=== PATIENT | male | born 1955 | race Caucasian/White ===

== ENCOUNTER 2020-04-14 15:15 | Inpatient (IN) | payer MEDICARE, BC, OTHER ==
[~2020-04-14] VITALS: Ht 177.8 cm; Wt 93.0 kg
[~2020-04-14 15:15] MED LIST: CULTURELLE1 EACH PO; FOLIC ACID1 MG PO; IRON PO; KRILL OIL 1,001 EACH; LISINOPRIL10 MG PO; METHOTREXATE2.5 MG PO; METHYLPREDNISOLO4 MG PO; MULTI-DAY VITA1 EACH; NABUMETONE750 MG PO; NORCO 10-325 T1 EACH PO; VITAMIN C1000 M1; VITAMIN D-32000 UNIT PO; VITAMIN E400 UNI2 PO
--- NOTE | 2020-04-14 15:28 | NUR ---
ORDERS PLACED PER VERBAL ORDER OF MD. BEST TWICE.
[2020-04-14] MEDS ORDERED: ACETAMINOPHEN 325 MG TAB PO ONE (15:30)
--- NOTE | 2020-04-14 15:35 | Emergency Department Note ---
History of Present Illnes History of Present Illness Chief Complaint: General Medicine Complaints History of Present Illness This is a 64 year old male Chief Complaint Comment RT ARM INJURY S/P FALL TUESDAY IN THE WATER WHILE FISHING. PT STATES FELL ONTO CONCRETE IN WATER. PT WITH ABRASION/WEEPING ULCERATION WOUND TO RT FOREARM AND RED, HOT AND SWOLLEN. +RADIAL PULSE. PT SOMEWHAT ABRUPT IN TRIAGE. +FEVER 102.5. PT STATES TETNAUS SHOT LAST YEAR. 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 Any updates have been documented here. Past Medical History Recent Fever: Yes Clinical Suspicion of Infectio: Yes New/Unexplained Change in Ment: No Past Medical History: Chronic Back Pain, Osteoarthritis Other Medical History: ARTHRITIS Past Surgical History: Back Surgery Other Surgery: R KNEE REPLACEMENT Other Last Tetanus: UNK Review of Systems Review of Systems Constitutional: Reports no symptoms EENTM: Reports no symptoms Cardiovascular: Reports no symptoms Respiratory: Reports no symptoms Gastrointestinal: Reports no symptoms Genitourinary: Reports no symptoms Musculoskeletal: Reports other (R elbow pain) Integumentary: Reports no symptoms Neurological: Reports no symptoms Psychological: Reports no symptoms Endocrine: Reports no symptoms Hematological/Lymphatic: Reports no symptoms Physical Exam Related Data Allergies: Coded Allergies: No Known Allergies (Unverified , 01/30/16) Triage Vital Signs Vital Signs Date Time Temp Pulse Resp B/P (MAP) Pulse Ox O2 Delivery O2 Flow Rate FiO2 04/14/20 15:20 102.5 98 22 120/77 100 Room Air Vital signs reviewed: Yes Physical Exam CONSTITUTIONAL Constitutional: Present well-developed, Present well-nourished HENT HENT: Present normocephalic, Present atraumatic, Present oropharynx clear/moist, Present nose normal HENT L/R: Present left ext ear normal, Present right ext ear normal EYES Eyes: Reports PERRL, Reports conjunctivae normal NECK Neck: Present ROM normal PULMONARY Pulmonary: Present effort normal, Present breath sounds normal CARDIOVASCULAR Cardiovascular: Present regular rhythm, Present heart sounds normal, Present capillary refill normal, Present normal rate GASTROINTESTINAL Abdominal: Present soft, Present nontender, Present bowel sounds normal GENITOURINARY Genitourinary: Present exam deferred SKIN Skin: Present warm, Present dry MUSCULOSKELETAL Musculoskeletal: Present ROM normal NEUROLOGICAL Neurological: Present alert, Present oriented x 3, Present no gross motor or sensory deficits PSYCHOLOGICAL Psychological: Present mood/affect normal, Present judgement normal Assessment & Plan Medical Decision Making MDM 64-year-old male presents for right elbow wound and erythema. He fell 3 days ago while fishing and sustained an injury to his right elbow. He has been able to use it but the pain has been worsening and he has noted some redness and irritation. He is not taking anything at home. Examination shows erythema to the right elbow with skin tears. He is up-to-date on tetanus. He'll require septic workup and broad-spectrum antibiotics were initiated. Sepsis suspected at time of antibiotic order. Lactic acid was repeated if initial >2 30cc/kg crystalloid bolus was not indicated. Given 1L NS Vasopressors were not indicated Patient will require admission for Sepsis 2/2 cellulitis. Discuss[address] patient with Dr[address] Che who have agreed to accept. Patient is appropriate for transfer to floor. Reassessment Reassessment time: 15:34 Reassessment Mild pain, otherwise NAD Assessment & Plan Final Impression: (1) Cellulitis (2) Sepsis Depart Disposition: ADMITTED Last Vital Signs Date Time Temp Pulse Resp B/P (MAP) Pulse Ox O2 Delivery O2 Flow Rate FiO2 04/14/20 15:20 102.5 98 22 120/77 100 Room Air Home Meds Reported Medications Lactobacillus Rhamnosus Gg (CULTURELLE) 1 Each Capsule, 1 TAB PO DAILY 10/19/16 Vitamin E (VITAMIN E) 400 Unit Capsule, 400 INTLU PO DAILY 10/19/16 [Iron] No Conflict Check, 65 MG PO DAILY 10/19/16 Folic Acid (FOLIC ACID) 1 Mg Tablet, 800 MCG PO DAILY, #30 TAB 02/01/16 Lisinopril (LISINOPRIL) 10 Mg Tablet, 10 MG PO DAILY, #30 TAB 02/01/16 Cholecalciferol (Vitamin D3) (VITAMIN D-3) 2,000 Unit Capsule, 1000 MG PO DAILY 02/01/16 Multivitamin (MULTI-DAY VITAMINS) 1 Each Tablet 02/01/16 Ascorbic Acid (VITAMIN C) 1,000 Mg Tab.chew 02/01/16 Krill/Om3/Dha/Epa/Om6/Lip/Astx (KRILL OIL 1,000 MG SOFTGEL) 1 Each Capsule 02/01/16 Medications in the ED Acetaminophen 975 mg ONCE ONCE PO ; Start 04/14/20 at 15:30; Stop 04/14/20 at 15:31 GEOVANI DOSS MD Apr 14, 2020 15:35
[2020-04-14] MEDS ORDERED: PIPERACILLIN/TAZO 4.5 GM 100 ML IV ONE (15:45)
[2020-04-14] MEDS ORDERED: SODIUM CHLORIDE 0.9% 1000ML 1,000 ML IV SCH ×3 (15:45→16:59)
[2020-04-14 15:56] LABS: BASOPHILS # (AUTO) 0.1 (0.0-0.1); BASOPHILS % 0.3 % (0.0-1.0); HEMATOCRIT 37.3 % (38.2-49.6); HEMOGLOBIN 12.3 g/dL (14.0-18.0); LYMPHOCYTES # (AUTO) 1.5 (1.0-3.2); LYMPHOCYTES % 9.1 % (18.0-39.1); MEAN CORPUSCULAR HEMOGLOBIN 35.8 pg (28-32); MEAN CORPUSCULAR VOLUME 108.4 fL (81-99); MONOCYTES # (AUTO) 0.8 (0.2-0.8); MONOCYTES % 4.4 % (4.4-11.3); NEUTROPHILS # (AUTO) 14.1 (2.1-6.9); NEUTROPHILS % 83.2 % (38.7-80.0); PLATELET COUNT 287 x10e3/uL (140-360); RED BLOOD COUNT 3.44 x10e6/uL (4.3-5.7); RED CELL DISTRIBUTION WIDTH 15.8 % (11.7-14.4)
--- OUTSIDE RECORDS SUMMARY | 2020-04-14 16:05 | XMS REPORT ---
Author Author COURTNEY Goldberg Organization [employer] Address Unknown Phone Unavailable Care Team Providers Care Secretary Specialist Name Role Phone New Goldberg CP Unavailable Allergies No Known Allergies Problems Problem Type Condition Code Onset Dates Condition Statu s Problem Olecranon bursitis, right elbow M70.21 Active Problem Abnormal laboratory test R89.9 Act malorie Problem Screening for osteoporosis Z13.820 A ctive Problem Other [facility]current[facility] drug therapy Z79.899 Active Problem Rheumatoid arthritis without rheumatoid factor, multip le sites M06.09 Active Problem Chronic pain G89.29 Active Problem Hip pain, left M25.552 Active Problem Primary osteoarthritis involving multiple joints M15.0 Active Problem Low testosterone in male E29.1 Act malorie Problem Lumbago with sciatica, left side M54.42 Active Problem [facility] 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 Z79.891 Active Problem Neck pain M54.2 Active Medications No Known Medications Results No Known Results Summary Purpose [employer] Submission
--- OUTSIDE RECORDS SUMMARY | 2020-04-14 16:05 | XMS REPORT | Continuity of Care Document ---
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 Active Problem Baldemar Goldberg Rheumatoid arthritis without rheumatoid factor, multiple sites Active Prob jaimee 02/02/2020 Baldemar Goldberg Chronic pain Active Problem 02/02/2020 Baldemar Goldberg Hip pain, left Active Problem 02/02/2020 Baldemar Cheeker Primary osteoarthritis involving multiple joints Active Problem 02/02/2020 Baldemar Cheeker Low testosterone in male Active Problem 02/02/2020 Baldemar Goldberg Lumbago with sciatica, left side Active Problem Baldemar Goldberg 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 Active Problem 02/02/2020 Baldemar Goldberg Neck pain Active Problem 02/02/2020 Baldemar Goldberg Opiate use Active Diagnosis 05/12/2018 Baldemar Goldberg Long-term (current) use of other medicat ions - High Risk Active Prob jaimee 01/11/2015 Baldemar Cheeker Osteopenia Active Problem 01/11/2015 Baldemar Cheeker Rheumatoid arthritis Active Problem 01/11/2015 Baldemar Goldberg Pain, back Active Problem 01/11/2015 Baldemar Goldberg Tear of medial cartilage or meniscus of knee, current Active Diagnosis 04/18/2014 Baldemar Goldberg Unspecified drug dependence Ac tive Diagnosis 0 09/12/2014 Baldemar Goldberg Encounter for screening for other disorder Active Diagnosis 04/17/2016 Baldemar Goldberg Iron deficiency anemia, unspecified iron deficiency anemia type Active Prob jaimee 02/02/2020 Baldemar Goldberg Other specified counseling Act malorie Problem Baldemar Yusuf Medications Medication Details Route Status Patient Instructions Ordering Provider Order Date Source Folic Acid 1 tablet Orally Active 1 MG Orally Once a day Taylor 06/24/2020 Baldemar Goldberg Medrol 1 tablet Orally Active 4 MG Orally twice a day Taylor 11/14/2019 Baldemar Yusuf Methotrexate 5 tablets Orally Active 2.5 MG Orally Once a we ek Taylor 09/03/2019 Baldemar Goldberg Medrol 2 tablets Orally Active 4 MG Orally TID Taylor 09/03/2019 Baldemar Goldberg Medrol 1 tablet Orally Active 4 MG Orally twice a day Taylor 04/25/2019 Baldemar Goldberg Tylenol/codeine #4 #30 one tab let orally Active 300-60 mg orally twice a day [place] 02/09/2019 Baldemar Goldberg Medrol 1 tablet Orally Active 4 MG Orally twice a day Taylor 01/20/2019 Baldemar Goldberg Hydrocodone-Acetaminophen 1 ta blet as needed Orally Active 10-325 Orally Three time a day Taylor 08/23/2018 Baldemar Goldberg Folic Acid take three tablets by mouth once daily Orally Active 1MG Orally Once a day Taylor 05/27/2017 Baldemaralix Goldberg Methotrexate 3 tablets orally Active 2.5mg orally q week Taylor 05/27/2017 Baldemaralix Goldberg Medrol 1 tablet with food or m ilk in the morning Orally Active 4 MG Orally q am with food Taylor 05/27/2017 Baldemar Goldberg Hydrocodone-Acetaminophen 1 ta blet as needed Orally Active 10-325 Orally Three time a day Taylor 05/27/2017 Baldemaralix Goldberg Medrol 1 tablet Orally Active 4 MG Orally twice a day Taylor 05/27/2017 Baldemar Goldberg Methotrexate 3 tablets orally Active 2.5mg orally q week Taylor 05/27/2017 Baldemaralix Goldberg Medrol 1 tablet with food or m ilk in the morning Orally Active 4 MG Orally q am with food Taylor 02/25/2017 Baldemar Goldberg MethylPREDNISolone take 1 tabl et Orally Active 4MG Orally Once a day Taylor 08/06/2016 Baldemar Goldberg MethylPREDNISolone take 1 tabl et Orally Active 4MG Orally Once a day Taylor 07/06/2016 Baldemar Goldberg Medrol (Rafa) as directed Orally Active 4 MG Orally as directed Taylor 04/08/2016 Baldemar Goldberg Folic Acid TAKE THREE TABLETS BY MOUTH ONCE DAILY Orally Active 1MG Orally Once a day Taylor 02/11/2016 Baldemar Goldberg Nabumetone take one tablet by mouth twice daily Orally Active 750MG Orally Twice a day Taylor 02/11/2016 Baldemar Goldberg MethylPREDNISolone take 1 tabl et Orally Active 4MG Orally Once a day Taylor 02/11/2016 Baldemar Goldberg Hydrocodone-Acetaminophen 1 ta blet as needed Orally Active 10-325 Orally Three time a day Taylor 02/07/2016 Baldemar Goldberg Nabumetone 1 tablet Orally Active 750MG Orally Twice a da y Taylor 01/08/2016 Baldemaralix Goldberg Medrol (Rafa) as directed Orally Active 4 MG Orally as directed Taylor 01/08/2016 Baldemar Goldberg Folic Acid take three tablets by mouth once daily Orally Active 1MG Orally Once a day Taylor 10/28/2015 Baldemar Cheeker Medrol (Rafa) as directed Orally Active 4 MG Orally as directed Taylor 08/15/2015 Baldemar Goldberg Folic Acid take 3 tablets Orally Active 1MG Orally Once a day [place] 05/13/2015 Baldemar Goldberg MethylPREDNISolone take 1 tabl et Orally Active 4MG Orally Once a day [place] 05/13/2015 Baldemar Goldberg Nabumetone 1 tablet Orally Active 750 MG Orally Twice a d ay Taylor 11/12/2014 Baldemar Goldberg Medrol 1 tablet Orally Active 4 MG Orally Once a day Taylor 07/15/2014 Baldemar Goldberg MethylPREDNISolone as directed Orally Active 4 MG Orally q day Taylor 05/01/2014 Baldemar Goldberg Medrol (Rafa) as directed Orally Active 4 MG Orally Taylor 04/10/2014 Baldemar Goldberg Medrol (Rafa) as directed Orally Active 4 MG Orally as directed [place] 01/16/2014 Baldemar Goldberg Medrol (Rafa) as directed Orally Active 4 MG Orally q day [place] 01/01/2014 Baldemar Goldberg Hydrocodone-Acetaminophen 1 ta blet as needed Orally Active 10-325 Orally Three time a day [facility] Nugenix 2 tablets orally Active orally once a day [facility] Lisinopril 1 tablet Orally Active 10 MG Orally BID [facility] Folic Acid 1 tablet Orally Active 1 MG Orally on hold [facility] Vitamin E 1 capsule Orally Active 400 UNIT Orally once a day [facility] John Multi Men 2 tablets Orally Active Orally once a day [facility] Iron 1 tablet Orally Active 325 (65 Fe) MG Orally o nce a day [facility] Methotrexate 8 tablets orally Active 2.5mg orally q week [facility] Medrol 1 tablet Orally Active 4 MG [facility] B 12 as directed Orally Active 2500 MCG Orally [facility] Vitamin C 1 tablet Orally Active 500 MG Orally once a da y [facility] Multivitamins as directed Orally Active Orally [facility] Vitamin D3 1 capsule Orally Active 1000 UNIT Orally once a day [facility] Krill Oil as directed Orally Active 350 MG Orally once a da y Bannerip Taylor Iron 1 tablet Orally Active 325 (65 Fe) MG Orally o n hold [facility] Lisinopril 1 tablet Orally Active 10 MG Orally BID [facility] Vitamin D3 1 capsule Orally Active 1000 UNIT Orally on hol d [facility] Krill Oil as directed Orally Active 350 MG Orally on hold [facility] Folic Acid 1 tablet Orally Active 1 MG Orally on hold [facility] Vitamin C 1 tablet Orally Active 500 MG Orally on hold [facility] Vitamin E 1 capsule Orally Active 400 UNIT Orally on hold [facility] John Multi Men 2 tablets Orally Active Orally once a day [facility] Multivitamins as directed Orally Active Orally on hold [facility] Methotrexate 3 tablets orally Active 2.5mg orally q week [facility] Methotrexate 5 tablets orally Active 2.5mg orally q week [facility] Capron 1 tablet as needed for p ain Orally Active 10-325 MG Orally three times a day [place] Baldemar Goldberg Medrol 1 tablet orally Active 4MG orally once a day [facility] Folic Acid TAKE THREE TABLETS BY MOUTH EVERY DAY [facility] Nabum[facility] 1 tablet Orally Active 750 MG Orally Twice a d ay Taylor Baldemar Cheeker PredniSONE TAKE THREE TABLETS BY MOUTH FOR 5 DAYS, THEN TAKE TWO TABLETS BY MOUTH FOR 5 DAYS, THEN TAKE ONE TABLET BY MOUTH FOR 5 DAYS FOR 15 DAYS NA Active 5MG [place] Baldemar Goldberg Fish oil 1 P O Active 1000 [facility] MethylPREDNISolone TAKE ONE TA BLET BY MOUTH EVERY DAY NA Active 4MG [facility] Vitamin B-12 1 tablet Orally Active 1000 MCG Orally Once a day Yusuf Goldberg Fish Oil 1 capsule Orally Active 300 MG Orally Twice a d ay Jaziel Goldberg Folic Acid TAKE THREE TABLETS BY MOUTH ONCE DAILY NA Active 1M G Yusuf Goldberg Meloxicam 1 tablet Orally Active 15 MG Orally Once a day Yusuf Goldberg Iron 1 tablet Orally Active 325 (65 Fe) MG Orally O nce a day Jaziel Goldberg Meloxicam 1 tablet Orally Active 7.5 MG Orally Once a da y [facility] Goldberg Medrol 1 tablet with food or m ilk in the morning Orally Active 4 MG Orally on hold Yusuf Goldberg Diclofenac Sodium 1 tablet Orally Active 75 MG Orally BID Goldberg Baldemar Goldberg Pantoprazole Sodium 1 tablet Orally Active 40 MG Orally Once a day Goldberg Baldemar Goldberg Diazepam 1 tablet as needed Orally Active 2 MG Orally Twice a day Goldberg Baldemar Goldberg Oxycodone-Acetaminophen 1 tabl et as needed Orally Active 5-325 MG Orally three times a day Yusuf Goldberg Allergies, Adverse Reactions, Alerts Substance Category Reaction Severity Reaction type Status Date Reported Comments Source negra Adverse Reaction Info Not Available Adverse Reaction Active 12/27/2019 Baldemar Goldberg Immunizations No Data Provided for This Section Results No Data Provided for This Section Pathology Reports No Data Provided for This Section Diagnostic Reports No Data Provided for This Section Consultation Notes No Data Provided for This Section Discharge Summaries No Data Provided for This Section History and Physicals No Data Provided for This Section Vital Signs Vital Sign Value Date Comments Source Weight 191.6 09/03/2019 Baldemar Goldberg Height 69 1 Baldemar Cheeker Temperature Oral (F) 97.7 F 09/03/2019 Baldemar Goldberg Heart Rate 68 09/03/2019 Baldemar Goldberg Diastolic (mm Hg) 80 09/03/2019 Baldemar Goldberg Systolic (mm Hg) 148 09/03/2019 Baldemar Goldberg Weight 195.8 05/18/2019 Baldemar Goldberg Height 69 0 05/18/2019 Baldemar Cheeker Temperature Oral (F) 98.6 F 05/18/2019 Baldemar Cheeker Heart Rate 80 05/18/2019 Baldemar Goldberg Diastolic (mm Hg) 84 05/18/2019 Baldemar Goldberg Systolic (mm Hg) 120 05/18/2019 Baldemar Goldberg Weight 200.1 02/09/2019 Baldemar Goldberg Height 69 0 02/09/2019 Baldemar Goldberg Temperature Oral (F) 98.0 F 02/09/2019 Badlemar Goldberg Heart Rate 76 02/09/2019 Baldemar Goldberg Diastolic (mm Hg) 80 02/09/2019 Baldemar Goldberg Systolic (mm Hg) 130 02/09/2019 Baldemar Goldberg Weight 204.0 10/27/2018 Baldemar Goldberg Height 69 0 10/27/2018 Baldemar Goldberg Temperature Oral (F) 97.2 F 10/27/2018 Baldemar Goldberg Heart Rate 72 10/27/2018 Baldemar Goldberg Diastolic (mm Hg) 80 10/27/2018 Baldemar Goldberg Systolic (mm Hg) 124 10/27/2018 Baldemar Goldberg Weight 204.3 07/24/2018 Baldemar Goldberg Height 69 1 09/23/2017 Baldemar Goldberg Temperature Oral (F) 96.9 F 07/24/2018 Baldemar Goldberg Heart Rate 70 07/24/2018 Baldemar Goldberg Diastolic (mm Hg) 76 07/24/2018 Baldemar Goldberg Systolic (mm Hg) 122 07/24/2018 Baldemar Goldberg Weight 198.3 05/05/2018 Baldemar Goldberg Height 69 0 05/05/2018 Baldemar Goldberg Temperature Oral (F) 96.7 F 05/05/2018 Baldemar Goldberg Heart Rate 68 05/05/2018 Baldemar Goldberg Diastolic (mm Hg) 78 05/05/2018 Baldemar Goldberg Systolic (mm Hg) 116 05/05/2018 Baldemar Goldberg Weight 199.4 01/27/2018 Baldemar Goldberg Height 69 0 01/27/2018 Baldemar Goldberg Temperature Oral (F) 97.4 F 01/27/2018 Baldemar Goldberg Heart Rate 74 01/27/2018 Baldemar Goldberg Diastolic (mm Hg) 70 01/27/2018 Baldemar Goldberg Systolic (mm Hg) 112 01/27/2018 Baldemar Goldberg Weight 204 10/28/2017 Baldemar Goldberg Height 69 0 10/28/2017 Baldemar Goldberg Temperature Oral (F) 97.0 F 10/28/2017 Baldemar Goldberg Heart Rate 72 10/28/2017 Baldemar Goldberg Diastolic (mm Hg) 80 10/28/2017 Baldemar Goldberg Systolic (mm Hg) 126 10/28/2017 Baldemar Goldberg Weight 197 05/27/2017 Baldemar Goldberg Height 69 0 05/27/2017 Baldemar Goldberg Temperature Oral (F) 97.4 F 05/27/2017 Baldemar Goldberg Heart Rate 70 05/27/2017 Baldemar Goldberg Diastolic (mm Hg) 74 05/27/2017 Baldemar Goldberg Systolic (mm Hg) 132 05/27/2017 Baldemar Goldberg Systolic (mm Hg) 136 02/25/2017 Baldemar Goldberg Weight 197 02/25/2017 Baldemar Goldberg Height 69 0 02/25/2017 Baldemar Goldberg Temperature Oral (F) 98.7 F 02/25/2017 Baldemar Goldberg Heart Rate 68 02/25/2017 Baldemar Goldberg Diastolic (mm Hg) 76 02/25/2017 Baldemar Goldberg Weight 198 12/10/2016 Baldemar Goldberg Height 69 0 12/10/2016 Baldemar Goldberg Temperature Oral (F) 97.3 F 12/10/2016 Baldemar Goldberg Heart Rate 74 12/10/2016 Baldemar Goldberg Diastolic (mm Hg) 80 12/10/2016 Baldemar Goldberg Systolic (mm Hg) 134 12/10/2016 Baldemar Goldberg Weight 199 10/14/2016 Baldemar Goldberg Height 68.5 10/14/2016 Baldemar Goldberg Temperature Oral (F) 97.9 F 10/14/2016 Baldemar Goldberg Heart Rate 88 10/14/2016 Baldemar Goldberg Diastolic (mm Hg) 78 10/14/2016 Baldemar Goldberg Systolic (mm Hg) 118 10/14/2016 Baldemar Goldberg Weight 200.6 09/01/2016 Baldemar Goldberg Height 68.5 09/01/2016 Baldemar Goldberg Temperature Oral (F) 97.3 F 09/01/2016 Baldemar Goldberg Heart Rate 72 09/01/2016 Baldemar Goldberg Diastolic (mm Hg) 80 09/01/2016 Baldemar Goldberg Systolic (mm Hg) 120 09/01/2016 Baldemar Goldberg Weight 197 07/08/2016 Baldemar Goldberg Height 69 1 09/07/2015 Baldemar Goldberg Temperature Oral (F) 96.7 F 07/08/2016 Baldemar Goldberg Heart Rate 72 07/08/2016 Baldemar Goldberg Diastolic (mm Hg) 60 07/08/2016 Baldemar Goldberg Systolic (mm Hg) 120 07/08/2016 Baldemar Goldberg Weight 209 04/08/2016 Baldemar Goldberg Height 69 0 04/08/2016 Baldemar Goldberg Temperature Oral (F) 97.0 F 04/08/2016 Baldemar Goldberg Heart Rate 80 04/08/2016 Baldemar Goldberg Diastolic (mm Hg) 60 04/08/2016 Baldemar Goldberg Systolic (mm Hg) 116 04/08/2016 Baldemar Goldberg Weight 200 01/08/2016 Baldemar Goldberg Height 70 0 01/08/2016 Baldemar Goldberg Temperature Oral (F) 98.1 F 01/08/2016 Baldemar Goldberg Heart Rate 80 01/08/2016 Baldemar Goldberg Diastolic (mm Hg) 78 01/08/2016 Baldemar Goldberg Systolic (mm Hg) 122 01/08/2016 Baldemar Goldberg Weight 209 01/08/2015 Baldemar Goldberg Height 69 0 01/08/2015 Baldemar Goldberg Temperature Oral (F) 96.7 F 01/08/2015 Baldemar Goldberg Heart Rate 76 01/08/2015 Baldemar Goldberg Diastolic (mm Hg) 62 01/08/2015 Baldemar Goldberg Systolic (mm Hg) 126 01/08/2015 Baldemar Goldberg Weight 198 07/09/2014 Baldemar Goldberg Height 69 1 09/08/2013 Baldemar Goldberg Heart Rate 80 07/09/2014 Baldemar Goldberg Diastolic (mm Hg) 80 07/09/2014 Baldemar Goldberg Systolic (mm Hg) 146 07/09/2014 Baldemar Goldberg Weight 204 01/16/2014 Baldemar Goldberg Height 69 0 01/16/2014 Baldemar Goldberg Temperature Oral (F) 96.8 F 01/16/2014 Baldemar Goldberg Heart Rate 68 01/16/2014 Baldemar Goldberg Diastolic (mm Hg) 82 01/16/2014 Baldemar Goldberg Systolic (mm Hg) 142 01/16/2014 Baldemar Goldberg Weight 200 01/01/2014 Baldemar Goldberg Height 69 0 01/01/2014 Baldemar Goldberg Temperature Oral (F) 96.7 F 01/01/2014 Baldemar Goldberg Heart Rate 80 01/01/2014 Baldemar Goldberg Diastolic (mm Hg) 80 01/01/2014 Baldemar Goldberg Systolic (mm Hg) 120 01/01/2014 Badlemar Goldberg Encounters Location Location Details Encounter Type Encounter Number Reason For Visit Attending Provider ADM Date DC Date Status Source New Goldberg MD 4M F/U [id number] 01/02/20 14 01/01/2014 Baldemar Goldberg MD 4M F/U [id number] 01/02/20 14 01/01/2014 Baldemar Goldberg MD 4M F/U [id number] 01/02/20 14 01/01/2014 Baldemar Goldberg MD 4M F/U [id number] 01/02/20 14 01/01/2014 Baldemar Goldberg MD 4M F/U [id number] 01/02/20 14 01/01/2014 Baldemar Goldberg MD 4M F/U [id number] 01/02/20 14 01/01/2014 Baldemar Goldberg MD 4M F/U [id number] 01/02/20 14 01/01/2014 Baldemar Goldberg MD 4M F/U [id number] 01/02/20 14 01/01/2014 Baldemar Goldberg MD 4M F/U [id number] 01/02/20 14 01/01/2014 Baldemar Goldberg MD 4M F/U [id number] 01/02/20 14 01/01/2014 Baldemar Goldberg MD 4M F/U [id number] 01/02/20 14 01/01/2014 Baldemar Goldberg MD 4M F/U [id number] 01/02/20 14 01/01/2014 Baldemar Goldberg MD 4M F/U [id number] 01/02/20 14 01/01/2014 Baldemar Goldberg MD 4M F/U [id number] 01/02/20 14 01/01/2014 Baldemar Goldberg MD 4M F/U [id number] 01/02/20 14 01/01/2014 Baldemar Goldberg MD 4M F/U [id number] 01/02/20 14 01/01/2014 Baldemar Goldberg MD 4M F/U [id number] 01/02/20 14 01/01/2014 Baldemar Goldberg MD 4M F/U [id number] 01/02/20 14 01/01/2014 Baldemar Goldberg MD 4M F/U [id number] 01/02/20 14 01/01/2014 Baldemar Goldberg MD 4M F/U [id number] 01/02/20 14 01/01/2014 Baldemar Goldberg MD 4M F/U [id number] 01/02/20 14 01/01/2014 Baldemar Goldberg MD 4M F/U [id number] 01/02/20 14 01/01/2014 Baldemar Goldberg MD 4M F/U [id number] 01/02/20 14 01/01/2014 Baldemar Goldberg MD 4M F/U [id number] 01/02/20 14 01/01/2014 Baldemar Goldberg MD 4M F/U [id number] 01/02/20 14 01/01/2014 Baldemar Goldberg MD 4M F/U [id number] 01/02/20 14 01/01/2014 Baldemar Goldberg MD 4M F/U [id number] 01/02/20 14 01/01/2014 Baldemar Goldberg MD 4M F/U [id number] 01/02/20 14 01/01/2014 Baldemar Goldberg MD 4M F/U [id number] 01/02/20 14 01/01/2014 Baldemar Goldberg MD 4M F/U [id number] 01/02/20 14 01/01/2014 Baldemar Goldberg MD 4M F/U [id number] 01/02/20 14 01/01/2014 Baldemar Goldberg MD 4M F/U [id number] 01/02/20 14 01/01/2014 Baldemar Goldberg MD 4M F/U [id number] 01/02/20 14 01/01/2014 Baldemar Goldberg MD 4M F/U [id number] 01/02/20 14 01/01/2014 Baldemar Goldberg MD 4M F/U [id number] 01/02/20 14 01/01/2014 Baldemar Goldberg MD 4M F/U [id number] 01/02/20 14 01/01/2014 Baldemar Goldberg MD 4M F/U [id number] 01/02/20 14 01/01/2014 Baldemar Goldberg MD 4M F/U [id number] 01/02/20 14 01/01/2014 Baldemar Goldberg MD 4M F/U [id number] 01/02/20 14 01/01/2014 Baldemar Goldberg MD [facility] update [id number] 01/17/20 14 01/16/2014 Baldemar Goldberg MD Right knee update [id number] 01/17/20 14 01/16/2014 Baldemar Goldberg MD Right knee update [id number] 01/17/20 14 01/16/2014 Baldemar Goldberg MD Right knee update [id number] 01/17/20 14 01/16/2014 Baldemar Goldberg MD Right knee update [id number] 01/17/20 14 01/16/2014 Baldemar Goldberg MD Right knee update [id number] 01/17/20 14 01/16/2014 Baldemar Goldberg MD Right knee update [id number] 01/17/20 14 01/16/2014 Baldemar Goldberg MD Right knee update [id number] 01/17/20 14 01/16/2014 Baldemar Goldberg MD Right knee update [id number] 01/17/20 14 01/16/2014 Baldemar Goldberg MD Right knee update [id number] 01/17/20 14 01/16/2014 Baldemar Goldberg MD Right knee update [id number] 01/17/20 14 01/16/2014 Baldemar Goldberg MD Right knee update [id number] 01/17/20 14 01/16/2014 Baldemar Goldberg MD Right knee update [id number] 01/17/20 14 01/16/2014 Baldemar Goldberg MD Right knee update [id number] 01/17/20 14 01/16/2014 Baldemar Goldberg MD Right knee update [id number] 01/17/20 14 01/16/2014 Baldemar Goldberg MD Right knee update [id number] 01/17/20 14 01/16/2014 Baldemar Goldberg MD Right knee update [id number] 01/17/20 14 01/16/2014 Baldemar Goldberg MD Right knee update [id number] 01/17/20 14 01/16/2014 Baldemar Goldberg MD Right knee update [id number] 01/17/20 14 01/16/2014 Baldemar Goldberg MD Right knee update [id number] 01/17/20 14 01/16/2014 Baldemar Goldberg MD Right knee update [id number] 01/17/20 14 01/16/2014 Baldemar Goldberg MD Right knee update [id number] 01/17/20 14 01/16/2014 Baldemar Goldberg MD Right knee update [id number] 01/17/20 14 01/16/2014 Baldemar Goldberg MD Right knee update [id number] 01/17/20 14 01/16/2014 Baldemar Goldberg MD Right knee update [id number] 01/17/20 14 01/16/2014 Baldemar Goldberg MD Right knee update [id number] 01/17/20 14 01/16/2014 Baldemar Goldberg MD Right knee update [id number] 01/17/20 14 01/16/2014 Baldemar Goldberg MD Right knee update [id number] 01/17/20 14 01/16/2014 Baldemar Goldberg MD Right knee update [id number] 01/17/20 14 01/16/2014 Baldemar Goldberg MD Right knee update [id number] 01/17/20 14 01/16/2014 Baldemar Goldberg MD Right knee update [id number] 01/17/20 14 01/16/2014 Baldemar Goldberg MD Right knee update [id number] 01/17/20 14 01/16/2014 Baldemar Goldberg MD Right knee update [id number] 01/17/20 14 01/16/2014 Baldemar Goldberg MD Right knee update [id number] 01/17/20 14 01/16/2014 Baldemar Goldberg MD Right knee update [id number] 01/17/20 14 01/16/2014 Baldemar Goldberg MD Right knee update [id number] 01/17/20 14 01/16/2014 Baldemar Goldberg MD Right knee update [id number] 01/17/20 14 01/16/2014 Baldemar Goldberg MD Right knee update [id number] 01/17/20 14 01/16/2014 Baldemar Goldberg MD right knee pain [id number] 01/17/20 14 01/16/2014 Baldemar Goldberg MD right knee pain [id number] 01/17/20 14 01/16/2014 Baldemar Goldberg MD right knee pain [id number] 01/17/20 14 01/16/2014 Baldemar Goldberg MD right knee pain [id number] 01/17/20 14 01/16/2014 Baldemar Goldberg MD right knee pain [id number] 01/17/20 14 01/16/2014 Baldemar Goldberg MD right knee pain [id number] 01/17/20 14 01/16/2014 Baldemar Goldberg MD right knee pain [id number] 01/17/20 14 01/16/2014 Baldemar Goldberg MD right knee pain [id number] 01/17/20 14 01/16/2014 Baldemar Goldberg MD right knee pain [id number] 01/17/20 14 01/16/2014 Baldemar Goldberg MD right knee pain [id number] 01/17/20 14 01/16/2014 Baldemar Goldberg MD right knee pain [id number] 01/17/20 14 01/16/2014 Baldemar Goldberg MD right knee pain [id number] 01/17/20 14 01/16/2014 Baldemar Goldberg MD right knee pain [id number] 01/17/20 14 01/16/2014 Baldemar Goldberg MD right knee pain [id number] 01/17/20 14 01/16/2014 Baldemar Goldberg MD right knee pain [id number] 01/17/20 14 01/16/2014 Baldemar Goldberg MD right knee pain [id number]-s2jp-i7tmdb4xm96o 01/17/20 14 01/16/2014 Baldemar Goldberg MD right knee pain [id number] 01/17/20 14 01/16/2014 Baldemar Goldberg MD right knee pain [id number]-e4ew-[id number] 01/17/20 14 01/16/2014 Baldemar Goldberg MD right knee pain [id number] 01/17/20 14 01/16/2014 Baldemar Goldberg MD right knee pain [id number] 01/17/20 14 01/16/2014 Baldemar Goldberg MD right knee pain [id number] 01/17/20 14 01/16/2014 Baldemar Goldberg MD right knee pain [id number] 01/17/20 14 01/16/2014 Baldemar Goldberg MD right knee pain [id number]-[id number] 01/17/20 14 01/16/2014 Baldemar Goldberg MD right knee pain [id number] 01/17/20 14 01/16/2014 Baldemar Goldberg MD right knee pain [id number] 01/17/20 14 01/16/2014 Baldemar Goldberg MD right knee pain [id number] 01/17/20 14 01/16/2014 Baldemar Goldberg MD right knee pain [id number] 01/17/20 14 01/16/2014 Baldemar Goldberg MD right knee pain [id number] 01/17/20 14 01/16/2014 Baldemar Goldberg MD right knee pain [id number] 01/17/20 14 01/16/2014 Baldemar Goldberg MD right knee pain [id number]-[id number] 01/17/20 14 01/16/2014 Baldemar Goldberg MD right knee pain [id number] 01/17/20 14 01/16/2014 Baldemar Goldberg MD right knee pain [id number] 01/17/20 14 01/16/2014 Baldemar Goldberg MD right knee pain [id number] 01/17/20 14 01/16/2014 Baldemar Goldberg MD right knee pain [id number] 01/17/20 14 01/16/2014 Baldemar Goldberg MD right knee pain [id number] 01/17/20 14 01/16/2014 Baldemar Goldberg MD right knee pain [id number] 01/17/20 14 01/16/2014 Baldemar Goldberg MD medrol/refill norco [id number] 02/01/2014 02/01/2014 Baldemar Goldberg MD medrol/refill norco [id number] 02/01/2014 02/01/2014 Baldemar Goldberg MD medrol/refill norco [id number] 02/01/2014 02/01/2014 Baldemar Goldberg MD medrol/refill norco [id number] 02/01/2014 02/01/2014 Baldemar Goldberg MD medrol/refill norco [id number] 02/01/2014 02/01/2014 Baldemar Goldberg MD medrol/refill norco [id number] 02/01/2014 02/01/2014 Baldemar Goldberg MD medrol/refill norco [id number] 02/01/2014 02/01/2014 Baldemar Goldberg MD medrol/refill norco [id number] 02/01/2014 02/01/2014 Baldemar Goldberg MD medrol/refill norco [id number]-2r17z6aze7sa 02/01/2014 02/01/2014 Baldemar Goldberg MD medrol/refill norco [id number] 02/01/2014 02/01/2014 Baldemar Goldberg MD medrol/refill norco [id number]-[id number] 02/01/2014 02/01/2014 Baldemar Goldberg MD medrol/refill norco [id number] 02/01/2014 02/01/2014 Baldemar Goldberg MD medrol/refill norco [id number] 02/01/2014 02/01/2014 Baldemar Goldberg MD medrol/refill norco [id number] 02/01/2014 02/01/2014 Baldemar Goldberg MD medrol/refill norco [id number] 02/01/2014 02/01/2014 Baldemar Goldberg MD medrol/refill norco [id number]-[id number] 02/01/2014 02/01/2014 Baldemar Goldberg MD medrol/refill norco [id number] 02/01/2014 02/01/2014 Baldemar Goldberg MD medrol/refill norco [id number] 02/01/2014 02/01/2014 Baldemar Goldberg MD medrol/refill norco [id number] 02/01/2014 02/01/2014 Baldemar Goldberg MD medrol/refill norco [id number] 02/01/2014 02/01/2014 Baldemar Goldberg MD medrol/refill norco [id number]-[id number] 02/01/2014 02/01/2014 Baldemar Goldberg MD medrol/refill norco [id number] 02/01/2014 02/01/2014 Baldemar Goldberg MD medrol/refill norco [id number]-[id number] 02/01/2014 02/01/2014 Baldemar Goldberg MD medrol/refill norco [id number] 02/01/2014 02/01/2014 Baldemar Goldberg MD medrol/refill norco [id number] 02/01/2014 02/01/2014 Baldemar Goldberg MD medrol/refill norco [id number] 02/01/2014 02/01/2014 Baldemar Goldberg MD medrol/refill norco [id number] 02/01/2014 02/01/2014 Baldemar Goldberg MD medrol/refill norco [id number] 02/01/2014 02/01/2014 Baldemar Goldberg MD medrol/refill norco [id number] 02/01/2014 02/01/2014 Baldemar Goldberg MD medrol/refill norco [id number] 02/01/2014 02/01/2014 Baldemar Goldberg MD medrol/refill norco [id number] 02/01/2014 02/01/2014 Baldemar Goldberg MD medrol/refill norco [id number] 02/01/2014 02/01/2014 Baldemar Goldberg MD medrol/refill norco [id number] 02/01/2014 02/01/2014 Baldemar Goldberg MD medrol/refill norco [id number] 02/01/2014 02/01/2014 Baldemar Goldberg MD medrol/refill norco [id number] 02/01/2014 02/01/2014 Baldemar Goldberg MD medrol/refill norco [id number] 02/01/2014 02/01/2014 Baldemar Goldberg MD Vicodin refill [id number] 02/02/20 14 02/01/2014 Baldemar Goldberg MD Vicodin refill [id number] 02/02/20 14 02/01/2014 Baldemar Goldberg MD Vicodin refill [id number] 02/02/20 14 02/01/2014 Baldemar Goldberg MD Vicodin refill [id number] 02/02/20 14 02/01/2014 Baldemar Goldberg MD Vicodin refill [id number] 02/02/20 14 02/01/2014 Baldemar Goldberg MD Vicodin refill [id number] 02/02/20 14 02/01/2014 Baldemar Goldberg MD Vicodin refill [id number]-w3bd-[id number] 02/02/20 14 02/01/2014 Baldemar Goldberg MD Vicodin refill [id number] 02/02/20 14 02/01/2014 Baldemar Goldberg MD Vicodin refill [id number] 02/02/20 14 02/01/2014 Baldemar Goldberg MD Vicodin refill [id number] 02/02/20 14 02/01/2014 Baldemar Goldberg MD Vicodin refill [id number] 02/02/20 14 02/01/2014 Baldemar Goldberg MD Vicodin refill [id number] 02/02/20 14 02/01/2014 Baldemar Goldberg MD Vicodin refill [id number] 02/02/20 14 02/01/2014 Baldemar Goldberg MD Vicodin refill [id number] 02/02/20 14 02/01/2014 Baldemar Goldberg MD Vicodin refill [id number]-[id number] 02/02/20 14 02/01/2014 Baldemar Goldberg MD Vicodin refill [id number] 02/02/20 14 02/01/2014 Baldemar Goldberg MD Vicodin refill [id number]-dhsq-[id number] 02/02/20 14 02/01/2014 Baldemar Goldberg MD Vicodin refill [id number] 02/02/20 14 02/01/2014 Baldemar Goldberg MD Vicodin refill [id number] 02/02/20 14 02/01/2014 Baldemar Goldberg MD Vicodin refill [id number] 02/02/20 14 02/01/2014 Baldemar Goldberg MD Vicodin refill [id number] 02/02/20 14 02/01/2014 Baldemar Goldberg MD Vicodin refill [id number]-[id number] 02/02/20 14 02/01/2014 Baldemar Goldberg MD Vicodin refill [id number] 02/02/20 14 02/01/2014 Baldemar Goldberg MD Vicodin refill [id number] 02/02/20 14 02/01/2014 Baldemar Goldberg MD Vicodin refill [id number] 02/02/20 14 02/01/2014 Baldemar Goldberg MD Vicodin refill [id number] 02/02/20 14 02/01/2014 Baldemar Goldberg MD Vicodin refill [id number] 02/02/20 14 02/01/2014 Baldemar Goldberg MD Vicodin refill [id number] 02/02/20 14 02/01/2014 Baldemar Goldberg MD Vicodin refill [id number]-[id number] 02/02/20 14 02/01/2014 Baldemar Goldberg MD Vicodin refill [id number] 02/02/20 14 02/01/2014 Baldemar Goldberg MD Vicodin refill [id number] 02/02/20 14 02/01/2014 Baldemar Goldberg MD Vicodin refill [id number] 02/02/20 14 02/01/2014 Baldemar Goldberg MD Vicodin refill [id number] 02/02/20 14 02/01/2014 Baldemar Goldberg MD Vicodin refill [id number] 02/02/20 14 02/01/2014 Baldemar Goldberg MD Vicodin refill [id number] 02/02/20 14 02/01/2014 Baldemar Goldberg MD Vicodin refill [id number] 02/02/20 14 02/01/2014 Baldemar Goldberg MD Vicodin refill [id number] 02/02/20 14 02/01/2014 Baldemar Goldberg MD RIGHT LEG PAIN [id number] 04/09/20 14 04/09/2014 Baldemar Goldberg MD RIGHT LEG PAIN [id number] 04/09/20 14 04/09/2014 Baldemar Goldberg MD RIGHT LEG PAIN [id number] 04/09/20 14 04/09/2014 Baldemar Goldberg MD RIGHT LEG PAIN [id number] 04/09/20 14 04/09/2014 Baldemar Goldberg MD RIGHT LEG PAIN [id number] 04/09/20 14 04/09/2014 Baldemar Goldberg MD RIGHT LEG PAIN [id number]-[id number] 04/09/20 14 04/09/2014 Baldemar Goldberg MD RIGHT LEG PAIN [id number] 04/09/20 14 04/09/2014 Baldemar Goldberg MD RIGHT LEG PAIN [id number] 04/09/20 14 04/09/2014 Baldemar Goldberg MD RIGHT LEG PAIN [id number] 04/09/20 14 04/09/2014 Baldemar Goldberg MD RIGHT LEG PAIN [id number]-[id number] 04/09/20 14 04/09/2014 Baldemar Goldberg MD RIGHT LEG PAIN [id number] 04/09/20 14 04/09/2014 Baldemar Goldberg MD RIGHT LEG PAIN [id number] 04/09/20 14 04/09/2014 Baldemar Goldberg MD RIGHT LEG PAIN [id number] 04/09/20 14 04/09/2014 Baldemar Goldberg MD RIGHT LEG PAIN [id number] 04/09/20 14 04/09/2014 Baldemar Goldberg MD RIGHT LEG PAIN [id number] 04/09/20 14 04/09/2014 Baldemar Goldberg MD RIGHT LEG PAIN [id number] 04/09/20 14 04/09/2014 Baldemar Goldberg MD RIGHT LEG PAIN [id number] 04/09/20 14 04/09/2014 Baldemar Goldberg MD RIGHT LEG PAIN [id number] 04/09/20 14 04/09/2014 Baldemar Goldberg MD RIGHT LEG PAIN [id number]-[id number] 04/09/20 14 04/09/2014 Baldemar Goldberg MD RIGHT LEG PAIN [id number] 04/09/20 14 04/09/2014 Baldemar Goldberg MD RIGHT LEG PAIN [id number] 04/09/20 14 04/09/2014 Baldemar Goldberg MD RIGHT LEG PAIN [id number] 04/09/20 14 04/09/2014 Baldemar Goldberg MD RIGHT LEG PAIN [id number] 04/09/20 14 04/09/2014 Baldemar Goldberg MD RIGHT LEG PAIN [id number] 04/09/20 14 04/09/2014 Baldemar Goldberg MD RIGHT LEG PAIN [id number] 04/09/20 14 04/09/2014 Baldemar Goldberg MD RIGHT LEG PAIN [id number] 04/09/20 14 04/09/2014 Baldemar Goldberg MD RIGHT LEG PAIN [id number]-85k924m9k0m1 04/09/20 14 04/09/2014 Baldemar Goldberg MD RIGHT LEG PAIN [id number] 04/09/20 14 04/09/2014 Baldemar Goldberg MD RIGHT LEG PAIN [id number] 04/09/20 14 04/09/2014 Baldemar Goldberg MD RIGHT LEG PAIN [id number] 04/09/20 14 04/09/2014 Baldemar Goldberg MD RIGHT LEG PAIN [id number]-[id number] 04/09/20 14 04/09/2014 Baldemar Goldberg MD RIGHT LEG PAIN [id number]-[id number] 04/09/20 14 04/09/2014 Baldemar Goldberg MD RIGHT LEG PAIN [id number] 04/09/20 14 04/09/2014 Baldemar Goldberg MD RIGHT LEG PAIN [id number] 04/09/20 14 04/09/2014 Baldemar Goldberg MD something for you [id number]-[id number] 04/09/20 14 04/09/2014 Baldemar Goldberg MD something for you [id number] 04/09/20 14 04/09/2014 Baldemar Goldberg MD something for you [id number] 04/09/20 14 04/09/2014 Baldemar Goldberg MD something for you [id number]-[id number] 04/09/20 14 04/09/2014 Baldemar Goldberg MD something for you [id number]-txw4-m27n5x64c4bw 04/09/20 14 04/09/2014 Baldemar Goldberg MD something for you [id number]-[id number]-[id number] 04/09/20 14 04/09/2014 Baldemar Goldberg MD something for you [id number]-315w-[id number] 04/09/20 14 04/09/2014 Baldemar Goldberg MD something for you [id number]-[id number] 04/09/20 14 04/09/2014 Baldemar Goldberg MD something for you [id number]-ldo5-g3x9270x64i3 04/09/20 14 04/09/2014 Baldemar Goldberg MD something for you [id number]-[id number] 04/09/20 14 04/09/2014 Baldemar Goldberg MD something for you [id number]-54v4nv2327y4 04/09/20 14 04/09/2014 Baldemar Goldberg MD something for you [id number] 04/09/20 14 04/09/2014 Baldemar Goldberg MD something for you [id number] 04/09/20 14 04/09/2014 Baldemar Goldberg MD something for you [id number] 04/09/20 14 04/09/2014 Baldemar Goldberg MD something for you [id number] 04/09/20 14 04/09/2014 Baldemar Goldberg MD something for you [id number] 04/09/20 14 04/09/2014 Baldemar Goldberg MD OV 04/10 Per Yusuf [id number] 04/09/20 14 04/09/2014 Baldemar Goldberg MD OV 04/10 Per Yusuf [id number]-[id number] 04/09/20 14 04/09/2014 Baldemar Goldberg MD OV 04/10 Per Yusuf [id number]-tc85-[id number] 04/09/20 14 04/09/2014 Baldemar Goldberg MD OV 04/10 Per Yusuf [id number] 04/09/20 14 04/09/2014 Baldemar Goldberg MD OV 04/10 Per Yusuf [id number] 04/09/20 14 04/09/2014 Baldemar Goldberg MD OV 04/10 Per Yusuf [id number] 04/09/20 14 04/09/2014 Baldemar Goldberg MD OV 04/10 Per Yusuf [id number]-[id number]-[id number] 04/09/20 14 04/09/2014 Baldemar Goldberg MD OV 04/10 Per Yusuf [id number]-l331-[id number] 04/09/20 14 04/09/2014 Baldemar Goldberg MD OV 04/10 Per Yusuf [id number]-[id number] 04/09/20 14 04/09/2014 Baldemar Goldberg MD OV 04/10 Per Yusuf [id number] 04/09/20 14 04/09/2014 Baldemar Goldberg MD OV 04/10 Per Yusuf [id number]-jy5e-[id number] 04/09/20 14 04/09/2014 Baldemar Goldberg MD OV 04/10 Per Yusuf [id number] 04/09/20 14 04/09/2014 Baldemar Goldberg MD OV 04/10 Per Yusuf [id number] 04/09/20 14 04/09/2014 Baldemar Goldberg MD OV 04/10 Per Yusuf [id number]-bh89-[id number] 04/09/20 14 04/09/2014 Baldemar Goldberg MD OV 04/10 Per Yusuf [id number] 04/09/20 14 04/09/2014 Baldemar Goldberg MD OV 04/10 Per Yusuf [id number] 04/09/20 14 04/09/2014 Baldemar Goldberg MD something for you [id number]-[id number] 04/09/20 14 04/09/2014 Baldemar Goldberg MD something for you [id number] 04/09/20 14 04/09/2014 Baldemar Goldberg MD something for you [id number] 04/09/20 14 04/09/2014 Baldemar Goldberg MD something for you [id number]-[id number] 04/09/20 14 04/09/2014 Baldemar Goldberg MD something for you [id number] 04/09/20 14 04/09/2014 Baldemar Goldberg MD something for you [id number]-[id number] 04/09/20 14 04/09/2014 Baldemar Goldberg MD something for you [id number] 04/09/20 14 04/09/2014 Baldemar Goldberg MD something for you [id number] 04/09/20 14 04/09/2014 Baldemar Goldberg MD something for you [id number] 04/09/20 14 04/09/2014 Baldemar Goldberg MD something for you [id number]-n51hf5s1gc52 04/09/20 14 04/09/2014 Baldemar Goldberg MD something for you [id number] 04/09/20 14 04/09/2014 Baldemar Goldberg MD something for you [id number] 04/09/20 14 04/09/2014 Baldemar Goldberg MD something for you [id number] 04/09/20 14 04/09/2014 Baldemar Goldberg MD something for you [id number] 04/09/20 14 04/09/2014 Baldemar Goldberg MD something for you [id number] 04/09/20 14 04/09/2014 Baldemar Goldberg MD something for you [id number] 04/09/20 14 04/09/2014 Baldemar Goldberg MD something for you [id number] 04/09/20 14 04/09/2014 Baldemar Goldberg MD something for you [id number] 04/09/20 14 04/09/2014 Baldemar Goldberg MD OV 04/10 Per uYsuf [id number] 04/09/20 14 04/09/2014 Baldemar Goldberg MD OV 04/10 Per Yusuf [id number] 04/09/20 14 04/09/2014 Baldemar Goldberg MD OV 04/10 Per Yusuf [id number] 04/09/20 14 04/09/2014 Baldemar Goldberg MD OV 04/10 Per Yusuf [id number] 04/09/20 14 04/09/2014 Baldemar Goldberg MD OV 04/10 Per Yusuf [id number] 04/09/20 14 04/09/2014 Baldemar Goldberg MD OV 04/10 Per Yusuf [id number] 04/09/20 14 04/09/2014 Baldemar Goldberg MD OV 04/10 Per Yusuf [id number] 04/09/20 14 04/09/2014 Baldemar Goldberg MD OV 04/10 Per Yusuf [id number] 04/09/20 14 04/09/2014 Baldemar Goldberg MD OV 04/10 Per Yusuf [id number] 04/09/20 14 04/09/2014 Baldemar Goldberg MD OV 04/10 Per Yusuf [id number] 04/09/20 14 04/09/2014 Baldemar Goldberg MD OV 04/10 Per Yusuf [id number] 04/09/20 14 04/09/2014 Baldemar Goldberg MD OV 04/10 Per Yusuf [id number] 04/09/20 14 04/09/2014 Baldemar Goldberg MD OV 04/10 Per Yusuf [id number] 04/09/20 14 04/09/2014 Baldemar Goldberg MD OV 04/10 Per Yusuf [id number] 04/09/20 14 04/09/2014 Baldemar Goldberg MD OV 04/10 Per Goldberg [id number] 04/09/20 14 04/09/2014 Baldemar Goldberg MD OV 04/10 Per Yusuf [id number] 04/09/20 14 04/09/2014 Baldemar Goldberg MD OV 04/10 Per Yusuf [id number] 04/09/20 14 04/09/2014 Baldemar Goldberg MD OV 04/10 Per Yusuf [id number] 04/09/20 14 04/09/2014 Baldemar Goldberg MD Right leg pain after MDP [id number] 04/16/2014 04/16/2014 Baldemar Goldberg MD Right leg pain after MDP [id number] 04/16/2014 04/16/2014 Baldemar Goldberg MD Right leg pain after MDP [id number] 04/16/2014 04/16/2014 Baldemar Goldberg MD Right leg pain after MDP [id number] 04/16/2014 04/16/2014 Baldemar Goldberg MD Right leg pain after MDP [id number] 04/16/2014 04/16/2014 Baldemar Goldberg MD Right leg pain after MDP [id number] 04/16/2014 04/16/2014 Baldemar Goldberg MD Right leg pain after MDP [id number] 04/16/2014 04/16/2014 Baldemar Goldberg MD Right leg pain after MDP [id number] 04/16/2014 04/16/2014 Baldemar Goldberg MD Right leg pain after MDP [id number] 04/16/2014 04/16/2014 Baldemar Goldberg MD Right leg pain after MDP [id number] 04/16/2014 04/16/2014 Baldemar Goldberg MD Right leg pain after MDP [id number] 04/16/2014 04/16/2014 Baldemar Goldberg MD Right leg pain after MDP [id number] 04/16/2014 04/16/2014 Baldemar Goldberg MD Right leg pain after MDP [id number] 04/16/2014 04/16/2014 Baldemar Goldberg MD Right leg pain after MDP [id number] 04/16/2014 04/16/2014 Baldemar Goldberg MD Right leg pain after MDP [id number] 04/16/2014 04/16/2014 Baldemar Goldberg MD Right leg pain after MDP [id number] 04/16/2014 04/16/2014 Baldemar Goldberg MD Right leg pain after MDP [id number] 04/16/2014 04/16/2014 Baldemar Goldberg MD Right leg pain after MDP [id number] 04/16/2014 04/16/2014 Baldemar Goldberg MD Right leg pain after MDP [id number] 04/16/2014 04/16/2014 Baldemar Goldberg MD Right leg pain after MDP [id number] 04/16/2014 04/16/2014 Baldemar Goldberg MD Right leg pain after MDP [id number] 04/16/2014 04/16/2014 Baldemar Goldberg MD Right leg pain after MDP [id number] 04/16/2014 04/16/2014 Baldemar Goldberg MD Right leg pain after MDP [id number] 04/16/2014 04/16/2014 Baldemar Goldberg MD Right leg pain after MDP [id number] 04/16/2014 04/16/2014 Baldemar Goldberg MD Right leg pain after MDP [id number] 04/16/2014 04/16/2014 Baldemar Goldberg MD Right leg pain after MDP [id number] 04/16/2014 04/16/2014 Baldemar Goldberg MD Right leg pain after MDP [id number] 04/16/2014 04/16/2014 Baldemar Goldberg MD Right leg pain after MDP [id number] 04/16/2014 04/16/2014 Baldemar Goldberg MD Right leg pain after MDP [id number] 04/16/2014 04/16/2014 Baldemar Goldberg MD Right leg pain after MDP [id number] 04/16/2014 04/16/2014 Baldemar Goldberg MD Right leg pain after MDP [id number] 04/16/2014 04/16/2014 Baldemar Goldberg MD Right leg pain after MDP [id number] 04/16/2014 04/16/2014 Baldemar Goldberg MD Right leg pain after MDP [id number] 04/16/2014 04/16/2014 Baldemar Goldberg MD Right leg pain after MDP [id number] 04/16/2014 04/16/2014 Baldemar Goldbegr MD Duplicate- MRI Approval [id number] 04/17/20 14 04/17/2014 Baldemar Goldberg MD Duplicate- MRI Approval [id number] 04/17/20 14 04/17/2014 Baldemar Goldberg MD Duplicate- MRI Approval [id number] 04/17/20 14 04/17/2014 Baldemar Goldberg MD Duplicate- MRI Approval [id number] 04/17/20 14 04/17/2014 Baldemar Goldberg MD Duplicate- MRI Approval [id number] 04/17/20 14 04/17/2014 Baldemar Goldberg MD Duplicate- MRI Approval [id number] 04/17/20 14 04/17/2014 Baldemar Goldberg MD Duplicate- MRI Approval [id number] 04/17/20 14 04/17/2014 Baldemar Goldberg MD Duplicate- MRI Approval [id number] 04/17/20 14 04/17/2014 Baldemar Goldberg MD Duplicate- MRI Approval [id number] 04/17/20 14 04/17/2014 Baldemar Goldberg MD Duplicate- MRI Approval [id number] 04/17/20 14 04/17/2014 Baldemar Goldberg MD Duplicate- MRI Approval [id number] 04/17/20 14 04/17/2014 Baldemar Goldberg MD Duplicate- MRI Approval [id number] 04/17/20 14 04/17/2014 Baldemar Goldberg MD Duplicate- MRI Approval [id number] 04/17/20 14 04/17/2014 Baldemar Goldberg MD Duplicate- MRI Approval [id number] 04/17/20 14 04/17/2014 Baldemar Goldberg MD Duplicate- MRI Approval [id number] 04/17/20 14 04/17/2014 Baldemar Goldberg MD Duplicate- MRI Approval [id number] 04/17/20 14 04/17/2014 Baldemar Goldberg MD Duplicate- MRI Approval [id number] 04/17/20 14 04/17/2014 Baldemar Goldberg MD Duplicate- MRI Approval [id number] 04/17/20 14 04/17/2014 Baldemar Goldberg MD Duplicate- MRI Approval [id number] 04/17/20 14 04/17/2014 Baldemar Goldberg MD Duplicate- MRI Approval [id number] 04/17/20 14 04/17/2014 Baldemar Goldberg MD Duplicate- MRI Approval [id number] 04/17/20 14 04/17/2014 Baldemar Goldberg MD Duplicate- MRI Approval [id number] 04/17/20 14 04/17/2014 Baldemar Goldberg MD Duplicate- MRI Approval [id number] 04/17/20 14 04/17/2014 Baldemar Goldberg MD Duplicate- MRI Approval [id number] 04/17/20 14 04/17/2014 Baldemar Goldberg MD Duplicate- MRI Approval [id number] 04/17/20 14 04/17/2014 Baldemar Goldberg MD Duplicate- MRI Approval [id number] 04/17/20 14 04/17/2014 Baldemar Goldberg MD Duplicate- MRI Approval [id number] 04/17/20 14 04/17/2014 Baldemar Goldberg MD Duplicate- MRI Approval [id number] 04/17/20 14 04/17/2014 Baldemar Goldberg MD Duplicate- MRI Approval [id number] 04/17/20 14 04/17/2014 Baldemar Goldberg MD Duplicate- MRI Approval [id number] 04/17/20 14 04/17/2014 Baldemar Goldberg MD Duplicate- MRI Approval [id number] 04/17/20 14 04/17/2014 Baldemar Goldberg MD Duplicate- MRI Approval [id number] 04/17/20 14 04/17/2014 Baldemar Goldberg MD Duplicate- MRI Approval [id number] 04/17/20 14 04/17/2014 Baldemar Goldberg MD [facility] Approval [id number] 04/17/20 14 04/17/2014 Baldemar Goldberg MD earlier appt [id number] 05/07/20 14 05/07/2014 Baldemar Goldberg MD earlier appt [id number] 05/07/20 14 05/07/2014 Baldemar Goldberg MD earlier appt [id number] 05/07/20 14 05/07/2014 Baldemar Goldberg MD earlier appt [id number] 05/07/20 14 05/07/2014 Baldemar Goldberg MD earlier appt [id number]-677r-wo8t40250q5w 05/07/20 14 05/07/2014 Baldemar Goldberg MD earlier appt [id number]-[id number]-3nf4-xduopexc70r0 05/07/20 14 05/07/2014 Baldemar Goldberg MD earlier appt [id number] 05/07/20 14 05/07/2014 Baldemar Goldberg MD earlier appt [id number] 05/07/20 14 05/07/2014 Baldemar Goldberg MD earlier appt [id number] 05/07/20 14 05/07/2014 Baldemar Goldberg MD earlier appt [id number]-[id number] 05/07/20 14 05/07/2014 Baldemar Goldberg MD earlier appt [id number] 05/07/20 14 05/07/2014 Baldemar Goldberg MD earlier appt [id number]-[id number] 05/07/20 14 05/07/2014 Baldemar Goldberg MD earlier appt [id number]-[id number] 05/07/20 14 05/07/2014 Baldemar Goldberg MD earlier appt [id number]-[id number] 05/07/20 14 05/07/2014 Baldemar Goldberg MD earlier appt [id number]-[id number] 05/07/20 14 05/07/2014 Baldemar Goldberg MD earlier appt [id number]-[id number] 05/07/20 14 05/07/2014 Baldemar Goldberg MD earlier appt [id number]-[id number] 05/07/20 14 05/07/2014 Baldemar Goldberg MD earlier appt [id number]-[id number] 05/07/20 14 05/07/2014 Baldemar Goldberg MD earlier appt [id number]-[id number] 05/07/20 14 05/07/2014 Baldemar Goldberg MD earlier appt [id number] 05/07/20 14 05/07/2014 Baldemar Goldberg MD earlier appt [id number] 05/07/20 14 05/07/2014 Baldemar Goldberg MD earlier appt [id number] 05/07/20 14 05/07/2014 Baldemar Goldberg MD earlier appt [id number] 05/07/20 14 05/07/2014 Baldemar Goldberg MD earlier appt [id number] 05/07/20 14 05/07/2014 Baldemar Goldberg MD earlier appt [id number] 05/07/20 14 05/07/2014 Baldemar Goldberg MD earlier appt [id number]-bq9p-s84n52zo7a11 05/07/20 14 05/07/2014 Baldemar Goldberg MD earlier appt [id number]-[id number] 05/07/20 14 05/07/2014 Baldemar Goldberg MD earlier appt [id number]-[id number] 05/07/20 14 05/07/2014 Baldemar Goldberg MD earlier appt [id number]-n3w3-3u3tbjc8n634 05/07/20 14 05/07/2014 Baldemar Goldberg MD DEXA [id number] 05/08/2014 05/08/2014 Baldemar Goldberg MD DEXA [id number] 05/08/2014 05/08/2014 Baldemar Goldberg MD DEXA [id number] 05/08/2014 05/08/2014 Baldemar Goldberg MD DEXA [id number] 05/08/2014 05/08/2014 Baldemar Goldberg MD DEXA [id number] 05/08/2014 05/08/2014 Baldemar Goldberg MD DEXA [id number] 05/08/2014 05/08/2014 Baldemar Goldberg MD DEXA [id number] 05/08/2014 05/08/2014 Baldemar Goldberg MD DEXA [id number] 05/08/2014 05/08/2014 Baldemar Goldberg MD DEXA [id number] 05/08/2014 05/08/2014 Baldemar Goldberg MD DEXA [id number] 05/08/2014 05/08/2014 Baldemar Goldberg MD DEXA [id number] 05/08/2014 05/08/2014 Baldemar Goldberg MD DEXA [id number] 05/08/2014 05/08/2014 Baldemar Goldberg MD DEXA [id number] 05/08/2014 05/08/2014 Baldemar Goldberg MD DEXA [id number] 05/08/2014 05/08/2014 Baldemar Goldberg MD DEXA [id number] 05/08/2014 05/08/2014 Baldemar Goldberg MD DEXA [id number] 05/08/2014 05/08/2014 Baldemar Goldberg MD DEXA [id number] 05/08/2014 05/08/2014 Baldemar Goldberg MD DEXA [id number] 05/08/2014 05/08/2014 Baldemar Goldberg MD DEXA [id number] 05/08/2014 05/08/2014 Baldemar Goldberg MD DEXA [id number] 05/08/2014 05/08/2014 Baldemar Goldberg MD DEXA [id number] 05/08/2014 05/08/2014 Baldemar Goldberg MD DEXA [id number] 05/08/2014 05/08/2014 Baldemar Goldberg MD DEXA [id number] 05/08/2014 05/08/2014 Baldemar Goldberg MD DEXA [id number] 05/08/2014 05/08/2014 Baldemar Goldberg MD DEXA [id number] 05/08/2014 05/08/2014 Baldemar Goldberg MD DEXA [id number] 05/08/2014 05/08/2014 Baldemar Goldberg MD DEXA [id number] 05/08/2014 05/08/2014 Baldemar Goldberg MD DEXA [id number] 05/08/2014 05/08/2014 Baldemar Goldberg MD DEXA [id number] 05/08/2014 05/08/2014 Baldemar Goldberg MD PT call [id number]-d6s25mj3y2l8 06/14/20 14 06/14/2014 Baldemar Goldberg MD PT call [id number] 06/14/20 14 06/14/2014 Baldemar Goldberg MD PT call [id number]-[id number] 06/14/20 14 06/14/2014 Baldemar Goldberg MD PT call [id number] 06/14/20 14 06/14/2014 Baldemar Goldberg MD PT call [id number]-d32x-[id number] 06/14/20 14 06/14/2014 Baldemar Goldberg MD PT call [id number]-pk4x-[id number]-[id number] 06/14/20 14 06/14/2014 Baldemar Goldberg MD PT call [id number] 06/14/20 14 06/14/2014 Baldemar Goldberg MD PT call [id number] 06/14/20 14 06/14/2014 Baldemar Goldberg MD PT call [id number] 06/14/20 14 06/14/2014 Baldemar Goldberg MD PT call [id number] 06/14/20 14 06/14/2014 Baldemar Goldberg MD PT call [id number]-shg5-79hh-52di-5jba8bgbw00c 06/14/20 14 06/14/2014 Baldemar Goldberg MD PT call [id number]-vxjt-7gab-24l3-f75y9i53n7b0 06/14/20 14 06/14/2014 Baldemar Goldberg MD PT call [id number] 06/14/20 14 06/14/2014 Baldemar Goldberg MD PT call [id number] 06/14/20 14 06/14/2014 Baldemar Goldberg MD PT call [id number] 06/14/20 14 06/14/2014 Baldemar Goldberg MD PT call [id number]-[id number] 06/14/20 14 06/14/2014 Baldemar Goldberg MD PT call [id number] 06/14/20 14 06/14/2014 Baldemar Goldberg MD PT call [id number] 06/14/20 14 06/14/2014 Baldemar Goldberg MD PT call [id number] 06/14/20 14 06/14/2014 Baldemar Goldberg MD PT call [id number]-[id number] 06/14/20 14 06/14/2014 Baldemar Goldberg MD PT call [id number] 06/14/20 14 06/14/2014 Baldemar Goldberg MD PT call [id number] 06/14/20 14 06/14/2014 Baldemar Goldberg MD PT call [id number]-dquq-[id number] 06/14/20 14 06/14/2014 Baldemar Goldberg MD PT call [id number] 06/14/20 14 06/14/2014 Baldemar Goldberg MD PT call [id number] 06/14/20 14 06/14/2014 Baldemar Goldberg MD PT call [id number] 06/14/20 14 06/14/2014 Baldemar Goldberg MD PT call [id number] 06/14/20 14 06/14/2014 Baldemar Goldberg MD Triplicate-- Hydrocodone [id number]-d408-kki02cfz1ws7 07/01/2014 07/01/2014 Baldemar Goldberg MD Triplicate-- Hydrocodone [id number] 07/01/2014 07/01/2014 Baldemar Goldberg MD Triplicate-- Hydrocodone [id number]-9079-26i6-snlu-1298fy81j87i 07/01/2014 07/01/2014 Baldemar Goldberg MD Triplicate-- Hydrocodone [id number]-zxdy-8818q9251h8o 07/01/2014 07/01/2014 Baldemar Goldberg MD Triplicate-- Hydrocodone [id number]-029w-4368-r0j1uor41k10 07/01/2014 07/01/2014 aBldemar Goldberg MD Triplicate-- Hydrocodone [id number]-[id number]-a971ie25z74e 07/01/2014 07/01/2014 Baldemar Goldberg MD Triplicate-- Hydrocodone 87o94ni3-l2l6-6zm2-63db-1o25gwdjgi0n 07/01/2014 07/01/2014 Baldemar Goldberg MD Triplicate-- Hydrocodone [id number]-y021-04at-j65h-413bk2357h73 07/01/2014 07/01/2014 Baldemar Goldberg MD Triplicate-- Hydrocodone [id number]-vl5c-221m-[id number] 07/01/2014 07/01/2014 Baldemar Goldberg MD Triplicate-- Hydrocodone [id number]-[id number]-j21d-[id number] 07/01/2014 07/01/2014 Baldemar Goldberg MD Triplicate-- Hydrocodone [id number]-5s37-1mj2-u5s9-7318r29bqo0u 07/01/2014 07/01/2014 Baldemar Goldberg MD Triplicate-- Hydrocodone [id number]-[id number] 07/01/2014 07/01/2014 Baldemar Goldberg MD Triplicate-- Hydrocodone [id number]-pn32-46j5-b92w-[id number] 07/01/2014 07/01/2014 Baldemar Goldberg MD Triplicate-- Hydrocodone [id number]-54no-70je-6812-70887in78408 07/01/2014 07/01/2014 Baldemar Goldberg MD Triplicate-- Hydrocodone [id number]-[id number]-[id number] 07/01/2014 07/01/2014 Baldemar Goldberg MD Triplicate-- Hydrocodone [id number]-hf62-7e51-[id number] 07/01/2014 07/01/2014 Baldemar Goldberg MD Triplicate-- Hydrocodone [id number]-3492-5w69-3459-c11296wa1932 07/01/2014 07/01/2014 Baldemar Goldberg MD Triplicate-- Hydrocodone [id number]-6m3y-5t6zq5b80rh3 07/01/2014 07/01/2014 Baldemar Goldberg MD Triplicate-- Hydrocodone [id number]-o39q-[id number] 07/01/2014 07/01/2014 Baldemar Goldberg MD Triplicate-- Hydrocodone [id number]-9r82os5f711n 07/01/2014 07/01/2014 Baldemar Goldberg MD Triplicate-- Hydrocodone 6h53e7fk-ky6u-37n1-7lg1-38pu0a30qpx1 07/01/2014 07/01/2014 Baldemar Goldberg MD Triplicate-- Hydrocodone mphkf03v-zdh2-4833-s619-[id number] 07/01/2014 07/01/2014 Baldemar Goldberg MD Triplicate-- Hydrocodone [id number]-[id number] 07/01/2014 07/01/2014 Baldemar Goldberg MD Triplicate-- Hydrocodone [id number]-c7i8-69p1-1j28-f19520boiuk6 07/01/2014 07/01/2014 Baldemar Goldberg MD Triplicate-- Hydrocodone [id number]g327d78 07/01/2014 07/01/2014 Baldemar Goldberg MD Triplicate-- Hydrocodone [id number]-d3hl-9ira-14a3-4a94m232pkeq 07/01/2014 07/01/2014 Baldemar Goldberg MD DEXA [id number] 07/04/2014 07/04/2014 Baldemar Goldberg MD DEXA [id number] 07/04/2014 07/04/2014 Baldemar Goldberg MD DEXA [id number] 07/04/2014 07/04/2014 Baldemar Goldberg MD DEXA [id number] 07/04/2014 07/04/2014 Baldemar Goldberg MD DEXA [id number] 07/04/2014 07/04/2014 Baldemar Goldberg MD DEXA [id number] 07/04/2014 07/04/2014 Baldemar Goldberg MD DEXA [id number] 07/04/2014 07/04/2014 Baldemar Goldberg MD DEXA [id number]-[id number] 07/04/2014 07/04/2014 Baldemar Goldberg MD DEXA [id number] 07/04/2014 07/04/2014 Baldemar Goldberg MD DEXA [id number] 07/04/2014 07/04/2014 Baldemar Goldberg MD DEXA [id number] 07/04/2014 07/04/2014 Baldemar Goldberg MD DEXA [id number] 07/04/2014 07/04/2014 Baldemar Goldberg MD DEXA [id number] 07/04/2014 07/04/2014 Baldemar Goldberg MD DEXA [id number] 07/04/2014 07/04/2014 Baldemar Goldberg MD DEXA [id number] 07/04/2014 07/04/2014 Baldemar Goldberg MD DEXA [id number] 07/04/2014 07/04/2014 Baldemar Goldberg MD DEXA [id number] 07/04/2014 07/04/2014 Baldemar Goldberg MD DEXA [id number] 07/04/2014 07/04/2014 Baldemar Goldberg MD DEXA [id number] 07/04/2014 07/04/2014 Baldemar Goldberg MD DEXA [id number] 07/04/2014 07/04/2014 Baldemar Goldberg MD DEXA [id number] 07/04/2014 07/04/2014 Baldemar Goldberg MD DEXA [id number]-[id number] 07/04/2014 07/04/2014 Baldemar Goldberg MD DEXA [id number] 07/04/2014 07/04/2014 Baldemar Goldberg MD DEXA [id number] 07/04/2014 07/04/2014 Baldemar Goldberg MD DEXA [id number] 07/04/2014 07/04/2014 Baldemar Goldberg MD MRI Bi Wrist [id number] 07/05/20 14 07/05/2014 Baldemar Goldberg MD MRI Bi Wrist [id number] 07/05/20 14 07/05/2014 Baldemar Goldberg MD MRI Bi Wrist [id number] 07/05/20 14 07/05/2014 Baldemar Goldberg MD MRI Bi Wrist [id number] 07/05/20 14 07/05/2014 Baldemar Goldberg MD MRI Bi Wrist [id number] 07/05/20 14 07/05/2014 Baldemar Goldberg MD MRI Bi Wrist [id number] 07/05/20 14 07/05/2014 Baldemar Goldberg MD MRI Bi Wrist [id number] 07/05/20 14 07/05/2014 Baldemar Goldberg MD MRI Bi Wrist [id number] 07/05/20 14 07/05/2014 Baldemar Goldberg MD MRI Bi Wrist [id number] 07/05/20 14 07/05/2014 Baldemar Goldberg MD MRI Bi Wrist [id number] 07/05/20 14 07/05/2014 Baldemar Goldberg MD MRI Bi Wrist [id number] 07/05/20 14 07/05/2014 Baldemar Goldberg MD MRI Bi Wrist [id number] 07/05/20 14 07/05/2014 Baldemar Goldberg MD MRI Bi Wrist [id number] 07/05/20 14 07/05/2014 Baldemar Goldberg MD MRI Bi Wrist [id number] 07/05/20 14 07/05/2014 Baldemar Goldberg MD MRI Bi Wrist [id number] 07/05/20 14 07/05/2014 Baldemar Goldberg MD MRI Bi Wrist [id number] 07/05/20 14 07/05/2014 Baldemar Goldberg MD MRI Bi Wrist [id number] 07/05/20 14 07/05/2014 Baldemar Goldberg MD MRI Bi Wrist [id number] 07/05/20 14 07/05/2014 Baldemar Goldberg MD MRI Bi Wrist [id number]-005a-o86d-q4q9dor90k05 07/05/20 14 07/05/2014 Baldemar Goldberg MD MRI Bi Wrist [id number]-jkrf-[id number] 07/05/20 14 07/05/2014 Baldemar Goldberg MD MRI Bi Wrist w8m4y3l6-6jfu-80cc-ag33-aqj125c8e81v 07/05/20 14 07/05/2014 Baldemar Goldberg MD MRI Bi Wrist [id number]-67uc-69y4-795n-577517q6n06r 07/05/20 14 07/05/2014 Baldemar Goldberg MD MRI Bi Wrist q819oqt1-1q55-639d-i7ip-p553s7nmj851 07/05/20 14 07/05/2014 Baldemar Goldberg MD 4M F/U 7vg6p4zu-0433-37tt-0h6m-5bb3xx1jc123 07/09/20 14 07/09/2014 Baldemar Goldberg MD 4M F/U [id number]-4ue9-zx25-4993z6i7kx21 07/09/20 14 07/09/2014 Baldemar Goldberg MD 4M F/U [id number]-t455-587y53q3wql1 07/09/20 14 07/09/2014 Baldemar Goldberg MD 4M F/U [id number]-565h-ent4-[id number] 07/09/20 14 07/09/2014 Baldemar Goldberg MD 4M F/U [id number]-bo175y0j49o6 07/09/20 14 07/09/2014 Baldemar Goldberg MD 4M F/U ox216b15-a8t4-672w-t4c4-819y731x07q0 07/09/20 14 07/09/2014 Baldemar Goldberg MD 4M F/U 5h49xsu4-pxe3-49bi-840z-rb1i651phl36 07/09/20 14 07/09/2014 Baldemar Goldberg MD 4M F/U 2bk14v82-634w-3d74-6035-bye409676az0 07/09/20 14 07/09/2014 Baldemar Goldberg MD 4M F/U t12w1bvi-997a-4648-350m-9y0i841jk988 07/09/20 14 07/09/2014 Baldemar Goldberg MD 4M F/U [id number]-asb3-zie87446r599 07/09/20 14 07/09/2014 Baldemar Goldberg MD 4M F/U [id number]-s596-9c43-di91-[id number] 07/09/20 14 07/09/2014 Baldemar Goldberg MD 4M F/U 4p55j068-zs30-0qsg-5v5w-60gkza52v1d7 07/09/20 14 07/09/2014 Baldemar Goldberg MD 4M F/U [id number]-47z8n31163x1 07/09/20 14 07/09/2014 Baldemar Goldberg MD 4M F/U jifmz6j6-4794-4k63-xb7r-7754005jc250 07/09/20 14 07/09/2014 Baldemar Goldberg MD 4M F/U vi44p7tk-8vh4-7716-218z-2kdv311yz520 07/09/20 14 07/09/2014 Baldemar Goldberg MD 4M F/U jsa0au78-l3gd-4dx4-cel8-2y881f5n6717 07/09/20 14 07/09/2014 Baldemar Goldberg MD 4M F/U [id number]-0c00-9h9r15wlwmc4 07/09/20 14 07/09/2014 Baldemar Goldberg MD [facility] [id number]-[id number] 07/15/20 14 07/15/2014 Baldemar Goldberg MD swelling [id number]-77vf-5qkh-z9bx-087f3h202287 07/15/20 14 07/15/2014 Baldemar Goldberg MD swelling [id number]-n563-74797k76l377 07/15/20 14 07/15/2014 Baldemar Goldberg MD swelling [id number]-z5db-0681-75li-p0l9015ql94c 07/15/20 14 07/15/2014 Baldemar Goldberg MD swelling 97410tp9-801t-842f-8qgh-8jq840i13u32 07/15/20 14 07/15/2014 Baldemar Goldberg MD swelling 4l6205q2-795m-682q-0038-m539c9iaf6ri 07/15/20 14 07/15/2014 Baldemar Goldberg MD swelling n5cuxmf3-c1ot-68m5-re0s-4r31jd8157k2 07/15/20 14 07/15/2014 Baldemar Goldberg MD swelling qt530733-k17j-0pv6-tar4-tu0d587199o1 07/15/20 14 07/15/2014 Baldemar Goldberg MD swelling 62mkk590-4o59-5c3v-67o1-413y76569s59 07/15/20 14 07/15/2014 Baldemar Goldberg MD swelling i0s1800q-8vo4-5e5u-e0a2-y243w977o857 07/15/20 14 07/15/2014 Baldemar Goldberg MD swelling 2p0327nf-085q-30b7-p5iy-0g9a4e640631 07/15/20 14 07/15/2014 Baldemar Goldberg MD swelling u93xyg5i-60z8-3q6n-qc29-3053k95658jl 07/15/20 14 07/15/2014 Baldemar Goldberg MD swelling 71u23653-eav6-1cm3-ku39-5f9d79du6h6i 07/15/20 14 07/15/2014 Baldemar Goldberg MD swelling ozzv9ylg-2ehm-5p90-i80l-sm5357850qew 07/15/20 14 07/15/2014 Baldemar Goldberg MD swelling r8vq7wif-b80s-6w9k-08fn-27303o4sm647 07/15/20 14 07/15/2014 Baldemar Goldberg MD swelling 45u1hre3-jos1-5mm0-627j-3u405i4l8j24 07/15/20 14 07/15/2014 Baldemar Goldberg MD swelling 8v15292k-586m-03r4-482t-g1j2bwz19pjo 07/15/20 14 07/15/2014 Baldemar Goldberg MD swelling 2854625w-t2e4-60c8-u0rz-gu2lu380q825 07/15/20 14 07/15/2014 Baldemar Goldberg MD swelling 108h1r64-74bc-52c6-vc34-l50311mu5h3a 07/15/20 14 07/15/2014 Baldemar Goldberg MD swelling 9crg77x4-y8dd-8f37-7y5c-diq39e595724 07/15/20 14 07/15/2014 Baldemar Goldberg MD swelling s4157ult-7d18-91bb-2120-692ve220r22p 07/15/20 14 07/15/2014 Baldemar Goldberg MD swelling z8yag24p-jjfz-2h30-srs5-p0968b688564 07/15/20 14 07/15/2014 Baldemar Goldberg MD swelling uj505632-17ws-77v7-t3o7-78sz322m8870 07/15/20 14 07/15/2014 Baldemar Goldberg MD swelling [id number]-w7u4-526l-9g14-266u5r3w0f89 07/15/20 14 07/15/2014 Baldemar Goldberg MD meloxicam 70mcl9c7-5784-27f5-9082-wp12m7z52s28 08/07/20 14 08/07/2014 Baldemar Goldberg MD meloxicam d09mrj59-m639-344d-6342-cwsp9entn3o3 08/07/20 14 08/07/2014 Baldemar Goldberg MD meloxicam [id number]-w0mf-993j-0f57-bpp7f7764726 08/07/20 14 08/07/2014 Baldemar Goldberg MD meloxicam 2l50ogc9-81d2-4139-2g44-88p0157624c3 08/07/20 14 08/07/2014 Baldemar Goldberg MD meloxicam ym7m16y7-7uj1-70v1-6e3c-1w0636v8vqem 08/07/20 14 08/07/2014 Baldemar Goldberg MD meloxicam 638178cc-492f-2547-y5d8-y1515o537e29 08/07/20 14 08/07/2014 Baldemar Goldberg MD meloxicam 13rw7708-ihwv-7847-ai6e-98upn31281o7 08/07/20 14 08/07/2014 Baldemar Goldberg MD meloxicam 2g3185wt-i7k5-8f4w-3j94-91bw1j2t1a93 08/07/20 14 08/07/2014 Baldemar Goldberg MD meloxicam sv25a336-4r81-8735-e25z-s0eb18h0h127 08/07/20 14 08/07/2014 Baldemar Goldberg MD meloxicam kn063723-pp63-1u6w-8350-4y5r5301bh2i 08/07/20 14 08/07/2014 Baldemar Goldberg MD meloxicam 315pk428-0r28-386g-31n9-2n304b5438cq 08/07/20 14 08/07/2014 Baldemar Goldberg MD meloxicam 4mb60o17-81hn-2h7y-cy43-n3633362gwm5 08/07/20 14 08/07/2014 Baldemar Goldberg MD meloxicam j865u964-pq63-29zq-xq4m-a326k1296pb7 08/07/20 14 08/07/2014 Baldemar Goldberg MD meloxicam s0470x0b-83uv-2878-2149-ji0deha9154a 08/07/20 14 08/07/2014 Baldemar Goldberg MD meloxicam l71ys2dz-6z75-1a6l-28n7-w09615061l4s 08/07/20 14 08/07/2014 Baldemar Goldberg MD meloxicam 681y00fi-0894-2446-0195-44m95vm3zq3m 08/07/20 14 08/07/2014 Baldemar Goldberg MD meloxicam [id number]-2301-gb29-3781fyr8s372 08/07/20 14 08/07/2014 Baldemar Goldberg MD meloxicam 1528jk03-5j15-463g-r368-s7o8fgv53882 08/07/20 14 08/07/2014 Baldemar Goldberg MD meloxicam 01i5202h-9275-50xp-6462-6o63x834089i 08/07/20 14 08/07/2014 Baldemar Goldberg MD meloxicam 47p80x7w-98h1-88lv-1898-z5kiv17030l0 08/07/20 14 08/07/2014 Baldemar Goldberg MD meloxicam 92g4244p-ej71-7g5s-sxp0-f54kc8582021 08/07/20 14 08/07/2014 Baldemar Goldberg MD meloxicam 66sdp777-jr99-0114-l6yz-x9go09b58952 08/07/20 14 08/07/2014 Baldemar Goldberg MD meloxicam 0df3zqpe-8q6x-1u17-4051-r2770a33as50 08/07/20 14 08/07/2014 Baldemar Goldberg MD Would like a call [id number]-30i0-9j31-k620-l4o27l0o2987 08/12/20 14 08/12/2014 Baldemar Goldberg MD Would like a call l08z99s9-y5j3-901z-w95x-82x4q5w7zlh1 08/12/20 14 08/12/2014 Baldemar Goldberg MD Would like a call [id number]-[id number] 08/12/20 14 08/12/2014 Baldemar Goldberg MD Would like a call msm45074-695x-5300-i360-44464w44ydhv 08/12/20 14 08/12/2014 Baldemar Goldberg MD Would like a call [id number]-v6p5-316a-em06-9s5j92sv018x 08/12/20 14 08/12/2014 Baldemar Goldberg MD Would like a call 1c3c5m02-w0r9-36yz-08dv-11r38624i12n 08/12/20 14 08/12/2014 Baldemar Goldberg MD Would like a call [id number]-4i2va03i8o95 08/12/20 14 08/12/2014 Baldemar Goldberg MD Would like a call [id number]-2c36-2g4xfe8k17e5 08/12/20 14 08/12/2014 Baldemar Goldberg MD Would like a call [id number]-f54r-6k9gjr221lj6 08/12/20 14 08/12/2014 Baldemar Goldberg MD Would like a call [id number]-2458-0v3k-9pfe-39941mkjvy4b 08/12/20 14 08/12/2014 Baldemar Goldberg MD Would like a call fb28m294-c9bj-76u9-6115-35xe44g708w1 08/12/20 14 08/12/2014 Baldemar Goldberg MD Would like a call [id number]-4k7m-337u-2tay-0k32q29a7w9b 08/12/20 14 08/12/2014 Baldemar Goldberg MD Would like a call [id number]-[id number]-uw2lp618o90i 08/12/20 14 08/12/2014 Baldemar Goldberg MD Would like a call [id number] 08/12/20 14 08/12/2014 Baldemar Goldberg MD Would like a call [id number]-w96zbj82op54 08/12/20 14 08/12/2014 Baldemar Goldberg MD Would like a call [id number]-o688-0od640wz67np 08/12/20 14 08/12/2014 Baldemar Goldberg MD Would like a call ui1lz4az-4015-82h1-y048-tpx1p6950l09 08/12/20 14 08/12/2014 Baldemar Goldberg MD Would like a call 03z3e2cu-r1ut-[id number]-61oc842v9e83 08/12/20 14 08/12/2014 Baldemar Goldberg MD Would like a call [id number]-5e7w-h02k-48404h49d0e9 08/12/20 14 08/12/2014 Baldemar Goldberg MD Would like a call [id number]-j9s27xe66xg3 08/12/20 14 08/12/2014 Baldemar Goldberg MD Would like a call [id number]-p6kb-2662-g583-x88p0rvlb51r 08/12/20 14 08/12/2014 Baldemar Goldberg MD Would like a call [id number]-[id number] 08/12/20 14 08/12/2014 Baldemar Goldberg MD Would like a call [id number]-[id number]-[id number] 08/12/20 14 08/12/2014 Baldemar Goldberg MD [facility] Refill due- 08/01/14 [id number]-wyw7-92lx-hv75-653y6lipu49c 08/14/2014 08/14/2014 Baldemar Goldberg MD [facility] Refill due- 08/01/14 [id number]-5195-sn0f-1066s7z87802 08/14/2014 08/14/2014 Baldemar Goldberg MD [facility] Refill due- 08/01/14 [id number]-[id number] 08/14/2014 08/14/2014 Baldemar Goldberg MD [facility] Refill due- 08/01/14 [id number]-r739-3839-i4u5-5j67wep623a7 08/14/2014 08/14/2014 Baldemar Goldberg MD [facility] Refill due- 08/01/14 [id number] 08/14/2014 08/14/2014 Baldemar Goldberg MD [facility] Refill due- 08/01/14 [id number]-0397-p863-y140209ut9s8 08/14/2014 08/14/2014 Baldemar Goldberg MD [facility] Refill due- 08/01/14 6pk6f48k-[id number]-ab1218bvc973 08/14/2014 08/14/2014 Baldemar Goldberg MD Refill [id number]-686e-of4p-mip82l7l7jh9 08/14/20 14 08/14/2014 Baldemar Goldberg MD Refill [id number] 08/14/20 14 08/14/2014 Baldemar Goldberg MD Refill [id number]-[id number] 08/14/20 14 08/14/2014 Baldemar Goldberg MD Refill [id number]-mp23j8c6y1ie 08/14/20 14 08/14/2014 Baldemar Goldberg MD Refill [id number]-jn6y-u3g6s19470c0 08/14/20 14 08/14/2014 Baldemar Goldberg MD Refill [id number] 08/14/20 14 08/14/2014 Baldemar Goldberg MD Refill [id number]-n309-q5362f70irw2 08/14/2008/14/2014 Baldemar Goldberg MD [facility] Refill due- 08/01/14 [id number] 08/14/2014 08/14/2014 Baldemar Goldberg MD [facility] Refill due- 08/01/14 [id number] 08/14/2014 08/14/2014 Baldemar Goldberg MD [facility] Refill due- 08/01/14 [id number]-l7e3-7c8s827142g6 08/14/2014 08/14/2014 Baldemar Goldberg MD [facility] Refill due- 08/01/14 [id number]-p3cvwq8zx3yu 08/14/2014 08/14/2014 Baldemar Goldberg MD [facility] Refill due- 08/01/14 [id number] 08/14/2014 08/14/2014 Baldemar Goldberg MD [facility] Refill due- 08/01/14 8h45s99r-2l6e-8x40-303g-schr76m98w23 08/14/2014 08/14/2014 Baldemar Goldberg MD [facility] Refill due- 08/01/14 [id number]-e0sd-27m3u58lav36 08/14/2014 08/14/2014 Baldemar Goldberg MD [facility] Refill due- 08/01/14 q9ybewz5-u07p-7nz1-fkpq-194g1x3f7bpr 08/14/2014 08/14/2014 Baldemar Goldberg MD [facility] Refill due- 08/01/14 0tjjx031-e5d4-6719-gg9z-w1fft23e2dp4 08/14/2014 08/14/2014 Baldemar Goldberg MD [facility] Refill due- 08/01/14 81il3c4i-u3nl-8355-d739-5w98o96a0l3c 08/14/2014 08/14/2014 Baldemar Goldberg MD [facility] Refill due- 08/01/14 [id number]-0389-3bxp-525l7ci8h91g 08/14/2014 08/14/2014 Baldemar Goldberg MD [facility] Refill due- 08/01/14 [id number]-d10j-553p-9z1p-2mio101ztkb0 08/14/2014 08/14/2014 Baldemar Goldberg MD [facility] Refill due- 08/01/14 [id number]-[id number]-wu3385264m69 08/14/2014 08/14/2014 Baldemar Goldberg MD [facility] Refill due- 08/01/14 [id number] 08/14/2014 08/14/2014 Baldemar Goldberg MD [facility] Refill due- 08/01/14 [id number]-dp1p-0g192150zx0v 08/14/2014 08/14/2014 Baldemar Goldberg MD [facility] Refill due- 08/01/14 84ubbq25-11c5-880x-g2a8-406fz90ik8qw 08/14/2014 08/14/2014 Baldemar Goldberg MD Refill [id number]-[id number]-if2m-ga42m7gb5195 08/14/20 14 08/14/2014 Baldemar Goldberg MD Refill 86t79q10-s6h9-562l-f7la-9w579dk8px04 08/14/20 14 08/14/2014 Baldemar Goldberg MD Refill [id number]-ym4o-8qg9-6rz8-707i183jxf71 08/14/20 14 08/14/2014 Baldemar Goldberg MD Refill [id number]-82ru-9gp7-pv4fxxl75qc2 08/14/20 14 08/14/2014 Baldemar Goldberg MD Refill oik72fr9-70ci-5477-l87q-[id number] 08/14/20 14 08/14/2014 Baldemar Goldberg MD Refill [id number] 08/14/20 14 08/14/2014 Baldemar Goldberg MD Refill [id number]-[id number]-4x9t-v52019750vu9 08/14/20 14 08/14/2014 Baldemar Goldberg MD Refill 88xbs986-50ob-47m0-itlu-gg16b146o4te 08/14/20 14 08/14/2014 Baldemar Goldberg MD Refill [id number]-m1t9-11896dt7aul8 08/14/20 14 08/14/2014 Baldemar Goldberg MD Refill [id number] 08/14/20 14 08/14/2014 Baldemar Goldberg MD Refill [id number]-[id number]-ch1f-c0e713g79ka6 08/14/20 14 08/14/2014 Baldemar Goldberg MD Refill [id number]-[id number]-[id number] 08/14/20 14 08/14/2014 Baldemar Goldberg MD Refill [id number] 08/14/20 14 08/14/2014 Baldemar Goldberg MD Refill [id number] 08/14/20 14 08/14/2014 Baldemar Goldberg MD Refill [id number]-x53r-[id number]-o002-366p51311oc4 08/14/20 14 08/14/2014 Baldemar Goldberg MD Refill 23ms1or8-21s2-3532-o719-029el9i000ml 08/14/20 14 08/14/2014 Baldemar Goldberg MD Elbow [id number]-g833-911o-3c9f-ks0cf2732239 08/15/2014 08/15/2014 Baldemar Goldberg MD Elbow ul2bq9ig-476c-9c03-no06-41i1804p61b7 08/15/2014 08/15/2014 Baldemar Goldberg MD Elbow bb510t22-l2kr-91m2-8n74-ur04582wd714 08/15/2014 08/15/2014 Baldemar Goldberg MD Elbow [id number]-75k5-e6s718q9g19m 08/15/2014 08/15/2014 Baldemar Goldberg MD Elbow y4r76hb7-65g6-8g46-u418-4qb9937735k6 08/15/2014 08/15/2014 Baldemar Goldberg MD Elbow pyre8p3n-87mk-783f-92i9-14v7z59clc7u 08/15/2014 08/15/2014 Baldemar Goldberg MD Elbow [id number]-b040-4191x7ju8l32 08/15/2014 08/15/2014 Baldemar Goldberg MD Elbow [id number]996 08/15/2014 08/15/2014 Baldemar Goldberg MD Elbow [id number]-tnvy-[id number] 08/15/2014 08/15/2014 Baldemar Goldberg MD Elbow [id number]-8uc0-1852-eeg3440w40k1 08/15/2014 08/15/2014 MD Salazar Richey [id number]-4gs3-9t6139h5q9z3 08/15/2014 08/15/2014 Baldemar Goldberg MD Elbow 72u4m98i-3qy5-4fx8-858s-5fv722c1245v 08/15/2014 08/15/2014 MD Salazar Richey [id number]-m609-7r41-w044-p76808b2uc28 08/15/2014 08/15/2014 MD Salazar Richey [id number]-m987-[id number] 08/15/2014 08/15/2014 MD Salazar Richey 7qms35kb-kn17-2366-m652-x3ed845j0w6r 08/15/2014 08/15/2014 MD Salazar Richey vq49yaw7-507z-2r51-i831-2b40g09h4q25 08/15/2014 08/15/2014 Baldemar Goldberg MD Elbow [id number]-211m-ko2e-83928h70wn19 08/15/2014 08/15/2014 Baldemar Goldberg MD Elbow [id number]-gz10-843t-m49y-790l60v3g790 08/15/2014 08/15/2014 Baldemar Goldberg MD Elbow [id number]-[id number] 08/15/2014 08/15/2014 Baldemar Goldberg MD Elbow e98msfxi-8c2n-3540-j707-42y4nzq28410 08/15/2014 08/15/2014 Baldemar Goldberg MD Elbow 45x98tw3-10az-7286-942x-h01u1q4k9o33 08/15/2014 08/15/2014 Baldemar Goldberg MD Elbow [id number]-5r2t-9034-4b50-0496966u7trx 08/15/2014 08/15/2014 Baldemar Goldberg MD Elbow [id number]-c2y7-8u14-kq3b-760x60g46jos 08/15/2014 08/15/2014 Baldemar Goldberg MD Pt. added [id number]-g4z5-9ss0-0u19-z06alqnx9224 09/16/19 15 09/16/2014 Baldemar Goldberg MD Pt. added [id number]-4712-4f44-u052x3km63po 09/16/19 15 09/16/2014 Baldemar Goldberg MD Pt. added [id number]-5159-3r08-5euv6a3jp78k 09/16/19 15 09/16/2014 Baldemar Goldberg MD Pt. added [id number]-t86j-244ei4611g9w 09/16/19 15 09/16/2014 Baldemar Goldberg MD Pt. added [id number]-93jc-525h45biv0jb 09/16/19 15 09/16/2014 Baldemar Goldberg MD Pt. added [id number]-ddcy6478n27w 09/16/19 15 09/16/2014 Baldemar Goldberg MD Pt. added [id number] 09/16/19 15 09/16/2014 Baldemar Goldberg MD Pt. added n214kktv-64ad-6nj5-xt6g-o877x27052xn 09/16/19 15 09/16/2014 Baldemar Goldberg MD Pt. added [id number]-24w1-1i80-tps4-0g9z8f8wem44 09/16/19 15 09/16/2014 Baldemar Goldberg MD Pt. added 47pc0g5j-856t-43o1-766o-505814863oci 09/16/19 15 09/16/2014 Baldemar Goldberg MD Pt. added 6u0e2p08-lxy1-39s8-zceo-31g18a989plh 09/16/19 15 09/16/2014 Baldemar Goldberg MD Pt. added zej0qi18-f6q0-7932-4b4d-9i28r9unk07g 09/16/19 15 09/16/2014 Baldemar Goldberg MD Pt. added gguf297y-14f6-7jie-4951-mv2x713c6h46 09/16/19 15 09/16/2014 Baldemar Glodberg MD Pt. added sv8c8p36-7tr6-6z55-00q8-48d88w70f629 09/16/19 15 09/16/2014 Baldemar Goldberg MD Pt. added wv53h525-9r63-998b-3606-wjpx3ln12w74 09/16/19 15 09/16/2014 Baldemar Goldberg MD Pt. added [id number]-v3se-r11119sph61o 09/16/19 15 09/16/2014 Baldemar Goldberg MD RX [id number]-76n1-8z0e-8y13nuk0bpc9 09/17/2014 09/17/2014 Baldemar Goldberg MD RX [id number]-4894-28mbjt86gd4c 09/17/2014 09/17/2014 Baldemar Goldberg MD RX [id number]-52r6-1727-iuk4-63g4457266r0 09/17/2014 09/17/2014 Baldemar Goldberg MD RX l8n8brc7-37t4-3xbv-j54p-ki4un191gn62 09/17/2014 09/17/2014 Baldemar Goldberg MD RX [id number]-63zl-rrb6-j98b20s592g7 09/17/2014 09/17/2014 Baldemar Goldberg MD RX [id number]-c2p9-23cc-4s3w-h767up8s4441 09/17/2014 09/17/2014 Baldemar Goldberg MD RX [id number] 09/17/2014 09/17/2014 Baldemar Goldberg MD RX [id number]-w08q-536o-s94n-4i5z1gb9y660 09/17/2014 09/17/2014 Baldemar Goldberg MD RX [id number]-m5fxl14k2266 09/17/2014 09/17/2014 Baldemar Goldberg MD RX vlts2kk0-2m5v-1862-3233-70280h9jp092 09/17/2014 09/17/2014 Baldemar Goldberg MD RX [id number]-b9t4e7hso188 09/17/2014 09/17/2014 Baldemar Goldberg MD RX [id number] 09/17/2014 09/17/2014 Baldemar Goldberg MD RX [id number]-raor-38of-0941-mi0o1ztyqg14 09/17/2014 09/17/2014 Baldemar Goldberg MD RX [id number] 09/17/2014 09/17/2014 Baldemar Goldberg MD RX [id number]-z6ou-2544-4i9g-49j9o71j3959 09/17/2014 09/17/2014 Baldemar Goldberg MD RX [id number]-bc00-220w5ehp0d90 10/17/2014 10/17/2014 Baldemar Goldberg MD RX [id number]-m283-n9q81g299x24 10/17/2014 10/17/2014 Baldemar Goldberg MD RX [id number] 10/17/2014 10/17/2014 Baldemar Goldberg MD RX [id number]-347e-2440-73x8-1pev7018c818 10/17/2014 10/17/2014 Baldemar Goldberg MD RX [id number]-359z-3i74m3z2970t 10/17/2014 10/17/2014 Baldemar Goldberg MD RX f27z2d1y-t254-1nk9-9224-i0438g0s5v5v 10/17/2014 10/17/2014 Baldemar Goldberg MD RX [id number]-2000-050k-[id number] 10/17/2014 10/17/2014 Baldemar Goldberg MD RX [id number]-7g3y10n9ei65 10/17/2014 10/17/2014 Baldemar Goldberg MD RX [id number]-9g93-fk75-2808r990x344 10/17/2014 10/17/2014 Baldemar Goldberg MD RX [id number]-02ou-[id number] 10/17/2014 10/17/2014 Baldemar Goldberg MD RX [id number]-9f869i46f75o 10/17/2014 10/17/2014 Baldemar Goldberg MD RX [id number]-b00a-408q46551t2p 10/17/2014 10/17/2014 Baldemar Goldberg MD RX [id number]-5yx7-5phz27q13az8 10/17/2014 10/17/2014 Baldemar Goldberg MD RX [id number] 10/17/2014 10/17/2014 Baldemar Goldberg MD norut refill [id number]-28k151d5w7q8 11/15/19 15 11/14/2014 Baldemar Goldberg MD norut refill [id number]-r74x-d895l1c5696i 11/15/19 15 11/14/2014 Baldemar Goldberg MD norco refill tl7m5383-87iy-7478-6v64-87cu3pjjw65j 11/15/19 15 11/14/2014 Baldemar Goldberg MD norut refill 57d9v6n8-3fjb-30q4-zurh-887o8p207ln1 11/15/19 15 11/14/2014 Baldemar Goldberg MD norut refill [id number]-34p2-1m2ck89xg52h 11/15/19 15 11/14/2014 Baldemar Goldberg MD norco refill 9d20pq2h-cj92-8n35-224n-t5o07a562utl 11/15/19 15 11/14/2014 Baldemar Goldberg MD norco refill 26o99o3t-1qd2-87a1-40s0-82s2m3s3z64v 11/15/19 15 11/14/2014 Baldemar Goldberg MD norco refill [id number]-g11d-4fm7-o195-m2807ar28f95 11/15/19 15 11/14/2014 Baldemar Goldberg MD norco refill [id number]-[id number]-i82y-hdk2ct2n32ip 11/15/19 15 11/14/2014 Baldemar Goldberg MD norco refill [id number]-95f5-r58r-s0o7325j878e 11/15/19 15 11/14/2014 Baldemar Goldberg MD norco refill [id number]-6u61-54m0-vw09-20496izggw0h 11/15/19 15 11/14/2014 Baldemar Goldberg MD norco refill 6i93s629-a72f-2730-u43n-1436p21x46kr 11/15/19 15 11/14/2014 Baldemar Goldberg MD norco refill 8x60x3h9-0352-59ec-8j2w-g1kgh6973i1u 11/15/19 15 11/14/2014 Baldemar Goldberg MD norco refill [id number]-qwsu-v413040oa8jn 11/15/19 15 11/14/2014 Baldemar Goldberg MD norco refill [id number]-k65u-d84015566xd5 11/15/19 15 11/14/2014 Baldemar Goldberg MD 1 MO F/U [id number]-ku5r-4977-14ky-801g72727xs6 12/14/19 15 12/13/2014 Baldemar Goldberg MD 1 MO F/U 5nd56i7h-y324-5xj8-2122-v5nz735375u4 12/14/19 15 12/13/2014 Baldemar Goldberg MD 1 MO F/U [id number]-o163-6825-aw02-au9erk6d24gx 12/14/19 15 12/13/2014 Baldemar Goldberg MD 1 MO F/U [id number]-i9l3-vt36443dm821 12/14/19 15 12/13/2014 Baldemar Goldberg MD 1 MO F/U 2772o7k9-89k2-3a34-2k9t-93e9339863r9 12/14/19 15 12/13/2014 Baldemar Goldberg MD 1 MO F/U 1lp49pd0-d928-726i-h684-1rx00s4p68rm 12/14/19 15 12/13/2014 Baldemar Goldberg MD 1 MO F/U 3t2foy1m-5458-8600-o995-o233a8ri3a9h 12/14/19 15 12/13/2014 Baldemar Goldberg MD 1 MO F/U p9kk8o4a-0i97-597c-08gi-74v98p4e4137 12/14/19 15 12/13/2014 Baldemar Goldberg MD 1 MO F/U 120c809o-11pl-7x2j-u548-n0f2e171299k 12/14/19 15 12/13/2014 Baldemar Goldberg MD 1 MO F/U i0982766-g5z4-0028-d348-7x80760f4kyt 12/14/19 15 12/13/2014 Baldemar Goldberg MD 1 MO F/U 0003zo00-2k32-4212-zp8j-107z13r16296 12/14/19 15 12/13/2014 Baldemar Goldberg MD 1 MO F/U q693k3c9-6497-71p0-8341-e07w645836c3 12/14/19 15 12/13/2014 Baldemar Goldberg MD 1 MO F/U ko6z45yv-e4f3-54u9-d4w1-3476r74a30m6 12/14/19 15 12/13/2014 Baldemar Goldberg MD 1 MO F/U 790g6hs2-yu3h-79c5-11re-9401jn6sp8p8 12/14/19 15 12/13/2014 Baldemar Goldberg MD 1 MO F/U [id number]-6qfl-5455-7gg16bz3pv10 12/14/19 15 12/13/2014 Baldemar Goldberg MD 1 MO F/U 7t3tbu0n-kphn-504a-a453-w4k2xd52y66j 01/09/20 15 01/08/2015 Baldemar Goldberg MD 1 MO F/U juo6s475-6yc5-6b38-48hn-q431io489h07 01/09/20 15 01/08/2015 Baldemar Goldberg MD 1 MO F/U el8k3r81-r9d6-1771-ni3i-0off79y10431 01/09/20 15 01/08/2015 Baldemar Goldberg MD 1 MO F/U 2h10p52b-b4p7-618b-9f02-13k610df01pp 01/09/20 15 01/08/2015 Baldemar Goldberg MD 1 MO F/U 2c2f2544-922t-4743-8258-dhpk2m394e4u 01/09/20 15 01/08/2015 Baldemar Goldberg MD 1 MO F/U 29k5106f-e2t9-0u91-3466-79sp823i69h1 01/09/20 15 01/08/2015 Baldemar Goldberg MD 1 MO F/U 7jw5184y-6372-114f-p9ag-9t5pgpl003g5 01/09/20 15 01/08/2015 Baldemar Goldberg MD 1 MO F/U [id number] 01/09/20 15 01/08/2015 Baldemar Goldberg MD 1 MO F/U yw5i283e-7301-4114-nz81-9i8162833a9q 01/09/20 15 01/08/2015 Baldemar Goldberg MD 1 MO F/U 1h6y78jo-n32p-0770-1423-6x397291lh0t 01/09/20 15 01/08/2015 Baldemar Goldberg MD 1 MO F/U xo50l1e8-3134-7x47-7391-755p70s047i8 01/09/20 15 01/08/2015 Baldemar Goldberg MD 1 MO F/U [id number]-if3o-2283x871ts9m 01/09/20 15 01/08/2015 Baldemar Goldberg MD 1 MO F/U z8h21f2g-96sf-050k-2375-crcw6653359a 01/09/20 15 01/08/2015 Baldemar Goldberg MD 1 MO F/U 7e4by66x-f15e-578y-5592-mb4l2jlt7f98 01/09/20 15 01/08/2015 Baldemar Goldberg MD 1 MO F/U d98k5ri6-2762-646b-97xq-99ldta3d9wh7 01/09/20 15 01/08/2015 Baldemar Goldberg MD MRI 2xmj1043-l1py-51x3-u080-f2i7r4t810x0 01/12/2015 01/12/2015 Baldemar Goldberg MD MRI p5xx8v60-a1dh-4d3v-l2s1-y4ic2en7i072 01/12/2015 01/12/2015 Baldemar Goldberg MD MRI [id number] 01/12/2015 01/12/2015 Baldemar Goldberg MD MRI 663l989u-0q91-80k0-h032-r79j6n1064rr 01/12/2015 01/12/2015 Baldemar Goldberg MD MRI [id number]-n093-16853dtpf154 01/12/2015 01/12/2015 Baldemar Goldberg MD MRI frlb6229-9a25-36p5-j00a-2l9ebhk395y7 01/12/2015 01/12/2015 Baldemar Goldberg MD MRI [id number] 01/12/2015 01/12/2015 Baldemar Goldberg MD MRI [id number] 01/12/2015 01/12/2015 Baldemar Goldberg MD MRI [id number] 01/12/2015 01/12/2015 Baldemar Goldberg MD MRI [id number] 01/12/2015 01/12/2015 Baldemar Goldberg MD MRI [id number] 01/12/2015 01/12/2015 Baldemar Goldberg MD MRI [id number] 01/12/2015 01/12/2015 Baldemar Goldberg MD MRI [id number] 01/12/2015 01/12/2015 Baldemar Goldberg MD MRI [id number] 01/12/2015 01/12/2015 Baldemar Goldberg MD MRI [id number] 01/12/2015 01/12/2015 Baldemar Goldberg MD 1 MO F/U [id number] 02/06/20 15 02/05/2015 Baldemar Goldberg MD 1 MO F/U [id number]-644o-zzcu-042f9693rs9p 02/06/20 15 02/05/2015 Baldemar Goldberg MD 1 MO F/U [id number] 02/06/20 15 02/05/2015 Baldemar Goldberg MD 1 MO F/U [id number] 02/06/20 15 02/05/2015 Baldemar Goldberg MD 1 MO F/U [id number]-660p-2n88-t9c9730d95u4 02/06/20 15 02/05/2015 Baldemar Goldberg MD 1 MO F/U [id number] 02/06/20 15 02/05/2015 Baldemar Goldberg MD 1 MO F/U [id number]-e9r07e979m9h 02/06/20 15 02/05/2015 Baldemar Goldberg MD 1 MO F/U [id number]-sa063n2w5759 02/06/20 15 02/05/2015 Baldemar Goldberg MD 1 MO F/U [id number] 02/06/20 15 02/05/2015 Baldemar Goldberg MD 1 MO F/U 6w537z3p-i026-3oc6-3yi5-8f97i9r495kt 02/06/20 15 02/05/2015 Baldemar Goldberg MD 1 MO F/U p29b76jb-[id number]-np39-3qyd1j72xcw3 02/06/20 15 02/05/2015 Baldemar Goldberg MD 1 MO F/U [id number]-f4c4-5lb2-c56g-co5l71350735 02/06/20 15 02/05/2015 Baldemar Goldberg MD 1 MO F/U [id number]-[id number] 02/06/20 15 02/05/2015 Baldemar Goldberg MD 1 MO F/U 8sydzm43-5364-86vl-0hil-u6118369jgh7 02/06/20 15 02/05/2015 Baldemar Goldberg MD 1 MO F/U nyn5c5y4-4nhn-6s23-z886-xqxs66cm11db 03/10/20 15 03/10/2015 Baldemar Goldberg MD 1 MO F/U [id number]-l92m-bafw0a789d73 03/10/20 15 03/10/2015 Baldemar Goldberg MD 1 MO F/U [id number]-84kx-s7c0-u05844026f3k 03/10/20 15 03/10/2015 Baldemar Goldberg MD 1 MO F/U [id number]-[id number] 03/10/20 15 03/10/2015 Baldemar Goldberg MD 1 MO F/U [id number]-c16u-h9whul3c965h 03/10/20 15 03/10/2015 Baldemar Goldberg MD 1 MO F/U 8s1fgkn8-1x22-7z96-6724-qasc4loh8cp2 03/10/20 15 03/10/2015 Baldemar Goldberg MD 1 MO F/U 8942g51e-v749-7549-g1sg-71ten59g553d 03/10/20 15 03/10/2015 Baldemar Goldberg MD 1 MO F/U [id number]-e3qa-4016gwshr225 03/10/20 15 03/10/2015 Baldemar Goldberg MD 1 MO F/U [id number]-t967-[id number] 03/10/20 15 03/10/2015 Baldemar Goldberg MD 1 MO F/U 4882d790-u951-5h47-lomg-60lh1n47i0ow 03/10/20 15 03/10/2015 Baldemar Goldberg MD 1 MO F/U [id number]-qyyk-086f381rcq51 03/10/20 15 03/10/2015 Baldemar Goldberg MD 1 MO F/U [id number]-g7k4570s9e0t 03/10/20 15 03/10/2015 Baldemar Goldberg MD 1 MO F/U [id number]-1i28-00yk-5b0o606118z4 03/10/20 15 03/10/2015 Baldemar Goldberg MD 1 MO F/U [id number]-[id number] 03/10/20 15 03/10/2015 Baldemar Goldberg MD Balance mxt8pi2y-n9ae-2e47-g76h-44300f99a9wg 04/08/20 15 04/08/2015 Baldemar Goldberg MD Balance 3mg8h36k-0sy5-1j58-34ro-2xl63ttsrm26 04/08/20 15 04/08/2015 Baldemar Goldberg MD Balance m51ofg3p-z3i3-727x-0zo7-12lfmor6v078 04/08/20 15 04/08/2015 Baldemar Goldberg MD Balance ty236n2s-j709-54z9-27m1-37t7640g64d0 04/08/20 15 04/08/2015 Baldemar Goldberg MD Balance vra8437s-8u69-8iuh-oc21-xj8r61vq8x50 04/08/20 15 04/08/2015 Baldemar Goldberg MD Balance [id number]-[id number]-q612-63v3r62gq724 04/08/20 15 04/08/2015 Baldemar Goldberg MD Balance 6rx0b4uk-136w-85l6-c81j-7ql40n8069fu 04/08/20 15 04/08/2015 Baldemar Goldberg MD Balance 31w39a5m-9820-49ln-44p7-bk65f34zb0j8 04/08/20 15 04/08/2015 Baldemar Goldberg MD Balance to38m055-95zt-3d3d-3609-5n1007200i05 04/08/20 15 04/08/2015 Baldemar Goldberg MD Balance l63284t8-65lb-74t1-9l08-360hk0p2v10y 04/08/20 15 04/08/2015 Baldemar Goldberg MD Balance a704b9z4-b337-0451-h71c-lhhlprb5a48b 04/08/20 15 04/08/2015 Baldemar Goldberg MD Balance t0l4um8n-454s-06by-s962-w0271ia99jyv 04/08/20 15 04/08/2015 Baldemar Goldberg MD Balance 9v6rod3i-2533-396c-466m-80w86q47ft43 04/08/20 15 04/08/2015 Baldemar Goldberg MD Balance 94t97hzc-130j-4419-2c5e-6682x7o64b74 04/08/20 15 04/08/2015 Baldemar Goldberg MD 1 MO F/U [id number]-v655-f5379469sr6d 05/13/20 15 05/13/2015 Baldemar Goldberg MD 1 MO F/U ctawi38q-xv17-2a5b-6ot0-61qt994i2s59 05/13/20 15 05/13/2015 Baldemar Goldberg MD 1 MO F/U 3xs32ec2-4412-07qi-1163-ve82f1i2x362 05/13/20 15 05/13/2015 Baldemar Goldberg MD 1 MO F/U [id number]-3039-74q3-uxq729gtc781 05/13/20 15 05/13/2015 Baldemar Goldberg MD 1 MO F/U 79z42q8a-1xo9-103i-58n2-544kuv711355 05/13/20 15 05/13/2015 Baldemar Goldberg MD 1 MO F/U w294ky83-v423-19oy-h08q-8771hd341r78 05/13/20 15 05/13/2015 Baldemar Goldberg MD 1 MO F/U [id number]-ne62-zd0mz141u094 05/13/20 15 05/13/2015 Baldemar Goldberg MD 1 MO F/U [id number]-17r3-5r25-02n0414d74ez 05/13/20 15 05/13/2015 Baldemar Goldberg MD 1 MO F/U 97hlf1jf-9fq2-245m-36q1-207438beg52o 05/13/20 15 05/13/2015 Baldemar Goldberg MD 1 MO F/U [id number]-q69r1x879vl1 05/13/20 15 05/13/2015 Baldemar Goldberg MD 1 MO F/U h049iq7x-922t-6224-25u3-f6b0nf3so109 05/13/20 15 05/13/2015 Baldemar Goldberg MD 1 MO F/U [id number]-[id number] 05/13/20 15 05/13/2015 Baldemar Goldberg MD 1 MO F/U [id number]-6f62-074epbcw46v7 05/13/20 15 05/13/2015 Baldemar Goldberg MD 1 MO F/U y7111l71-dzcy-1206-fpfw-hs62x94g858j 05/13/20 15 05/13/2015 Baldemar Goldberg MD Elbow drainage aa781zyy-5373-7623-n652-r1202ljco972 06/11/20 15 06/11/2015 Baldemar Goldberg MD Elbow drainage 8337362x-f645-0857-20ox-97179g55qyjx 06/11/20 15 06/11/2015 Baldemar Goldberg MD Elbow drainage o88ct4cj-936u-33g1-gh8b-2481887z8kd8 06/11/20 15 06/11/2015 Baldemar Goldberg MD Elbow drainage [id number]-[id number] 06/11/20 15 06/11/2015 Baldemar Goldberg MD Elbow drainage 81f1e9wa-9m5c-1tid-r15d-c599l1kqtdf1 06/11/20 15 06/11/2015 Baldemar Goldberg MD Elbow drainage 452s6257-7k84-4fg5-0i0c-31f3q17y2t74 06/11/20 15 06/11/2015 Baldemar Goldberg MD Elbow drainage 28o2z23v-iuif-3749-7c4j-xf95key9t446 06/11/20 15 06/11/2015 Baldemar Goldberg MD Elbow drainage [id number]-ortd-7r06-52j7-66715593y649 06/11/20 15 06/11/2015 Baldemar Goldberg MD Elbow drainage 62r1zrr0-162l-0r81-0s51-7qvs290p9s20 06/11/20 15 06/11/2015 Baldemar Goldberg MD Elbow drainage 5g52je45-q4f0-0s20-11u5-1tz911ngv831 06/11/20 15 06/11/2015 Baldemar Goldberg MD Elbow drainage js000p17-60xo-4fju-bt2v-3lo29a891750 06/11/20 15 06/11/2015 Baldemar Goldberg MD Elbow drainage 668s11j2-878z-8j15-84d6-5go3ymv633dc 06/11/20 15 06/11/2015 Baldemar Goldberg MD Elbow drainage [id number]-c31s-[id number] 06/11/20 15 06/11/2015 Baldemar Goldberg MD Elbow [facility] 0q27kb32-ia0q-604u-5e15-95k944o54607 06/11/20 15 06/11/2015 Baldemar Goldberg MD 1 MO F/U [id number]-[id number] 06/13/20 15 06/13/2015 Baldemar Goldberg MD 1 MO F/U 2i3d40mg-3vhz-3yvc-jujk-668b439799bc 06/13/20 15 06/13/2015 Baldemar Goldberg MD 1 MO F/U 9w2011nt-1z05-84k4-4528-c51dzg1x8rc4 06/13/20 15 06/13/2015 Baldemar Goldberg MD 1 MO F/U [id number] 06/13/20 15 06/13/2015 Baldemar Goldberg MD 1 MO F/U [id number] 06/13/20 15 06/13/2015 Baldemar Goldberg MD 1 MO F/U [id number] 06/13/20 15 06/13/2015 Baldemar Goldberg MD 1 MO F/U [id number] 06/13/20 15 06/13/2015 Baldemar Goldberg MD 1 MO F/U [id number] 06/13/20 15 06/13/2015 Baldemar Goldberg MD 1 MO F/U [id number] 06/13/20 15 06/13/2015 Baldemar Goldberg MD 1 MO F/U [id number] 06/13/20 15 06/13/2015 Baldemar Goldberg MD 1 MO F/U [id number] 06/13/20 15 06/13/2015 Baldemar Goldberg MD 1 MO F/U [id number] 06/13/20 15 06/13/2015 Baldemar Goldberg MD 1 MO F/U [id number] 06/13/20 15 06/13/2015 Baldemar Goldberg MD 1 MO F/U [id number] 06/13/20 15 06/13/2015 Baldemar Goldberg MD synovial fluid [id number] 06/13/20 15 06/13/2015 Baldemar Goldberg MD synovial fluid [id number] 06/13/20 15 06/13/2015 Baldemar Goldberg MD synovial fluid [id number] 06/13/20 15 06/13/2015 Baldemar Goldberg MD synovial fluid [id number] 06/13/20 15 06/13/2015 Baldemar Goldberg MD synovial fluid [id number] 06/13/20 15 06/13/2015 Baldemar Goldberg MD synovial fluid [id number] 06/13/20 15 06/13/2015 Baldemar Goldberg MD synovial fluid [id number] 06/13/20 15 06/13/2015 Baldemar Goldberg MD synovial fluid [id number] 06/13/20 15 06/13/2015 Baldemar Goldberg MD synovial fluid [id number] 06/13/20 15 06/13/2015 Baldemar Goldberg MD synovial fluid [id number] 06/13/20 15 06/13/2015 Baldemar Goldberg MD synovial fluid [id number] 06/13/20 15 06/13/2015 Baldemar Goldberg MD synovial fluid [id number] 06/13/20 15 06/13/2015 Baldemar Goldberg MD synovial fluid [id number] 06/13/20 15 06/13/2015 Baldemar Goldbegr MD synovial fluid [id number] 06/13/20 15 06/13/2015 Baldemar Goldberg MD RIGHT ELBOW SWOLLEN [id number] 06/19/20 15 06/19/2015 Baldemar Goldberg MD RIGHT ELBOW SWOLLEN [id number] 06/19/2006/19/2015 Baldemar Goldberg MD RIGHT ELBOW SWOLLEN [id number] 06/19/2006/19/2015 Baldemar Goldberg MD RIGHT ELBOW SWOLLEN [id number] 06/19/2006/19/2015 Baldemar Goldberg MD RIGHT ELBOW SWOLLEN [id number] 06/19/2006/19/2015 Baldemar Goldberg MD RIGHT ELBOW SWOLLEN [id number] 06/19/2006/19/2015 Baldemar Goldberg MD RIGHT ELBOW SWOLLEN [id number] 06/19/2006/19/2015 Baldemar Goldberg MD RIGHT ELBOW SWOLLEN [id number] 06/19/2006/19/2015 Baldemar Goldberg MD RIGHT ELBOW SWOLLEN [id number] 06/19/2006/19/2015 Baldemar Goldberg MD RIGHT ELBOW SWOLLEN [id number] 06/19/2006/19/2015 Baldemar Goldberg MD RIGHT ELBOW SWOLLEN [id number] 06/19/2006/19/2015 Baldemar Goldberg MD RIGHT ELBOW SWOLLEN [id number] 06/19/2006/19/2015 Baldemar Goldberg MD RIGHT ELBOW SWOLLEN [id number] 06/19/20 15 06/19/2015 Baldemar Goldberg MD RIGHT ELBOW SWOLLEN [id number] 06/19/20 15 06/19/2015 Baldemar Goldberg MD DRAIN ELBOW [id number] 06/20/20 15 06/20/2015 Baldemar Goldberg MD DRAIN ELBOW [id number] 06/20/20 15 06/20/2015 Baldemar Goldberg MD DRAIN ELBOW [id number] 06/20/20 15 06/20/2015 Baldemar Goldberg MD DRAIN ELBOW [id number] 06/20/20 15 06/20/2015 Baldemar Goldberg MD DRAIN ELBOW [id number] 06/20/20 15 06/20/2015 Baldemar Goldberg MD DRAIN ELBOW [id number] 06/20/20 15 06/20/2015 Baldemar Goldberg MD DRAIN ELBOW [id number] 06/20/20 15 06/20/2015 Baldemar Goldberg MD DRAIN ELBOW [id number] 06/20/20 15 06/20/2015 Baldemar Goldberg MD DRAIN ELBOW [id number] 06/20/20 15 06/20/2015 Baldemar Goldberg MD DRAIN ELBOW [id number] 06/20/20 15 06/20/2015 Baldemar Goldberg MD DRAIN ELBOW [id number] 06/20/20 15 06/20/2015 Baldemar Goldberg MD DRAIN ELBOW [id number] 06/20/20 15 06/20/2015 Baldemar Goldberg MD DRAIN ELBOW [id number] 06/20/20 15 06/20/2015 Baldemar Goldberg MD DRAIN ELBOW [id number] 06/20/20 15 06/20/2015 Baldemar Goldberg MD UPDATE [id number] 06/23/20 15 06/23/2015 Baldemar Goldberg MD UPDATE [id number] 06/23/20 15 06/23/2015 Baldemar Goldberg MD UPDATE [id number] 06/23/20 15 06/23/2015 Baldemar Goldberg MD UPDATE [id number] 06/23/20 15 06/23/2015 Baldemar Goldberg MD UPDATE [id number] 06/23/20 15 06/23/2015 Baldemar Goldberg MD UPDATE [id number] 06/23/20 15 06/23/2015 Baldemar Goldberg MD UPDATE [id number] 06/23/20 15 06/23/2015 Baldemar Goldberg MD UPDATE [id number] 06/23/20 15 06/23/2015 Baldemar Goldberg MD UPDATE [id number] 06/23/20 15 06/23/2015 Baldemar Goldberg MD UPDATE [id number] 06/23/20 15 06/23/2015 Baldemar Goldberg MD UPDATE [id number] 06/23/20 15 06/23/2015 Baldemar Goldberg MD UPDATE [id number] 06/23/20 15 06/23/2015 Baldemar Goldberg MD UPDATE [id number] 06/23/20 15 06/23/2015 Baldemar Goldberg MD UPDATE [id number] 06/23/20 15 06/23/2015 Baldemar Goldberg MD FU [id number] 08/15/2015 08/15/2015 Baldemar Goldberg MD FU [id number] 08/15/2015 08/15/2015 Baldemar Goldberg MD FU [id number] 08/15/2015 08/15/2015 Baldemar Goldberg MD [id number] 08/15/2015 08/15/2015 Baldemar Goldberg MD [id number] 08/15/2015 08/15/2015 Baldemar Goldberg MD [id number] 08/15/2015 08/15/2015 Baldemar Goldberg MD [id number] 08/15/2015 08/15/2015 Baldemar Goldberg MD [id number] 08/15/2015 08/15/2015 Baldemar Goldberg MD [id number] 08/15/2015 08/15/2015 Baldemar Goldberg MD [id number] 08/15/2015 08/15/2015 Baldemar Goldberg [place] [id number] 08/15/2015 08/15/2015 Baldemar Goldberg MD [id number] 08/15/2015 08/15/2015 Baldemar Goldberg MD [id number] 08/15/2015 08/15/2015 Baldemar Goldberg MD [id number] 08/15/2015 08/15/2015 Baldemar Goldberg MD OV [id number] 09/17/2015 09/17/2015 Baldemar Goldberg MD OV [id number] 09/17/2015 09/17/2015 Baldemar Goldberg MD OV [id number] 09/17/2015 09/17/2015 Baldemar Goldberg MD OV [id number] 09/17/2015 09/17/2015 Baldemar Goldberg MD OV [id number] 09/17/2015 09/17/2015 Baldemar Goldberg MD OV [id number] 09/17/2015 09/17/2015 Baldemar Goldberg MD OV [id number] 09/17/2015 09/17/2015 Baldemar Goldberg MD OV [id number] 09/17/2015 09/17/2015 Baldemar Goldberg MD OV [id number] 09/17/2015 09/17/2015 Baldemar Goldberg MD OV [id number] 09/17/2015 09/17/2015 Baldemar Goldberg MD OV [id number] 09/17/2015 09/17/2015 Baldemar Goldberg MD OV [id number] 09/17/2015 09/17/2015 Baldemar Goldberg MD OV [id number] 09/17/2015 09/17/2015 Baldemar Goldberg MD folic acid [id number] 10/27/19 16 10/27/2015 Baldemar Goldberg MD folic acid [id number] 10/27/19 16 10/27/2015 Baldemar Goldberg MD folic acid [id number] 10/27/19 16 10/27/2015 Baldemar Goldberg MD folic acid [id number] 10/27/19 16 10/27/2015 Baldemar Goldberg MD folic acid [id number] 10/27/19 16 10/27/2015 Baldemar Goldberg MD folic acid [id number] 10/27/19 16 10/27/2015 Baldemar Goldberg MD folic acid [id number] 10/27/19 16 10/27/2015 Baldemar Goldberg MD folic acid [id number] 10/27/19 16 10/27/2015 Baldemar Goldberg MD folic acid [id number] 10/27/19 16 10/27/2015 Baldemar Goldberg MD folic acid [id number] 10/27/19 16 10/27/2015 Baldemar Goldberg MD folic acid [id number] 10/27/19 16 10/27/2015 Baldemar Goldberg MD folic acid [id number] 10/27/19 16 10/27/2015 Baldemar Goldberg MD baxalta/humira biosimilar [id number] 01/07/2016 01/07/2016 Baldemar Goldberg MD baxalta/humira biosimilar [id number] 01/07/2016 01/07/2016 Baldemar Goldberg MD baxalta/humira biosimilar [id number] 01/07/2016 01/07/2016 Baldemar Goldberg MD baxalta/humira biosimilar [id number] 01/07/2016 01/07/2016 Baldemar Goldberg MD baxalta/humira biosimilar [id number] 01/07/2016 01/07/2016 Baldemar Goldberg MD baxalta/humira biosimilar [id number] 01/07/2016 01/07/2016 Baldemar Goldberg MD baxalta/humira biosimilar [id number] 01/07/2016 01/07/2016 Baldemar Goldberg MD baxalta/humira biosimilar [id number] 01/07/2016 01/07/2016 Baldemar Goldberg MD baxalta/humira biosimilar [id number] 01/07/2016 01/07/2016 Baldemar Goldberg MD baxalta/humira biosimilar [id number] 01/07/2016 01/07/2016 Baldemar Goldberg MD baxalta/humira biosimilar [id number] 01/07/2016 01/07/2016 Baldemar Goldberg MD MED REFILL [id number] 01/08/20 16 01/08/2016 Baldemar Goldberg MD MED REFILL [id number] 01/08/20 16 01/08/2016 Baldemar Goldberg MD MED REFILL [id number] 01/08/20 16 01/08/2016 Baldemar Goldberg MD MED REFILL [id number] 01/08/20 16 01/08/2016 Baldemar Goldberg MD MED REFILL [id number] 01/08/20 16 01/08/2016 Baldemar Goldberg MD MED REFILL [id number] 01/08/20 16 01/08/2016 Baldemar Goldberg MD MED REFILL [id number] 01/08/20 16 01/08/2016 Baldemar Goldberg MD MED REFILL [id number] 01/08/20 16 01/08/2016 Baldemar Goldberg MD MED REFILL [id number] 01/08/20 16 01/08/2016 Baldemar Goldberg MD MED REFILL [id number] 01/08/20 16 01/08/2016 Baldemar Goldberg MD dexa [id number] 01/14/2016 01/14/2016 Baldemar Goldberg MD dexa [id number] 01/14/2016 01/14/2016 Baldemar Goldberg MD dexa [id number] 01/14/2016 01/14/2016 Baldemar Goldberg MD dexa [id number] 01/14/2016 01/14/2016 Baldemar Goldberg MD dexa [id number] 01/14/2016 01/14/2016 Baldemar Goldberg MD dexa [id number] 01/14/2016 01/14/2016 Baldemar Goldberg MD dexa [id number] 01/14/2016 01/14/2016 Baldemar Goldberg MD dexa [id number] 01/14/2016 01/14/2016 Baldemar Goldberg MD dexa [id number] 01/14/2016 01/14/2016 Baldemar Goldberg MD MED REFILL [id number] 04/08/20 16 04/08/2016 Baldemar Goldberg MD MED REFILL [id number] 04/08/20 16 04/08/2016 Baldemar Goldberg MD MED REFILL [id number] 04/08/20 16 04/08/2016 Baldemar Goldberg MD MED REFILL [id number] 04/08/20 16 04/08/2016 Baldemar Goldberg MD MED REFILL [id number] 04/08/20 16 04/08/2016 Baldemar Goldberg MD MED REFILL [id number] 04/08/20 16 04/08/2016 Baldemar Goldberg MD MED REFILL [id number] 04/08/20 16 04/08/2016 Baldemar Goldberg MD MED REFILL [id number] 04/08/20 16 04/08/2016 Baldemar Goldberg MD LETTER [id number] 06/02/20 16 06/02/2016 Baldemar Goldberg MD LETTER [id number] 06/02/20 16 06/02/2016 Baldemar Goldberg MD LETTER [id number] 06/02/20 16 06/02/2016 Baldemar Goldberg MD LETTER [id number] 06/02/20 16 06/02/2016 Baldemar Goldberg MD LETTER [id number] 06/02/20 16 06/02/2016 Baldemar Goldberg MD LETTER [id number] 06/02/20 16 06/02/2016 Baldemar Goldberg MD Labs [id number] 06/03/2016 06/03/2016 Baldemar Goldberg MD Labs [id number] 06/03/2016 06/03/2016 Baldemar Goldberg MD Labs [id number] 06/03/2016 06/03/2016 Baldemar Goldberg MD Labs [id number] 06/03/2016 06/03/2016 Baldemar Goldberg MD Labs [id number] 06/03/2016 06/03/2016 Baldemar Goldberg MD Labs [id number] 06/03/2016 06/03/2016 Baldemar Goldberg MD Labs [id number] 06/03/2016 06/03/2016 Baldemar Goldberg MD MED REFILL [id number] 07/08/20 16 07/08/2016 Baldemar Goldberg MD MED REFILL [id number] 07/08/20 16 07/08/2016 Baldemar Goldberg MD MED REFILL [id number] 07/08/20 16 07/08/2016 Baldemar Goldberg MD MED REFILL [id number] 07/08/20 16 07/08/2016 Baldemar Goldberg MD MED REFILL [id number] 07/08/20 16 07/08/2016 Baldemar Goldberg MD F/U AFTER SURGERY [id number] 09/01/20 16 09/01/2016 Baldemar Goldberg MD F/U AFTER SURGERY [id number] 09/01/20 16 09/01/2016 Baldemar Goldberg MD F/U AFTER SURGERY [id number] 09/01/20 16 09/01/2016 Baldemar Goldberg MD F/U AFTER SURGERY [id number] 09/01/20 16 09/01/2016 Baldemar Goldberg MD APPOINTMENT FOR 10/07/16 [id number] 10/07/2016 10/07/2016 Baldemar Goldberg MD APPOINTMENT FOR 10/07/16 [id number] 10/07/2016 10/07/2016 Baldemar Goldberg MD APPOINTMENT FOR 10/07/16 [id number] 10/07/2016 10/07/2016 Baldemar Goldberg MD ADDED TO SCHEDULE 10/14 [id number] 10/13/19 17 10/13/2016 Baldemar Goldberg MD ADDED TO SCHEDULE 10/14 [id number] 10/13/19 17 10/13/2016 Baldemar Goldberg MD [id number] 10/14/2016 10/14/2016 Baldemar Goldberg Procedures No Data Provided for This Section Assessment and Plan No Data Provided for This Section Plan of Care No Data Provided for This Section Social History Social History Date Source Social History ElementQualifiersDate Rep orted Tobacco Use: . Are you a:: current smoker , How oft en do you smoke cigarettes?: some days, but not every day Oct 14, 2016 Marital Status: single. Oct 14, 2016 Caffeine: no. 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 Oct 14, 2016 10/14/2016 Baldemar Goldberg Family History No Data Provided for This Section Advance Directives No Data Provided for This Section Functional Status No Data Provided for This Section
--- OUTSIDE RECORDS SUMMARY | 2020-04-14 16:05 | XMS REPORT ---
Author Author COURTNEY Colón Organization [employer] Address Unknown Phone Unavailable Care Team Providers Care Legal Job Titles Name Role Phone Ray Colón Unavailable Allergies, Adverse Reactions, Alerts Substance Reaction Event Type negra Info Not Available Non Drug Allergy Problems Problem Type Condition Code Onset Dates Condition Statu s Problem Olecranon bursitis, right elbow M70.21 Active Problem Abnormal laboratory test R89.9 Act malorie Problem Screening for osteoporosis Z13.820 A ctive Problem Chronic pain G89.29 Active Problem Hip pain, left M25.552 Active Problem Primary osteoarthritis involving multiple joints M15.0 Active Problem Low testosterone in male E29.1 Act malorie Problem Lumbago with sciatica, left side M54.42 Active Problem 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 Z79.891 Active Problem Neck pain M54.2 Active Assessment Rheumatoid arthritis without rheumatoid factor, multiple sites M06.09 Active Problem Other penitentiary (current) drug therapy Z79.899 Active Assessment Other termination clerk (current) drug therapy Z79.899 Active Problem Rheumatoid arthritis without rheumatoid factor, multip le sites M06.09 Active Medications Medication Code System Code Instructions Start Date End Date Status Dosage Hydrocodone-Acetaminophen [facility] 66411133251 10-325 Orally Three ti me a day Active 1 tablet as needed Nugenix NDC 0 Active as directed Lisinopril ND 17459868083 10 MG Orally BID Active 1 tablet Folic Acid ND 32948479447 1 MG Orally on hold Activ e 1 tablet Vitamin E ND 26496144626 400 UNIT Orally once a day Active 1 capsule John Multi Men ND 28445161317 Orally once a day Ac tive 2 tablets Iron ND 89406256768 325 (65 Fe) MG Orally once a day Active 1 tablet Methotrexate ND 37832527883 2.5mg orally q week Act malorie 8 tablets Medrol [facility] 96905263267 4 MG Orally twice a day Acti ve 1 tablet Vitamin B 12 [facility] 50450320357 2500 MCG Orally Active as directed Vitamin C [facility] 00447702156 500 MG Orally once a day A ctive 1 tablet Multivitamins [facility] 19301378296 Orally Active as di rected Vitamin D3 [facility] 79704918203 1000 UNIT Orally once a day Active 1 capsule Krill Oil [facility] 09032991181 350 MG Orally once a day A ctive as directed Vital Signs Date/Time: February 09, 2019 BMI 29.55 Index Weight 200.1 lbs Height 69 in Temperature 98.0 F Cardiac Monitoring Heart Rate 76 /min Blood Pressure Diastolic 80 mm Hg Blood Pressure Systolic 130 mm Hg Results No Known Results Summary Purpose eClinicalWorks Submission
--- OUTSIDE RECORDS SUMMARY | 2020-04-14 16:05 | XMS REPORT ---
Author Author COURTNEY Goldberg [facility] eClinicalWorks Address Unknown Phone Unavailable Care Team Providers Care Master Planner Name Role Phone New Goldberg CP Unavailable Allergies, Adverse Reactions, Alerts Substance Reaction Event Type negra Info Not Available Non Drug Allergy Problems Problem Type Condition Code Onset Dates Condition Statu s Problem Olecranon bursitis, right elbow M70.21 Active Problem Rheumatoid arthritis without rheumatoid factor, multip le sites M06.09 Active Problem Other [facility] (current) drug therapy Z79.899 Active Problem Neck pain M54.2 Active Problem Hip pain, left M25.552 Active Problem senior living 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 Z79.891 Active Problem Abnormal laboratory test R89.9 Act malorie Problem Screening for osteoporosis Z13.820 A ctive Problem Low testosterone in male E29.1 Act malorie Problem Lumbago with sciatica, left side M54.42 Active Assessment Hip pain, left M25.552 Active Assessment Lumbago with sciatica, left side M54.42 Active Assessment 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 Z79.891 Active Assessment Neck pain M54.2 Active Assessment Other [facility] (current) drug therapy Z79.899 Active Assessment Rheumatoid arthritis without rheumatoid factor, multiple sites M06.09 Active Medications Medication Code System Code Instructions Start Date End Date Status Dosage Iron [facility] 53589-08768 325 (65 Fe) MG Orally on hold Active 1 tablet Lisinopril [facility] [address]-73 10 MG Orally BID Active 1 tablet Folic Acid [facility] 58408010394 1MG Orally Once a day May 27, 2017 Active take three tablets by mouth once daily Vitamin D3 [facility] 18844-21253 1000 UNIT Orally on hold Active 1 capsule Krill Oil [facility] 17980-[address]26 350 MG Orally on hold Acti ve as directed Methotrexate [facility] [address]-88 2.5mg orally q week May 27, 2017 Active 3 tablets Folic Acid [facility] [address]-55 1 MG Orally on hold Act malorie 1 tablet Medrol [facility] [address]-51 4 MG Orally q am with food May 27, 2017 Active 1 tablet with food or milk in the morning Hydrocodone-Acetaminophen [facility] 86015260747 10-325 Orally T hree time a day May 27, 2017 Active 1 tablet as needed Vitamin C [facility] [address]-07 500 MG Orally on hold Ac tive 1 tablet Vitamin E [facility] [address]-58 400 UNIT Orally on hold Active 1 capsule John Multi Men [facility] 05[address]-91917 Orally once a day Ac tive 2 tablets Multivitamins [facility] [address]-90 Orally on hold Acti ve as directed Vital Signs Date/Time: May 27, 2017 BMI 29.09 Index Weight 197 lbs Height 69 in Temperature 97.4 F Cardiac Monitoring Heart Rate 70 /min Blood Pressure Diastolic 74 mm Hg Blood Pressure Systolic 132 mm Hg Results No Known Results Summary Purpose eClinicalWorks Submission
--- OUTSIDE RECORDS SUMMARY | 2020-04-14 16:05 | XMS REPORT ---
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 Z79.891 Active Problem Neck pain M54.2 Active Assessment Rheumatoid arthritis without rheumatoid factor, multiple sites M06.09 Active Assessment Other rodent exterminator (current) drug therapy Z79.899 Active Problem Other care home (current) drug therapy Z79.899 Active Assessment Primary osteoarthritis involving multiple joints M15.0 Active Problem Rheumatoid arthritis without rheumatoid factor, multip le sites M06.09 Active Medications Medication Code System Code Instructions Start Date End Date Status Dosage Methotrexate ND 64159757992 2.5mg orally q week Act malorie 5 tablets Iron ND 72189711742 325 (65 Fe) MG Orally once a day Active 1 tablet Multivitamins ND 18628427798 Orally Active as di rected John Multi Men ND 14509026811 Orally once a day Ac tive 2 tablets Hydrocodone-Acetaminophen ND 41002458504 10-325 Orally Three ti me a day Active 1 tablet as needed Krill Oil ND 51406247617 350 MG Orally once a day A ctive as directed Nugenix NDC 0 Active as directed Lisinopril ND 18608282183 10 MG Orally BID Active 1 tablet Vitamin D3 ND 63314986670 1000 UNIT Orally once a day Active 1 capsule Vitamin E [facility] 26896038849 400 UNIT Orally once a day Active 1 capsule Vitamin C [facility] 41877699275 500 MG Orally once a day A ctive 1 tablet Vitamin B 12 [facility] 48386608850 2500 MCG Orally Active as directed Folic Acid [facility] 87880296758 1 MG Orally on hold Activ e 1 tablet Medrol [facility] 56283592680 4 MG Orally twice a day Apr 25, 2019 Active 1 tablet Vital Signs Date/Time: Oct 27, 2018 BMI 30.12 Index Weight 204.0 lbs Height 69 in Temperature 97.2 F Cardiac Monitoring Heart Rate 72 /min Blood Pressure Diastolic 80 mm Hg Blood Pressure Systolic 124 mm Hg Results No Known Results Summary Purpose eClinicalWorks Submission
--- OUTSIDE RECORDS SUMMARY | 2020-04-14 16:05 | XMS REPORT ---
Author COURTNEY Weller Organization [employer] Address Unknown Phone Unavailable Care Team Providers Care Culvert Installer Name Role Phone New Goldberg CP Unavailable Allergies, Adverse Reactions, Alerts Substance Reaction Event Type negra Info Not Available Non Drug Allergy Problems Problem Type Condition Code Onset Dates Condition Statu s Assessment Low testosterone in male E29.1 Act malorie Assessment Rheumatoid arthritis without rheumatoid factor, multiple sites M06.09 Active Assessment Other half-way (current) drug therapy Z79.899 Active Problem Lumbago with sciatica, left side M54.42 Active Problem Abnormal laboratory test R89.9 Act malorie Problem Low testosterone in male E29.1 Act malorie Problem Other half-way (current) drug therapy Z79.899 Active Problem Olecranon bursitis, right elbow M70.21 Active Problem Screening for osteoporosis Z13.820 A ctive Problem Rheumatoid arthritis without rheumatoid factor, multip le sites M06.09 Active Medications Medication Code System Code Instructions Start Date End Date Status Dosage Krill Oil [facility] 55093-41066 350 MG Orally on hold Acti ve as directed John Multi Men [facility] 66[address]-58158 Orally once a day Ac tive 2 tablets Vitamin D3 [facility] 79406-26463 1000 UNIT Orally on hold Active 1 capsule Lisinopril [facility] [address]-78 10 MG Orally BID Active 1 tablet Vitamin C [facility] [address]-04 500 MG Orally on hold Ac tive 1 tablet Iron [facility] 12528-55638 325 (65 Fe) MG Orally on hold Active 1 tablet Methotrexate [facility] [address]-79 2.5mg orally q week A ctive 3 tablets Vitamin E [facility] [address]-14 400 UNIT Orally on hold Active 1 capsule Hydrocodone-Acetaminophen ND 36964524610 10-325 Orally PRN Active 1 tablet as needed Folic Acid [facility] [address]-52 1 MG Orally on hold Act malorie 1 tablet Multivitamins [facility] [address]-30 Orally on hold Acti ve as directed Medrol [facility] [address]-73 4 MG Orally q am with food February 25, 2017 Jun 25, 2017 Active 1 tablet with food or milk in the mornin g Vital Signs Date/Time: February 25, 2017 Blood Pressure Systolic 136 mm Hg Weight 197 lbs Height 69 in Temperature 98.7 F Cardiac Monitoring Heart Rate 68 /min Blood Pressure Diastolic 76 mm Hg Results No Known Results Summary Purpose eClinicalWorks Submission
--- OUTSIDE RECORDS SUMMARY | 2020-04-14 16:05 | XMS REPORT ---
Author Author COURTNEY Goldberg Organization [employer] Address Unknown Phone Unavailable Care Team Providers Care Supervisor Sintering Plant Name Role Phone New Goldberg CP Unavailable Allergies No Known Allergies Problems Problem Type Condition Code Onset Dates Condition Statu s Problem Other terminal gauger supervisor (current) drug therapy Z79.899 Active Problem Olecranon bursitis, right elbow M70.21 Active Problem Rheumatoid arthritis without rheumatoid factor, multip le sites M06.09 Active Problem Hip pain, left M25.552 Active Problem terminal gauger supervisor 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 Z79.891 Active Problem Neck pain M54.2 Active Problem Abnormal laboratory test R89.9 Act malorie Problem Screening for osteoporosis Z13.820 A ctive Problem Low testosterone in male E29.1 Act malorie Problem Lumbago with sciatica, left side M54.42 Active Medications No Known Medications Results No Known Results Summary Purpose eClinicalWorks Submission
--- OUTSIDE RECORDS SUMMARY | 2020-04-14 16:05 | XMS REPORT ---
Author Author COURTNEY Goldberg Organization [employer] Address Unknown Phone Unavailable Care Team Providers Care Gutter Installer Name Role Phone New Goldberg CP Unavailable Allergies No Known Allergies Problems Problem Type Condition Code Onset Dates Condition Statu s Problem Abnormal laboratory test R89.9 Act malorie Problem Screening for osteoporosis Z13.820 A ctive Problem Lumbago with sciatica, left side M54.42 Active Problem Olecranon bursitis, right elbow M70.21 Active Problem Rheumatoid arthritis without rheumatoid factor, multip le sites M06.09 Active Problem Other senior living (current) drug therapy Z79.899 Active Medications No Known Medications Results No Known Results Summary Purpose [employer]ClinicalWorks Submission
--- OUTSIDE RECORDS SUMMARY | 2020-04-14 16:05 | XMS REPORT ---
Author Author COURTNEY Goldberg Organization [employer] Address Unknown Phone Unavailable Care Team Providers Care Whale Fisherman Name Role Phone New Goldberg CP Unavailable Allergies No Known Allergies Problems Problem Type Condition Code Onset Dates Condition Statu s Problem Olecranon bursitis, right elbow M70.21 Active Problem Abnormal laboratory test R89.9 Act malorie Problem Screening for osteoporosis Z13.820 A ctive Problem Other [facility] (current) drug therapy Z79.899 Active Problem Rheumatoid [...]
--- OUTSIDE RECORDS SUMMARY | 2020-04-14 16:05 | XMS REPORT ---
Author Author COURTNEY Colón Organization [employer] Address Unknown Phone Unavailable Care Team Providers Care Check Out Clerk Name Role Phone Ray Colón CP Unavailable Allergies No Known Allergies Problems Problem Type Condition Code Onset Dates Condition Statu s Problem Olecranon bursitis, right elbow M70.21 Active Problem Abnormal laboratory test R89.9 Act malorie Problem Screening for osteoporosis Z13.820 A ctive Problem Other generator man (current) drug therapy Z79.899 Active Problem Rheumatoid arthritis without rheumatoid factor, multip le sites M06.09 Active Problem Chronic pain G89.29 Active Problem Hip pain, left M25.552 Active Problem Primary osteoarthritis involving multiple joints M15.0 Active Problem Low testosterone in male E29.1 Act malorie Problem Lumbago with sciatica, left side M54.[address] Active [address] technologist 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 Z79.891 Active Problem Neck pain M54.2 Active Medications Medication Code System Code Instructions Start Date End Date Status Dosage Tylenol/codeine #4 #30 NDC 0 300-60 mg orally twice a day February 09, 2019 February 16, 2019 Active one tablet Tylenol/codeine #4 #30 NDC 0 300-60 mg orally e very 6 hours prn pain February 09, 2019 February 16, 2019 Active one tablet Results No Known Results Summary Purpose [employer]ClinicalWorks Submission
--- OUTSIDE RECORDS SUMMARY | 2020-04-14 16:05 | XMS REPORT ---
Author Author COURTNEY Goldberg Organization [employer] Address Unknown Phone Unavailable Care Team Providers Care Food Cooking Machine Operator Name Role Phone New Goldberg CP Unavailable Allergies No Known Allergies Problems Problem Type Condition Code Onset Dates Condition Statu s Problem Other equipment operator intermodal yard (current) drug therapy Z79.899 Active Problem Olecranon bursitis, right elbow M70.21 Active Problem Rheumatoid arthritis without rheumatoid factor, multip le sites M06.09 Active Problem Hip pain, left M25.552 Active Problem equipment operator intermodal yard 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 Z79.891 Active Problem Neck pain M54.2 Active Problem Abnormal laboratory test R89.9 Act malorie Problem Screening for osteoporosis Z13.820 A ctive Problem Low testosterone in male E29.1 Act malorie Problem Lumbago with sciatica, left side M54.42 Active Medications No Known Medications Results No Known Results Summary Purpose eClinicalWorks Submission
--- OUTSIDE RECORDS SUMMARY | 2020-04-14 16:05 | XMS REPORT ---
Author Author COURTNEY Goldberg Organization [employer] Address Unknown Phone Unavailable Care Team Providers Care Grocery Associate Name Role Phone New Goldberg CP Unavailable Allergies No Known Allergies Problems Problem Type Condition Code Onset Dates Condition Statu s Problem Olecranon bursitis, right elbow M70.21 Active Problem Abnormal laboratory test R89.9 Act malorie Problem Screening for osteoporosis Z13.820 A ctive Problem Other senior care (current) drug therapy Z79.899 Active Problem Rheumatoid arthritis without rheumatoid factor, multip le sites M06.09 Active Problem Chronic pain G89.29 Active Problem Hip pain, left M25.552 Active Problem Primary osteoarthritis involving multiple joints M15.0 Active Problem Low testosterone in male E29.1 Act malorie Problem Lumbago with sciatica, left side M54.42 Active Problem correction 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 Z79.891 Active Problem Neck pain M54.2 Active Medications No Known Medications Results No Known Results Summary Purpose eClinicalWorks Submission
--- OUTSIDE RECORDS SUMMARY | 2020-04-14 16:05 | XMS REPORT ---
Author Author COURTNEY Goldberg Organization [employer] Address Unknown Phone Unavailable Care Team Providers Care Learning Coach Name Role Phone New Goldberg CP Unavailable Allergies No Known Allergies Problems Problem Type Condition Code Onset Dates Condition Statu s Problem Other tank terminal gauger (current) drug therapy Z79.899 Active Problem Olecranon bursitis, right elbow M70.21 Active Problem Rheumatoid arthritis without rheumatoid factor, multip le sites M06.09 Active Problem Hip pain, left M25.552 Active Problem moth exterminator 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 Z79.891 Active Problem Neck pain M54.2 Active Problem Abnormal laboratory test R89.9 Act malorie Problem Screening for osteoporosis Z13.820 A ctive Problem Low testosterone in male E29.1 Act malorie Problem Lumbago with sciatica, left side M54.42 Active Medications No Known Medications Results No Known Results Summary Purpose eClinicalWorks Submission
--- OUTSIDE RECORDS SUMMARY | 2020-04-14 16:05 | XMS REPORT ---
Author Author COURTNEY Goldberg [facility] eClinicalWorks Address Unknown Phone Unavailable Care Team Providers Care Craps Dealer Name Role Phone New Goldberg CP Unavailable Allergies, Adverse Reactions, Alerts Substance Reaction Event Type negra Info Not Available Non Drug Allergy Problems Problem Type Condition Code Onset Dates Condition Statu s Problem Other long-term (current) drug therapy Z79.899 Active Problem Olecranon [...] with sciatica, left side M54.42 Active Assessment Neck pain M54.2 Active Assessment Other supervisor intermediates (current) drug therapy Z79.899 Active Assessment Lumbago with sciatica, left side M54.42 Active Assessment moth exterminator 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 Z79.891 Active Assessment Rheumatoid arthritis without rheumatoid factor, multiple sites M06.09 Active Medications Medication Code System Code Instructions Start Date End Date Status Dosage Lisinopril [facility] 38309437187 10 MG Orally BID Active 1 tablet Krill Oil [facility] 79070622350 350 MG Orally once a day A ctive as directed Vitamin D3 [facility] 54751043424 1000 UNIT Orally once a day Active 1 capsule Medrol [facility] 26416117219 4 MG Orally q am with food May 27, 2017 Active 2 tablets with food or milk in the morning Vitamin B 12 ND 45711687307 2500 MCG Orally Active as directed John Multi Men ND 23931071338 Orally once a day Ac tive 2 tablets Iron [facility] 82273194877 325 (65 Fe) MG Orally once a day Active 1 tablet Methotrexate [facility] [address]-87 2.5mg orally q week May 27, 2017 Active 3 tablets Hydrocodone-Acetaminophen [facility] 45000685104 10-325 Orally T hree time a day May 27, 2017 Active 1 tablet as needed Vitamin E [facility] 27803910302 400 UNIT Orally once a day Active 1 capsule Vitamin C [facility] 24002883614 500 MG Orally once a day A ctive 1 tablet Folic Acid [facility] 19039564029 1 MG Orally on hold Activ e 1 tablet Multivitamins [facility] 40678947876 Orally Active as di rected Vital Signs Date/Time: Oct 28, 2017 BMI 30.12 Index Weight 204 lbs Height 69 in Temperature 97.0 F Cardiac Monitoring Heart Rate 72 /min Blood Pressure Diastolic 80 mm Hg Blood Pressure Systolic 126 mm Hg Results No Known Results Summary Purpose eClinicalWorks Submission
--- OUTSIDE RECORDS SUMMARY | 2020-04-14 16:06 | XMS REPORT ---
Author COURTNEY Weller [facility] eClinicalWorks Address Unknown Phone Unavailable Care Team Providers Care Casino Host Name Role Phone New Goldberg CP Unavailable Allergies, Adverse Reactions, Alerts Substance Reaction Event Type negra Info Not Available Non Drug Allergy Encounters Encounter Location Date 4M F/U New Goldberg MD January 01, 2014 Problems Problem Type Condition ICD-9 Code Onset Dates Condition Statu s Problem Long-term (current) use of other medications - High Ri sk V58.69 Active Problem Osteopenia 733.90 Active Problem Rheumatoid arthritis 714.0 Active Assessment Rheumatoid arthritis 714.0 Active Assessment Long-term (current) use of other medications - High Ri sk V58.69 Active Medications Medication Code System Code Instructions Start Date End Date Status Dosage Methot[facility]ate [facility] [address]-80 2.5mg orally once a week Active 3 tablet MethylPREDNISolone [facility] [address]-44 4 MG Orally q day May 01, 2014 Active as directed Medrol [facility] [address]-59 4MG orally once a day Act malorie 1 tablet Ethel [facility] [address]-33 10-325 MG Orally three times a day Active 1 tablet as needed for pain Fish oil Unknown 0 1000 MG PO QD Active 1 PredniSONE [facility] [address]-09 5MG Active TAKE T HREE TABLETS BY MOUTH FOR 5 DAYS, THEN TAKE TWO TABLETS BY MOUTH FOR 5 DAYS, THEN TAKE ONE TABLET BY MOUTH FOR 5 DAYS FOR 15 DAYS Vitamin E [facility] [address]-26 400 UNIT Orally Once a day Active 1 capsule Fish Oil [facility] [address]-57 300 MG Orally Twice a day Active 1 capsule Medrol (Rafa) [facility] [address]-42 4 MG Orally q day January 01 4 January 19, 2014 Active as directed Vitamin B-12 [facility] [address]-61 1000 MCG Orally Once a day Active 1 tablet Multivitamins [facility] [address]-56 Orally Active as directed Vitamin D3 [facility] 79632-[address]99 1000 UNIT Orally Once a day Active 1 capsule Folic Acid [facility] [address]-77 1 mg orally once a day Active 3 tablets Nabumetone [facility] [address]-50 750 MG Orally Twice a day Active 1 tablet Vitamin C [facility] [address]-88 1000 MG Orally Once a day Active 1 tablet Social History Social History Element Qualifiers Date Reported Caffeine: yes. frequency:, 1-5, cups/day December Exercise: yes. walking January 01, 2014 Alcohol: socially. January 01, 2014 Vital Signs Date/Time: January 01, 2014 Weight 200 lbs Height 69 in Temperature 96.7 F Cardiac Monitoring Heart Rate 80 /min Blood Pressure Diastolic 80 mm Hg Blood Pressure Systolic 120 mm Hg Results CBC (INCLUDES DIFF/PLT) ABSOLUTE LYMPHOCYTES(-850-3900 cells/uL) 2713 ABSOLUTE NEUTROPHILS(-7965-3088 cells/uL) 9257 BASOPHILS(- %) 0.7 HEMOGLOBIN(-13.2-17.1 g/dL) 14.8 EOSINOPHILS(- %) 1.0 HEMATOCRIT(-38.5-50.0 %) 43.0 MONOCYTES(- %) 8.3 MCV(-80.0-100.0 fL) 102.7 LYMPHOCYTES(- %) 20.4 MCH(-27.0-33.0 pg) 35.4 NEUTROPHILS(- %) 69.6 MCHC(-32.0-36.0 g/dL) 34.5 ABSOLUTE BASOPHILS(-0-200 cells/uL) 93 RDW(-11.0-15.0 %) 14.6 WHITE BLOOD CELL COUNT(-3.8-10.8 Thousand/uL) 13.3 PLATELET COUNT(-140-400 Thousand/uL) 357 ABSOLUTE EOSINOPHILS(-15-500 cells/uL) 133 RED BLOOD CELL COUNT(-4.20-5.80 Million/uL) 4.19 ABSOLUTE MONOCYTES(-200-950 cells/uL) 1104 SED RATE BY MODIFIED WESTERGREN SED RATE BY MODIFIED WESTERGREN(-< OR = 20 mm/h) 1 COMPREHENSIVE METABOLIC PANEL W/EGFR ALBUMIN/GLOBULIN RATIO(-1.0-2.5 (calc)) 1.7 GLOBULIN(-1.9-3.7 g/dL (calc)) 2.5 ALKALINE PHOSPHATASE(-40-115 U/L) 74 BILIRUBIN, TOTAL(-0.2-1.2 mg/dL) 0.3 CHLORIDE(-98-110 mmol/L) 107 ALT(-9-46 U/L) 16 POTASSIUM(-3.5-5.3 mmol/L) 4.7 AST(-10-35 U/L) 20 SODIUM(-135-146 mmol/L) 138 BUN/CREATININE RATIO(-6-22 (calc)) NOT APPLICABLE eGFR (-> OR = 60 mL/min/1.73m2) 95 CALCIUM(-8.6-10.3 mg/dL) 9.4 CARBON DIOXIDE(-19-30 mmol/L) 22 ALBUMIN(-3.6-5.1 g/dL) 4.3 PROTEIN, TOTAL(-6.1-8.1 g/dL) 6.8 GLUCOSE(-65-99 mg/dL) 93 UREA NITROGEN (BUN)(-7-25 mg/dL) 23 CREATININE(-0.70-1.33 mg/dL) 1.00 eGFR NON-AFR. DUTCH(-> OR = 60 mL/min/1.73m2) 82 C-REACTIVE PROTEIN C-REACTIVE PROTEIN(-<0.80 mg/dL) 0.88 Summary Purpose eClinicalWorks Submission
--- OUTSIDE RECORDS SUMMARY | 2020-04-14 16:06 | XMS REPORT ---
Author Author COURTNEY Goldberg Organization [employer] Address Unknown Phone Unavailable Care Team Providers Care Entry Level Installation Technician Name Role Phone New Goldberg CP Unavailable Allergies No Known Allergies Problems Problem Type Condition Code Onset Dates Condition Statu s Problem Other watermaster (current) drug therapy Z79.899 Active Problem Olecranon bursitis, right elbow M70.21 Active Problem Rheumatoid arthritis without rheumatoid factor, multip le sites M06.09 Active Problem Hip pain, left M25.552 Active Problem terminal manager 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 Z79.891 Active Problem Neck pain M54.2 Active Problem Abnormal laboratory test R89.9 Act malorie Problem Screening for osteoporosis Z13.820 A ctive Problem Low testosterone in male E29.1 Act malorie Problem Lumbago with sciatica, left side M54.42 Active Assessment terminal manager 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 Z79.891 Active Assessment Other retirement (current) drug therapy Z79.899 Active Assessment Rheumatoid arthritis without rheumatoid factor, multiple sites M06.09 Active Medications No Known Medications Results No Known Results Summary Purpose eClinicalWorks Submission
--- OUTSIDE RECORDS SUMMARY | 2020-04-14 16:06 | XMS REPORT ---
Author Author COURTNEY Goldberg Organization [employer] Address Unknown Phone Unavailable Care Team Providers Care Locomotive Electrician Name Role Phone New Goldberg CP Unavailable Allergies No Known Allergies Problems Problem Type Condition Code Onset Dates Condition Statu s Problem Olecranon bursitis, right elbow M70.21 Active Problem Abnormal laboratory test R89.9 Act malorie Problem Screening for osteoporosis Z13.820 A ctive Problem Other local company intermodal truck driver (current) drug therapy Z79.899 Active Problem Rheumatoid arthritis without rheumatoid factor, multip le sites M06.09 Active Problem Chronic pain G89.29 Active Problem Hip pain, left M25.552 Active Problem Primary osteoarthritis involving multiple joints M15.0 Active Problem Low testosterone in male E29.1 Act malorie Problem Lumbago with sciatica, left side M54.42 Active Problem termite technician 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 Z79.891 Active Problem Neck pain M54.2 Active Medications No Known Medications Results No Known Results Summary Purpose eClinicalWorks Submission
--- OUTSIDE RECORDS SUMMARY | 2020-04-14 16:06 | XMS REPORT ---
Author Author COURTNEY Goldberg Organization e[employer] Address Unknown Phone Unavailable Care Team Providers Care Rn First Assist Name Role Phone New Goldberg CP Unavailable Allergies, Adverse Reactions, Alerts Substance Reaction Event Type negra Info Not Available Non Drug Allergy Problems Problem Type Condition Code Onset Dates Condition Statu s Problem Screening for osteoporosis Z13.820 A ctive Problem Lumbago with sciatica, left side M54.42 Active Problem Abnormal laboratory test R89.9 Act malorie Problem Chronic pain G89.29 Active Problem Primary osteoarthritis involving multiple joints M15.0 Active Problem Iron deficiency anemia, unspecified iron deficiency an emia type D50.9 Active Problem ferry terminal agent 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 Z79.891 Active Problem Low testosterone in male E29.1 Act malorie Problem Neck pain M54.2 Active Problem Hip pain, left M25.552 Active Assessment Primary osteoarthritis involving multiple joints M15.0 Active Assessment ferry terminal agent 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 Z79.891 Active Assessment Iron deficiency anemia, unspecified iron deficiency anemia type D50.9 Active Assessment Lumbago with sciatica, left side M54.42 Active Problem Other custodial (current) drug therapy Z79.899 Active Assessment Other terminal carman (current) drug therapy Z79.899 Active Problem Rheumatoid arthritis without rheumatoid factor, multip le sites M06.09 Active Assessment Rheumatoid arthritis without rheumatoid factor, multiple sites M06.09 Active Problem Olecranon bursitis, right elbow M70.21 Active Medications Medication Code System Code Instructions Start Date End Date Status Dosage Iron [facility] 22972406018 325 (65 Fe) MG Orally once a day Active 1 tablet Hydrocodone-Acetaminophen ND 51893391754 10-325 Orally Three ti me a day Active 1 tablet as needed Lisinopril ND 99291742659 10 MG Orally BID Active 1 tablet Methotrexate ND 78242836229 2.5 MG Orally Once a week Sep 03, 2019 Active 5 tablets Folic Acid ND 86532165047 1 MG Orally on hold Activ e 1 tablet Vitamin D3 [facility] 02649277116 1000 UNIT Orally once a day Active 1 capsule Medrol [facility] 86608818867 4 MG Orally q am with food Sep 03, 2019 Active 1 tablet Methotrexate [facility] 84781507967 2.5mg orally q week Act malorie 8 tablets John Multi Men [facility] 08690073087 Orally once a day Ac tive 2 tablets Diazepam [facility] [address]-63 2 MG Orally Twice a day A ctive 1 tablet as needed Nugenix ND 0 Active as directed Vitamin B 12 [facility] 42605799714 2500 MCG Orally Active as directed Vitamin E [facility] 59916842503 400 UNIT Orally once a day Active 1 capsule Vitamin C [facility] 73803783486 500 MG Orally once a day A ctive 1 tablet Krill Oil [facility] 40063005097 350 MG Orally once a day A ctive as directed Vital Signs Date/Time: Sep 03, 2019 BMI 28.29 Index Weight 191.6 lbs Height 69 in Temperature 97.7 F Cardiac Monitoring Heart Rate 68 /min Blood Pressure Diastolic 80 mm Hg Blood Pressure Systolic 148 mm Hg Results Name Result Date Reference Range Unit Abnormali ty Flag CBC W/AUTO DIFF ----PLATELET COUNT 506 [id number] 130-400 K/UL H ----NEUTROPHILS 81.5 [id number] 40.0-74.0 % H ----RDW 15.0 [id number] 11.0-15.0 % ----MCHC 34.4 [id number] 32.0-35.5 G/DL ----MCH 32.9 [id number] 27.0-34.0 PG ----MCV 95.4 [id number] 80.0-100.0 fL ----MONOCYTES 8.5 [id number] 4.0-13.0 % ----LYMPHOCYTES 9.7 [id number] 19.0-48.0 % L ----BASOPHILS 0.2 75680047 0.0-2.0 % ----EOSINOPHILS 0.1 [id number] 0.0-7.0 % ----WBC 15.9 [id number] 4.0-11.0 K/UL H ----RBC 3.50 [id number] 4.10-5.70 M/UL L ----HEMOGLOBIN 11.5 [id number] 13.0-17.0 G/DL L ----HEMATOCRIT 33.4 [id number] 37.0-49.0 % L IRON ----IRON, SERUM 127 [id number] 59-158 UG/DL Summary Purpose eClinicalWorks Submission
--- OUTSIDE RECORDS SUMMARY | 2020-04-14 16:06 | XMS REPORT ---
Author Author COURTNEY Goldberg Organization [employer] Address Unknown Phone Unavailable Care Team Providers Care Owner Operator Tanker Truck Driver Name Role Phone New Goldberg CP Unavailable Allergies, Adverse Reactions, Alerts Substance Reaction Event Type negra Info Not Available Non Drug Allergy Problems Problem Type Condition Code Onset Dates Condition Statu s Problem Abnormal laboratory test R89.9 Act malorie Problem Low testosterone in male E29.1 Act malorie Problem Lumbago with sciatica, left side M54.42 Active Problem Iron deficiency anemia, unspecified iron deficiency an emia type D50.9 Active Assessment Other specified counseling Z71.89 A ctive Problem Chronic pain G89.29 Active Problem Other specified counseling Z71.89 A ctive Problem Hip pain, left M25.552 Active Problem wired music operator 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 Z79.891 Active Problem Primary osteoarthritis involving multiple joints M15.0 Active Problem Neck pain M54.2 Active Assessment Chronic pain G89.29 Active Assessment Other penitentiary (current) drug therapy Z79.899 Active Assessment senior care 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 Z79.891 Active Assessment Primary osteoarthritis involving multiple joints M15.0 Active Problem Other assistant professor of physics (current) drug therapy Z79.899 Active Problem Rheumatoid arthritis without rheumatoid factor, multip le sites M06.09 Active Assessment Rheumatoid arthritis without rheumatoid factor, multiple sites M06.09 Active Problem Olecranon bursitis, right elbow M70.21 Active Problem Screening for osteoporosis Z13.820 A ctive Medications Medication Code System Code Instructions Start Date End Date Status Dosage Vitamin C ND 81130674152 500 MG Orally once a day A ctive 1 tablet Methotrexate NDC 84690394126 2.5mg orally q week Act malorie 8 tablets Folic Acid ND 50370847607 1 MG Orally Once a day Jun 24 20 20 Active 1 tablet Lisinopril ND 72204526443 10 MG Orally BID Active 1 tablet John Multi Men ND 65319318462 Orally once a day Ac tive 2 tablets Medrol ND 40322405445 4 MG Orally TID Sep 03, 2019 Jun 24, 2020 Ac tive 2 tablets Krill Oil ND 29409451571 350 MG Orally once a day A ctive as directed Hydrocodone-Acetaminophen ND 87758580289 10-325 Orally Three ti me a day Active 1 tablet as needed Nugenix NDC 0 orally once a day Active 2 tab lets Results No Known Results Summary Purpose eClinicalWorks Submission
--- OUTSIDE RECORDS SUMMARY | 2020-04-14 16:06 | XMS REPORT ---
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
--- OUTSIDE RECORDS SUMMARY | 2020-04-14 16:06 | XMS REPORT ---
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 Z79.891 Active Problem Neck pain M54.2 Active Assessment Opiate use F11.90 Active Assessment [facility] 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 Z79.891 Active Assessment Chronic pain G89.29 Active Assessment Primary osteoarthritis involving multiple joints M15.0 Active Assessment Rheumatoid arthritis without rheumatoid factor, multiple sites M06.09 Active Assessment Other shelter (current) drug therapy Z79.899 Active Problem Other shelter (current) drug therapy Z79.899 Active Assessment Lumbago with sciatica, left side M54.42 Active Problem Rheumatoid arthritis without rheumatoid factor, multip le sites M06.09 Active Medications Medication Code System Code Instructions Start Date End Date Status Dosage Krill Oil ND 21742050542 350 MG Orally once a day A ctive as directed Vitamin D3 [facility] 55517547423 1000 UNIT Orally once a day Active 1 capsule Hydrocodone-Acetaminophen ND 79126643528 10-325 Orally Three ti me a day Active 1 tablet as needed Vitamin C ND 64441539925 500 MG Orally once a day A ctive 1 tablet Methotrexate [facility] [address]-58 2.5mg orally q week A ctive 5 tablets Multivitamins ND 26543856616 Orally Active as di rected Lisinopril [facility] 18043278840 10 MG Orally BID Active 1 tablet Vitamin B 12 [facility] 10464968608 2500 MCG Orally Active as directed Folic Acid [facility] 55361482240 1 MG Orally on hold Activ e 1 tablet Medrol [facility] 14639249350 4 MG Orally twice a day Acti ve 1 tablet Vitamin E [facility] 37677175821 400 UNIT Orally once a day Active 1 capsule John Multi Men [facility] 00518648846 Orally once a day Ac tive 2 tablets Iron [facility] 88319113764 325 (65 Fe) MG Orally once a day Active 1 tablet Nugenix [facility] 0 Active as directed Vital Signs Date/Time: May 05, 2018 BMI 29.28 Index Weight 198.3 lbs Height 69 in Temperature 96.7 F Cardiac Monitoring Heart Rate 68 /min Blood Pressure Diastolic 78 mm Hg Blood Pressure Systolic 116 mm Hg Results No Known Results Summary Purpose eClinicalWorks Submission
--- OUTSIDE RECORDS SUMMARY | 2020-04-14 16:06 | XMS REPORT ---
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 Z79.891 Active Problem Neck pain M54.2 Active Assessment intermodal truck driver 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 Z79.891 Active Assessment Other termite control servicer (current) drug therapy Z79.899 Active Assessment Rheumatoid arthritis without rheumatoid factor, multiple sites M06.09 Active Assessment Lumbago with sciatica, left side M54.42 Active Problem Other detention (current) drug therapy Z79.899 Active Assessment Primary osteoarthritis involving multiple joints M15.0 Active Problem Rheumatoid arthritis without rheumatoid factor, multip le sites M06.09 Active Medications Medication Code System Code Instructions Start Date End Date Status Dosage Medrol [facility] 08490233434 4 MG Orally twice a day January 20, 2019 Active 1 tablet Iron [facility] 25063981067 325 (65 Fe) MG Orally once a day Active 1 tablet Vitamin E [facility] 16368386409 400 UNIT Orally once a day Active 1 capsule Krill Oil [facility] 60131802885 350 MG Orally once a day A ctive as directed Methotrexate [facility] [address]-54 2.5mg orally q week A ctive 5 tablets Nugenix NDC 0 Active as directed John Multi Men [facility] 70421909408 Orally once a day Ac tive 2 tablets Vitamin D3 [facility] 25924613708 1000 UNIT Orally once a day Active 1 capsule Folic Acid [facility] 44816442390 1 MG Orally on hold Activ e 1 tablet Multivitamins [facility] 19824249912 Orally Active as di rected Vitamin C [facility] 97875215088 500 MG Orally once a day A ctive 1 tablet Vitamin B [address] [facility] 38612655702 2500 MCG Orally Active as directed Hydrocodone-Acetaminophen [facility] 10435738887 10-325 Orally Three time a day Aug 23, 2018 Active 1 tablet as needed Lisinopril [facility] 82475295682 10 MG Orally BID Active 1 tablet Vital Signs Date/Time: Jul 24, 2018 BMI 30.17 Index Weight 204.3 lbs Height 69 in Temperature 96.9 F Cardiac Monitoring Heart Rate 70 /min Blood Pressure Diastolic 76 mm Hg Blood Pressure Systolic 122 mm Hg Results No Known Results Summary Purpose eClinicalWorks Submission
--- OUTSIDE RECORDS SUMMARY | 2020-04-14 16:06 | XMS REPORT ---
Author Author COURTNEY Goldberg [facility] eClinical[employer] Address Unknown Phone Unavailable Care Team Providers Care Chef Name Role Phone New Goldberg CP Unavailable Allergies, Adverse Reactions, Alerts Substance Reaction Event Type negra Info Not Available Non Drug Allergy Problems Problem Type Condition Code Onset Dates Condition Statu s Problem Other senior living (current) drug therapy Z79.899 Active Problem Olecranon bursitis, right elbow M70.21 Active Problem Rheumatoid arthritis without rheumatoid factor, multip le sites M06.09 Active Problem Hip pain, left M25.552 Active Problem terminal supervisor 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 Z79.891 Active Problem Neck pain M54.2 Active Problem Abnormal laboratory test R89.9 Act malorie Problem Screening for osteoporosis Z13.820 A ctive Problem Low testosterone in male E29.1 Act malorie Problem Lumbago with sciatica, left side M54.42 Active Assessment [facility] 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 Z79.891 Active Assessment Other senior living (current) drug therapy Z79.899 Active Assessment Rheumatoid arthritis without rheumatoid factor, multiple sites M06.09 Active Medications Medication Code System Code Instructions Start Date End Date Status Dosage Lisinopril [facility] 87881409485 10 MG Orally BID Active 1 tablet Methotrexate [facility] [address]-37 2.5mg orally q week May 27, 2017 Active 3 tablets Vitamin E [facility] 82632604159 400 UNIT Orally once a day Active 1 capsule Iron [facility] 19132788475 325 (65 Fe) MG Orally once a day Active 1 tablet Folic Acid [facility] 95402355989 1 MG Orally on hold Activ e 1 tablet Hydrocodone-Acetaminophen [facility] 74301165569 10-325 Orally T hree time a day May 27, 2017 Active 1 tablet as needed John Multi Men ND 87663568598 Orally once a day Ac tive 2 tablets Krill Oil [facility] 67028860448 350 MG Orally once a day A ctive as directed Vitamin C [facility] 79253874874 500 MG Orally once a day A ctive 1 tablet Vitamin D3 [facility] 24915028234 1000 UNIT Orally once a day Active 1 capsule Medrol [facility] 14584346790 4 MG Orally twice a day May 27, 2017 Active 1 tablet Vitamin B 12 [facility] 94645959720 2500 MCG Orally Active as directed Multivitamins [facility] 69877459680 Orally Active as di rected Vital Signs Date/Time: January 27, 2018 BMI 29.44 Index Weight 199.4 lbs Height 69 in Temperature 97.4 F Cardiac Monitoring Heart Rate 74 /min Blood Pressure Diastolic 70 mm Hg Blood Pressure Systolic 112 mm Hg Results No Known Results Summary Purpose eClinicalWorks Submission
--- OUTSIDE RECORDS SUMMARY | 2020-04-14 16:06 | XMS REPORT ---
Author Author COURTNEY Goldberg [facility] eClinicalWorks Address Unknown Phone Unavailable Care Team Providers Care Set Up Mechanic Heading Machines Name Role Phone New Goldberg CP Unavailable Encounters Encounter Location Date 4M F/U New Goldberg MD January 01, 2014 Right knee update New Goldberg MD January 16, 2014 Problems Problem Type Condition ICD-9 Code Onset Dates Condition Statu s Problem Long-term (current) use of other medications - High Ri sk V58.69 Active Problem Osteopenia 733.90 Active Problem Rheumatoid arthritis 714.0 Active Social History Social History Element Qualifiers Date Reported Caffeine: yes. frequency:, 1-5, cups/day January 16, 2014 Exercise: yes. walking January 16, 2014 Alcohol: socially. January 16, 2014 Summary Purpose eClinicalWorks Submission
--- OUTSIDE RECORDS SUMMARY | 2020-04-14 16:06 | XMS REPORT ---
Author Author COURTNEY Goldberg Organization [employer] Address Unknown Phone Unavailable Care Team Providers Care Behavioral Health Director Name Role Phone New Goldberg CP Unavailable Allergies No Known Allergies Problems Problem Type Condition Code Onset Dates Condition Statu s Problem Abnormal laboratory test R89.9 Act malorie Problem Low testosterone in male E29.1 Act malorie Problem Lumbago with sciatica, left side M54.42 Active Problem Other terminal carman (current) drug therapy Z79.899 Active Problem Rheumatoid arthritis without rheumatoid factor, multip le sites M06.09 Active Problem Olecranon bursitis, right elbow M70.21 Active Problem Screening for osteoporosis Z13.820 A ctive Problem Iron deficiency anemia, unspecified iron deficiency an emia type D50.9 Active Problem Chronic pain G89.29 Active Problem Other specified counseling Z71.89 A ctive Problem Hip pain, left M25.552 Active Problem assistant terminal manager 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 Z79.891 Active Problem Primary osteoarthritis involving multiple joints M15.0 Active Problem Neck pain M54.2 Active Medications No Known Medications Results No Known Results Summary Purpose eClinicalWorks Submission
--- OUTSIDE RECORDS SUMMARY | 2020-04-14 16:06 | XMS REPORT ---
Author Author COURTNEY Goldberg Organization [employer] Address Unknown Phone Unavailable Care Team Providers Care Air Compressor Mechanic Name Role Phone New Goldberg CP Unavailable Allergies No Known Allergies Problems Problem Type Condition Code Onset Dates Condition Statu s Problem Olecranon bursitis, right elbow M70.21 Active Problem Abnormal laboratory test R89.9 Act malorie Problem Screening for osteoporosis Z13.820 A ctive Problem Other continuous churn buttermaker (current) drug therapy Z79.899 Active Problem Rheumatoid arthritis without rheumatoid factor, multip le sites M06.09 Active Problem Chronic pain G89.29 Active Problem Hip pain, left M25.552 Active Problem Primary osteoarthritis involving multiple joints M15.0 Active Problem Low testosterone in male E29.1 Act malorie Problem Lumbago with sciatica, left side M54.42 Active Problem 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
--- OUTSIDE RECORDS SUMMARY | 2020-04-14 16:06 | XMS REPORT ---
Author COURTNEY Tucker [facility] eClinicalWorks Address Unknown Phone Unavailable Care Team Providers Care Asphalt Paver Name Role Phone Mendel Mckeon Unavailable Allergies, Adverse Reactions, Alerts Substance Reaction Event Type negra Info Not Available Non Drug Allergy Encounters Encounter Location Date medrol/refill norco New Goldberg MD February 01, 2014 right knee pain New Goldberg MD January 16, 2014 4M F/U New Goldberg MD January 01, 2014 Right knee update New Goldberg MD January 16, 2014 Vicodin refill New Goldberg MD February 01, 2014 Problems Problem Type Condition ICD-9 Code Onset Dates Condition Statu s Problem Long-term (current) use of other medications - High Ri sk V58.69 Active Problem Osteopenia 733.90 Active Problem Rheumatoid arthritis 714.0 Active Assessment Rheumatoid arthritis 714.0 Active Medications Medication Code System Code Instructions Start Date End Date Status Dosage Multivitamins [facility] [address]-09 Orally Active as directed Vitamin E [facility] [address]-00 400 UNIT Orally Once a day Active 1 capsule [place] [facility] [address]-27 10-325 MG Orally three times a day Active 1 tablet as needed for pain Vitamin D3 [facility] 184[address] 1000 UNIT Orally Once a day Active 1 capsule Methotrexate [facility] [address]-40 2.5mg orally once a week Active 3 tablet Vitamin C [facility] [address]-88 1000 MG Orally Once a day Active 1 tablet Medrol (Rafa) [facility] [address]-46 4 MG Orally q day January 01 4 January 19, 2014 Active as directed Folic Acid [facility] [address]-63 1MG Active TAKE T HREE TABLETS BY MOUTH EVERY DAY Nabumetone [facility] [address]-87 750 MG Orally Twice a day Active 1 tablet PredniSONE [facility] [address]-73 5MG Active TAKE T HREE TABLETS BY MOUTH FOR 5 DAYS, THEN TAKE TWO TABLETS BY MOUTH FOR 5 DAYS, THEN TAKE ONE TABLET BY MOUTH FOR 5 DAYS FOR 15 DAYS Medrol (Rafa) [facility] [address]-67 4 MG Orally as directed January 16, 2014 January 22, 2014 Active as directed Fish oil Unknown 0 1000 MG PO QD Active 1 MethylPREDNISolone [facility] [address]-31 4MG Active TAKE ONE TABLET BY MOUTH EVERY DAY Vitamin B-12 [facility] [address]-47 1000 MCG Orally Once a day Active 1 tablet Fish Oil [facility] [address]-77 300 MG Orally Twice a day Active 1 capsule Medrol [facility] [address]-66 4MG orally once a day Act malorie 1 tablet Social History Social History Element Qualifiers Date Reported Caffeine: yes. frequency:, 1-5, cups/day January 16, 2014 Exercise: yes. walking January 16, 2014 Alcohol: socially. January 16, 2014 Vital Signs Date/Time: January 16, 2014 Weight 204 lbs Height 69 in Temperature 96.8 F Cardiac Monitoring Heart Rate 68 /min Blood Pressure Diastolic 82 mm Hg Blood Pressure Systolic 142 mm Hg Summary Purpose eClinicalWorks Submission
--- OUTSIDE RECORDS SUMMARY | 2020-04-14 16:06 | XMS REPORT ---
Author Author COURTNEY Goldberg Organization [employer] Address Unknown Phone Unavailable Care Team Providers Care Finisher Special Stocks Name Role Phone New Goldberg CP Unavailable Allergies No Known Allergies Problems Problem Type Condition Code Onset Dates Condition Statu s Problem Abnormal laboratory test R89.9 Act malorie Problem Low testosterone in male E29.1 Act malorie Problem Lumbago with sciatica, left side M54.42 Active Problem Other terminal 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 Z79.899 Active Problem Rheumatoid arthritis without rheumatoid factor, multip le sites M06.09 Active Problem Olecranon bursitis, right elbow M70.21 Active Problem Screening for osteoporosis Z13.820 A ctive Problem Iron deficiency anemia, unspecified iron deficiency an emia type D50.9 Active Problem Chronic pain G89.29 Active Problem Other specified counseling Z71.89 A ctive Problem Hip pain, left M25.552 Active Problem 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 marine oil terminal 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 Z79.891 Active Problem Primary osteoarthritis involving multiple joints M15.0 Active Problem Neck pain M54.2 Active Medications Medication Code System Code Instructions Start Date End Date Status Dosage Vitamin C [facility] 63383998435 500 MG Orally once a day A ctive 1 tablet Krill Oil [facility] 66779222208 350 MG Orally once a day A ctive as directed Oxycodone-Acetaminophen [facility] [address]-32 5-325 MG Orally three times a day Active 1 tablet as needed Lisinopril ND 22914675197 10 MG Orally BID Active 1 tablet Hydrocodone-Acetaminophen ND 16307870635 10-325 Orally Three ti me a day Active 1 tablet as needed Medrol ND 65403131449 4 MG Orally TID Sep 03, 2019 Jun 24, 2020 Ac tive 2 tablets Folic Acid ND 26971602453 1 MG Orally Once a day Jun 24 Active 1 tablet Nugenix ND 0 orally once a day Active 2 tab lets John Multi Men ND 99778111665 Orally once a day Ac tive 2 tablets Methotrexate [facility] 58044576284 2.5mg orally q week Act malorie 8 tablets Results No Known Results Summary Purpose eClinicalWorks Submission
--- OUTSIDE RECORDS SUMMARY | 2020-04-14 16:06 | XMS REPORT ---
Author Author COURTNEY Goldberg Organization [employer] Address Unknown Phone Unavailable Care Team Providers Care Concrete Conveyor Operator Name Role Phone New Goldberg CP Unavailable Allergies No Known Allergies Problems Problem Type Condition Code Onset Dates Condition Statu s Problem Abnormal laboratory test R89.9 Act malorie Problem Low testosterone in male E29.1 Act malorie Problem Lumbago with sciatica, left side M54.42 Active Problem Other terminal make up operator (current) drug therapy Z79.899 Active Problem Rheumatoid arthritis without rheumatoid factor, multip le sites M06.09 Active Problem Olecranon bursitis, right elbow M70.21 Active Problem Screening for osteoporosis Z13.820 A ctive Problem Iron deficiency anemia, unspecified iron deficiency an emia type D50.9 Active Problem Chronic pain G89.29 Active Problem Other specified counseling Z71.89 A ctive Problem Hip pain, left M25.552 Active Problem exterminator helper 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 Z79.891 Active Problem Primary osteoarthritis involving multiple joints M15.0 Active Problem Neck pain M54.2 Active Medications No Known Medications Results No Known Results Summary Purpose eClinicalWorks Submission
--- OUTSIDE RECORDS SUMMARY | 2020-04-14 16:06 | XMS REPORT ---
Author Author COURTNEY Centeno Organization [employer] Address Unknown Phone Unavailable Care Team Providers Care Die Polisher Name Role Phone Nica Centeno CP Unavailable Allergies No Known Allergies Problems Problem Type Condition Code Onset Dates Condition Statu s Problem Screening for osteoporosis Z13.820 A ctive Problem Lumbago with sciatica, left side M54.42 Active Problem Abnormal laboratory test R89.9 Act malorie Problem Other assisted (current) drug therapy Z79.899 Active Problem Rheumatoid arthritis without rheumatoid factor, multip le sites M06.09 Active Problem Olecranon bursitis, right elbow M70.21 Active Problem Chronic pain G89.29 Active Problem Primary osteoarthritis involving multiple joints M15.0 Active Problem Iron deficiency anemia, unspecified iron deficiency an emia type D50.9 Active Problem 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 Z79.891 Active Problem Low testosterone in male E29.1 Act malorie Problem Neck pain M54.2 Active Problem Hip pain, left M25.552 Active Medications No Known Medications Results No Known Results Summary Purpose eClinicalWorks Submission
--- OUTSIDE RECORDS SUMMARY | 2020-04-14 16:06 | XMS REPORT ---
Author Author COURTNEY Goldberg Organization [employer] Address Unknown Phone Unavailable Care Team Providers Care Hospital Mortician Name Role Phone New Goldberg CP Unavailable [...] sciatica, left side M54.42 Active Problem termite treater 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 Z79.891 Active Problem Neck pain M54.2 Active Assessment Chronic pain G89.29 Active Assessment Rheumatoid arthritis without rheumatoid factor, multiple sites M06.09 Active Assessment Primary osteoarthritis involving multiple joints M15.0 Active Problem Other rat exterminator (current) drug therapy Z79.899 Active Assessment Lumbago with sciatica, left side M54.42 Active Problem Rheumatoid arthritis without rheumatoid factor, multip le sites M06.09 Active Medications Medication Code System Code Instructions Start Date End Date Status Dosage Vitamin E [facility] 81081208400 400 UNIT Orally once a day Active 1 capsule Multivitamins ND 36494441750 Orally Active as di rected Iron ND 40617357240 325 (65 Fe) MG Orally once a day Active 1 tablet John Multi Men ND 91975534409 Orally once a day Ac tive 2 tablets Methotrexate ND 77553527903 2.5mg orally q week Act malorie 8 tablets Lisinopril ND 79045500841 10 MG Orally BID Active 1 tablet Vitamin D3 ND 98881540039 1000 UNIT Orally once a day Active 1 capsule Krill Oil ND 61605453777 350 MG Orally once a day A ctive as directed Vitamin C [facility] 04281880351 500 MG Orally once a day A ctive 1 tablet Nugenix NDC 0 Active as directed Vitamin B 12 [facility] 11694186542 2500 MCG Orally Active as directed Folic Acid [facility] 57839213137 1 MG Orally on hold Activ e 1 tablet Medrol [facility] 12716490518 4 MG Orally twice a day November 13 Active 1 tablet Hydrocodone-Acetaminophen [facility] 22082411081 10-325 Orally Three ti me a day Active 1 tablet as needed Vital Signs Date/Time: May 18, 2019 BMI 28.91 Index Weight 195.8 lbs Height 69 in Temperature 98.6 F Cardiac Monitoring Heart Rate 80 /min Blood Pressure Diastolic 84 mm Hg Blood Pressure Systolic 120 mm Hg Results No Known Results Summary Purpose eClinicalWorks Submission
--- OUTSIDE RECORDS SUMMARY | 2020-04-14 16:06 | XMS REPORT ---
Author Author COURTNEY Goldberg [facility] eClinicalWorks Address Unknown Phone Unavailable Care Team Providers Care Greens Laborer Name Role Phone New Goldberg Unavailable Encounters Encounter Location Date 4M F/U [...] Instructions Start Date End Date Status D[facility] [address]-17 10-325 MG Orally three times a day Active 1 tablet as needed for pain Social History Social History Element Qualifiers Date Reported Caffeine: yes. frequency:, 1-5, cups/day January 16, 2014 Exercise: yes. walking January 16, 2014 Alcohol: socially. January 16, 2014 Summary Purpose eClinicalWorks Submission
--- OUTSIDE RECORDS SUMMARY | 2020-04-14 16:06 | XMS REPORT ---
Author Author COURTNEY Goldberg Organization [employer] Address Unknown Phone Unavailable Care Team Providers Care Pulmonologist/Intensivist Name Role Phone New Goldberg CP Unavailable Allergies No Known Allergies Problems Problem Type Condition Code Onset Dates Condition Statu s Problem Screening for osteoporosis Z13.820 A ctive Problem Lumbago with sciatica, left side M54.42 Active Problem Abnormal laboratory test R89.9 Act malorie Problem Other [facility] (current) drug therapy Z79.899 Active Problem Rheumatoid arthritis without rheumatoid factor, multip le sites M06.09 Active Problem Olecranon bursitis, right elbow M70.21 Active Problem Chronic pain G89.29 Active Problem Primary osteoarthritis involving multiple joints M15.0 Active Problem Iron deficiency anemia, unspecified iron deficiency an emia type D50.9 Active Problem long term care social worker 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 Z79.891 Active Problem Low testosterone in male E29.1 Act malorie Problem Neck pain M54.2 Active Problem Hip pain, left M25.552 Active Medications No Known Medications Results No Known Results Summary Purpose eClinicalWorks Submission
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
--- OUTSIDE RECORDS SUMMARY | 2020-04-14 16:07 | XMS REPORT ---
Author Author COURTNEY Goldberg [facility] e[employer] Address Unknown Phone Unavailable Care Team Providers Care Substance Abuse Services Director Name Role Phone New Goldberg CP [...] Approval New Goldberg MD Apr 17, 2014 DEXA New Goldberg MD Jul 04, 2014 swelling New Goldberg MD Jul 15, 2014 PT call New Goldberg MD Jun [...] Start Date End Date Status Dosage Medrol [facility] [address]-94 4 MG Orally Once a day Jul 15, 2014 Oct 13, 2014 Active 1 tablet Social History Social History Element Qualifiers Date Reported Caffeine: yes. frequency:, 1-5, cups/day Jul 09, 2014 Exercise: yes. walking Jul 09, 2014 Alcohol: socially. Jul 09, 2014 Summary Purpose eClinicalWorks Submission
--- OUTSIDE RECORDS SUMMARY | 2020-04-14 16:07 | XMS REPORT ---
Author Author COURTNEY Goldberg [facility] eClinicalWorks Address Unknown Phone Unavailable Care Team Providers Care Wrinkle Chaser Name Role Phone New Goldberg CP Unavailable [...] 733.90 Active Problem Rheumatoid arthritis 714.0 Active Medications Medication Code System Code Instructions Start Date End Date Status Dosage Hydrocodone-Acetaminophen [facility] 86023822439 10-325 Orally T hree times a day Active TAKE ONE TABLET Social History Social History Element Qualifiers Date Reported Caffeine: yes. frequency:, 1-5, cups/day Jun 24, 2014 Exercise: yes. walking Jun 24, 2014 Alcohol: socially. Jun 24, 2014 Summary Purpose eClinicalWorks Submission
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
--- OUTSIDE RECORDS SUMMARY | 2020-04-14 16:07 | XMS REPORT ---
Author Author COURTNEY Goldberg [facility] eClinicalWorks Address Unknown Phone Unavailable Care Team Providers Care Fertilizer Applicator Name Role Phone New Goldberg CP Unavailable [...] swelling New Goldberg MD Jul 15, 2014 [place] Refill due- 08/01/14 New Goldberg MD Aug 14, 2014 PT call New Goldberg MD Jun 14, 2014 4M F/U New Goldberg MD Jul 09, 2014 Triplicate-- Hydrocodone New Goldberg MD Jul 01, 2014 Pt. added New Goldberg MD Sep 16, 2014 earlier appt New Goldberg MD May 07, 2014 DEXA New Goldberg MD May 08, 2014 Would like a call New Goldberg MD Aug 12, 2014 Social History Social History Element Qualifiers Date Reported Caffeine: yes. frequency:, 1-5, cups/day Jul 09, 2014 Exercise: yes. walking Jul 09, 2014 Alcohol: socially. Jul 09, 2014 Summary Purpose eClinicalWorks Submission
--- OUTSIDE RECORDS SUMMARY | 2020-04-14 16:07 | XMS REPORT ---
Author Author COURTNEY Goldbegr [facility] eClinicalWorks Address Unknown Phone Unavailable Care Team Providers Care Shot Bagger Name Role Phone New Goldberg CP Unavailable [...] swelling New Goldberg MD Jul 15, 2014 [place] Refill due- 08/01/14 New Goldberg MD Aug [...] back 724.5 Active Problem Osteopenia 733.90 Active Social History Social History Element Qualifiers Date Reported Caffeine: yes. frequency:, 1-5, cups/day Jul 09, 2014 Exercise: yes. walking Jul 09, 2014 Alcohol: socially. Jul 09, 2014 Summary Purpose eClinicalWorks Submission
--- OUTSIDE RECORDS SUMMARY | 2020-04-14 16:07 | XMS REPORT ---
Author Author COURTNEY Goldberg [facility] eClinicalWorks Address Unknown Phone Unavailable Care Team Providers Care Medical Laboratory Technician Name Role Phone New Goldberg CP [...] swelling New Goldberg MD Jul 15, 2014 [place] Refill due- 08/01/14 New Goldberg MD Aug [...]
--- OUTSIDE RECORDS SUMMARY | 2020-04-14 16:07 | XMS REPORT ---
Author Author COURTNEY Goldberg [facility] eClinicalWorks Address Unknown Phone Unavailable Care Team Providers Care Floor Tech Name Role Phone New Goldberg CP Unavailable [...] swelling New Goldberg MD Jul 15, 2014 [place] Refill due- 08/01/14 New Goldberg MD Aug [...] Start Date End Date Status Dosage Hydrocodone-Acetaminophen [facility] 38389961511 10-325 Orally Three time a day Active TAKE ONE TABLET BY MOUTH THR EE TIMES DAILY NEEDED FOR PAIN Social History Social History Element Qualifiers Date Reported Caffeine: yes. frequency:, 1-5, cups/day Jul 09, 2014 Exercise: yes. walking Jul 09, 2014 Alcohol: socially. Jul 09, 2014 Summary Purpose eClinicalWorks Submission
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
--- OUTSIDE RECORDS SUMMARY | 2020-04-14 16:07 | XMS REPORT ---
Author Author COURTNEY Goldberg [facility] eClinicalWorks Address Unknown Phone Unavailable Care Team Providers Care Automobile Body Repairer Name Role Phone New Goldberg CP Unavailable [...] Goldberg MD Apr 09, 2014 Duplicate-MRI Approval eNw Goldberg MD Apr 17, 2014 MRI Bi Wrist New Goldberg MD Jul 05, 2014 meloxicam New Goldberg MD Aug 07, 2014 DEXA New Goldberg MD Jul 04, 2014 swelling New Goldberg MD Jul 15, 2014 [place] Refill due- 08/01/14 New Goldberg MD Aug [...] Instructions Start Date End Date Status Dosage Nabjoãotone [facility] [address]-90 750 MG Orally Twice a day Active 1 tablet Social History Social History Element Qualifiers Date Reported Caffeine: yes. frequency:, 1-5, cups/day Jul 09, 2014 Exercise: yes. walking Jul 09, 2014 Alcohol: socially. Jul 09, 2014 Summary Purpose eClinicalWorks Submission
--- OUTSIDE RECORDS SUMMARY | 2020-04-14 16:07 | XMS REPORT ---
Author Author COURTNEY Goldberg [facility] eClinicalWorks Address Unknown Phone Unavailable Care Team Providers Care Assistant Technician Name Role Phone New Goldberg CP [...] Approval New Goldberg MD Apr 17, 2014 Problems Problem Type Condition ICD-9 Code Onset Dates Condition Statu s Problem Long-term (current) use of other medications - High Ri sk V58.69 Active Problem Osteopenia 733.90 Active Problem Rheumatoid arthritis 714.0 Active Assessment Rheumatoid arthritis 714.0 Active Assessment Tear of medial cartilage or meniscus of knee, current 836.0 Active Social History Social History Element Qualifiers Date Reported Caffeine: yes. frequency:, 1-5, cups/day January 16, 2014 Exercise: yes. walking January 16, 2014 Alcohol: socially. January 16, 2014 Summary Purpose eClinicalWorks Submission
--- OUTSIDE RECORDS SUMMARY | 2020-04-14 16:07 | XMS REPORT ---
Author Author COURTNEY Goldberg [facility] eClinicalWorks Address Unknown Phone Unavailable Care Team Providers Care Naval [employer]crew[employer]ion[employer] Name Role Phone New Goldberg CP Unavailable [...]
--- OUTSIDE RECORDS SUMMARY | 2020-04-14 16:07 | XMS REPORT ---
Author Author COURTNEY Goldberg [facility] eClinicalWorks Address Unknown Phone Unavailable Care Team Providers Care Community Support Worker Name Role Phone New Goldberg CP Unavailable [...]
--- OUTSIDE RECORDS SUMMARY | 2020-04-14 16:07 | XMS REPORT ---
Author Author COURTNEY Goldberg [facility] eClinicalWorks Address Unknown Phone Unavailable Care Team Providers Care Adding Machine Servicer Name Role Phone New Goldberg CP Unavailable Encounters Encounter Location Date medrol/refill norco New Goldberg MD February 01, 2014 right knee pain New Goldberg MD January 16, 2014 something for you New Goldberg MD Apr 09, 2014 OV 04/10 Per Yusuf Goldberg MD Apr 09, 2014 4M F/U New Goldberg MD January 01, 2014 earlier appt New Goldberg MD May 07, 2014 Right knee update New Goldberg MD January 16, 2014 DEXA New Goldberg MD May 08, 2014 Vicodin refill New Goldberg MD February [...]
--- OUTSIDE RECORDS SUMMARY | 2020-04-14 16:07 | XMS REPORT ---
Author Author COURTNEY Goldberg [facility] eClinicalWorks Address Unknown Phone Unavailable Care Team Providers Care Senior Marketing Manager Name Role Phone New Goldberg CP Unavailable [...]
--- OUTSIDE RECORDS SUMMARY | 2020-04-14 16:07 | XMS REPORT ---
Author Author COURTNEY Goldberg [facility] eClinicalWorks Address Unknown Phone Unavailable Care Team Providers Care Animal Treatment Investigator Name Role Phone New Goldberg CP Unavailable [...] Start Date End Date Status Dosage Medrol (Rafa) MEDISPAN [address]-96 4 MG Orally Apr 10, 2014 Ac tive as directed Social History Social History Element Qualifiers Date Reported Caffeine: yes. frequency:, 1-5, cups/day January 16, 2014 Exercise: yes. walking January 16, 2014 Alcohol: socially. January 16, 2014 Summary Purpose eClinicalWorks Submission
--- OUTSIDE RECORDS SUMMARY | 2020-04-14 16:07 | XMS REPORT ---
Author Author COURTNEY Goldberg [facility] eClinicalWorks Address Unknown Phone Unavailable Care Team Providers Care Annealing Operator Name Role Phone New Goldberg CP [...] DEXA New Goldberg MD Jul 04, 2014 PT call New Goldberg MD Jun 14, 2014 Triplicate-- Hydrocodone New Goldberg MD Jul 01, 2014 earlier appt New Goldberg MD May 07, 2014 DANIELA New Goldberg MD May 08, 2014 Problems [...]
--- OUTSIDE RECORDS SUMMARY | 2020-04-14 16:07 | XMS REPORT ---
Author Author COURTNEY Goldberg [facility] eClinicalWorks Address Unknown Phone Unavailable Care Team Providers Care Roustabout Crew Leader Name Role Phone New Goldberg CP Unavailable [...]
--- OUTSIDE RECORDS SUMMARY | 2020-04-14 16:07 | XMS REPORT ---
Author COURTNEY Weller [facility] eClinicalWorks Address Unknown Phone Unavailable Care Team Providers Care Electricity Trader Name Role Phone New Goldberg CP Unavailable [...] Instructions Start Date End Date Status Dosage Sheldon MEDISPAN [address]-18 10-325 MG Orally three times a day Active 1 tablet as needed for pain Medrol [facility] [address]-79 4MG orally once a day Act malorie 1 tablet Social History Social History Element Qualifiers Date Reported Caffeine: yes. frequency:, 1-5, cups/day January 16, 2014 Exercise: yes. walking January 16, 2014 Alcohol: socially. January 16, 2014 Summary Purpose eClinicalWorks Submission
--- OUTSIDE RECORDS SUMMARY | 2020-04-14 16:07 | XMS REPORT ---
Author Author COURTNEY Goldberg [facility] eClinicalWorks Address Unknown Phone Unavailable Care Team Providers Care College Sports Assistant Name Role Phone New Goldberg CP Unavailable [...] Goldberg MD Jul 04, 2014 swelling New Goldbreg MD Jul 15, 2014 [place] Refill due- 08/01/14 New Goldberg MD Aug [...]
--- OUTSIDE RECORDS SUMMARY | 2020-04-14 16:08 | XMS REPORT ---
Author Author COURTNEY Goldberg [facility] eClinicalWorks Address Unknown Phone Unavailable Care Team Providers Care Hydraulic Plumber Helper Name Role Phone New Goldberg CP Unavailable Allergies No Known Allergies Problems Problem Type Condition Code Onset Dates Condition Statu s Problem Abnormal laboratory test R89.9 Act malorie Problem Screening for osteoporosis Z13.820 A ctive Problem Lumbago with sciatica, left side M54.42 Active Problem Olecranon bursitis, right elbow M70.21 Active Problem Rheumatoid arthritis without rheumatoid factor, multip le sites M06.09 Active Problem Other skilled nursing (current) drug therapy Z79.899 Active Medications No Known Medications Results No Known Results Summary Purpose eClinicalWorks Submission
--- OUTSIDE RECORDS SUMMARY | 2020-04-14 16:08 | XMS REPORT ---
Author Author COURTNEY Goldberg [facility] eClinicalWorks Address Unknown Phone Unavailable Care Team Providers Care Customer Support Advisor Name Role Phone New Goldberg CP Unavailable [...] appt New Goldberg MD May 07, 2014 MED REFILL New Goldberg MD Jul 08, 2016 DEXA New Goldberg MD May 08, 2014 [...] MRI New Goldberg MD January 12, 2015 [place] Refill due- 08/01/14 New Goldberg MD Aug 14, 2014 4M F/U New Goldberg MD Jul 09, 2014 Pt. added New Goldberg MD Sep 16, 2014 norco refill New Goldberg MD November 14, 2014 RX New Goldberg MD Oct 17, 2014 Balance New Goldberg MD Apr 08, 2015 1 MO F/U New Goldberg MD February 05, 2015 Elbow drainage New Goldberg MD Jun 11, 2015 synovial fluid New Goldberg MD Jun 13, 2015 1 MO F/U New Goldberg MD March 10, 2015 1 MO F/U New Goldberg MD May 13, 2015 DRAIN ELBOW New Goldberg MD Jun 20, 2015 RIGHT ELBOW SWOLLEN New Goldberg MD Jun 19, 2015 UPDATE New Goldberg MD Jun 23, 2015 FU New Goldberg MD Aug 15, 2015 1 MO F/U New Goldberg MD Jun 13, 2015 folic acid New Goldberg MD Oct 27, 2015 OV New Goldberg MD Sep 17, 2015 baxalta/humira biosimilar New Goldberg MD January 07, 2016 MED REFILL New Goldberg MD January 08, 2016 dexa New Goldberg MD January 14, 2016 MED ANGELITA Goldberg MD Apr 08, 2016 Labs New Goldberg MD Jun 03, 2016 LETTER New Goldberg MD Jun 02, 2016 Problems Problem Type Condition ICD-9 Code Onset Dates Condition Statu s Problem Screening for osteoporosis Z13.820 A ctive Problem Rheumatoid arthritis without rheumatoid factor, multip le sites M06.09 Active Problem Abnormal laboratory test R89.9 Act malorie Assessment Rheumatoid arthritis without rheumatoid factor, multiple sites M06.09 Active Assessment Other 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 terminal (current) drug therapy Z79.899 Active Problem Other prison (current) drug therapy Z79.899 Active Problem Olecranon bursitis, right elbow M70.21 Active Medications Medication Code System Code Instructions Start Date End Date Status Dosage Multivitamins [facility] [address]-77 Orally Active as directed Vitamin C [facility] [address]-03 1000 MG Orally Once a day Active 1 tablet Vitamin D3 [facility] 96738-41450 1000 UNIT Orally Once a day Active 1 capsule Vitamin E [facility] [address]-93 400 UNIT Orally Once a day Active 1 capsule Methotrexate [facility] [address]-63 2.5mg orally once a week Active 3 tablets Hydrocodone-Acetaminophen [facility] 93259627557 10-325 Orally Three time a day Active 1 tablet as needed Lisinopril [facility] [address]-99 10 MG Orally Once a day Active 1 tablet Folic Acid [facility] [address]-53 1 MG Orally Once a day Active 1 tablet Vitamin B-12 [facility] [address]-91 1000 MCG Orally Once a day Active 1 tablet Krill Oil [facility] 74874-27266 1000 MG Orally Active a s directed Social History Social History Element Qualifiers Date Reported Tobacco Use: . Are you a:: current smok er , How often do you smoke cigarettes?: some days, but not every day Jul 08, 2016 Marital Status: single. Jul 08, 2016 Caffeine: no. 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 Jul 08, 2016 Vital Signs Date/Time: Jul 08, 2016 Weight 197 lbs Height 69 in Temperature 96.7 F Cardiac Monitoring Heart Rate 72 /min Blood Pressure Diastolic 60 mm Hg Blood Pressure Systolic 120 mm Hg Summary Purpose eClinicalWorks Submission
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
--- OUTSIDE RECORDS SUMMARY | 2020-04-14 16:08 | XMS REPORT ---
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 Points: 0 Apr 08, 2016 Tobacco Use: . Are you a:: current smok er , How often do you smoke cigarettes?: some days, but not every day, How soon after you wake up do you smoke your first cigarette?: after 60 min, Are you interested in quitting?: Not ready to quit Apr 08, 2016 Caffeine: yes. 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 Apr 08, 2016 Summary Purpose eClinicalWorks Submission
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
--- OUTSIDE RECORDS SUMMARY | 2020-04-14 16:08 | XMS REPORT ---
Author Author COURTNEY Goldberg [facility] eClinicalWorks Address Unknown Phone Unavailable Care Team Providers Care Community Outreach Worker Name Role Phone New Goldberg CP [...] Refill New Goldberg MD Aug 14, 2014 FU New Goldberg MD Aug 15, 2015 RIGHT LEG PAIN New Goldberg MD Apr 09, 2014 1 MO F/U New Goldberg MD Jun 13, 2015 Duplicate-MRI Approval New Goldberg MD Apr 17, 2014 folic acid New Goldberg MD Oct 27, 2015 OV New Goldberg MD Sep 17, 2015 baxalta/humira biosimilar New Goldberg MD January 07, 2016 RX New Goldberg MD Sep 17, 2014 MED [place] New Goldberg MD January 08, 2016 1 MO F/U New Goldberg MD December 13, 2014 dexa New Goldberg MD January 14, 2016 1 MO F/U New Goldberg MD January 08, 2015 MED REFILL New Goldberg MD Apr 08, 2016 MRI New Goldberg MD January 12, 2015 [place] Refill due- 08/01/14 New Goldberg MD Aug 14, 2014 4M F/U New Goldberg MD Jul 09, 2014 Pt. added New Goldberg MD Sep 16, 2014 norco refill New Goldberg MD November 14, 2014 Problems Problem Type Condition ICD-9 Code Onset Dates Condition Statu s Problem Rheumatoid arthritis without rheumatoid factor, multip le sites M06.09 Active Problem Other detention (current) drug therapy Z79.899 Active Problem Screening for osteoporosis Z13.820 A ctive Assessment Other program technician (current) drug therapy Z79.899 Active Assessment Encounter for screening for other disorder Z13.89 Active Problem Olecranon bursitis, right elbow M70.21 Active Assessment Rheumatoid arthritis without rheumatoid factor, multiple sites M06.09 Active Medications Medication Code System Code Instructions Start Date End Date Status Dosage Hydrocodone-Acetaminophen [facility] 84165691611 10-325 Orally Three time a day Active 1 tablet as needed Vitamin E [facility] [address]-93 400 UNIT Orally Once a day Active 1 capsule Multivitamins [facility] [address]-31 Orally Active as directed Medrol (Rafa) [facility] [address]-55 4 MG Orally as directed Apr 08, 2016 Apr 20, 2016 Active as directed Folic Acid [facility] 61185390243 1MG Orally Once a day Oct 28, 2015 De c 2015 Active take three tablets by mouth once daily Lisinopril [facility] [address]-15 10 MG Orally Once a day Active 1 tablet Vitamin B-12 [facility] [address]-68 1000 MCG Orally Once a day Active 1 tablet Nabumetone [facility] 88732658055 750MG Orally Twice a day January 08, 2016 Active 1 tablet Vitamin C [facility] [address]-48 1000 MG Orally Once a day Active 1 tablet Methotrexate [facility] [address]-59 2.5mg orally once a week Active 3 tablets Vitamin D3 [facility] 05497-33062 1000 UNIT Orally Once a day Active 1 capsule Krill Oil [facility] 58562-40663 1000 MG Orally Active a s directed MethylPREDNISolone [facility] 62070552526 4MG Orally Once a day Aug 06, 2016 Active take 1 tablet Social History Social History Element [...] cups/day Apr 08, 2016 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 Apr 08, 2016 Vital Signs Date/Time: Apr 08, 2016 Weight 209 lbs Height 69 in Temperature 97.0 F Cardiac Monitoring Heart Rate 80 /min Blood Pressure Diastolic 60 mm Hg Blood Pressure Systolic 116 mm Hg Results COMPREHENSIVE METABOLIC PANEL W/EGFR CALCIUM(-8.6-10.3 mg/dL) 9.1 CARBON DIOXIDE(-20-31 mmol/L) 24 ALT(-9-46 U/L) 18 CREATININE(-0.70-1.25 mg/dL) 1.91 AST(-10-35 U/L) 18 eGFR NON-AFR. ERITREAN(-> OR = 60 mL/min/1.73m2) 37 ALKALINE PHOSPHATASE(-40-115 U/L) 74 eGFR (-> OR = 60 mL/min/1.73m2) 43 BILIRUBIN, TOTAL(-0.2-1.2 mg/dL) 0.2 BUN/CREATININE RATIO(-6-22 (calc)) 16 ALBUMIN/GLOBULIN RATIO(-1.0-2.5 (calc)) 1.7 SODIUM(-135-146 mmol/L) 137 GLOBULIN(-1.9-3.7 g/dL (calc)) 2.4 POTASSIUM(-3.5-5.3 mmol/L) 4.8 GLUCOSE(-65-99 mg/dL) 88 CHLORIDE(-98-110 mmol/L) 105 ALBUMIN(-3.6-5.1 g/dL) 4.1 UREA NITROGEN (BUN)(-7-25 mg/dL) 31 PROTEIN, TOTAL(-6.1-8.1 g/dL) 6.5 SED RATE BY MODIFIED WESTERGREN SED RATE BY MODIFIED WESTERGREN(-< OR = 20 mm/h) 14 C-REACTIVE PROTEIN C-REACTIVE PROTEIN(-<0.80 mg/dL) 0.70 CBC (INCLUDES DIFF/PLT) MCHC(-32.0-36.0 g/dL) 34.6 MCH(-27.0-33.0 pg) 35.8 PLATELET COUNT(-140-400 Thousand/uL) 421 RDW(-11.0-15.0 %) 15.0 BASOPHILS(- %) 0.5 ABSOLUTE NEUTROPHILS(-6361-8440 cells/uL) 01002 ABSOLUTE LYMPHOCYTES(-850-3900 cells/uL) 2457 MPV(-7.5-11.5 fL) 7.0 ABSOLUTE BASOPHILS(-0-200 cells/uL) 83 HEMATOCRIT(-38.5-50.0 %) 34.5 NEUTROPHILS(- %) 76.8 MCV(-80.0-100.0 fL) 103.7 RED BLOOD CELL COUNT(-4.20-5.80 Million/uL) 3.33 ABSOLUTE MONOCYTES(-200-950 cells/uL) 1195 ABSOLUTE EOSINOPHILS(-15-500 cells/uL) 116 HEMOGLOBIN(-13.2-17.1 g/dL) 11.9 EOSINOPHILS(- %) 0.7 WHITE BLOOD CELL COUNT(-3.8-10.8 Thousand/uL) 16.6 LYMPHOCYTES(- %) 14.8 MONOCYTES(- %) 7.2 Summary Purpose eClinicalWorks Submission
--- OUTSIDE RECORDS SUMMARY | 2020-04-14 16:08 | XMS REPORT ---
Author Author COURTNEY Goldberg [facility] eClinicalWorks Address Unknown Phone Unavailable Care Team Providers Care Lamp Shade Maker Name Role Phone New Goldberg CP Unavailable [...] MRI New Goldberg MD January 12, 2015 [place] Refill due- 08/01/14 New Goldberg MD Aug [...] laboratory test R89.9 Act malorie Problem Other terminal block assembler (current) drug therapy Z79.899 Active Problem Olecranon bursitis, right elbow M70.21 Active Social History Social History Element Qualifiers Date Reported Tobacco Use: . Are you a:: current smok er , How often do you smoke cigarettes?: some days, but not every day Sep 01, 2016 Marital Status: single. Sep 01, 2016 Caffeine: no. 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 Sep 01, 2016 Summary Purpose eClinicalWorks Submission
--- OUTSIDE RECORDS SUMMARY | 2020-04-14 16:08 | XMS REPORT ---
Author Author COURTNEY Goldberg [facility] eClinicalWorks Address Unknown Phone Unavailable Care Team Providers Care Certified Retinal Angiographer Name Role Phone New Goldberg CP Unavailable [...] New Goldberg MD Oct 27, 2015 OV eNw Goldberg MD Sep 17, 2015 baxalta/humira biosimilar New Goldberg MD January 07, 2016 RX New Goldberg MD Sep 17, 2014 1 MO F/U New Goldberg MD December 13, 2014 1 MO F/U New Goldberg MD January 08, 2015 MRI New Goldberg MD January 12, 2015 [place] Refill due- 08/01/14 New Goldberg MD Aug 14, 2014 4M F/U New Goldberg MD Jul 09, 2014 Pt. added New Goldberg MD Sep 16, 2014 norco refill New Goldberg MD November 14, 2014 Problems Problem Type Condition ICD-9 Code Onset Dates Condition Statu s Problem Other prison (current) drug therapy Z79.899 Active Problem Olecranon bursitis, right elbow M70.21 Active Problem Rheumatoid arthritis without rheumatoid factor, multip le sites M06.09 Active Social History Social History Element Qualifiers Date Reported Alcohol Screening: . Points: 0 January 08, 2016 Tobacco Use: . Are you a:: current smok er , How often do you smoke cigarettes?: some days, but not every day, How soon after you wake up do you smoke your first cigarette?: after 60 min, Are you interested in quitting?: Not ready to quit January 08, 2016 Caffeine: yes. 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 January 08, 2016 Summary Purpose eClinicalWorks Submission
--- OUTSIDE RECORDS SUMMARY | 2020-04-14 16:08 | XMS REPORT ---
Author Author COURTNEY Goldberg [facility] eClinicalWorks Address Unknown Phone Unavailable Care Team Providers Care Cigarette Carton Sealer Name Role Phone New Goldberg CP Unavailable [...] Approval New Goldberg MD Apr 17, 2014 OV New Goldberg MD Sep 17, 2015 RX New Goldberg MD Sep 17, 2014 1 MO F/U New Goldberg MD December 13, 2014 1 MO F/U New Goldberg MD January 08, 2015 MRI New Goldberg MD January 12, 2015 [place] Refill due- 08/01/14 New Goldberg MD Aug 14, 2014 4M F/U New Goldberg MD Jul 09, 2014 Pt. 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 Aug 15, 2015 Summary Purpose eClinicalWorks Submission
--- OUTSIDE RECORDS SUMMARY | 2020-04-14 16:08 | XMS REPORT ---
Author Author COURTNEY Goldberg Organization eClinicalWorks Address Unknown Phone Unavailable Care Team Providers Care Director Data Processing Name Role Phone New Goldberg CP Unavailable Allergies No Known Allergies Problems Problem Type Condition Code Onset Dates Condition Statu s Problem Abnormal laboratory test R89.9 Act malorie Problem Screening for osteoporosis Z13.820 A ctive Problem Lumbago with sciatica, left side M54.42 Active Problem Olecranon bursitis, right elbow M70.21 Active Problem Rheumatoid arthritis without rheumatoid factor, multip le sites M06.09 Active Problem Other prison (current) drug therapy Z79.899 Active Medications No Known Medications Results No Known Results Summary Purpose eClinicalWorks Submission
--- OUTSIDE RECORDS SUMMARY | 2020-04-14 16:08 | XMS REPORT ---
Author Author COURTNEY Goldberg [facility] eClinicalWorks Address Unknown Phone Unavailable Care Team Providers Care Supply Service Worker Name Role Phone New Goldberg CP [...] MD January 16, 2014 something for you Nwe Goldberg MD Apr 09, 2014 OV 04/10 [...] MD Apr 09, 2014 1 MO F/U Nwe Goldberg MD Jun 13, 2015 Duplicate-MRI Approval New Goldberg MD Apr 17, 2014 folic acid New Goldberg MD Oct 27, 2015 OV New Goldberg MD Sep 17, 2015 baxalta/humira biosimilar New Goldberg MD January 07, 2016 RX New Goldberg MD Sep 17, 2014 MED REFILL New Goldberg MD January 08, 2016 1 MO F/U New Goldberg MD December 13, 2014 dexa New Goldberg MD January 14, 2016 1 MO F/U New Goldberg MD January 08, 2015 MRI New Goldberg MD January 12, 2015 [place] Refill due- 08/01/14 New Goldberg MD Aug 14, 2014 4M F/U New Goldberg MD Jul 09, 2014 Pt. 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 January 08, 2016 Summary Purpose eClinicalWorks Submission
--- OUTSIDE RECORDS SUMMARY | 2020-04-14 16:08 | XMS REPORT ---
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 Aug 15, 2015 Summary Purpose eClinicalWorks Submission
--- OUTSIDE RECORDS SUMMARY | 2020-04-14 16:08 | XMS REPORT ---
Author Author COURTNEY Goldberg [facility] eClinicalWorks Address Unknown Phone Unavailable Care Team Providers Care Batch Blender Name Role Phone New Goldberg CP Unavailable [...] MD Jul 01, 2014 RIGHT ELBOW SWOLLEN eNw Goldberg MD Jun 19, 2015 earlier appt [...] MRI New Goldberg MD January 12, 2015 [place] Refill due- 08/01/14 New Goldberg MD Aug 14, 2014 4M F/U New Goldberg MD Jul 09, 2014 Pt. added New Goldberg MD Sep 16, 2014 norco refill New Goldberg MD November 14, 2014 Problems Problem Type Condition ICD-9 Code Onset Dates Condition Statu s Problem Other usp (current) drug therapy Z79.899 Active Problem Olecranon bursitis, right elbow M70.21 Active Problem Rheumatoid arthritis without rheumatoid factor, multip le sites M06.09 Active Assessment Rheumatoid arthritis without rheumatoid factor, multiple sites M06.09 Active Assessment Other usp (current) drug therapy Z79.899 Active Medications Medication Code System Code Instructions Start Date End Date Status Dosage Vitamin B-12 [facility] [address]-53 1000 MCG Orally Once a day Active 1 tablet Vitamin [facility] [address]-33 1000 MG Orally Once a day Active 1 tablet Hydrocodone-Acetaminophen [facility] 52793210271 10-325 Orally Three time a day February 07, 2016 Active 1 tablet as needed Nabumetone [facility] 57989188224 750MG Orally Twice a day January 08, 2016 Active 1 tablet Multivitamins [facility] [address]-23 Orally Active as directed Medrol (Rafa) [facility] [address]-63 4 MG Orally as directed January 08, 2016 January 20, 2016 Active as directed Krill Oil [facility] 30[address]39 1000 MG Orally Active a s directed Lisinopril [facility] [address]-11 10 MG Orally Once a day Active 1 tablet Vitamin D3 [facility] 89391-[address]39 1000 UNIT Orally Once a day Active 1 capsule Methotrexate [facility] [address]-64 2.5mg orally once a week Active 3 tablets Folic Acid [facility] 41685721291 1MG Orally Once a day Oct 28, 2015 No v 2015 Active take three tablets by mouth once daily Vitamin E [facility] [address]-46 400 UNIT Orally Once a day Active 1 capsule MethylPREDNISolone [facility] 88015086255 4MG Orally Once a day Jul 06, 2016 Active take 1 tablet Social [...] cups/day January 08, 2016 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 January 08, 2016 Vital Signs Date/Time: January 08, 2016 Weight 200 lbs Height 70 in Temperature 98.1 F Cardiac Monitoring Heart Rate 80 /min Blood Pressure Diastolic 78 mm Hg Blood Pressure Systolic 122 mm Hg Summary Purpose eClinicalWorks Submission
--- OUTSIDE RECORDS SUMMARY | 2020-04-14 16:08 | XMS REPORT ---
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 Z79.899 Active Assessment Lumbago with sciatica, left side M54.42 Active Problem Abnormal laboratory test R89.9 Act malorie Problem Screening for osteoporosis Z13.820 A ctive Problem Lumbago with sciatica, left side M54.42 Active Problem Olecranon bursitis, right elbow M70.21 Active Assessment Rheumatoid arthritis without rheumatoid factor, multiple sites M06.09 Active Problem Rheumatoid arthritis without rheumatoid factor, multip le sites M06.09 Active Problem 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 Active Medications Medication Code System Code Instructions Start Date End Date Status Dosage Iron [facility] [address]70 325 (65 Fe) MG Orally on hold Active 1 tablet [facility]ivit[facility] [address]-08 Orally on hold Act malorie as directed Vitamin E [facility] [address]-90 400 UNIT Orally on hold Active 1 capsule Lisinopril [facility] [address]-78 10 MG Orally BID Activ e 1 tablet Vitamin C [facility] [address]-74 500 MG Orally on hold A ctive 1 tablet Methotrexate [facility] [address]-78 2.5mg orally on hold Active 3 tablets Folic Acid [facility] [address]-31 1 MG Orally on hold Ac tive 1 tablet Hydrocodone-Acetaminophen [facility] 93618930467 10-325 Orally PRN Active 1 tablet as needed Vitamin D3 [facility] [address]80 1000 UNIT Orally on hold Active 1 capsule Krill Oil [facility] [address] 350 MG Orally on hold Act malorie as directed Social History Social History Element Qualifiers Date Reported Tobacco Use: . Are you a:: current smok er , How often do you smoke cigarettes?: some days, but not every day Oct 14, 2016 Marital Status: single. Oct 14, 2016 Caffeine: no. 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 Oct 14, 2016 Vital Signs Date/Time: Oct 14, 2016 Weight 199 lbs Height 68.5 in Temperature 97.9 F Cardiac Monitoring Heart Rate 88 /min Blood Pressure Diastolic 78 mm Hg Blood Pressure Systolic 118 mm Hg Summary Purpose eClinicalWorks Submission
--- OUTSIDE RECORDS SUMMARY | 2020-04-14 16:08 | XMS REPORT ---
Author Author COURTENY Goldberg [facility] eClinicalWorks Address Unknown Phone Unavailable Care Team Providers Care Nuclear Reactor Technician Name Role Phone New Goldberg CP [...] New Goldberg MD Sep 17, 2014 MED ANGELITA Goldberg MD January 08, 2016 1 MO F/U New Goldberg MD December 13, 2014 dexa New Goldberg MD January 14, 2016 1 MO F/U New Goldberg MD January 08, 2015 MED REFILL New Goldberg MD Apr 08, 2016 MRI New Goldberg MD January 12, 2015 Labs eNw Goldberg MD Jun 03, 2016 [place] Refill due- 08/01/14 New Goldberg MD Aug 14, 2014 4M F/U New Goldberg MD Jul 09, 2014 Pt. added New Goldberg MD Sep 16, 2014 norco reflottie Goldberg MD November 14, 2014 Problems Problem Type Condition ICD-9 Code Onset Dates Condition Statu s Assessment Abnormal laboratory test R89.9 Act malorie Problem Screening for osteoporosis Z13.820 A ctive Problem Rheumatoid arthritis without rheumatoid factor, multip le sites M06.09 Active Problem Abnormal laboratory test R89.9 Act malorie Assessment Rheumatoid arthritis without rheumatoid factor, multiple sites M06.09 Active Assessment Other intermediate designer (current) drug therapy Z79.899 Active Problem Other intermediate designer (current) drug therapy Z79.899 Active Problem Olecranon [...] cups/day Apr 08, 2016 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 Apr 08, 2016 Summary Purpose eClinicalWorks Submission
--- OUTSIDE RECORDS SUMMARY | 2020-04-14 16:09 | XMS REPORT ---
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 Z79.899 Active Medications Medication Code System Code Instructions Start Date End Date Status Dosage Methotrexate [facility] [address]-01 2.5mg orally on hold Active 3 tablets Krill Oil [facility] 40[address]504 350 MG Orally once a day A ctive 1 capsule Pantoprazole Sodium [facility] [address]-27 40 MG Orally Once a day Active 1 tablet John Multi Men [facility] [address]86 Orally once a day Ac tive 2 tablets Vitamin D3 [facility] 14655-[address]60 1000 UNIT Orally once a day Active 1 capsule Vitamin C [facility] [address]-29 500 MG Orally once a day Active 1 tablet Hydrocodone-Acetaminophen [facility] 09361060415 10-325 Orally PRN Active 1 tablet as needed Folic Acid [facility] [address]-94 1 MG Orally once a day Active 2 tablet Lisinopril [facility] [address]-63 10 MG Orally once a day Active 1 tablet Iron [facility] [address] 325 (65 Fe) MG Orally once a day Active 1 tablet Vitamin E [facility] [address]-73 400 UNIT Orally once a day Active 1 capsule Vital Signs Date/Time: December 10, 2016 BMI 29.24 Index Weight 198 lbs Height 69 in Temperature 97.3 F Cardiac Monitoring Heart Rate 74 /min Blood Pressure Diastolic 80 mm Hg Blood Pressure Systolic 134 mm Hg Results No Known Results Summary Purpose eClinicalWorks Submission
[2020-04-14 16:18] LABS: ALBUMIN 3.4 g/dL (3.5-5.0); ALBUMIN/GLOBULIN RATIO 1.1 (0.8-2.0); ANION GAP 12.8 mmol/L (8-16); CALCIUM 8.7 mg/dL (8.4-10.2); CREATININE, SERUM 1.39 mg/dL (0.72-1.25); POTASSIUM 4.8 mmol/L (3.5-5.1)
--- NOTE | 2020-04-14 16:35 | Diagnostic Imaging Report ---
EXAMINATION: FOREARM RIGHT 2 VIEW, HUMERUS RIGHT 2+VIEWS, ELBOW RIGHT COMPLETE INDICATION: Fall COMPARISON: None FINDINGS: Right humerus: No acute fracture or dislocation. Alignment appears anatomic. No substantial degenerative change. Right elbow: No acute fracture or dislocation. Alignment appears anatomic. No substantial elbow joint effusion. Triceps enthesopathy. Soft tissues appear unremarkable. Right forearm: No acute fracture or dislocation. Alignment is anatomic. Soft tissues appear unremarkable. IMPRESSION: No acute osseous injury of the right humerus, elbow, or forearm. Triceps enthesopathy. Signed by: Fadumo Hopkins MD on 04/14/2020 4:32 PM
--- OUTSIDE RECORDS SUMMARY | 2020-04-14 17:05 | XMS REPORT | Continuity of Care Document ---
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 Baldemar Goldberg Rheumatoid arthritis without rheumatoid factor, multiple sites Active Prob jaimee 02/02/2020 Baldemar Goldberg Chronic pain Active Problem 02/02/2020 Baldemar Goldberg Hip pain, left Active Problem 02/02/2020 Baldemar Cheeker Primary osteoarthritis involving multiple joints Active Problem 02/02/2020 Baldemar Cheeker Low testosterone in male Active Problem 02/02/2020 Baldemar Goldberg Lumbago with sciatica, left side Active Problem 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 Active Problem [...] Active 1 MG Orally Once a day [place] 06/24/2020 Baldemar Goldberg Medrol 1 tablet Orally Active 4 MG Orally twice a day [place] 11/14/2019 Baldemar Yusuf Methotrexate 5 tablets Orally Active 2.5 MG Orally Once a we ek [place] 09/03/2019 Baldemar Goldberg Medrol 2 tablets Orally Active 4 MG Orally TID [place] 09/03/2019 Baldemar Goldberg Medrol 1 tablet Orally Active 4 MG Orally twice a day [place] 04/25/2019 Baldemar Goldberg Tylenol/codeine #4 #30 one tab let orally Active 300-60 mg orally twice a day [place] 02/09/2019 Baldemar Goldberg Medrol 1 tablet Orally Active 4 MG Orally twice a day [place] 01/20/2019 Baldemar Goldberg Hydrocodone-Acetaminophen 1 ta blet as needed Orally Active 10-325 Orally Three time a day [place] 08/23/2018 Baldemar Goldberg Folic Acid take three tablets by mouth once daily Orally Active 1MG Orally Once a day [place] 05/27/2017 Baldemaralix Goldberg Methotrexate 3 tablets orally Active 2.5mg orally q week [place] 05/27/2017 Baldemaralix Goldberg Medrol 1 tablet with food or m ilk in the morning Orally Active 4 MG Orally q am with food [place] 05/27/2017 Baldemar Goldberg Hydrocodone-Acetaminophen 1 ta blet as needed Orally Active 10-325 Orally Three time a day [place] 05/27/2017 Baldemaralix Goldberg Medrol 1 tablet Orally Active 4 MG Orally twice a day [place] 05/27/2017 Baldemar Goldberg Methotrexate 3 tablets orally Active 2.5mg orally q week [place] 05/27/2017 Baldemaralix Goldberg Medrol 1 tablet with food or m ilk in the morning Orally Active 4 MG Orally q am with food [place] 02/25/2017 Baldemar Goldberg MethylPREDNISolone take 1 tabl et Orally Active 4MG Orally Once a day [place] 08/06/2016 Baldemar Goldberg MethylPREDNISolone take 1 tabl et Orally Active 4MG Orally Once a day [place] 07/06/2016 Baldemar Goldberg Medrol (Rafa) as directed Orally Active 4 MG Orally as directed [place] 04/08/2016 Baldemar Goldberg Folic Acid TAKE THREE TABLETS BY MOUTH ONCE DAILY Orally Active 1MG Orally Once a day [place] 02/11/2016 Baldemar Godlberg Nabumetone take one tablet by mouth twice daily Orally Active 750MG Orally Twice a day [place] 02/11/2016 Baldemar Goldberg MethylPREDNISolone take 1 tabl et Orally Active 4MG Orally Once a day [place] 02/11/2016 Baldemar Goldberg Hydrocodone-Acetaminophen 1 ta blet as needed Orally Active 10-325 Orally Three time a day [place] 02/07/2016 Baldemar Goldberg Nabumetone 1 tablet Orally Active 750MG Orally Twice a da y [place] 01/08/2016 Baldemaralix Goldberg Medrol (Rafa) as directed Orally Active 4 MG Orally as directed [place] 01/08/2016 Baldemar Goldberg Folic Acid take three tablets by mouth once daily Orally Active 1MG Orally Once a day [place] 10/28/2015 Baldemar Cheeker Medrol (Rafa) as directed Orally Active 4 MG Orally as directed [place] 08/15/2015 Baldemar Goldberg Folic Acid take 3 tablets Orally Active 1MG Orally Once a day [place] 05/13/2015 Baldemar Goldberg MethylPREDNISolone take 1 tabl et Orally Active 4MG Orally Once a day [place] 05/13/2015 Baldemar Goldberg Nabumetone 1 tablet Orally Active 750 MG Orally Twice a d ay [place] 11/12/2014 Baldemar Goldberg Medrol 1 tablet Orally Active 4 MG Orally Once a day [place] 07/15/2014 Baldemar Goldberg MethylPREDNISolone as directed Orally Active 4 MG Orally q day [place] 05/01/2014 Baldemar Goldberg Medrol (Rafa) as directed Orally Active 4 MG Orally [place] 04/10/2014 Baldemar Goldberg Medrol (Rafa) as directed Orally Active 4 MG Orally as directed [place] 01/16/2014 Baldemar Goldberg Medrol (Rafa) as directed Orally Active 4 MG Orally q day [place] 01/01/2014 Baldemar Goldberg Hydrocodone-Acetaminophen 1 ta blet as needed Orally Active 10-325 Orally Three time a day [facility] Nugenix 2 tablets orally Active orally once a day [facility] Lisinopril 1 tablet Orally Active 10 MG Orally BID [facility] Folic Acid 1 tablet Orally Active 1 MG Orally on hold [facility] Vitamin E 1 capsule Orally Active 400 UNIT Orally once a day [facility] John Multi Men 2 tablets Orally Active Orally once a day [facility] Iron 1 tablet Orally Active 325 (65 Fe) MG Orally o nce a day [facility] Methotrexate 8 tablets orally Active 2.5mg orally q week [facility] Medrol 1 tablet Orally Active 4 [facility] Vitamin B 12 as directed Orally Active 2500 MCG Orally [facility] Vitamin C 1 tablet Orally Active 500 MG Orally once a da y [facility] Multivitamins as directed Orally Active Orally [facility] Vitamin D3 1 capsule Orally Active 1000 UNIT Orally once a day [facility] Krill Oil as directed Orally Active 350 MG [facility] [place] Iron 1 tablet Orally Active 325 (65 Fe) MG Orally o n hold [facility] Lisinopril 1 tablet Orally Active 10 MG Orally BID [facility] Vitamin D3 1 capsule Orally Active 1000 UNIT Orally on hol d [facility] Krill Oil as directed Orally Active 350 MG Orally on hold [facility] Folic Acid 1 tablet Orally Active 1 MG Orally on hold [facility] Vitamin C 1 tablet Orally Active 500 MG Orally on hold [facility] Vitamin E 1 capsule Orally Active 400 UNIT Orally on hold [facility] John Multi Men 2 tablets Orally Active Orally once a day [facility] Multivitamins as directed Orally Active Orally on hold [facility] Methotrexate 3 tablets orally Active 2.5mg orally q week [facility] Methotrexate 5 tablets orally Active 2.5mg orally q week [facility] [place] 1 tablet as needed for p ain Orally Active 10-325 MG Orally three times a day [place] Baldemar Goldberg Medrol 1 tablet orally Active 4MG orally once a day [facility] Folic Acid TAKE THREE TABLETS BY MOUTH EVERY DAY NA [facility] Nabum[facility]one 1 tablet Orally Active 750 MG Orally Twice a d ay [place] Baldemar Cheeker PredniSONE TAKE THREE TABLETS BY MOUTH FOR 5 DAYS, THEN TAKE TWO TABLETS BY MOUTH FOR 5 DAYS, THEN TAKE ONE TABLET BY MOUTH FOR 5 DAYS FOR 15 DAYS NA Active 5MG [place] Baldemar Goldberg Fish oil 1 P O Active 1000 [facility] MethylPREDNISolone TAKE ONE TA BLET BY MOUTH EVERY DAY NA Active 4MG [facility] Vitamin B-12 1 tablet Orally Active 1000 [...] 01/08/2016 Baldemar Goldberg Heart Rate 80 01/08/2016 Baldeamr Goldebrg Diastolic (mm Hg) 78 01/08/2016 Baldemar Goldberg [...] Baldemar Goldberg Systolic (mm Hg) 120 01/01/2014 Baldemar Goldberg Encounters Location Location Details Encounter Type Encounter Number Reason For Visit Attending Provider ADM Date DC Date Status Source New Goldberg MD 4M F/U [id number] 01/02/20 14 01/01/2014 Baldemar Goldberg MD 4M F/U [id number] 01/02/20 14 01/01/2014 Baldemar Goldberg MD 4M F/U [id number] 01/02/20 14 01/01/2014 Baldemar Goldberg MD 4M F/U [id number] 01/02/20 14 01/01/2014 Baldemar Goldberg MD 4M F/U [id number] 01/02/20 14 01/01/2014 Baldemar Goldberg MD 4M F/U [id number] 01/02/20 14 01/01/2014 Baldemar Goldberg MD 4M F/U [id number] 01/02/20 14 01/01/2014 Baldemar Goldberg MD 4M F/U [id number] 01/02/20 14 01/01/2014 Baldemar Goldberg MD 4M F/U [id number] 01/02/20 14 01/01/2014 Baldemar Goldberg MD 4M F/U [id number] 01/02/20 14 01/01/2014 Baldemar Goldberg MD 4M F/U [id number] 01/02/20 14 01/01/2014 Baldemar Goldberg MD 4M F/U [id number] 01/02/20 14 01/01/2014 Baldemar Goldberg MD 4M F/U [id number] 01/02/20 14 01/01/2014 Baldemar Goldberg MD 4M F/U [id number] 01/02/20 14 01/01/2014 Baldemar Goldberg MD 4M F/U [id number] 01/02/20 14 01/01/2014 Baldemar Goldberg MD 4M F/U [id number] 01/02/20 14 01/01/2014 Baldemar Goldberg MD 4M F/U [id number] 01/02/20 14 01/01/2014 Baldemar Goldberg MD 4M F/U [id number] 01/02/20 14 01/01/2014 Baldemar Goldberg MD 4M F/U [id number] 01/02/20 14 01/01/2014 Baldemar Goldberg MD 4M F/U [id number] 01/02/20 14 01/01/2014 Baldemar Goldberg MD 4M F/U [id number] 01/02/20 14 01/01/2014 Baldemar Goldberg MD 4M F/U [id number] 01/02/20 14 01/01/2014 Baldemar Goldberg MD 4M F/U [id number] 01/02/20 14 01/01/2014 Baldemar Goldberg MD 4M F/U [id number] 01/02/20 14 01/01/2014 Baldemar Goldberg MD 4M F/U [id number] 01/02/20 14 01/01/2014 Baldemar Goldberg MD 4M F/U [id number] 01/02/20 14 01/01/2014 Baldemar Goldberg MD 4M F/U [id number] 01/02/20 14 01/01/2014 Baldemar Goldberg MD 4M F/U [id number] 01/02/20 14 01/01/2014 Baldemar Goldberg MD 4M F/U [id number] 01/02/20 14 01/01/2014 Baldemar Goldberg MD 4M F/U [id number] 01/02/20 14 01/01/2014 Baldemar Goldberg MD 4M F/U [id number] 01/02/20 14 01/01/2014 Baldemar Goldberg MD 4M F/U [id number] 01/02/20 14 01/01/2014 Baldemar Goldberg MD 4M F/U [id number] 01/02/20 14 01/01/2014 Baldemar Goldberg MD 4M F/U [id number] 01/02/20 14 01/01/2014 Baldemar Goldberg MD 4M F/U [id number] 01/02/20 14 01/01/2014 Baldemar Goldberg MD 4M F/U [id number] 01/02/20 14 01/01/2014 Baldemar Goldberg MD 4M F/U [id number] 01/02/20 14 01/01/2014 Baldemar Goldberg MD 4M F/U [id number] 01/02/20 14 01/01/2014 Baldemar Goldberg MD 4M F/U [id number] 01/02/20 14 01/01/2014 Baldemar Goldberg MD [facility] update [id number] 01/17/20 14 01/16/2014 Baldemar Goldberg MD Right knee update [id number] 01/17/20 14 01/16/2014 Baldemar Goldberg MD Right knee update [id number] 01/17/20 14 01/16/2014 Baldemar Goldberg MD Right knee update [id number] 01/17/20 14 01/16/2014 Baldemar Goldberg MD Right knee update [id number] 01/17/20 14 01/16/2014 Baldemar Goldberg MD Right knee update [id number] 01/17/20 14 01/16/2014 Baldemar Goldberg MD Right knee update [id number] 01/17/20 14 01/16/2014 Baldemar Goldberg MD Right knee update [id number] 01/17/20 14 01/16/2014 Baldemar Goldberg MD Right knee update [id number] 01/17/20 14 01/16/2014 Baldemar Goldberg MD Right knee update [id number] 01/17/20 14 01/16/2014 Baldemar Goldberg MD Right knee update [id number] 01/17/20 14 01/16/2014 Baldemar Goldberg MD Right knee update [id number] 01/17/20 14 01/16/2014 Baldemar Goldberg MD Right knee update [id number] 01/17/20 14 01/16/2014 Baldemar Goldberg MD Right knee update [id number] 01/17/20 14 01/16/2014 Baldemar Goldberg MD Right knee update [id number] 01/17/20 14 01/16/2014 Baldemar Goldberg MD Right knee update [id number] 01/17/20 14 01/16/2014 Baldemar Goldberg MD Right knee update [id number] 01/17/20 14 01/16/2014 Baldemar Goldberg MD Right knee update [id number] 01/17/20 14 01/16/2014 Baldemar Goldberg MD Right knee update [id number] 01/17/20 14 01/16/2014 Baldemar Goldberg MD Right knee update [id number] 01/17/20 14 01/16/2014 Baldemar Goldberg MD Right knee update [id number] 01/17/20 14 01/16/2014 Baldemar Goldberg MD Right knee update [id number] 01/17/20 14 01/16/2014 Baldemar Goldberg MD Right knee update [id number] 01/17/20 14 01/16/2014 Baldemar Goldberg MD Right knee update [id number] 01/17/20 14 01/16/2014 Baldemar Goldberg MD Right knee update [id number] 01/17/20 14 01/16/2014 Baldemar Goldberg MD Right knee update [id number] 01/17/20 14 01/16/2014 Baldemar Goldberg MD Right knee update [id number] 01/17/20 14 01/16/2014 Baldemar Goldberg MD Right knee update [id number] 01/17/20 14 01/16/2014 Baldemar Goldberg MD Right knee update [id number] 01/17/20 14 01/16/2014 Baldemar Goldberg MD Right knee update [id number] 01/17/20 14 01/16/2014 Baldemar Goldberg MD Right knee update [id number] 01/17/20 14 01/16/2014 Baldemar Goldberg MD Right knee update [id number] 01/17/20 14 01/16/2014 Baldemar Goldberg MD Right knee update [id number] 01/17/20 14 01/16/2014 Baldemar Goldberg MD Right knee update [id number] 01/17/20 14 01/16/2014 Baldemar Goldberg MD Right knee update [id number] 01/17/20 14 01/16/2014 Baldemar Goldberg MD Right knee update [id number] 01/17/20 14 01/16/2014 Baldemar Goldberg MD Right knee update [id number] 01/17/20 14 01/16/2014 Baldemar Goldberg MD Right knee update [id number] 01/17/20 14 01/16/2014 Baldemar Goldberg MD right knee pain [id number] 01/17/20 14 01/16/2014 Baldemar Goldberg MD right knee pain [id number] 01/17/20 14 01/16/2014 Baldemar Goldberg MD right knee pain [id number] 01/17/20 14 01/16/2014 Baldemar Goldberg MD right knee pain [id number] 01/17/20 14 01/16/2014 Baldemar Goldberg MD right knee pain [id number] 01/17/20 14 01/16/2014 Baldemar Goldberg MD right knee pain [id number] 01/17/20 14 01/16/2014 Baldemar Goldberg MD right knee pain [id number] 01/17/20 14 01/16/2014 Baldemar Goldberg MD right knee pain [id number] 01/17/20 14 01/16/2014 Baldemar Goldberg MD right knee pain [id number] 01/17/20 14 01/16/2014 Baldemar Goldberg MD right knee pain [id number] 01/17/20 14 01/16/2014 Baldemar Goldberg MD right knee pain [id number] 01/17/20 14 01/16/2014 Baldemar Goldberg MD right knee pain [id number] 01/17/20 14 01/16/2014 Baldemar Goldberg MD right knee pain [id number] 01/17/20 14 01/16/2014 Baldemar Goldberg MD right knee pain [id number] 01/17/20 14 01/16/2014 Baldemar Goldberg MD right knee pain [id number] 01/17/20 14 01/16/2014 Baldemar Goldberg MD right knee pain [id number] 01/17/20 14 01/16/2014 Baldemar Goldberg MD right knee pain [id number] 01/17/20 14 01/16/2014 Baldemar Goldberg MD right knee pain [id number] 01/17/20 14 01/16/2014 Baldemar Goldberg MD right knee pain [id number] 01/17/20 14 01/16/2014 Baldemar Goldberg MD right knee pain [id number] 01/17/20 14 01/16/2014 Baldemar Goldberg MD right knee pain [id number] 01/17/20 14 01/16/2014 Baldemar Goldberg MD right knee pain [id number] 01/17/20 14 01/16/2014 Baldemar Goldberg MD right knee pain [id number] 01/17/20 14 01/16/2014 Baldemar Goldberg MD right knee pain [id number] 01/17/20 14 01/16/2014 Baldemar Goldberg MD right knee pain [id number] 01/17/20 14 01/16/2014 Baldemar Goldberg MD right knee pain [id number] 01/17/20 14 01/16/2014 Baldemar Goldberg MD right knee pain [id number] 01/17/20 14 01/16/2014 Baldemar Goldberg MD right knee pain [id number] 01/17/20 14 01/16/2014 Baldemar Goldberg MD right knee pain [id number] 01/17/20 14 01/16/2014 Baldemar Goldberg MD right knee pain [id number] 01/17/20 14 01/16/2014 Baldemar Goldberg MD right knee pain [id number] 01/17/20 14 01/16/2014 Baldemar Goldberg MD right knee pain [id number] 01/17/20 14 01/16/2014 Baldemar Goldberg MD right knee pain [id number] 01/17/20 14 01/16/2014 Baldemar Goldberg MD right knee pain [id number] 01/17/20 14 01/16/2014 Baldemar Goldberg MD right knee pain [id number] 01/17/20 14 01/16/2014 Baldemar Goldberg MD right knee pain [id number] 01/17/20 14 01/16/2014 Baldemar Goldberg MD medrol/refill norco [id number] 02/01/2014 02/01/2014 Baldemar Goldberg MD medrol/refill norco [id number] 02/01/2014 02/01/2014 Baldemar Goldberg MD medrol/refill norco [id number] 02/01/2014 02/01/2014 Baldemar Goldberg MD medrol/refill norco [id number] 02/01/2014 02/01/2014 Baldemar Goldberg MD medrol/refill norco [id number] 02/01/2014 02/01/2014 Baldemar Goldberg MD medrol/refill norco [id number] 02/01/2014 02/01/2014 Baldemar Goldberg MD medrol/refill norco [id number] 02/01/2014 02/01/2014 Baldemar Goldberg MD medrol/refill norco [id number] 02/01/2014 02/01/2014 Baldemar Goldberg MD medrol/refill norco [id number] 02/01/2014 02/01/2014 Baldemar Goldberg MD medrol/refill norco [id number] 02/01/2014 02/01/2014 Baldemar Goldberg MD medrol/refill norco [id number] 02/01/2014 02/01/2014 Baldemar Goldberg MD medrol/refill norco [id number] 02/01/2014 02/01/2014 Baldemar Goldberg MD medrol/refill norco [id number] 02/01/2014 02/01/2014 Baldemar Goldberg MD medrol/refill norco [id number] 02/01/2014 02/01/2014 Baldemar Goldberg MD medrol/refill norco [id number] 02/01/2014 02/01/2014 Baldemar Goldberg MD medrol/refill norco [id number] 02/01/2014 02/01/2014 Baldemar Goldberg MD medrol/refill norco [id number] 02/01/2014 02/01/2014 Baldemar Goldberg MD medrol/refill norco [id number] 02/01/2014 02/01/2014 Baldemar Goldberg MD medrol/refill norco [id number] 02/01/2014 02/01/2014 Baldemar Goldberg MD medrol/refill norco [id number] 02/01/2014 02/01/2014 aBldemar Goldberg MD medrol/refill norco [id number] 02/01/2014 02/01/2014 Baldemar Goldberg MD medrol/refill norco [id number] 02/01/2014 02/01/2014 Baldemar Goldberg MD medrol/refill norco [id number] 02/01/2014 02/01/2014 Baldemar Goldberg MD medrol/refill norco [id number] 02/01/2014 02/01/2014 Baldemar Goldberg MD medrol/refill norco [id number] 02/01/2014 02/01/2014 Baldemar Goldberg MD medrol/refill norco [id number] 02/01/2014 02/01/2014 Baldemar Goldberg MD medrol/refill norco [id number] 02/01/2014 02/01/2014 Baldemar Goldberg MD medrol/refill norco [id number] 02/01/2014 02/01/2014 Baldemar Goldberg MD medrol/refill norco [id number] 02/01/2014 02/01/2014 Baldemar Goldberg MD medrol/refill norco [id number] 02/01/2014 02/01/2014 Baldemar Goldberg MD medrol/refill norco [id number] 02/01/2014 02/01/2014 Baldemar Goldberg MD medrol/refill norco [id number] 02/01/2014 02/01/2014 Baldemar Goldberg MD medrol/refill norco [id number] 02/01/2014 02/01/2014 Baldemar Goldberg MD medrol/refill norco [id number] 02/01/2014 02/01/2014 Baldemar Goldberg MD medrol/refill norco [id number] 02/01/2014 02/01/2014 Baldemar Goldberg MD medrol/refill norco [id number] 02/01/2014 02/01/2014 Baldemar Goldberg MD Vicodin refill [id number] 02/02/20 14 02/01/2014 Baldemar Goldberg MD Vicodin refill [id number] 02/02/20 14 02/01/2014 Baldemar Goldberg MD Vicodin refill [id number] 02/02/20 14 02/01/2014 Baldemar Goldberg MD Vicodin refill [id number] 02/02/20 14 02/01/2014 Baldemar Goldberg MD Vicodin refill [id number] 02/02/20 14 02/01/2014 Baldemar Goldberg MD Vicodin refill [id number] 02/02/20 14 02/01/2014 Baldemar Goldberg MD Vicodin refill [id number] 02/02/20 14 02/01/2014 Baldemar Goldberg MD Vicodin refill [id number] 02/02/20 14 02/01/2014 Baldemar Goldberg MD Vicodin refill [id number] 02/02/20 14 02/01/2014 Baldemar Goldberg MD Vicodin refill [id number] 02/02/20 14 02/01/2014 Baldemar Goldberg MD Vicodin refill [id number] 02/02/20 14 02/01/2014 Baldemar Goldberg MD Vicodin refill [id number] 02/02/20 14 02/01/2014 Baldemar Goldberg MD Vicodin refill [id number] 02/02/20 14 02/01/2014 Baldemar Goldberg MD Vicodin refill [id number] 02/02/20 14 02/01/2014 Baldemar Goldberg MD Vicodin refill [id number] 02/02/20 14 02/01/2014 Baldemar Goldberg MD Vicodin refill [id number] 02/02/20 14 02/01/2014 Baldemar Goldberg MD Vicodin refill [id number] 02/02/20 14 02/01/2014 Baldemar Goldberg MD Vicodin refill [id number] 02/02/20 14 02/01/2014 Baldemar Goldberg MD Vicodin refill [id number] 02/02/20 14 02/01/2014 Baldemar Goldberg MD Vicodin refill [id number] 02/02/20 14 02/01/2014 Baldemar Goldberg MD Vicodin refill [id number] 02/02/20 14 02/01/2014 Baldemar Goldberg MD Vicodin refill [id number] 02/02/20 14 02/01/2014 Baldemar Goldberg MD Vicodin refill [id number] 02/02/20 14 02/01/2014 Baldemar Goldberg MD Vicodin refill [id number] 02/02/20 14 02/01/2014 Baldemar Goldberg MD Vicodin refill [id number] 02/02/20 14 02/01/2014 Baldemar Goldberg MD Vicodin refill [id number] 02/02/20 14 02/01/2014 Baldemar Goldberg MD Vicodin refill [id number] 02/02/20 14 02/01/2014 Baldemar Goldberg MD Vicodin refill [id number] 02/02/20 14 02/01/2014 Baldemar Goldberg MD Vicodin refill [id number] 02/02/20 14 02/01/2014 Baldemar Goldberg MD Vicodin refill [id number] 02/02/20 14 02/01/2014 Baldemar Goldberg MD Vicodin refill [id number] 02/02/20 14 02/01/2014 Baldemar Goldberg MD Vicodin refill [id number] 02/02/20 14 02/01/2014 Baldemar Goldberg MD Vicodin refill [id number] 02/02/20 14 02/01/2014 Baldemar Goldberg MD Vicodin refill [id number] 02/02/20 14 02/01/2014 Baldemar Goldberg MD Vicodin refill [id number] 02/02/20 14 02/01/2014 Baldemar Goldberg MD Vicodin refill [id number] 02/02/20 14 02/01/2014 Baldemar Goldberg MD Vicodin refill [id number] 02/02/20 14 02/01/2014 Baldemar Goldberg MD RIGHT LEG PAIN [id number] 04/09/20 14 04/09/2014 Baldemar Goldberg MD RIGHT LEG PAIN [id number] 04/09/20 14 04/09/2014 Baldemar Goldberg MD RIGHT LEG PAIN [id number] 04/09/20 14 04/09/2014 Baldemar Goldberg MD RIGHT LEG PAIN [id number] 04/09/20 14 04/09/2014 Baldemar Godlberg MD RIGHT LEG PAIN [id number] 04/09/20 14 04/09/2014 Baldemar Goldberg MD RIGHT LEG PAIN [id number] 04/09/20 14 04/09/2014 Baldemar Goldberg MD RIGHT LEG PAIN [id number] 04/09/20 14 04/09/2014 Baldemar Goldberg MD RIGHT LEG PAIN [id number] 04/09/20 14 04/09/2014 Baldemar Goldberg MD RIGHT LEG PAIN [id number] 04/09/20 14 04/09/2014 Baldemar Goldberg MD RIGHT LEG PAIN [id number] 04/09/20 14 04/09/2014 Baldemar Goldberg MD RIGHT LEG PAIN [id number] 04/09/20 14 04/09/2014 Baldemar Goldberg MD RIGHT LEG PAIN [id number] 04/09/20 14 04/09/2014 Baldemar Goldberg MD RIGHT LEG PAIN [id number] 04/09/20 14 04/09/2014 Baldemar Goldberg MD RIGHT LEG PAIN [id number] 04/09/20 14 04/09/2014 Baldemar Goldberg MD RIGHT LEG PAIN [id number] 04/09/20 14 04/09/2014 Baldemar Goldberg MD RIGHT LEG PAIN [id number] 04/09/20 14 04/09/2014 Baldemar Goldberg MD RIGHT LEG PAIN [id number] 04/09/20 14 04/09/2014 Baldemar Goldberg MD RIGHT LEG PAIN [id number] 04/09/20 14 04/09/2014 Baldemar Goldberg MD RIGHT LEG PAIN [id number] 04/09/20 14 04/09/2014 Baldemar Goldberg MD RIGHT LEG PAIN [id number] 04/09/20 14 04/09/2014 Baldemar Goldberg MD RIGHT LEG PAIN [id number] 04/09/20 14 04/09/2014 Baldemar Goldberg MD RIGHT LEG PAIN [id number] 04/09/20 14 04/09/2014 Baldemar Goldberg MD RIGHT LEG PAIN [id number] 04/09/20 14 04/09/2014 Baldemar Goldberg MD RIGHT LEG PAIN [id number] 04/09/20 14 04/09/2014 Baldemar Goldberg MD RIGHT LEG PAIN [id number] 04/09/20 14 04/09/2014 Baldemar Goldberg MD RIGHT LEG PAIN [id number] 04/09/20 14 04/09/2014 Baldemar Goldberg MD RIGHT LEG PAIN [id number] 04/09/20 14 04/09/2014 Baldemar Goldberg MD RIGHT LEG PAIN [id number] 04/09/20 14 04/09/2014 Baldemar Goldberg MD RIGHT LEG PAIN [id number] 04/09/20 14 04/09/2014 Baldemar Goldberg MD RIGHT LEG PAIN [id number] 04/09/20 14 04/09/2014 Baldemar Goldberg MD RIGHT LEG PAIN [id number] 04/09/20 14 04/09/2014 Baldemar Goldberg MD RIGHT LEG PAIN [id number] 04/09/20 14 04/09/2014 Baldemar Goldberg MD RIGHT LEG PAIN [id number] 04/09/20 14 04/09/2014 Baldemar Goldberg MD RIGHT LEG PAIN [id number] 04/09/20 14 04/09/2014 Baldemar Goldberg MD something for you [id number] 04/09/20 14 04/09/2014 Baldemar Goldberg MD something for you [id number] 04/09/20 14 04/09/2014 Baldemar Goldberg MD something for you [id number] 04/09/20 14 04/09/2014 Baldemar Goldberg MD something for you [id number] 04/09/20 14 04/09/2014 Baldemar Goldberg MD something for you [id number]-[id number] 04/09/20 14 04/09/2014 Baldemar Goldberg MD something for you [id number] 04/09/20 14 04/09/2014 Baldemar Goldberg MD something for you [id number] 04/09/20 14 04/09/2014 Baldemar Goldberg MD something for you [id number] 04/09/20 14 04/09/2014 Baldemar Goldberg MD something for you [id number] 04/09/20 14 04/09/2014 Baldemar Goldberg MD something for you [id number] 04/09/20 14 04/09/2014 Baldemar Goldberg MD something for you [id number] 04/09/20 14 04/09/2014 Baldemar Goldberg MD something for you [id number] 04/09/20 14 04/09/2014 Baldemar Goldberg MD something for you [id number] 04/09/20 14 04/09/2014 Baldemar Goldberg MD something for you [id number] 04/09/20 14 04/09/2014 Baldemar Goldberg MD something for you [id number] 04/09/20 14 04/09/2014 Baldemar Goldberg MD something for you [id number] 04/09/20 14 04/09/2014 Baldemar Goldberg MD OV 04/10 Per Yusuf [id number] 04/09/20 14 04/09/2014 Baldemar Goldberg MD OV 04/10 Per Yusuf [id number]-[id number] 04/09/20 14 04/09/2014 Baldemar Goldberg MD OV 04/10 Per Yusuf [id number] 04/09/20 14 04/09/2014 Baldemar Goldberg MD OV 04/10 Per Yusuf [id number] 04/09/20 14 04/09/2014 Baldemar Goldberg MD OV 04/10 Per Yusuf [id number] 04/09/20 14 04/09/2014 Baldemar Goldberg MD OV 04/10 Per Yusuf [id number] 04/09/20 14 04/09/2014 Baldemar Goldberg MD OV 04/10 Per Yusuf [id number] 04/09/20 14 04/09/2014 Baldemar Goldberg MD OV 04/10 Per Yusuf [id number] 04/09/20 14 04/09/2014 Baldemar Goldberg MD OV 04/10 Per Yusuf [id number]-07xtvx461i90 04/09/20 14 04/09/2014 Baldemar Goldberg MD OV 04/10 Per Yusuf [id number] 04/09/20 14 04/09/2014 Baldemar Goldberg MD OV 04/10 Per Yusuf [id number] 04/09/20 14 04/09/2014 Baldemar Goldberg MD OV 04/10 Per Yusuf [id number] 04/09/20 14 04/09/2014 Baldemar Goldberg MD OV 04/10 Per Yusuf [id number] 04/09/20 14 04/09/2014 Baldemar Goldberg MD OV 04/10 Per Yusuf [id number]-o65s9usz68b2 04/09/20 14 04/09/2014 Baldemar Goldberg MD OV 04/10 Per Yusuf [id number] 04/09/20 14 04/09/2014 Baldemar Goldberg MD OV 04/10 Per Yusuf [id number] 04/09/20 14 04/09/2014 Baldemar Goldberg MD something for you [id number]-[id number] 04/09/20 14 04/09/2014 Baldemar Goldberg MD something for you [id number] 04/09/20 14 04/09/2014 Baldemar Goldberg MD something for you [id number] 04/09/20 14 04/09/2014 Baldemar Goldberg MD something for you [id number] 04/09/20 14 04/09/2014 Baldemar Goldberg MD something for you [id number] 04/09/20 14 04/09/2014 Baldemar Goldberg MD something for you [id number]-h9bx00wvkneq 04/09/20 14 04/09/2014 Baldemar Goldberg MD something for you [id number] 04/09/20 14 04/09/2014 Baldemar Goldberg MD something for you [id number]-[id number] 04/09/20 14 04/09/2014 Baldemar Goldberg MD something for you [id number]-[id number] 04/09/20 14 04/09/2014 Baldemar Goldberg MD something for you [id number] 04/09/20 14 04/09/2014 Baldemar Goldberg MD something for you [id number]-[id number] 04/09/20 14 04/09/2014 Baldemar Goldberg MD something for you [id number] 04/09/20 14 04/09/2014 Baldemar Goldberg MD something for you [id number] 04/09/20 14 04/09/2014 Baldemar Goldberg MD something for you [id number] 04/09/20 14 04/09/2014 Baldemar Goldberg MD something for you [id number]-m4p7-nsiwiz68qevu 04/09/20 14 04/09/2014 Baldemar Goldberg MD something for you [id number] 04/09/20 14 04/09/2014 Baldemar Goldberg MD something for you [id number]-[id number]-5xps-[id number] 04/09/20 14 04/09/2014 Baldemar Goldberg MD something for you [id number] 04/09/20 14 04/09/2014 Baldemar Goldberg MD OV 04/10 Per Yusuf [id number]-[id number] 04/09/20 14 04/09/2014 Baldemar Goldberg MD OV 04/10 Per Yusuf [id number]-4zag0s20wrq6 04/09/20 14 04/09/2014 Baldemar Goldberg MD OV 04/10 Per Yusuf [id number] 04/09/20 14 04/09/2014 Baldemar Goldberg MD OV 04/10 Per Yusuf [id number]-25y0-bv66-wk7n6iz376s3 04/09/20 14 04/09/2014 Baldemar Goldberg MD OV 04/10 Per Yusuf [id number] 04/09/20 14 04/09/2014 Baldemar Goldberg MD OV 04/10 Per Yusuf [id number]-v8zx-[id number] 04/09/20 14 04/09/2014 Baldemar Goldberg MD OV 04/10 Per Yusuf [id number] 04/09/20 14 04/09/2014 Baldemar Goldberg MD OV 04/10 Per Yusuf [id number] 04/09/20 14 04/09/2014 Baldemar Goldberg MD OV 04/10 Per Yusuf [id number]-[id number] 04/09/20 14 04/09/2014 Baldemar Goldberg MD OV 04/10 Per Yusuf [id number] 04/09/20 14 04/09/2014 Baldemar Goldberg MD OV 04/10 Per Yusuf [id number]-w3ib-[id number] 04/09/20 14 04/09/2014 Baldemar Goldberg MD OV 04/10 Per Yusuf [id number]-[id number] 04/09/20 14 04/09/2014 Baldemar Goldberg MD OV 04/10 Per Yusuf [id number]-l95i-1412vsum4u7m 04/09/20 14 04/09/2014 Baldemar Goldberg MD OV 04/10 Per Yusuf [id number] 04/09/20 14 04/09/2014 Baldemar Goldberg MD OV 04/10 Per Goldberg [id number] 04/09/20 14 04/09/2014 Baldemar Goldberg MD OV 04/10 Per Yusuf [id number] 04/09/20 14 04/09/2014 Baldemar Goldberg MD OV 04/10 Per Yusuf [id number]-[id number] 04/09/20 14 04/09/2014 Baldemar Goldberg MD OV 04/10 Per Yusuf [id number]-[id number] 04/09/20 14 04/09/2014 Baldemar Goldberg MD Right leg pain after MDP [id number] 04/16/2014 04/16/2014 Baldemar Goldberg MD Right leg pain after MDP [id number] 04/16/2014 04/16/2014 Baldemar Goldberg MD Right leg pain after MDP [id number] 04/16/2014 04/16/2014 Baldemar Goldberg MD Right leg pain after MDP [id number] 04/16/2014 04/16/2014 Baldemar Goldberg MD Right leg pain after MDP [id number]-4orn-zt81-jh098vis7dck 04/16/2014 04/16/2014 Baldemar Goldberg MD Right leg pain after MDP 50betm1i-3obm-919g-6f68-327o316xk9h6 04/16/2014 04/16/2014 Baldemar Goldberg MD Right leg pain after MDP [id number]-44f1-wmm5-429e8h0v4d5n 04/16/2014 04/16/2014 Baldemar Goldberg MD Right leg pain after MDP [id number]-[id number] 04/16/2014 04/16/2014 Baldemar Goldberg MD Right leg pain after MDP [id number] 04/16/2014 04/16/2014 Baldemar Goldberg MD Right leg pain after MDP [id number] 04/16/2014 04/16/2014 Baldemar Goldberg MD Right leg pain after MDP [id number]-[id number] 04/16/2014 04/16/2014 Baldemar Goldberg MD Right leg pain after MDP [id number]-[id number] 04/16/2014 04/16/2014 Baldemar Goldberg MD Right leg pain after MDP [id number]-[id number] 04/16/2014 04/16/2014 Baldemar Goldberg MD Right leg pain after MDP [id number]-[id number] 04/16/2014 04/16/2014 Baldemar Goldberg MD Right leg pain after MDP [id number]-[id number] 04/16/2014 04/16/2014 Baldemar Goldberg MD Right leg pain after MDP [id number]-w6774p4fz0j3 04/16/2014 04/16/2014 Baldemar Goldberg MD Right leg pain after MDP [id number]-zq3950072hfm 04/16/2014 04/16/2014 Baldemar Goldberg MD Right leg pain after MDP [id number]-[id number] 04/16/2014 04/16/2014 Baldemar Goldberg MD Right leg pain after MDP [id number] 04/16/2014 04/16/2014 Baldemar Goldberg MD Right leg pain after MDP [id number] 04/16/2014 04/16/2014 Baldemar Goldberg MD Right leg pain after MDP [id number] 04/16/2014 04/16/2014 Baldemar Goldberg MD Right leg pain after MDP [id number] 04/16/2014 04/16/2014 Baldemar Goldberg MD Right leg pain after MDP [id number]-w20g2lr3hly7 04/16/2014 04/16/2014 Baldemar Goldberg MD Right leg pain after MDP [id number]-[id number]-[id number] 04/16/2014 04/16/2014 Baldemar Goldberg MD Right leg pain after MDP [id number] 04/16/2014 04/16/2014 Baldemar Goldberg MD Right leg pain after MDP [id number]-sj2e-[id number] 04/16/2014 04/16/2014 Baldemar Goldberg MD Right leg pain after MDP [id number] 04/16/2014 04/16/2014 Baldemar Goldberg MD Right leg pain after MDP [id number]-[id number] 04/16/2014 04/16/2014 Baldemar Goldberg MD Right leg pain after MDP [id number]-zc64jwq74vdr 04/16/2014 04/16/2014 Baldemar Goldberg MD Right leg pain after MDP [id number] 04/16/2014 04/16/2014 Baldemar Goldberg MD Right leg pain after MDP [id number] 04/16/2014 04/16/2014 Baldemar Goldberg MD Right leg pain after MDP [id number] 04/16/2014 04/16/2014 Baldemar Goldberg MD Right leg pain after MDP [id number] 04/16/2014 04/16/2014 Baldemar Goldberg MD Right leg pain after MDP [id number] 04/16/2014 04/16/2014 Baldemar Goldberg MD Duplicate- MRI Approval [id number] 04/17/20 14 04/17/2014 Baldemar Goldberg MD Duplicate- MRI Approval [id number] 04/17/20 14 04/17/2014 Baldemar Goldberg MD Duplicate- MRI Approval [id number] 04/17/20 14 04/17/2014 Baldemar Goldberg MD Duplicate- MRI Approval [id number] 04/17/20 14 04/17/2014 Baldemar Goldberg MD Duplicate- MRI Approval [id number] 04/17/20 14 04/17/2014 Baldemar Goldberg MD Duplicate- MRI Approval [id number] 04/17/20 14 04/17/2014 Baldemar Goldberg MD Duplicate- MRI Approval [id number] 04/17/20 14 04/17/2014 Baldemar Goldberg MD Duplicate- MRI Approval [id number] 04/17/20 14 04/17/2014 Baldemar Goldberg MD Duplicate- MRI Approval [id number] 04/17/20 14 04/17/2014 Baldemar Goldberg MD Duplicate- MRI Approval [id number] 04/17/20 14 04/17/2014 Baldemar Goldberg MD Duplicate- MRI Approval [id number] 04/17/20 14 04/17/2014 Baldemar Goldberg MD Duplicate- MRI Approval [id number] 04/17/20 14 04/17/2014 Baldemar Goldberg MD Duplicate- MRI Approval [id number] 04/17/20 14 04/17/2014 Baldemar Goldberg MD Duplicate- MRI Approval [id number] 04/17/20 14 04/17/2014 Baldemar Goldberg MD Duplicate- MRI Approval [id number] 04/17/20 14 04/17/2014 Baldemar Goldberg MD Duplicate- MRI Approval [id number] 04/17/20 14 04/17/2014 Baldemar Goldberg MD Duplicate- MRI Approval [id number] 04/17/20 14 04/17/2014 Baldemar Goldberg MD Duplicate- MRI Approval [id number] 04/17/20 14 04/17/2014 Baldemar Goldberg MD Duplicate- MRI Approval [id number] 04/17/20 14 04/17/2014 Baldemar Goldberg MD Duplicate- MRI Approval [id number] 04/17/20 14 04/17/2014 Baldemar Goldberg MD Duplicate- MRI Approval [id number] 04/17/20 14 04/17/2014 Baldemar Goldberg MD Duplicate- MRI Approval [id number] 04/17/20 14 04/17/2014 Baldemar Goldberg MD Duplicate- MRI Approval [id number] 04/17/20 14 04/17/2014 Baldemar Goldberg MD Duplicate- MRI Approval [id number] 04/17/20 14 04/17/2014 Baldemar Goldberg MD Duplicate- MRI Approval [id number] 04/17/20 14 04/17/2014 Baldemar Goldberg MD Duplicate- MRI Approval [id number] 04/17/20 14 04/17/2014 Baldemar Goldberg MD Duplicate- MRI Approval [id number] 04/17/20 14 04/17/2014 Baldemar Goldberg MD Duplicate- MRI Approval [id number] 04/17/20 14 04/17/2014 Baldemar Goldberg MD Duplicate- MRI Approval [id number] 04/17/20 14 04/17/2014 Baldemar Goldberg MD Duplicate- MRI Approval [id number] 04/17/20 14 04/17/2014 Baldemar Goldberg MD Duplicate- MRI Approval [id number] 04/17/20 14 04/17/2014 Baldemar Goldberg MD Duplicate- MRI Approval [id number] 04/17/20 14 04/17/2014 Baldemar Goldberg MD Duplicate- MRI Approval [id number] 04/17/20 14 04/17/2014 Baldemar Goldberg MD [facility] Approval [id number] 04/17/20 14 04/17/2014 Baldemar Goldberg MD earlier appt [id number] 05/07/20 14 05/07/2014 Baldemar Goldberg MD earlier appt [id number] 05/07/20 14 05/07/2014 Baldemar Goldberg MD earlier appt [id number] 05/07/20 14 05/07/2014 Baldemar Goldberg MD earlier appt [id number] 05/07/20 14 05/07/2014 Baldemar Goldberg MD earlier appt [id number] 05/07/20 14 05/07/2014 Baldemar Goldberg MD earlier appt [id number] 05/07/20 14 05/07/2014 Baldemar Goldberg MD earlier appt [id number] 05/07/20 14 05/07/2014 Baldemar Goldberg MD earlier appt [id number] 05/07/20 14 05/07/2014 Baldemar Goldberg MD earlier appt [id number] 05/07/20 14 05/07/2014 Baldemar Goldberg MD earlier appt [id number] 05/07/20 14 05/07/2014 Baldemar Goldberg MD earlier appt [id number] 05/07/20 14 05/07/2014 Baldemar Goldberg MD earlier appt [id number] 05/07/20 14 05/07/2014 Baldemar Goldberg MD earlier appt [id number] 05/07/20 14 05/07/2014 Baldemar Goldberg MD earlier appt [id number] 05/07/20 14 05/07/2014 Baldemar Goldberg MD earlier appt [id number] 05/07/20 14 05/07/2014 Baldemar Goldberg MD earlier appt [id number] 05/07/20 14 05/07/2014 Baldemar Goldberg MD earlier appt [id number] 05/07/20 14 05/07/2014 Baldemar Goldberg MD earlier appt [id number] 05/07/20 14 05/07/2014 Baldemar Goldberg MD earlier appt [id number] 05/07/20 14 05/07/2014 Baldemar Goldberg MD earlier appt [id number] 05/07/20 14 05/07/2014 Baldemar Goldberg MD earlier appt [id number] 05/07/20 14 05/07/2014 Baldemar Goldberg MD earlier appt [id number] 05/07/20 14 05/07/2014 Baldemar Goldberg MD earlier appt [id number] 05/07/20 14 05/07/2014 Baldemar Goldberg MD earlier appt [id number] 05/07/20 14 05/07/2014 Baldemar Goldberg MD earlier appt [id number] 05/07/20 14 05/07/2014 Baldemar Goldberg MD earlier appt [id number] 05/07/20 14 05/07/2014 Baldemar Goldberg MD earlier appt [id number] 05/07/20 14 05/07/2014 Baldemar Goldberg MD earlier appt [id number] 05/07/20 14 05/07/2014 Baldemar Goldberg MD earlier appt [id number] 05/07/20 14 05/07/2014 Baldemar Goldberg MD DEXA [id number] 05/08/2014 05/08/2014 Baldemar Goldberg MD DEXA [id number] 05/08/2014 05/08/2014 Baldemar Goldberg MD DEXA [id number] 05/08/2014 05/08/2014 Baldemar Goldberg MD DEXA [id number] 05/08/2014 05/08/2014 Baldemar Goldberg MD DEXA [id number] 05/08/2014 05/08/2014 Baldemar Goldberg MD DEXA [id number] 05/08/2014 05/08/2014 Baldemar Goldberg MD DEXA [id number] 05/08/2014 05/08/2014 Baldemar Goldberg MD DEXA [id number] 05/08/2014 05/08/2014 Baldemar Goldberg MD DEXA [id number] 05/08/2014 05/08/2014 Baldemar Goldberg MD DEXA [id number] 05/08/2014 05/08/2014 Baldemar Goldberg MD DEXA [id number] 05/08/2014 05/08/2014 Baldemar Goldberg MD DEXA [id number] 05/08/2014 05/08/2014 Baldemar Goldberg MD DEXA [id number] 05/08/2014 05/08/2014 Baldemar Goldberg MD DEXA [id number] 05/08/2014 05/08/2014 Baldemar Goldberg MD DEXA [id number] 05/08/2014 05/08/2014 Baldemar Goldberg MD DEXA [id number] 05/08/2014 05/08/2014 Baldemar Goldberg MD DEXA [id number] 05/08/2014 05/08/2014 Baldemar Goldberg MD DEXA [id number] 05/08/2014 05/08/2014 Baldemar Goldberg MD DEXA [id number] 05/08/2014 05/08/2014 Baldemar Goldberg MD DEXA [id number] 05/08/2014 05/08/2014 Baldemar Goldberg MD DEXA [id number] 05/08/2014 05/08/2014 Baldemar Goldberg MD DEXA [id number] 05/08/2014 05/08/2014 Baldemar Goldberg MD DEXA [id number] 05/08/2014 05/08/2014 Baldemar Goldberg MD DEXA [id number] 05/08/2014 05/08/2014 Baldemar Goldberg MD DEXA [id number] 05/08/2014 05/08/2014 Baldemar Goldberg MD DEXA [id number] 05/08/2014 05/08/2014 Baldemar Goldberg MD DEXA [id number] 05/08/2014 05/08/2014 Baldemar Goldberg MD DEXA [id number] 05/08/2014 05/08/2014 Baldemar Goldberg MD DEXA [id number] 05/08/2014 05/08/2014 Baldemar Goldberg MD PT call [id number] 06/14/20 14 06/14/2014 Baldemar Goldberg MD PT call [id number] 06/14/20 14 06/14/2014 Baldemar Goldberg MD PT call [id number] 06/14/20 14 06/14/2014 Baldemar Goldberg MD PT call [id number] 06/14/20 14 06/14/2014 Baldemar Goldberg MD PT call [id number] 06/14/20 14 06/14/2014 Baldemar Goldberg MD PT call [id number] 06/14/20 14 06/14/2014 Baldemar Goldberg MD PT call [id number] 06/14/20 14 06/14/2014 Baldemar Goldberg MD PT call [id number] 06/14/20 14 06/14/2014 Baldemar Goldberg MD PT call [id number] 06/14/20 14 06/14/2014 Baldemar Goldberg MD PT call [id number] 06/14/20 14 06/14/2014 Baldemar Goldberg MD PT call [id number] 06/14/20 14 06/14/2014 Baldemar Goldberg MD PT call [id number] 06/14/20 14 06/14/2014 Baldemar Goldberg MD PT call [id number] 06/14/20 14 06/14/2014 Baldemar Goldberg MD PT call [id number] 06/14/20 14 06/14/2014 Baldemar Goldberg MD PT call [id number] 06/14/20 14 06/14/2014 Baldemar Goldberg MD PT call [id number] 06/14/20 14 06/14/2014 Baldemar Goldberg MD PT call [id number] 06/14/20 14 06/14/2014 Baldemar Goldberg MD PT call [id number] 06/14/20 14 06/14/2014 Baldemar Goldberg MD PT call [id number] 06/14/20 14 06/14/2014 Baldemar Goldberg MD PT call [id number] 06/14/20 14 06/14/2014 Baldemar Goldberg MD PT call [id number] 06/14/20 14 06/14/2014 Baldemar Goldberg MD PT call [id number] 06/14/20 14 06/14/2014 Baldemar Goldberg MD PT call [id number] 06/14/20 14 06/14/2014 Baldemar Goldberg MD PT call [id number] 06/14/20 14 06/14/2014 Baldemar Goldberg MD PT call [id number] 06/14/20 14 06/14/2014 Baldemar Goldberg MD PT call [id number] 06/14/20 14 06/14/2014 Baldemar Goldberg MD PT call [id number] 06/14/20 14 06/14/2014 Baldemar Goldberg MD Triplicate-- Hydrocodone [id number]-1x20-s325-zii55osd2km5 07/01/2014 07/01/2014 Baldemar Goldberg MD Triplicate-- Hydrocodone [id number]1219q7jz 07/01/2014 07/01/2014 Baldemar Goldberg MD Triplicate-- Hydrocodone [id number]-0211-82w2-lpjs-3382ys44i36t 07/01/2014 07/01/2014 Baldemar Goldberg MD Triplicate-- Hydrocodone [id number]-wgon-7534s2388c1a 07/01/2014 07/01/2014 Baldemar Goldberg MD Triplicate-- Hydrocodone 66z74211-214h-665p-7647-r7f1npo17c55 07/01/2014 07/01/2014 Baldemar Goldberg MD Triplicate-- Hydrocodone u80i3k1p-f912-3f96-9l35-w745zl63t83q 07/01/2014 07/01/2014 Baldemar Goldberg MD Triplicate-- Hydrocodone 24v88nb5-g4z0-0gn3-53ft-0r12osmiub1b 07/01/2014 07/01/2014 Baldemar Goldberg MD Triplicate-- Hydrocodone l1i7vp98-p212-30bq-g19q-825tq2029x13 07/01/2014 07/01/2014 Baldemar Goldberg MD Triplicate-- Hydrocodone [id number]-so3i-739x-a079-9v2mb5644366 07/01/2014 07/01/2014 Baldemar Goldberg MD Triplicate-- Hydrocodone [id number]-0359-7i6i-i33a-x05217kay894 07/01/2014 07/01/2014 Baldemar Goldberg MD Triplicate-- Hydrocodone f0v8ze3c-4a88-8br7-i0h1-1828u87dma9q 07/01/2014 07/01/2014 Baldemar Goldberg MD Triplicate-- Hydrocodone [id number]-7727-1i99l2vb4848 07/01/2014 07/01/2014 Baldemar Goldberg MD Triplicate-- Hydrocodone 8x6z9lz6-pz94-28z5-c81d-52y727340d06 07/01/2014 07/01/2014 Baldemar Goldberg MD Triplicate-- Hydrocodone no41e61p-19ho-67hv-9097-47402jo47361 07/01/2014 07/01/2014 Baldemar Goldberg MD Triplicate-- Hydrocodone [id number]-k668-69g9-mb0s-[id number] 07/01/2014 07/01/2014 Baldemar Goldberg MD Triplicate-- Hydrocodone 768y8hyu-fm06-0v43-h896-121068h1o6c5 07/01/2014 07/01/2014 Baldemar Goldberg MD Triplicate-- Hydrocodone 1t94a7xh-3485-3t40-9432-m23407zz3306 07/01/2014 07/01/2014 Baldemar Goldberg MD Triplicate-- Hydrocodone p5r249z6-0491-86sw-8d3f-7o0po7g56qw1 07/01/2014 07/01/2014 Baldemar Goldberg MD Triplicate-- Hydrocodone [id number]-h60r-n3nsc3323d55 07/01/2014 07/01/2014 Baldemar Goldberg MD Triplicate-- Hydrocodone [id number]-9e91-253i-4z41gu9u673q 07/01/2014 07/01/2014 Baldemar Goldberg MD Triplicate-- Hydrocodone 1k40z1ah-gh1w-29e9-9br1-00ad5u97yvt8 07/01/2014 07/01/2014 Baldemar Goldberg MD Triplicate-- Hydrocodone zgxht39p-cps2-8282-g784-[id number] 07/01/2014 07/01/2014 Baldemar Goldberg MD Triplicate-- Hydrocodone [id number]-6o72-6386-2124-s8y7w06157v8 07/01/2014 07/01/2014 Baldemar Goldberg MD Triplicate-- Hydrocodone nh51c982-d3m2-23y1-7y38-d98633nbsmk4 07/01/2014 07/01/2014 Baldemar Goldberg MD Triplicate-- Hydrocodone 1707w4h6-7k41-8102-3u36-782hof455p46 07/01/2014 07/01/2014 Baldemar Goldberg MD Triplicate-- Hydrocodone h15n7690-x1ti-3raf-49n6-4d47t620avdj 07/01/2014 07/01/2014 Baldemar Goldberg MD DEXA [id number] 07/04/2014 07/04/2014 Baldemar Goldberg MD DEXA [id number] 07/04/2014 07/04/2014 Baldemar Goldberg MD DEXA [id number]-[id number] 07/04/2014 07/04/2014 Baldemar Goldberg MD DEXA [id number] 07/04/2014 07/04/2014 Baldemar Goldberg MD DEXA [id number] 07/04/2014 07/04/2014 Baldemar Goldberg MD DEXA [id number] 07/04/2014 07/04/2014 Baldemar Goldberg MD DEXA [id number] 07/04/2014 07/04/2014 Baldemar Goldberg MD DEXA [id number]-z937r89zo37a 07/04/2014 07/04/2014 Baldemar Goldberg MD DEXA [id number] 07/04/2014 07/04/2014 Baldemar Goldberg MD DEXA [id number] 07/04/2014 07/04/2014 Baldemar Goldberg MD DEXA [id number]-[id number] 07/04/2014 07/04/2014 Baldemar Goldberg MD DEXA [id number]-[id number] 07/04/2014 07/04/2014 Baldemar Goldberg MD DEXA [id number]-215j-wrmsk6ql9yj1 07/04/2014 07/04/2014 Baldemar Goldberg MD DEXA [id number] 07/04/2014 07/04/2014 Baldemar Goldberg MD DEXA [id number]-tn67-xf44l2s9o80v 07/04/2014 07/04/2014 Baldemar Goldberg MD DEXA [id number] 07/04/2014 07/04/2014 Baldemar Goldberg MD DEXA [id number]-[id number] 07/04/2014 07/04/2014 Baldemar Goldberg MD DEXA [id number] 07/04/2014 07/04/2014 Baldemar Goldberg MD DEXA [id number]-uw94-[id number] 07/04/2014 07/04/2014 Baldemar Goldberg MD DEXA [id number]-[id number] 07/04/2014 07/04/2014 Baldemar Goldberg MD DEXA [id number] 07/04/2014 07/04/2014 Baldemar Goldberg MD DEXA [id number]-r6m1-tn946sp93v8k 07/04/2014 07/04/2014 Baldemar Goldberg MD DEXA [id number] 07/04/2014 07/04/2014 Baldemar Goldberg MD DEXA [id number] 07/04/2014 07/04/2014 Baldemar Goldberg MD DEXA [id number] 07/04/2014 07/04/2014 Baldemar Goldberg MD MRI Bi Wrist [id number]-[id number]-[id number] 07/05/20 14 07/05/2014 Baldemar Goldberg MD MRI Bi Wrist [id number]-dk4y-[id number]-[id number] 07/05/20 14 07/05/2014 Baldemar Goldberg MD MRI Bi Wrist [id number]-[id number]-x236-14i28y0gef07 07/05/20 14 07/05/2014 Baldemar Goldberg MD MRI Bi Wrist [id number]-848p-[id number] 07/05/20 14 07/05/2014 Baldemar Goldberg MD MRI Bi Wrist [id number]-5534-33d9-[id number] 07/05/20 14 07/05/2014 Baldemar Goldberg MD MRI Bi Wrist [id number]-vf6o669c6628 07/05/20 14 07/05/2014 Baldemar Goldberg MD MRI Bi Wrist [id number]-g257-4767-[id number] 07/05/20 14 07/05/2014 Baldemar Goldberg MD MRI Bi Wrist [id number] 07/05/20 14 07/05/2014 Baldemar Goldberg MD MRI Bi Wrist [id number]-q9zk-9k81-of96-27bcor72309u 07/05/20 14 07/05/2014 Baldemar Goldberg MD MRI Bi Wrist [id number]-gy505o0lh50t 07/05/20 14 07/05/2014 Baldemar Goldberg MD MRI Bi Wrist [id number]-[id number] 07/05/20 14 07/05/2014 Baldemar Goldberg MD MRI Bi Wrist [id number]-f27v-5e58-gl28-s3tqhxp8938z 07/05/20 14 07/05/2014 Baldemar Goldberg MD MRI Bi Wrist [id number]-[id number] 07/05/20 14 07/05/2014 Baldemar Goldberg MD MRI Bi Wrist [id number]-fn6e-77u66va2983n 07/05/20 14 07/05/2014 Baldemar Goldberg MD MRI Bi Wrist [id number]-j0ea-50u71s5w8bf2 07/05/20 14 07/05/2014 Baldemar Goldberg MD MRI Bi Wrist [id number]-o48u-0p836e47c04m 07/05/20 14 07/05/2014 Baldemar Goldberg MD MRI Bi Wrist [id number]-sd85-32w6-q8bu-82qfc16aqs27 07/05/20 14 07/05/2014 Baldemar Goldberg MD MRI Bi Wrist [id number]-5x83-q9d8-98f7a926d297 07/05/20 14 07/05/2014 Baldemar Goldberg MD MRI Bi Wrist [id number]-448h-m50r-a5t0bgs33t44 07/05/20 14 07/05/2014 Baldemar Goldberg MD MRI Bi Wrist [id number]-bokh-[id number] 07/05/20 14 07/05/2014 Baldemar Goldberg MD MRI Bi Wrist m2z3p0k2-4evn-78iw-bi68-woi796x5n10h 07/05/20 14 07/05/2014 Baldemar Goldberg MD MRI Bi Wrist [id number]-57in-43d2-962q-742827e5d90w 07/05/20 14 07/05/2014 Baldemar Goldberg MD MRI Bi Wrist q121twy1-5s15-637x-i2pr-m247b3ixc913 07/05/20 14 07/05/2014 Baldemar Goldberg MD 4M F/U [id number]-5379-24xq-2t6x-6pi6jo2mq111 07/09/20 14 07/09/2014 Baldemar Goldberg MD 4M F/U [id number]-7ww5-vh41-8167n7g0oh42 07/09/20 14 07/09/2014 Baldemar Goldberg MD 4M F/U [id number]-e925-333a48u8hgu9 07/09/20 14 07/09/2014 Baldemar Goldberg MD 4M F/U b790in9m-5d5l-229j-kdr3-a32395584u85 07/09/20 14 07/09/2014 Baldemar Goldberg MD 4M F/U [id number]-fc479i2e15p4 07/09/20 14 07/09/2014 Baldemar Goldberg MD 4M F/U mb414m00-i6f9-363q-o2x9-440d845v62b4 07/09/20 14 07/09/2014 Baldemar Goldberg MD 4M F/U 8x17jot9-wxf2-09ey-436f-hc9z774scg41 07/09/20 14 07/09/2014 Baldemar Goldberg MD 4M F/U [id number]-6w17-9498-daz117329mm4 07/09/20 14 07/09/2014 Baldemar Goldberg MD 4M F/U z73s7hvf-205q-1959-238n-5q3o600kn734 07/09/20 14 07/09/2014 Baldemar Goldberg MD 4M F/U [id number]-vme7-hke12704z957 07/09/20 14 07/09/2014 Baldemar Goldberg MD 4M F/U [id number]-bn54-h456132j62x0 07/09/20 14 07/09/2014 Baldemar Goldberg MD 4M F/U [id number]-di37-9ote-7e5h-76zixd22n4a6 07/09/20 14 07/09/2014 Baldemar Goldberg MD 4M F/U [id number]-37y0g12243z9 07/09/20 14 07/09/2014 Baldemar Goldberg MD 4M F/U zfxtv0o1-2234-0o26-km8x-3870015mb409 07/09/20 14 07/09/2014 Baldemar Goldberg MD 4M F/U th17h9bi-1ps4-8505-925d-7ytq140zx490 07/09/20 14 07/09/2014 Baldemar Goldberg MD 4M F/U hkf7dv76-v7xe-1tq7-djr4-3g354e4n5829 07/09/20 14 07/09/2014 Baldemar Goldberg MD 4M F/U [id number]-8e68-7e8g45vtlvy9 07/09/20 14 07/09/2014 Baldemar Goldberg MD [facility] [id number]-[id number] 07/15/20 14 07/15/2014 Baldemar Goldberg MD swelling 650t344c-11bc-6hsh-d5kn-414p0o028636 07/15/20 14 07/15/2014 Baldemar Goldberg MD swelling 73n40868-0106-9tpr-a886-79343v33f210 07/15/20 14 07/15/2014 Baldemar Goldberg MD swelling i80x3690-s5zn-4384-82kp-u2p8823gt85k 07/15/20 14 07/15/2014 Baldemar Goldberg MD swelling 28833ci5-509a-162a-5eba-2pn262f21r86 07/15/20 14 07/15/2014 Baldemar Goldberg MD swelling 8h0351f2-633b-555l-8984-e975a0rbg3uv 07/15/20 14 07/15/2014 Baldemar Goldberg MD swelling y5agknd8-w5yd-44q7-uc2j-9w79cf7336i6 07/15/20 14 07/15/2014 Baldemar Goldberg MD swelling ww815445-h63b-3xz4-htw2-nf0e063915n0 07/15/20 14 07/15/2014 Baldemar Goldberg MD swelling 28urs813-8d00-9d8b-43m0-263j11930o42 07/15/20 14 07/15/2014 Baldemar Goldberg MD swelling m1h0292y-1li3-0t1r-b7x4-c536c945u984 07/15/20 14 07/15/2014 Baldemar Goldberg MD swelling [id number]-250o-36e0-w2mw-5q5g4i841722 07/15/20 14 07/15/2014 Baldemar Goldberg MD swelling v79xqc5a-95z4-0a9l-wm09-9085a06654ny 07/15/20 14 07/15/2014 Baldemar Goldberg MD swelling 29a26487-izq3-4pt4-rw74-5o7w65ex4u3o 07/15/20 14 07/15/2014 Baldemar Goldberg MD swelling iymb3xku-7bho-8p17-h25x-gb4466651mse 07/15/20 14 07/15/2014 Baldemar Goldberg MD swelling b7id5tnb-j10s-8f0u-18gx-41321z5zl245 07/15/20 14 07/15/2014 Baldemar Goldberg MD swelling 27i4wzj1-zjc0-8xl0-958w-5b576k7h2v64 07/15/20 14 07/15/2014 Baldemar Goldberg MD swelling 7q70668z-568c-47q4-876s-t1z1drb38bij 07/15/20 14 07/15/2014 Baldemar Goldberg MD swelling 1296049x-h8v4-48b8-u4az-xi6ky699g346 07/15/20 14 07/15/2014 Baldemar Goldberg MD swelling 570d5w05-28pm-05w3-do18-s89235vp9d9g 07/15/20 14 07/15/2014 Baldemar Goldberg MD swelling 1vec90u4-u2hz-5w73-6n3o-qry16t565823 07/15/20 14 07/15/2014 Baldemar Goldberg MD swelling x1561ixg-7n31-25yi-6424-031ob947l23u 07/15/20 14 07/15/2014 Baldemar Goldberg MD swelling a9qln19l-wfzy-2u18-icb1-w6991g885088 07/15/20 14 07/15/2014 Baldemar Goldberg MD swelling gu144799-63od-01t7-v9g3-82az328r5288 07/15/20 14 07/15/2014 Baldemar Goldberg MD swelling 09b52319-l4p4-944g-2c63-618w6w7q3i66 07/15/20 14 07/15/2014 Baldemar Goldberg MD meloxicam 78qgf2h8-7947-97r6-1247-cx25g4b06g44 08/07/20 14 08/07/2014 Baldemar Goldberg MD meloxicam p98awm13-k393-007s-8627-tjrb0pfze1k5 08/07/20 14 08/07/2014 Baldemar Goldberg MD meloxicam [id number]-w0ax-979v-2y42-yje9g0431264 08/07/20 14 08/07/2014 Baldemar Goldberg MD meloxicam 8g71ymm6-67a9-2240-4h28-58o6236992x5 08/07/20 14 08/07/2014 Baldemar Goldberg MD meloxicam js5s82r1-9px3-18p3-6z7h-8s4579a3amck 08/07/20 14 08/07/2014 Baldemar Goldberg MD meloxicam 180273cw-180s-2688-q4g7-n9646y147l42 08/07/20 14 08/07/2014 Baldemar Goldberg MD meloxicam 69zr9144-cfyz-4681-hk4r-89rsz23890x3 08/07/20 14 08/07/2014 Baldemar Goldberg MD meloxicam 5g2690ti-m1s1-0i5w-0h73-35uu5y0q5d12 08/07/20 14 08/07/2014 Baldemar Goldberg MD meloxicam rk76o072-6c55-2728-y52h-r8iw34b6v770 08/07/20 14 08/07/2014 Baldemar Goldberg MD meloxicam wf820606-ce92-5f3o-6522-1w8q0201ec0o 08/07/20 14 08/07/2014 Baldemar Goldberg MD meloxicam 537sx940-1y10-969f-25a3-4b004k8583br 08/07/20 14 08/07/2014 Baldemar Goldberg MD meloxicam 2gj55p31-82ou-8v4z-mf16-a9472337zvh8 08/07/20 14 08/07/2014 Baldemar Goldberg MD meloxicam m485q511-vy44-71oa-wi9b-y519t3370rv1 08/07/20 14 08/07/2014 Baldemar Goldberg MD meloxicam b8223e3g-24mf-8535-7387-tm8rddu2704u 08/07/20 14 08/07/2014 Baldemar Goldberg MD meloxicam e77dr0cj-9m10-0b9k-52u4-e29646715s5h 08/07/20 14 08/07/2014 Baldemar Goldberg MD meloxicam 436a42yx-5193-2274-8600-52y37du2ci1g 08/07/20 14 08/07/2014 Baldemar Goldberg MD meloxicam 29s18770-06fg-5102-mr59-5902cks8n073 08/07/20 14 08/07/2014 Baldemar Goldberg MD meloxicam 6693ug71-5y27-337a-p448-p1s7grs85521 08/07/20 14 08/07/2014 Baldemar Goldberg MD meloxicam 50e0767y-8813-29sc-9721-4o61y410392e 08/07/20 14 08/07/2014 Baldemar Goldberg MD meloxicam 61l29b9s-50r5-04on-2324-c7yjr52183q3 08/07/20 14 08/07/2014 Baldemar Goldberg MD meloxicam 42w6965a-lp52-4p2d-xqv8-m05oi7752331 08/07/20 14 08/07/2014 Baldemar Goldberg MD meloxicam 36bot783-sz70-7162-h3nd-d0jc80l25377 08/07/20 14 08/07/2014 Baldemar Goldberg MD meloxicam 7cp4pvfz-8g1a-0w02-3323-z9153o06tb55 08/07/20 14 08/07/2014 Baldemar Goldberg MD Would like a call l4410pbk-10o7-4e68-s576-q8q37i0e0422 08/12/20 14 08/12/2014 Baldemar Goldberg MD Would like a call o53x48v8-y0a2-472x-a28y-35j0k5q3bak4 08/12/20 14 08/12/2014 Baldemar Goldberg MD Would like a call [id number]-[id number]-c713-mk727019mj1x 08/12/20 14 08/12/2014 Baldemar Goldberg MD Would like a call adn71440-093y-8986-o851-11149l14owtz 08/12/20 14 08/12/2014 Baldemar Goldberg MD Would like a call 39231t08-j8s7-760q-ni75-3g7i96ly897t 08/12/20 14 08/12/2014 Baldemar Goldberg MD Would like a call 7m2b3y19-v3i8-14pf-48ck-22t67102j83b 08/12/20 14 08/12/2014 Baldemar Goldberg MD Would like a call [id number]-jv3g-7gz7-1b2m-4y3fl41i0v55 08/12/20 14 08/12/2014 Baldemar Goldberg MD Would like a call qv2hls36-63x4-41vp-3w34-9z2iht3v32f3 08/12/20 14 08/12/2014 Baldemar Goldberg MD Would like a call wl81t416-4xo2-3256-w73e-9d0joc974lj4 08/12/20 14 08/12/2014 Baldemar Goldberg MD Would like a call p9h52ins-5752-9l6s-7nwy-41073mkkzv6i 08/12/20 14 08/12/2014 Baldemar Goldberg MD Would like a call nz27k443-z3yi-36v6-6303-09uy18b461y0 08/12/20 14 08/12/2014 Baldemar Goldberg MD Would like a call d6gn271d-[id number] 08/12/20 14 08/12/2014 Baldemar Goldberg MD Would like a call [id number] 08/12/20 14 08/12/2014 Baldemar Goldberg MD Would like a call [id number] 08/12/20 14 08/12/2014 Baldemar Goldberg MD Would like a call [id number] 08/12/20 14 08/12/2014 Baldemar Goldberg MD Would like a call [id number] 08/12/20 14 08/12/2014 Baldemar Goldberg MD Would like a call [id number] 08/12/20 14 08/12/2014 Baldemar Goldberg MD Would like a call [id number] 08/12/20 14 08/12/2014 Baldemar Goldberg MD Would like a call [id number] 08/12/20 14 08/12/2014 Baldeamr Goldberg MD Would like a call [id number] 08/12/20 14 08/12/2014 Baldemar Goldberg MD Would like a call [id number] 08/12/20 14 08/12/2014 Baldemar Goldberg MD Would like a call [id number] 08/12/20 14 08/12/2014 Baldemar Goldberg MD Would like a call [id number] 08/12/20 14 08/12/2014 Baldemar Goldberg MD [facility] Refill due- 08/01/14 [id number] 08/14/2014 08/14/2014 Baldemar Goldberg MD [place] Refill due- 08/01/14 [id number] 08/14/2014 08/14/2014 Baldemar Goldberg MD [place] Refill due- 08/01/14 [id number] 08/14/2014 08/14/2014 Baldemar Goldberg MD [place] Refill due- 08/01/14 [id number] 08/14/2014 08/14/2014 Baldemar Goldberg MD [place] Refill due- 08/01/14 [id number] 08/14/2014 08/14/2014 Baldemar Goldberg MD [place] Refill due- 08/01/14 [id number] 08/14/2014 08/14/2014 Baldemar Goldberg MD [place] Refill due- 08/01/14 [id number] 08/14/2014 08/14/2014 Baldemar Goldberg MD Refill [id number] 08/14/20 14 08/14/2014 Baldemar Goldberg MD Refill [id number] 08/14/20 14 08/14/2014 Baldemar Goldberg MD Refill [id number] 08/14/20 14 08/14/2014 Baldemar Goldberg MD Refill [id number] 08/14/20 14 08/14/2014 Baldemar Goldberg MD Refill [id number] 08/14/20 14 08/14/2014 Baldemar Goldberg MD Refill [id number] 08/14/20 14 08/14/2014 Baldemar Goldberg MD Refill [id number] 08/14/2008/14/2014 Baldemar Goldberg MD [place] Refill due- 08/01/14 [id number] 08/14/2014 08/14/2014 Baldemar Goldberg MD [place] Refill due- 08/01/14 [id number] 08/14/2014 08/14/2014 Baldemar Goldberg MD [place] Refill due- 08/01/14 [id number] 08/14/2014 08/14/2014 Baldemar Goldberg MD [place] Refill due- 08/01/14 [id number] 08/14/2014 08/14/2014 Baldemar Goldberg MD [place] Refill due- 08/01/14 [id number] 08/14/2014 08/14/2014 Baldemar Goldberg MD [place] Refill due- 08/01/14 [id number] 08/14/2014 08/14/2014 Baldemar Goldberg MD [place] Refill due- 08/01/14 [id number] 08/14/2014 08/14/2014 Baldemar Goldberg MD [place] Refill due- 08/01/14 [id number] 08/14/2014 08/14/2014 Baldemar Goldberg MD [place] Refill due- 08/01/14 [id number] 08/14/2014 08/14/2014 Baldemar Goldberg MD [place] Refill due- 08/01/14 [id number] 08/14/2014 08/14/2014 Baldemar Goldberg MD [place] Refill due- 08/01/14 [id number]-[id number] 08/14/2014 08/14/2014 Baldemar Goldberg MD [place] Refill due- 08/01/14 [id number]-[id number] 08/14/2014 08/14/2014 Baldemar Goldberg MD [place] Refill due- 08/01/14 [id number] 08/14/2014 08/14/2014 Baldemar Goldberg MD [place] Refill due- 08/01/14 [id number] 08/14/2014 08/14/2014 Baldemar Goldberg MD [place] Refill due- 08/01/14 [id number] 08/14/2014 08/14/2014 Baldemar Goldberg MD [place] Refill due- 08/01/14 [id number] 08/14/2014 08/14/2014 Baldemar Goldberg MD Refill [id number] 08/14/20 14 08/14/2014 Baldemar Goldberg MD Refill [id number] 08/14/20 14 08/14/2014 Baldemar Goldberg MD Refill [id number] 08/14/20 14 08/14/2014 Baldemar Goldberg MD Refill [id number] 08/14/20 14 08/14/2014 Baldemar Goldberg MD Refill [id number] 08/14/20 14 08/14/2014 Baldemar Goldberg MD Refill [id number] 08/14/20 14 08/14/2014 Baldemar Goldberg MD Refill [id number] 08/14/20 14 08/14/2014 Baldemar Goldberg MD Refill [id number] 08/14/20 14 08/14/2014 Baldemar Goldberg MD Refill [id number] 08/14/20 14 08/14/2014 Baldemar Goldberg MD Refill [id number] 08/14/20 14 08/14/2014 Baldemar Goldberg MD Refill [id number] 08/14/20 14 08/14/2014 Baldemar Goldberg MD Refill [id number] 08/14/20 14 08/14/2014 Baldemar Goldberg MD Refill [id number] 08/14/20 14 08/14/2014 Baldemar Goldberg MD Refill [id number] 08/14/20 14 08/14/2014 Baldemar Goldberg MD Refill [id number] 08/14/20 14 08/14/2014 Baldemar Goldberg MD Refill [id number] 08/14/20 14 08/14/2014 Baldemar Goldberg MD [place] [id number] 08/15/2014 08/15/2014 Baldemar Goldberg MD [place] [id number] 08/15/2014 08/15/2014 Baldemar Goldberg MD [place] [id number] 08/15/2014 08/15/2014 Baldemar Goldberg MD Elbow [id number]-[id number] 08/15/2014 08/15/2014 Baldemar Goldberg MD [place] [id number] 08/15/2014 08/15/2014 Baldemar Goldberg MD [place] dxsv2n3m-26rb-938y-79y1-53v5f18wrt3k 08/15/2014 08/15/2014 Baldemar Goldberg MD [place] [id number] 08/15/2014 08/15/2014 Baldemar Goldberg MD Elbow [id number] 08/15/2014 08/15/2014 Baldemar Goldberg MD [place] [id number] 08/15/2014 08/15/2014 Baldemar Goldberg MD El[place] [id number] 08/15/2014 08/15/2014 MD Salazar Richey [id number] 08/15/2014 08/15/2014 Baldemar Goldberg MD El[place] [id number]-[id number] 08/15/2014 08/15/2014 MD Salazar Richey [id number] 08/15/2014 08/15/2014 MD Salazar Richey [id number] 08/15/2014 08/15/2014 MD Salazar Richey [id number]-[id number]-j950-l7op720s9z2q 08/15/2014 08/15/2014 MD Salazar Richey [id number]-[id number] 08/15/2014 08/15/2014 Baldemar Goldberg MD Elbow [id number]-374o-ee0q-85527h65sy44 08/15/2014 08/15/2014 Baldemar Goldberg MD Elbow [id number]-qx55-250v-p93u-844n84p7u238 08/15/2014 08/15/2014 Baldemar Goldberg MD Elbow [id number]-[id number] 08/15/2014 08/15/2014 Baldemar Goldberg MD Elbow k18ywbae-8c5g-0201-m225-25v4agf35805 08/15/2014 08/15/2014 Baldemar Goldberg MD Elbow 81r22nn2-24zz-5525-891m-p70c1k7h8s16 08/15/2014 08/15/2014 Baldemar Goldberg MD Elbow [id number]-3w0u-8822-4d41-1591380p0mww 08/15/2014 08/15/2014 Baldemar Goldberg MD Elbow 250264q4-i7m3-6d02-jz3y-376e20c12dcg 08/15/2014 08/15/2014 Baldemar Goldberg MD Pt. added 288yrd8n-x9f4-3lf5-1c09-x53batpy3021 09/16/19 15 09/16/2014 Baldemar Goldberg MD Pt. added [id number]-lacp-8575-7o23-b719n3wp48uv 09/16/19 15 09/16/2014 Baldemar Goldberg MD Pt. added i9s5wdw0-049d-8415-1l28-2cvo0a2ry20l 09/16/19 15 09/16/2014 Baldemar Goldberg MD Pt. added [id number]-j95i-226xp1490y1s 09/16/19 15 09/16/2014 Baldemar Goldberg MD Pt. added [id number]-42ru-981v62yqj2jy 09/16/19 15 09/16/2014 Baldemar Goldberg MD Pt. added [id number] 09/16/19 15 09/16/2014 Baldemar Goldberg MD Pt. added [id number]-[id number] 09/16/19 15 09/16/2014 Baldemar Goldberg MD Pt. added [id number]-02jg-6fs5-qk8w-b349n81952ho 09/16/19 15 09/16/2014 Baldemar Goldberg MD Pt. added [id number]-bli2-6s9d4u1her85 09/16/19 15 09/16/2014 Baldemar Goldberg MD Pt. added [id number]-204w-36l2-441u-[id number] 09/16/19 15 09/16/2014 Baldemar Goldberg MD Pt. added 5a6c2t54-tdb8-11f2-mqjo-82x37n710bhd 09/16/19 15 09/16/2014 Baldemar Goldberg MD Pt. added kpw9tb98-g5i2-6289-5s2d-0j64v5hnw28a 09/16/19 15 09/16/2014 Baldemar Goldberg MD Pt. added lwbc824k-62v3-7zkk-5429-up2h580g5e06 09/16/19 15 09/16/2014 Baldemar Goldberg MD Pt. added [id number]39y88g361 09/16/19 15 09/16/2014 Baldemar Goldberg MD Pt. added [id number]-1771-kgjy6fa22v49 09/16/19 15 09/16/2014 Baldemar Goldberg MD Pt. added [id number]-e7ka-v02018pgp84x 09/16/19 15 09/16/2014 Baldemar Goldberg MD RX [id number]-8s78jzs2cec0 09/17/2014 09/17/2014 Baldemar Goldberg MD RX [id number] 09/17/2014 09/17/2014 Baldemar Goldberg MD RX [id number] 09/17/2014 09/17/2014 Baldemar Goldberg MD RX [id number]-yi1hq362sf47 09/17/2014 09/17/2014 Baldemar Goldberg MD RX [id number]-hhp2-j47z03l086l4 09/17/2014 09/17/2014 Baldemar Goldberg MD RX [id number]-z179pv8t8122 09/17/2014 09/17/2014 Baldemar Goldberg MD RX [id number] 09/17/2014 09/17/2014 Baldemar Goldberg MD RX [id number]-g48c-1j8n4hv1p770 09/17/2014 09/17/2014 Baldemar Goldberg MD RX [id number] 09/17/2014 09/17/2014 Baldemar Goldberg MD RX [id number] 09/17/2014 09/17/2014 Baldemar Goldberg MD RX [id number] 09/17/2014 09/17/2014 Baldemar Goldberg MD RX [id number] 09/17/2014 09/17/2014 Baldemar Goldberg MD RX [id number]-yq0p5wxkhu39 09/17/2014 09/17/2014 Baldemar Goldberg MD RX [id number] 09/17/2014 09/17/2014 Baldemar Goldberg MD RX [id number] 09/17/2014 09/17/2014 Baldemar Goldberg MD RX [id number] 10/17/2014 10/17/2014 Baldemar Goldberg MD RX [id number] 10/17/2014 10/17/2014 Baldemar Goldberg MD RX [id number] 10/17/2014 10/17/2014 Baldemar Goldberg MD RX [id number] 10/17/2014 10/17/2014 Baldemar Goldberg MD RX [id number]-4c90c6t8516l 10/17/2014 10/17/2014 Baldemar Goldberg MD RX [id number]-e0658r7m4p9e 10/17/2014 10/17/2014 Baldemar Goldberg MD RX [id number] 10/17/2014 10/17/2014 Baldemar Goldberg MD RX [id number]-3l3x92v7pz93 10/17/2014 10/17/2014 Baldemar Goldberg MD RX [id number] 10/17/2014 10/17/2014 Baldemar Goldberg MD RX [id number] 10/17/2014 10/17/2014 Baldemar Goldberg MD RX [id number] 10/17/2014 10/17/2014 Baldemar Goldberg MD RX [id number] 10/17/2014 10/17/2014 Baldemar Goldberg MD RX [id number] 10/17/2014 10/17/2014 Baldemar Goldberg MD RX [id number] 10/17/2014 10/17/2014 Baldemar Goldberg MD [facility] refill [id number]-21r827e6g3q5 11/15/19 15 11/14/2014 Baldemar Goldberg MD [facility] refill [id number]-e95t-z634z5b5266o 11/15/19 15 11/14/2014 Baldemar Goldberg MD [facility] refill [id number]-8654-1l18-56ra5uujs49y 11/15/19 15 11/14/2014 Baldemar Goldberg MD [facility] refill 30q0q0f9-6goq-60m3-lqcv-446n3j429lj4 11/15/19 15 11/14/2014 Baldemar Goldberg MD [facility] refill [id number]-54t9-0a7vv23km13w 11/15/19 15 11/14/2014 Baldemar Goldberg MD [facility] refill [id number]-cl98-9g95-244x-m2w27l899shh 11/15/19 15 11/14/2014 Baldemar Goldberg MD [facility] refill [id number]-0dl8-52f8-62j9-80i0b9y6i70o 11/15/19 15 11/14/2014 Baldemar Goldberg MD [facility] refill [id number]-l89t-4pm2-h182-i2409hk00q04 11/15/19 15 11/14/2014 Baldemar Goldberg MD [facility] refill [id number]-a461-9635-n01j-ygd1lj5t65gj 11/15/19 15 11/14/2014 Baldemar Goldberg MD [facility] refill [id number]-34g0-m30q-l9c5158k878c 11/15/19 15 11/14/2014 Baldemar Goldberg MD [facility] refill [id number]-8u56-12r2-yw94-47679vltuf0k 11/15/19 15 11/14/2014 Baldemar Goldberg MD [facility] refill [id number]-y36i-5999-l96k-6374n86y34xr 11/15/19 15 11/14/2014 Baldemar Glodberg MD [facility] refill [id number]-8e8z-o4exh6614s1i 11/15/19 15 11/14/2014 Baldemar Goldberg MD [facility] refill 4zp7f708-6074-5483-vnsf-x377909pp2lp 11/15/19 15 11/14/2014 Baldemar Goldbreg MD [facility] refill [id number]-n49v-[id number] 11/15/19 15 11/14/2014 Baldemar Goldberg MD 1 MO F/U 9l15od45-zj8n-0141-63mc-538r27156md6 12/14/19 15 12/13/2014 Baldemar Goldberg MD 1 MO F/U 4ek34s5a-d393-8iu0-1571-d3le111725k8 12/14/19 15 12/13/2014 Baldemar Goldberg MD 1 MO F/U l13416nb-z416-8154-db25-yk5rsd6c32dg 12/14/19 15 12/13/2014 Baldemar Goldberg MD 1 MO F/U 9875w403-u193-3889-d7g0-sp92799es229 12/14/19 15 12/13/2014 Baldemar Goldberg MD 1 MO F/U 3724m0b3-06e1-7l49-0h5l-76w8006951e0 12/14/19 15 12/13/2014 Baldemar Goldberg MD 1 MO F/U 0vv75fc4-j148-052d-j930-8xt32n7x78cb 12/14/19 15 12/13/2014 Baldemar Goldberg MD 1 MO F/U 6i0qrk8s-9374-0519-l542-s148g5wb3j5n 12/14/19 15 12/13/2014 Baldemar Goldberg MD 1 MO F/U i0hy1p5n-8w40-673p-77vy-32v88f0e0855 12/14/19 15 12/13/2014 Baldemar Goldberg MD 1 MO F/U 837c422q-72mh-9j7o-e878-m5v8d998603o 12/14/19 15 12/13/2014 Baldemar Goldberg MD 1 MO F/U m4061253-u8n3-5006-w869-2p42685t1abm 12/14/19 15 12/13/2014 Baldemar Goldberg MD 1 MO F/U 6499oz50-9o45-9720-oh5a-349b00f67736 12/14/19 15 12/13/2014 Baldemar Goldberg MD 1 MO F/U h316n5h7-2948-43h8-2057-u50e007580w8 12/14/19 15 12/13/2014 Baldemar Goldberg MD 1 MO F/U gn7g31os-f4y3-78z1-s9s6-2560k66p90w9 12/14/19 15 12/13/2014 Baldemar Goldberg MD 1 MO F/U 074g2bn5-ed2d-73i5-76qo-6169ic4ph6b8 12/14/19 15 12/13/2014 Baldemar Goldberg MD 1 MO F/U 23506464-946a-3cwv-9310-3za12bl0mu78 12/14/19 15 12/13/2014 Baldemar Goldberg MD 1 MO F/U 3m8nbv2a-tcxq-652u-m336-k6j6ck81a82f 01/09/20 15 01/08/2015 Baldemar Goldberg MD 1 MO F/U phw6w646-4ym2-8p40-99yk-x222yk710y80 01/09/20 15 01/08/2015 Baldemar Goldberg MD 1 MO F/U kv4p4o53-h5n7-5383-xr8s-3qoz12r85685 01/09/20 15 01/08/2015 Baldemar Goldberg MD 1 MO F/U 2t65e41l-b0q2-033m-3k79-22z015hj47xl 01/09/20 15 01/08/2015 Baldemar Goldberg MD 1 MO F/U 2z8h2926-733g-9793-8823-sckh2a611i0g 01/09/20 15 01/08/2015 Baldemar Goldberg MD 1 MO F/U 81d0643x-d3v3-1w82-4642-90tq376u64k6 01/09/20 15 01/08/2015 Baldemar Goldberg MD 1 MO F/U 7ik5036m-0841-966k-f9um-5i0njfu343c1 01/09/20 15 01/08/2015 Baldemar Goldberg MD 1 MO F/U i6m02b17-0084-6370-9114-713j03n8gso1 01/09/20 15 01/08/2015 Baldemar Goldberg MD 1 MO F/U we9m823z-5350-2217-vz75-3i2627534t8c 01/09/20 15 01/08/2015 Baldemar Goldberg MD 1 MO F/U 6d9u44dp-x40y-6897-1458-7t766895sx1v 01/09/20 15 01/08/2015 Baldemar Goldberg MD 1 MO F/U ek05u9b4-9284-6g22-3533-479o73z861y1 01/09/20 15 01/08/2015 Baldemar Goldberg MD 1 MO F/U 06313m58-5r61-7942-lx3y-5484h971dt2b 01/09/20 15 01/08/2015 Baldemar Goldberg MD 1 MO F/U s2e46o9e-19ch-986f-3665-cbgw7675020x 01/09/20 15 01/08/2015 Baldemar Goldberg MD 1 MO F/U 3w3up83b-h95w-805q-7242-hc2r8yni0m72 01/09/20 15 01/08/2015 Baldemar Goldberg MD 1 MO F/U n80b4ru4-3314-162k-61fr-67uxex0m4hs5 01/09/20 15 01/08/2015 Baldemar Goldberg MD MRI 1uqh0005-u5yy-61w5-d951-j2w5k4p415k3 01/12/2015 01/12/2015 Baldemar Goldberg MD MRI x3hy6a79-o9oi-8z8d-c5g9-y7ha3eu5b294 01/12/2015 01/12/2015 Baldemar Goldberg MD MRI h4y06977-t9mn-8941-79b6-71503jl1pa32 01/12/2015 01/12/2015 Baldemar Goldberg MD MRI 193p856a-5e87-80c1-q917-k82g9s6081er 01/12/2015 01/12/2015 Baldemar Goldberg MD MRI es1n5182-w481-461d-o958-58380duuh892 01/12/2015 01/12/2015 Baldemar Goldberg MD MRI ucgg2330-9m01-48r8-r22j-1o4ybei454n7 01/12/2015 01/12/2015 Baldemar Goldberg MD MRI 225kf090-18xl-5299-b100-44n589ld0sw0 01/12/2015 01/12/2015 Baldemar Goldberg MD MRI 92mgx05s-f89w-8178-61ep-a5rm1p84bx16 01/12/2015 01/12/2015 Baldemar Goldberg MD MRI 3773n29f-mgop-379f-5zr0-flo856eu21q3 01/12/2015 01/12/2015 Baldemar Goldberg MD MRI o41b1971-55m0-3615-a463-21u41246x333 01/12/2015 01/12/2015 Baldemar Goldberg MD MRI 6724l8yz-jrm3-5h9j-v52b-d270hn9v5qbu 01/12/2015 01/12/2015 Baldemar Goldberg MD MRI 1y31o972-6r19-1o62-t476-880x26s3y60o 01/12/2015 01/12/2015 Baldemar Goldberg MD MRI 607f5u3v-2b15-64t3-366s-409jm8878744 01/12/2015 01/12/2015 Baldemar Goldberg MD MRI 071i82fi-7423-716k-ckx0-8674u28g5v26 01/12/2015 01/12/2015 Baldemar Goldberg MD MRI [id number]-o14t-8415-9499-682303f6f19h 01/12/2015 01/12/2015 Baldemar Goldberg MD 1 MO F/U 7j1s3202-9878-508c-j08p-br8pggvz91d9 02/06/20 15 02/05/2015 Baldemar Goldberg MD 1 MO F/U 671q9ey7-ry4s-846f-tjvg-047t9528pm1n 02/06/20 15 02/05/2015 Baldemar Goldberg MD 1 MO F/U y0057om1-1v70-56c7-hpm9-2k5g9m9s1696 02/06/20 15 02/05/2015 Baldemar Goldberg MD 1 MO F/U 989sb13m-0381-9472-4q53-0513670521e7 02/06/20 15 02/05/2015 Baldemar Goldberg MD 1 MO F/U 8ng759s4-j7zy-323p-9m11-p2w7284l53m0 02/06/20 15 02/05/2015 Baldemar Goldberg MD 1 MO F/U 9611yx37-e004-1f52-1472-417k48436ot7 02/06/20 15 02/05/2015 Baldemar Goldberg MD 1 MO F/U 2179p970-2zn3-54p2-90dk-w7x39g120k7y 02/06/20 15 02/05/2015 Baldemar Goldberg MD 1 MO F/U 278v71w7-qiz2-957w-540w-kz844b7h5009 02/06/20 15 02/05/2015 Baldemar Goldberg MD 1 MO F/U 1322525t-g572-7671-zn32-58j6m0ck71m7 02/06/20 15 02/05/2015 Baldemar Goldberg MD 1 MO F/U 6l042l0l-v698-4wk4-4ev4-0v43l5y233ji 02/06/20 15 02/05/2015 Baldemar Goldberg MD 1 MO F/U q25v12fz-o08h-172y-yr28-6ziv8c70yed1 02/06/20 15 02/05/2015 Baldemar Goldberg MD 1 MO F/U 5c1b4uvl-c5x2-9oo1-y40g-mb4d30392292 02/06/20 15 02/05/2015 Baldemar Goldberg MD 1 MO F/U 74532tfd-221p-3ihv-4990-95x41i6959t6 02/06/20 15 02/05/2015 Baldemar Goldberg MD 1 MO F/U 8mrvbo00-0264-20hc-8fpn-n4535772rfg1 02/06/20 15 02/05/2015 Baldemar Goldberg MD 1 MO F/U ldm1j6r8-8dvq-6l33-s666-hbpy45su30zq 03/10/20 15 03/10/2015 Baldemar Goldberg MD 1 MO F/U q807n8y7-34v4-660n-c78y-wpdw9j789v04 03/10/20 15 03/10/2015 Baldemar Goldberg MD 1 MO F/U s1q33588-r8ss-66yt-g2z1-a66278075h6e 03/10/20 15 03/10/2015 Baldemar Goldberg MD 1 MO F/U 59845h05-5gvr-2385-7965-2q7n1vy07m22 03/10/20 15 03/10/2015 Baldemar Goldberg MD 1 MO F/U y25e17c3-98p1-6536-i33f-w7nmfi1k235u 03/10/20 15 03/10/2015 Baldemar Goldberg MD 1 MO F/U 7w3srhj4-9b72-4f68-3932-qjxd3xuf7py1 03/10/20 15 03/10/2015 Baldemar Goldberg MD 1 MO F/U 3813z13u-e451-9326-l4re-33sum02y862w 03/10/20 15 03/10/2015 Baldemar Golbderg MD 1 MO F/U r3130g23-7562-6lu4-z1rt-6664jravd705 03/10/20 15 03/10/2015 Baldemar Goldberg MD 1 MO F/U 74645377-a63s-8148-q941-v2r21865k4gq 03/10/20 15 03/10/2015 Baldemar Goldberg MD 1 MO F/U 1372p221-e087-6w60-uhmc-14zi5t53p2mg 03/10/20 15 03/10/2015 Baldemar Goldberg MD 1 MO F/U ioelyi10-6063-09i6-agwa-918d725mlt02 03/10/20 15 03/10/2015 Baldemar Goldberg MD 1 MO F/U 7bt01794-3160-59g4-973z-v2p9678o6o6y 03/10/20 15 03/10/2015 Baldemar Goldberg MD 1 MO F/U n3xzek39-711r-2o02-22tx-4a9s467184c2 03/10/20 15 03/10/2015 Baldemar Goldberg MD 1 MO F/U 42756908-412y-0795-0f21-l75dhf0y4r3t 03/10/20 15 03/10/2015 Baldemar Goldberg MD Balance jhu2vb9y-r1rq-8v64-x45g-44288d52v8sm 04/08/20 15 04/08/2015 Baldemar Goldberg MD Balance 6yd6k05e-9mt1-7c89-68ue-3wv52wunxe24 04/08/20 15 04/08/2015 Baldemar Goldberg MD Balance f95lod7z-q1n9-340v-3st7-31oymbi0k606 04/08/20 15 04/08/2015 Baldemar Goldberg MD Balance dg572v4h-d809-30c5-82p7-18p6447s20u6 04/08/20 15 04/08/2015 Baldemar Goldberg MD Balance sib6233n-0o37-9jii-br22-td5k95rw1p41 04/08/20 15 04/08/2015 Baldemar Goldberg MD Balance r6q5855e-6260-0c01-g185-90j8k99ew927 04/08/20 15 04/08/2015 Baldemar Goldberg MD Balance 7ae8t5jj-039e-10k6-y25b-7tz13s3991cc 04/08/20 15 04/08/2015 Baldemar Goldberg MD Balance 46n86e2y-9364-97el-36i4-ma44a97qf6g0 04/08/20 15 04/08/2015 Baldemar Goldberg MD Balance qt20s502-72rl-6p5b-4176-2r3264161c90 04/08/20 15 04/08/2015 Baldemar Goldberg MD Balance b08640j2-64ut-53p5-6v38-656sh3r3f93i 04/08/20 15 04/08/2015 Baldemar Goldberg MD Balance v810u8w1-y682-4417-s34s-ritqmqg5c64t 04/08/20 15 04/08/2015 Baldemar Goldberg MD Balance q3g8gy1w-185e-81ep-y435-i5110oa67heg 04/08/20 15 04/08/2015 Baldemar Goldberg MD Balance 6a5azv2p-4351-699v-464u-68a17p58in08 04/08/20 15 04/08/2015 Baldemar Goldberg MD Balance 46n57ifp-125a-3489-4w3x-8699i5q81n82 04/08/20 15 04/08/2015 Baldemar Goldberg MD 1 MO F/U 90d78591-tg3b-4662-w626-j0060439qw7g 05/13/20 15 05/13/2015 Baldemar Goldberg MD 1 MO F/U xturp12m-po62-5j4z-8vf1-31us050a7r50 05/13/20 15 05/13/2015 Baldemar Goldberg MD 1 MO F/U 2nd97jg6-9946-23vp-6863-ec54r8f7z238 05/13/20 15 05/13/2015 Baldemar Goldberg MD 1 MO F/U o6355cq2-462v-3481-94p6-ong945tvg634 05/13/20 15 05/13/2015 Baldemar Goldberg MD 1 MO F/U 41o45m1e-2nr2-218t-46a2-402zyr411977 05/13/20 15 05/13/2015 Baldemar Goldberg MD 1 MO F/U c336ld82-k996-07tq-g69u-4521ar157l22 05/13/20 15 05/13/2015 Baldemar Goldberg MD 1 MO F/U n356z60g-40h6-0j7h-ux49-xe3lb763u081 05/13/20 15 05/13/2015 Baldemar Goldberg MD 1 MO F/U 94cx6246-et2y-23o9-3v23-42c7271d65jm 05/13/20 15 05/13/2015 Baldemar Goldberg MD 1 MO F/U 85dha9ql-2xb6-668j-13a5-352495cvw21o 05/13/20 15 05/13/2015 Baldemar Goldberg MD 1 MO F/U 19569tt5-5r85-6j12-6g93-a80j2x652ow1 05/13/20 15 05/13/2015 Baldemar Goldberg MD 1 MO F/U p954hl4c-029h-9884-79o3-r2i5ra9uy670 05/13/20 15 05/13/2015 Baldemar Goldberg MD 1 MO F/U o14a3526-4o68-0jk6-51g0-bp2c9323567z 05/13/20 15 05/13/2015 Baldemar Goldberg MD 1 MO F/U ng32c313-19d9-83dk-1z74-155mxslx89k7 05/13/20 15 05/13/2015 Baldemar Goldberg MD 1 MO F/U s6532g78-rzsh-7769-qlkz-tf64e76a335s 05/13/20 15 05/13/2015 Baldemar Goldberg MD [facility] mk988lhm-3114-2952-q491-f4996dcdp634 06/11/20 15 06/11/2015 Baldemar Goldberg MD [facility] 8055242o-f586-4730-08mu-45111z56yaur 06/11/20 15 06/11/2015 Baldemar Goldberg MD [facility] u38ou5rr-756e-15l9-hy3i-4655527q9fh2 06/11/20 15 06/11/2015 Baldemar Goldberg MD [facility] 68f51543-1q63-39j3-d857-1oz0f6826416 06/11/20 15 06/11/2015 Baldemar Goldberg MD [facility] 16c3g6jb-1m7w-6axc-e22k-q036r7vssfd4 06/11/20 15 06/11/2015 Baldemar Goldberg MD [facility] 248p1755-1s00-9qb4-6m3v-36o8t58s1w29 06/11/20 15 06/11/2015 Baldemar Goldberg MD [facility] 33i3x00j-cdge-0114-7f0i-bg38eqg8l548 06/11/20 15 06/11/2015 Baldemar Goldberg MD [facility] 222b424z-gfyf-2n22-40d5-87982907e868 06/11/20 15 06/11/2015 Baldemar Goldberg MD [facility] 55o5hxf6-311v-9f14-1e63-5ggu610c1r27 06/11/20 15 06/11/2015 Baldemar Goldberg MD [facility] 8h05hx66-g2z8-5n18-79w0-8zh559pgf243 06/11/20 15 06/11/2015 Baldemar Goldberg MD [facility] sh965o81-07rv-8gcz-tc3v-5nq84i608099 06/11/20 15 06/11/2015 Baldemar Goldberg MD El[facility] drainage 489g13j0-051y-6x73-53u7-0mc2xyi161zp 06/11/20 15 06/11/2015 Baldemar Goldberg MD El[facility] drainage 068kh565-7595-6646-s49l-rb7202e94884 06/11/20 15 06/11/2015 Baldemar Goldberg MD [facility] 5e85jn38-er3p-794j-6y52-39a071f73834 06/11/20 15 06/11/2015 Baldemar Goldberg MD 1 MO F/U n8432h66-195p-85t0-9476-01u1i715gkjn 06/13/20 15 06/13/2015 Baldemar Goldberg MD 1 MO F/U 9i3q13vg-2jdn-5mbs-xwat-402p538023ia 06/13/20 15 06/13/2015 Baldemar Goldberg MD 1 MO F/U [id number] 06/13/20 15 06/13/2015 Baldemar Goldberg MD 1 MO F/U [id number] 06/13/20 15 06/13/2015 Baldemar Goldberg MD 1 MO F/U [id number] 06/13/20 15 06/13/2015 Baldemar Goldberg MD 1 MO F/U [id number] 06/13/20 15 06/13/2015 Baldemar Goldberg MD 1 MO F/U [id number] 06/13/20 15 06/13/2015 Baldemar Goldberg MD 1 MO F/U [id number] 06/13/20 15 06/13/2015 Baldemar Goldberg MD 1 MO F/U [id number] 06/13/20 15 06/13/2015 Baldemar Goldberg MD 1 MO F/U [id number] 06/13/20 15 06/13/2015 Baldemar Goldberg MD 1 MO F/U [id number] 06/13/20 15 06/13/2015 Baldemar Goldberg MD 1 MO F/U [id number] 06/13/20 15 06/13/2015 Baldemar Goldberg MD 1 MO F/U [id number] 06/13/20 15 06/13/2015 Baldemar Goldberg MD 1 MO F/U [id number] 06/13/20 15 06/13/2015 Baldemar Goldberg MD synovial fluid [id number] 06/13/20 15 06/13/2015 Baldemar Goldberg MD synovial fluid [id number] 06/13/20 15 06/13/2015 Baldemar Goldberg MD synovial fluid [id number] 06/13/20 15 06/13/2015 Baldemar Goldberg MD synovial fluid [id number] 06/13/20 15 06/13/2015 Baldemar Goldberg MD synovial fluid [id number] 06/13/20 15 06/13/2015 Baldemar Goldberg MD synovial fluid [id number] 06/13/20 15 06/13/2015 Baldemar Goldberg MD synovial fluid [id number] 06/13/20 15 06/13/2015 Baldemar Goldberg MD synovial fluid [id number] 06/13/20 15 06/13/2015 Baldemar Goldberg MD synovial fluid [id number] 06/13/20 15 06/13/2015 Baldemar Goldberg MD synovial fluid [id number] 06/13/20 15 06/13/2015 Baldemar Goldberg MD synovial fluid [id number] 06/13/20 15 06/13/2015 Baldemar Goldberg MD synovial fluid [id number] 06/13/20 15 06/13/2015 Baldemar Goldberg MD synovial fluid [id number] 06/13/20 15 06/13/2015 Baldemar Goldberg MD synovial fluid [id number] 06/13/20 15 06/13/2015 Baldemar Goldberg MD RIGHT ELBOW SWOLLEN [id number] 06/19/20 15 06/19/2015 Baldemar Goldberg MD RIGHT ELBOW SWOLLEN [id number] 06/19/2006/19/2015 Baldemar Goldberg MD RIGHT ELBOW SWOLLEN [id number] 06/19/2006/19/2015 Baldemar Goldberg MD RIGHT ELBOW SWOLLEN [id number] 06/19/2006/19/2015 Baldemar Goldberg MD RIGHT ELBOW SWOLLEN [id number] 06/19/2006/19/2015 Baldemar Goldberg MD RIGHT ELBOW SWOLLEN [id number] 06/19/2006/19/2015 Baldemar Goldberg MD RIGHT ELBOW SWOLLEN [id number] 06/19/2006/19/2015 Baldemar Goldberg MD RIGHT ELBOW SWOLLEN [id number] 06/19/2006/19/2015 Baldemar Goldberg MD RIGHT ELBOW SWOLLEN [id number] 06/19/2006/19/2015 Baldemar Goldberg MD RIGHT ELBOW SWOLLEN [id number] 06/19/2006/19/2015 Baldemar Goldberg MD RIGHT ELBOW SWOLLEN [id number] 06/19/2006/19/2015 Baldemar Goldberg MD RIGHT ELBOW SWOLLEN [id number] 06/19/2006/19/2015 Baldemar Goldberg MD RIGHT ELBOW SWOLLEN [id number] 06/19/20 15 06/19/2015 Baldemar Goldberg MD RIGHT ELBOW SWOLLEN [id number] 06/19/20 15 06/19/2015 Baldemar Goldberg MD DRAIN ELBOW [id number] 06/20/20 15 06/20/2015 Baldemar Goldberg MD DRAIN ELBOW [id number] 06/20/20 15 06/20/2015 Baldemar Goldberg MD DRAIN ELBOW [id number] 06/20/20 15 06/20/2015 Baldemar Goldberg MD DRAIN ELBOW [id number] 06/20/20 15 06/20/2015 Baldemar Goldberg MD DRAIN ELBOW [id number] 06/20/20 15 06/20/2015 Baldemar Goldberg MD DRAIN ELBOW [id number] 06/20/20 15 06/20/2015 Baldemar Goldberg MD DRAIN ELBOW [id number] 06/20/20 15 06/20/2015 Baldemar Goldberg MD DRAIN ELBOW [id number] 06/20/20 15 06/20/2015 Baldemar Goldberg MD DRAIN ELBOW [id number] 06/20/20 15 06/20/2015 Baldemar Goldberg MD DRAIN ELBOW [id number] 06/20/20 15 06/20/2015 Baldemar Goldberg MD DRAIN ELBOW [id number] 06/20/20 15 06/20/2015 Baldemar Goldberg MD DRAIN ELBOW [id number] 06/20/20 15 06/20/2015 Baldemar Goldberg MD DRAIN ELBOW [id number] 06/20/20 15 06/20/2015 Baldemar Goldberg MD DRAIN ELBOW [id number] 06/20/20 15 06/20/2015 Baldemar Goldberg MD UPDATE [id number] 06/23/20 15 06/23/2015 Baldemar Goldberg MD UPDATE [id number] 06/23/20 15 06/23/2015 Baldemar Goldberg MD UPDATE [id number] 06/23/20 15 06/23/2015 Baldemar Goldberg MD UPDATE [id number] 06/23/20 15 06/23/2015 Baldemar Goldberg MD UPDATE [id number] 06/23/20 15 06/23/2015 Baldemar Goldberg MD UPDATE [id number] 06/23/20 15 06/23/2015 Baldemar Goldberg MD UPDATE [id number] 06/23/20 15 06/23/2015 Baldemar Goldberg MD UPDATE [id number] 06/23/20 15 06/23/2015 Baldemar Goldberg MD UPDATE [id number] 06/23/20 15 06/23/2015 Baldemar Goldberg MD UPDATE [id number] 06/23/20 15 06/23/2015 Baldemar Goldberg MD UPDATE [id number] 06/23/20 15 06/23/2015 Baldemar Goldberg MD UPDATE [id number] 06/23/20 15 06/23/2015 Baldemar Goldberg MD UPDATE [id number] 06/23/20 15 06/23/2015 Baldemar Goldberg MD UPDATE [id number] 06/23/20 15 06/23/2015 Baldemar Goldberg MD FU [id number] 08/15/2015 08/15/2015 Baldemar Goldberg MD FU [id number] 08/15/2015 08/15/2015 Baldemar Goldberg MD FU [id number] 08/15/2015 08/15/2015 Baldemar Goldberg MD [id number] 08/15/2015 08/15/2015 Baldemar Goldberg MD [id number] 08/15/2015 08/15/2015 Baldemar Goldberg MD [id number] 08/15/2015 08/15/2015 Baldemar Goldberg MD [id number] 08/15/2015 08/15/2015 Baldemar Goldberg MD [id number] 08/15/2015 08/15/2015 Baldemar Goldberg MD [id number] 08/15/2015 08/15/2015 Baldemar Goldberg MD [id number] 08/15/2015 08/15/2015 Baldemar Goldberg MD [id number] 08/15/2015 08/15/2015 Baldemar Goldberg MD [id number] 08/15/2015 08/15/2015 Baldemar Golbderg MD [id number] 08/15/2015 08/15/2015 Baldemar Goldberg MD [id number] 08/15/2015 08/15/2015 Baldemar Goldberg MD OV [id number] 09/17/2015 09/17/2015 Baldemar Goldberg MD OV [id number] 09/17/2015 09/17/2015 Baldemar Goldberg MD OV [id number] 09/17/2015 09/17/2015 Baldemar Goldberg MD OV [id number] 09/17/2015 09/17/2015 Baldemar Goldberg MD OV [id number] 09/17/2015 09/17/2015 Baldemar Goldberg MD OV [id number] 09/17/2015 09/17/2015 Baldemar Goldberg MD OV [id number] 09/17/2015 09/17/2015 Baldemar Goldberg MD OV [id number] 09/17/2015 09/17/2015 Baldemar Goldberg MD OV [id number] 09/17/2015 09/17/2015 Baldemar Goldberg MD OV [id number] 09/17/2015 09/17/2015 Baldemar Goldberg MD OV [id number] 09/17/2015 09/17/2015 Baldemar Goldberg MD OV [id number] 09/17/2015 09/17/2015 Baldemar Goldberg MD OV [id number] 09/17/2015 09/17/2015 Baldemar Goldberg MD folic acid [id number] 10/27/19 16 10/27/2015 Baldemar Goldberg MD folic acid [id number] 10/27/19 16 10/27/2015 Baldemar Goldberg MD folic acid [id number] 10/27/19 16 10/27/2015 Baldemar Goldberg MD folic acid [id number] 10/27/19 16 10/27/2015 Baldemar Goldberg MD folic acid [id number] 10/27/19 16 10/27/2015 Baldemar Goldberg MD folic acid [id number] 10/27/19 16 10/27/2015 Baldemar Goldberg MD folic acid [id number] 10/27/19 16 10/27/2015 Baldemar Goldberg MD folic acid [id number] 10/27/19 16 10/27/2015 Baldemar Goldberg MD folic acid [id number] 10/27/19 16 10/27/2015 Baldemar Goldberg MD folic acid [id number] 10/27/19 16 10/27/2015 Baldemar Goldberg MD folic acid [id number] 10/27/19 16 10/27/2015 Baldemar Goldberg MD folic acid [id number] 10/27/19 16 10/27/2015 Baldemar Goldberg MD baxalta/humira biosimilar [id number] 01/07/2016 01/07/2016 Baldemar Goldberg MD baxalta/humira biosimilar [id number] 01/07/2016 01/07/2016 Baldemar Goldberg MD baxalta/humira biosimilar [id number] 01/07/2016 01/07/2016 Baldemar Goldberg MD baxalta/humira biosimilar [id number] 01/07/2016 01/07/2016 Baldemar Goldberg MD baxalta/humira biosimilar [id number] 01/07/2016 01/07/2016 Baldemar Goldberg MD baxalta/humira biosimilar [id number] 01/07/2016 01/07/2016 Baldemar Goldberg MD baxalta/humira biosimilar [id number] 01/07/2016 01/07/2016 Baldemar Goldberg MD baxalta/humira biosimilar [id number] 01/07/2016 01/07/2016 Baldemar Goldberg MD baxalta/humira biosimilar [id number] 01/07/2016 01/07/2016 Baldemar Goldberg MD baxalta/humira biosimilar [id number] 01/07/2016 01/07/2016 Baldemar Goldberg MD baxalta/humira biosimilar [id number] 01/07/2016 01/07/2016 Baldemar Goldberg MD MED REFILL [id number] 01/08/20 16 01/08/2016 Baldemar Goldberg MD MED REFILL [id number] 01/08/20 16 01/08/2016 Baldemar Goldberg MD MED REFILL [id number] 01/08/20 16 01/08/2016 Baldemar Goldberg MD MED REFILL [id number] 01/08/20 16 01/08/2016 Baldemar Goldberg MD MED REFILL [id number] 01/08/20 16 01/08/2016 Baldemar Goldberg MD MED REFILL [id number] 01/08/20 16 01/08/2016 Baldemar Goldberg MD MED REFILL [id number] 01/08/20 16 01/08/2016 Baldemar Goldberg MD MED REFILL [id number] 01/08/20 16 01/08/2016 Baldemar Goldberg MD MED REFILL [id number] 01/08/20 16 01/08/2016 Baldemar Goldberg MD MED REFILL [id number] 01/08/20 16 01/08/2016 Baldemar Goldberg MD dexa [id number] 01/14/2016 01/14/2016 Baldemar Goldberg MD dexa [id number] 01/14/2016 01/14/2016 Baldemar Goldberg MD dexa [id number] 01/14/2016 01/14/2016 Baldemar Goldberg MD dexa [id number] 01/14/2016 01/14/2016 Baldemar Goldberg MD dexa [id number] 01/14/2016 01/14/2016 Baldemar Goldberg MD dexa [id number] 01/14/2016 01/14/2016 Baldemar Goldberg MD dexa [id number] 01/14/2016 01/14/2016 Baldemar Goldberg MD dexa [id number] 01/14/2016 01/14/2016 Baldemar Goldberg MD dexa [id number] 01/14/2016 01/14/2016 Baldemar Goldberg MD MED REFILL [id number] 04/08/20 16 04/08/2016 Baldemar Goldberg MD MED REFILL [id number] 04/08/20 16 04/08/2016 Baldemar Goldberg MD MED REFILL [id number] 04/08/20 16 04/08/2016 Baldemar Goldberg MD MED REFILL [id number] 04/08/20 16 04/08/2016 Baldemar Goldberg MD MED REFILL [id number] 04/08/20 16 04/08/2016 Baldemar Goldberg MD MED REFILL [id number] 04/08/20 16 04/08/2016 Baldemar Goldberg MD MED REFILL [id number] 04/08/20 16 04/08/2016 Baldemar Goldberg MD MED REFILL [id number] 04/08/20 16 04/08/2016 Baldemar Goldberg MD LETTER [id number] 06/02/20 16 06/02/2016 Baldemar Goldberg MD LETTER [id number] 06/02/20 16 06/02/2016 Baldemar Goldberg MD LETTER [id number] 06/02/20 16 06/02/2016 Baldemar Goldberg MD LETTER [id number] 06/02/20 16 06/02/2016 Baldemar Goldberg MD LETTER [id number] 06/02/20 16 06/02/2016 Baldemar Goldberg MD LETTER [id number] 06/02/20 16 06/02/2016 Baldemar Goldberg MD Labs [id number] 06/03/2016 06/03/2016 Baldemar Goldberg MD Labs [id number] 06/03/2016 06/03/2016 Baldemar Goldberg MD Labs [id number] 06/03/2016 06/03/2016 Baldemar Goldberg MD Labs [id number] 06/03/2016 06/03/2016 Baldemar Goldberg MD Labs [id number] 06/03/2016 06/03/2016 Baldemar Goldberg MD Labs [id number] 06/03/2016 06/03/2016 Baldemar Goldberg MD Labs [id number] 06/03/2016 06/03/2016 Baldemar Goldberg MD MED REFILL [id number] 07/08/20 16 07/08/2016 Baldemar Goldberg MD MED REFILL [id number] 07/08/20 16 07/08/2016 Baldemar Goldberg MD MED REFILL [id number] 07/08/20 16 07/08/2016 Baldemar Goldberg MD MED REFILL [id number] 07/08/20 16 07/08/2016 Baldemar Goldberg MD MED REFILL [id number] 07/08/20 16 07/08/2016 Baldemar Goldberg MD F/U AFTER SURGERY [id number] 09/01/20 16 09/01/2016 Baldemar Goldberg MD F/U AFTER SURGERY [id number] 09/01/20 16 09/01/2016 Baldemar Goldberg MD F/U AFTER SURGERY [id number] 09/01/20 16 09/01/2016 Baldemar Goldberg MD F/U AFTER SURGERY [id number] 09/01/20 16 09/01/2016 Baldemar Goldberg MD APPOINTMENT FOR 10/07/16 [id number] 10/07/2016 10/07/2016 Baldemar Goldberg MD APPOINTMENT FOR 10/07/16 [id number] 10/07/2016 10/07/2016 Baldemar Goldberg MD APPOINTMENT FOR 10/07/16 [id number] 10/07/2016 10/07/2016 Baldemar Goldberg MD ADDED TO SCHEDULE 10/14 [id number] 10/13/19 17 10/13/2016 Baldemar Goldberg MD ADDED TO SCHEDULE 10/14 [id number] 10/13/19 17 10/13/2016 Baldemar Goldberg MD [id number] 10/14/2016 10/14/2016 Baldemar Goldberg Procedures No Data [...] no. 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 Oct 14, 2016 10/14/2016 Baldemar Goldberg Family History No Data Provided for This Section Advance Directives No Data Provided for This Section Functional Status No Data Provided for This Section
--- NOTE | 2020-04-14 17:11 | NUR ---
PENDING VANC FROM PHARMACY. PHARMACY HAS BEEN CALLED AND IS AWARE OF SEPSIS PROTOCOL.
[2020-04-14] MEDS: ONDANSETRON HCL INJ 2MG/ML 2ML 2 MG/ML VIAL IV PRN ×2 (17:14→22:15)
[2020-04-14] MEDS: VANCOMYCIN 750MG/NS 150ML IVPB 150 ML IV SCH (17:14)
[2020-04-14] MEDS: MORPHINE SULFATE INJ 4 MG/ML INJ 1ML IV PRN ×2 (17:14→22:15)
--- NOTE | 2020-04-14 17:44 | NUR ---
ATTEMPTED REPORT. ASKED TO CALL BACK IN ABOUT 5 MIN RECEIVING RN WITH ANOTHER PATIENT
[2020-04-14] MEDS ORDERED: MORPHINE SULFATE 2 MG/ML SYR 1ML IV PRN (18:00)
--- NOTE | 2020-04-14 18:12 | NUR ---
Patient arrived to the floor from the ER. He was able to transfer himself from the stretcher to the bed. He is awake alert and oriented x3. His right arm is red and swollen, warm to the touch. Admitted for cellulitis. He was oriented to the room and how to use the call light , he verbalized understanding. He denies needing anything at this time, call light in reach.
[2020-04-14 18:18] VITALS: BP 104/66
[2020-04-14 19:10] VITALS: BP 125/59
[2020-04-14 20:00] VITALS: BP 125/59
--- NOTE | 2020-04-14 20:10 | NUR ---
Admission assessment done.aaox3.tele #[address]iv to left ac #20 is patent.bed locked and in lowest position.phone and call light within reach.instructed to call for assistance as needed.
[2020-04-14 20:23] VITALS: BP 125/59
--- NOTE | 2020-04-14 21:00 | NUR ---
LACTIC ACID 2.1 NOTED.NOTIFIED TO .RECEIVED NEW ORDERS .KEEP MONITOR THE PATIENT.
[2020-04-14] MEDS: ACETAMINOPHEN 325 MG TAB PO PRN (21:40)
[2020-04-14] MEDS: CEFEPIME 1GM/NS 0.9% 50 ML 50 ML IV SCH (22:01)
[2020-04-15] VITALS (9 sets, daily range): BP systolic 86–137; BP diastolic 53–73
[2020-04-15] MEDS: VANCOMYCIN 750MG/NS 150ML IVPB 150 ML IV SCH ×2 (04:00→15:09)
--- NOTE | 2020-04-15 05:00 | NUR ---
Pt is used to have methotrexate @ home.but unable to provide the dose .
[2020-04-15] MEDS: CEFEPIME 1GM/NS 0.9% 50 ML 50 ML IV SCH ×3 (05:20→21:29)
--- NOTE | 2020-04-15 07:11 | NUR ---
Bed side shift report given to on coming Rn.stable condition.
[2020-04-15] MEDS: FOLIC ACID 1 MG TAB PO SCH (08:43)
[2020-04-15] MEDS: LISINOPRIL 10 MG TAB PO SCH (09:00)
[2020-04-15] MEDS: MORPHINE SULFATE INJ 4 MG/ML INJ 1ML IV PRN ×2 (10:00→17:44)
--- NOTE | 2020-04-15 13:50 | NUR ---
WOUND CARE CONSULT FOR 64 YO MALE HX OF CELLULITIS ,SEPSIS GANESH 14 ON MODERATE PUP STATUS AND INTERVENTIONS AND VISCO MATTRESS LABS: WBC-16.90 HGB_12.3 GLUCOSE-94 SKIN ASSESSMENT COMPLETE PATIENT PRESENTS WITH RIGHT ARM ABRASION RELATED TO SLIPPING AND FALLING FROM BOAT RECOMMENDATIONS: NURSING TO CONTINUE TO MAINTAIN MODERATE PUP STATUS AND INTERVENTIONS AND VISCO MATTRESS NURSING TO CONTINUE TO ASSIST PATIENT OUT OF BED FOR MEALS AND MUCH TOLERATED NURSING TO CONTINUE TO ASSIST PATIENT NEEDED WITH MEALS AND NUTRITIONAL SUPPLEMENTS TO ENSURE PROPER REQUIREMENTS FOR HEALING NURSING TO CONTINUE TO OFFLOAD FEET AND HEELS NEEDED WITH PILLOW SUSPENSION WHEN IN BED NURSING TO CLEAN RIGHT ARM ABRASION WITH NORMAL SALINE DAILY AND APPLY BACITRACIN OINTMENT AND ALLEVYN FOAM DRESSING Addendum: 04/15/20 at 1354 by Sotero Mccabe RN Amended: Links added.
[2020-04-15] MEDS: ACETAMINOPHEN 325 MG TAB PO PRN (18:22)
[2020-04-15] MEDS: HYDROCODONE/APAP 10MG-325MG TAB PO PRN (20:32)
[2020-04-16] VITALS (8 sets, daily range): BP systolic 113–130; BP diastolic 66–76
[2020-04-16] MEDS: HYDROCODONE/APAP 10MG-325MG TAB PO PRN ×2 (03:00→16:53)
--- NOTE | 2020-04-16 03:00 | NUR ---
Blood alvaro and sent to the lab for vanco trough.pt tolerated well.
--- NOTE | 2020-04-16 06:00 | NUR ---
Critical lab value [facility] 11.8 paged to .awaiting for call back.
[2020-04-16] MEDS: CEFEPIME 1GM/NS 0.9% 50 ML 50 ML IV SCH ×3 (06:16→21:42)
--- NOTE | 2020-04-16 07:30 | NUR ---
Attempted many times to contact to notify critical vanco trough.but i could not.so did not administer vancomycin.report given to oncoming Rn.stable condition.
--- NOTE | 2020-04-16 07:40 | NUR ---
PATIENT IS ALERT, AWAKE, AND IN STABLE CONDITION WITH NO S/S OF RESPIRATORY DISTRESS. NO PAIN VOICED. ABRASION/CELLULITIS NOTED TO LATERAL SIDE OF RIGHT UPPER FOREARM; ALLEVYN DRESSING APPLIED. TELEMETRY APPLIED. CALL LIGHT IS WITHIN REACH, PATIENT INSTRUCTED TO CALL FOR ASSISTANCE NEEDED.
[2020-04-16] MEDS: FOLIC ACID 1 MG TAB PO SCH (08:01)
[2020-04-16] MEDS: VANCOMYCIN 750MG/NS 150ML IVPB 150 ML IV SCH ×2 (08:01→16:53)
[2020-04-16] MEDS: LISINOPRIL 10 MG TAB PO SCH (08:01)
[2020-04-16] MEDS: BACITRACIN ZINC 15 GM OINT TOP SCH (08:02)
--- NOTE | 2020-04-16 11:10 | NUR ---
DR. MACDONALD ROUNDED ON THE PATIENT. DR. MACDONALD AT THE UNIT- GAVE VERBAL ORDER TO STAFF TO CONSULT DR. STAUFFER FOR CELLULITIS. CONSULT PLACED. PATIENT AWARE OF CONSULT.
[2020-04-16] MEDS: ACETAMINOPHEN 325 MG TAB PO PRN (13:15)
[2020-04-16] MEDS: HYDROMORPHONE 2MG/ML 2 MG/ML ML IV PRN (17:33)
--- NOTE | 2020-04-16 19:22 | NUR ---
PATIENT IS IN STABLE CONDITION WITH NO S/S OF RESPIRATORY DISTRESS. PAIN RECEIVED DILAUDID RECENTLY. TELEMETRY APPLIED. DRESSING TO RIGHT LATERAL FOREARM IS C/D/I. CALL LIGHT IS WITHIN REACH, PATIENT INSTRUCTED TO CALL FOR ASSISTANCE NEEDED. BEDSIDE SHIFT REPORT GIVEN TO ONCOMING NURSE.
--- NOTE | 2020-04-16 19:30 | NUR ---
Received the patient in report.jojoeing in the bed.as per the report is aware of the consultation.
--- NOTE | 2020-04-16 20:50 | NUR ---
Resting in the bed.no resp distress.ambulates to rest room and voided.bed locked and in lowest position. call light within reach.instructed to call for assistance as needed.
[2020-04-17] VITALS (7 sets, daily range): BP systolic 112–136; BP diastolic 67–78
[2020-04-17] MEDS: HYDROCODONE/APAP 10MG-325MG TAB PO PRN ×2 (01:51→10:47)
[2020-04-17] MEDS: HYDROMORPHONE 2MG/ML 2 MG/ML ML IV PRN ×3 (03:47→22:41)
[2020-04-17] MEDS: ONDANSETRON HCL INJ 2MG/ML 2ML 2 MG/ML VIAL IV PRN (03:47)
[2020-04-17] MEDS: VANCOMYCIN 750MG/NS 150ML IVPB 150 ML IV SCH (04:07)
[2020-04-17] MEDS: CEFEPIME 1GM/NS 0.9% 50 ML 50 ML IV SCH ×2 (05:57→13:09)
--- NOTE | 2020-04-17 06:00 | NUR ---
has not seen the patient.Call placed to answering service and spoke to Ms Gary regarding consults.
[2020-04-17 06:15] LABS: BASOPHILS # (AUTO) 0.1 (0.0-0.1); BASOPHILS % 0.5 % (0.0-1.0); EOSINOPHILS # (AUTO) 0.1 (0.0-0.4); EOSINOPHILS % 0.5 % (0.0-6.0); HEMATOCRIT 32.5 % (38.2-49.6); HEMOGLOBIN 10.6 g/dL (14.0-18.0); LYMPHOCYTES # (AUTO) 0.9 (1.0-3.2); LYMPHOCYTES % 8.9 % (18.0-39.1); MEAN CORPUSCULAR HEMOGLOBIN 35.1 pg (28-32); MEAN CORPUSCULAR HGB CONC 32.6 g/dL (31-35); MEAN CORPUSCULAR VOLUME 107.6 fL (81-99); MONOCYTES # (AUTO) 0.5 (0.2-0.8); MONOCYTES % 5.2 % (4.4-11.3); NEUTROPHILS # (AUTO) 8.3 (2.1-6.9); NEUTROPHILS % 82.3 % (38.7-80.0); PLATELET COUNT 266 x10e3/uL (140-360); RED BLOOD COUNT 3.02 x10e6/uL (4.3-5.7); RED CELL DISTRIBUTION WIDTH 14.9 % (11.7-14.4)
[2020-04-17 06:30] LABS: ANION GAP 15.5 mmol/L (8-16); BLOOD UREA NITROGEN 17 mg/dL (7-26); BUN/CREATININE RATIO 17 (6-25); CALCIUM 9.4 mg/dL (8.4-10.2); CARBON DIOXIDE 21 mmol/L (22-29); CHLORIDE 103 mmol/L (98-107); CREATININE, SERUM 1.03 mg/dL (0.72-1.25); EST GLOMERULAR FILTRATION RATE > 60 ML/MIN (60-); GLUCOSE 82 mg/dL (74-118); POTASSIUM 4.5 mmol/L (3.5-5.1); SODIUM 135 mmol/L (136-145)
--- NOTE | 2020-04-17 07:09 | NUR ---
Resting in the bed.Bed side shift report given to oncoming Rn.stable condition.
--- NOTE | 2020-04-17 07:10 | NUR ---
PATIENT IS ALERT AND IN STABLE CONDITION WITH NO S/S OF RESPIRATORY DISTRESS. NO PAIN VOICED. IV ANTIBIOTIC INFUSING. DRESSING APPLIED TO RIGHT LATERAL FOREARM. CALL LIGHT IS WITHIN REACH, PATIENT INSTRUCTED TO CALL FOR ASSISTANCE NEEDED.
[2020-04-17] MEDS: LISINOPRIL 10 MG TAB PO SCH (08:05)
[2020-04-17] MEDS: BACITRACIN ZINC 15 GM OINT TOP SCH (08:05)
[2020-04-17] MEDS: FOLIC ACID 1 MG TAB PO SCH (08:05)
--- NOTE | 2020-04-17 10:29 | Progress Note ---
DATE: Internal Medicine Progress Note SUBJECTIVE: The patient is doing well except for swelling in the right arm. OBJECTIVE: VITAL SIGNS: Blood pressure is 112/73, temperature 98.3, heart rate 78 per minute, respiratory rate 20 per minute, O2 saturation 95%. HEART: Showed regular rhythm. Normal S1, S2 sound. LUNGS: Clear bilaterally. ABDOMEN: Soft. EXTREMITIES: Show redness and mild edema, more pronounced on the right side. LABORATORY STUDIES: On the blood work, we have BMP; sodium 135, potassium 4.5, chloride 103, CO2 21, BUN 17, creatinine 1.03, glucose 82, lactic acid 1.0, calcium 9.4. On the last CBC showed white blood count 10.05, hemoglobin 10.6, hematocrit 32.5, platelet count 266,000. Toxicology, vancomycin trough 11.8. Serologies showed negative for coronavirus. Blood culture is still pending, showing some growth in one of the blood cultures. IMAGING: X-rays show no evidence of any fracture. IMPRESSION: 1. Cellulitis of both arms, especially on the right side. 2. Sepsis. 3. Anemia of chronic disease. 4. Hyponatremia. 5. Hypertension. PLAN OF TREATMENT: 1. Continue cefepime. 2. Continue vancomycin. 3. Continue Tylenol 650 mg q.6 hours as needed for pain or fever. 4. Continue bacitracin 1 application topical daily. 5. Folic acid 0.8 mg daily. 6. Hester 10/325 q.6 hours as needed for pain. 7. Dilaudid 2 mg IV every 3 hours as needed for severe pain. 8. Lisinopril 10 mg daily. 9. Zofran 4 mg IV q.4 hours as needed nausea, vomiting. 10. Cefepime 1 g IV q.8 hours. 11. Vancomycin 1 g IV twice a day. Dr. Lunsford has been consulted from Infectious Disease point of view. MD MARY Yepez/LINDSEYL /[id number]
--- NOTE | 2020-04-17 13:38 | NUR ---
infectious disease consultation Patient seen and examined chart reviewed This is a 64 year old male Chief Complaint Comment RT ARM INJURY S/P FALL TUESDAY IN THE WATER WHILE FISHING. PT STATES FELL ONTO CONCRETE IN WATER. PT WITH ABRASION/WEEPING ULCERATION WOUND TO RT FOREARM AND RED, HOT AND SWOLLEN. +RADIAL PULSE. PT SOMEWHAT ABRUPT IN TRIAGE. +FEVER 102.5. PT STATES TETNAUS SHOT LAST YEAR. Historian: Patient Arrival Mode: Car Communication Center Operator Required: No Onset (how long ago): day(s) (3) Location: R arm Quality: Sharp Radiation: Reports non-radiation Severity: moderate Onset quality: gradual Duration (how long): day(s) (3) Timing of current episode: constant Progression: worsening Chronicity: new Context: Denies recent illness Relieving factors: none Exacerbating factors: none Associated symptoms: Reports denies other symptoms Treatments prior to arrival: none he patient is doing well except for swelling in the right arm. OBJECTIVE: VITAL SIGNS: Blood pressure is 112/73, temperature 98.3, heart rate 78 per minute, respiratory rate 20 per minute, O2 saturation 95%. HEART: Showed regular rhythm. Normal S1, S2 sound. LUNGS: Clear bilaterally. ABDOMEN: Soft. EXTREMITIES: Show redness and mild edema, more pronounced on the right side. LABORATORY STUDIES: On the blood work, we have BMP; sodium 135, potassium 4.5, chloride 103, CO2 21, BUN 17, creatinine 1.03, glucose 82, lactic acid 1.0, calcium 9.4. On the last CBC showed white blood count 10.05, hemoglobin 10.6, hematocrit 32.5, platelet count 266,000. Toxicology, vancomycin trough 11.8. Serologies showed negative for coronavirus. Blood culture is still pending, showing some growth in one of the blood cultures. IMAGING: X-rays show no evidence of any fracture. IMPRESSION: 1. Cellulitis of both arms, especially on the right side. 2. Sepsis. 3. Anemia of chronic disease. 4. Hyponatremia. 5. Hypertension. PLAN OF TREATMENT: 1. Continue cefepime. 2. Continue vancomycin. 3. Continue Tylenol 650 mg q.6 hours as needed for pain or fever. 4. Continue bacitracin 1 application topical daily. 5. Folic acid 0.8 mg daily. 6. [place]oc[place]as 10/325 q.6 hours as needed for pain. 7. Dilaudid 2 mg IV every 3 hours as needed for severe pain. 8. Lisinopril 10 mg daily. 9. Zofran 4 mg IV q.4 hours as needed nausea, vomiting. 10. Cefepime 1 g IV q.8 hours. 11. Vancomycin 1 g IV twice a day.
--- NOTE | 2020-04-17 15:23 | NUR ---
DR. STAUFFER AND THE PLATFORM BUILDER ROUNDED ON THE PATIENT. DR. STAUFFER ON THE UNIT AND GAVE ORDER TO DC VANCO AND CEFEPIME.
[2020-04-17] MEDS ORDERED: GENTAMICIN SULFATE 400 MG in SODIUM CHLORIDE 0.9% 100 ML 100 ML IV ONE (17:00)
--- NOTE | 2020-04-17 17:36 | Consultation ---
DATE OF CONSULTATION: REASON FOR CONSULTATION: Bacteremia, gram-negative. Cellulitis of the arm. HISTORY OF PRESENT ILLNESS: This patient who is a 64-year-old white male, denies history of any medical problems. He injured his hand after he fell on concrete from the boat, he had scraping and came here. He is on vancomycin and cefepime. The patient is on antibiotic. I am asked to see him. The patient is complaining of pain in the hand with edema. LABORATORY DATA: Blood cultures showed gram-negative rods. I am asked to see him. The patient definitely denies alcoholism. When he first came white count was 16, came down to 10. Sodium 135, potassium 4.5. PHYSICAL EXAMINATION: GENERAL: Currently alert, oriented. VITAL SIGNS: Stable, currently afebrile. HEENT: He is not icteric. NECK: Supple. CHEST: Clear. HEART: S1, S2. No murmurs. ABDOMEN: Soft. EXTREMITIES: The arm, there is some edema and erythema. IMPRESSION: The patient had sepsis on admission, gram-negative after an injury. We will change him to meropenem 1 g IV q.8. We will give one dose of gentamicin. Recheck CBC. Recheck Chem panel. We will modify after the availability of the cultures. We will follow up clinically. Keep the arm elevated. Further recommendations to follow. MD REE Gutierrez/MACY /[id number]
--- NOTE | 2020-04-17 19:26 | NUR ---
PATIENT IS IN STABLE CONDITION WITH NO S/S OF RESPIRATORY DISTRESS. NO PAIN VOICED BY THE PATIENT AT THIS TIME. IV ANTIBIOTIC INFUSING. DRESSING TO RIGHT FOREARM IS C/D/I. CALL LIGHT IS WITHIN REACH, PATIENT INSTRUCTED TO CALL FOR ASSISTANCE NEEDED. BEDSIDE SHIFT REPORT GIVEN TO ONCOMING NURSE.
[2020-04-17] MEDS: MEROPENEM 1GM 100 ML IV SCH (21:00)
[2020-04-18] VITALS (8 sets, daily range): BP systolic 115–135; BP diastolic 67–85
[2020-04-18] MEDS: MEROPENEM 1GM 100 ML IV SCH ×3 (05:32→20:52)
--- NOTE | 2020-04-18 07:05 | NUR ---
PATIENT IS ALERT AND IN STABLE CONDITION WITH NO S/S OF RESPIRATORY DISTRESS. PATIENT C/O PAIN. TELEMETRY APPLIED. DRESSING TO RIGHT ARM IS C/D/I. CALL LIGHT IS WITHIN REACH, PATIENT INSTRUCTED TO CALL FOR ASSISTANCE NEEDED.
[2020-04-18] MEDS ORDERED: METHOTREXATE2.5 MG PO (07:42)
[2020-04-18] MEDS ORDERED: MEDROL4 MG PO (07:42)
[2020-04-18] MEDS: FOLIC ACID 1 MG TAB PO SCH (07:55)
[2020-04-18] MEDS: LISINOPRIL 10 MG TAB PO SCH (07:55)
[2020-04-18] MEDS: HYDROCODONE/APAP 10MG-325MG TAB PO PRN ×2 (07:55→16:28)
[2020-04-18] MEDS: BACITRACIN ZINC 15 GM OINT TOP SCH (07:59)
--- NOTE | 2020-04-18 08:45 | NUR ---
CALL PLACED OUT TO DR. MACDONALD REGARDING PATIENT'S HOME MEDICATIONS BROUGHT TO THE HOSPITAL TODAY- AWAITING CALLBACK.
[2020-04-18] MEDS ORDERED: METHYLPREDNISOLONE 4 MG TAB PO SCH ×2 (10:00→10:10)
[2020-04-18] MEDS: METHYLPREDNISOLONE 4 MG TAB PO SCH (17:55)
--- NOTE | 2020-04-18 19:25 | NUR ---
PATIENT IS IN STABLE CONDITION WITH NO S/S OF RESPIRATORY DISTRESS- NO PAIN VOICED AT SHIFT CHANGE. TELEMETRY APPLIED. DRESSING TO RIGHT ARM IS C/D/I. CALL LIGHT IS WITHIN REACH, PATIENT INSTRUCTED TO CALL FOR ASSISTANCE NEEDED. BEDSIDE REPORT GIVEN TO ONCOMING NURSE.
[2020-04-19] VITALS: BP 140/82
[2020-04-19] MEDS: MEROPENEM 1GM 100 ML IV SCH ×3 (03:48→21:37)
[2020-04-19 04:00] VITALS: BP 138/100
[2020-04-19] MEDS: METHYLPREDNISOLONE 4 MG TAB PO SCH ×3 (04:56→19:04)
[2020-04-19 05:57] LABS: BASOPHILS % 0.2 % (0.0-1.0); HEMATOCRIT 34.9 % (38.2-49.6); HEMOGLOBIN 11.8 g/dL (14.0-18.0); LYMPHOCYTES # (AUTO) 0.8 (1.0-3.2); LYMPHOCYTES % 8.7 % (18.0-39.1); MEAN CORPUSCULAR HEMOGLOBIN 35.8 pg (28-32); MEAN CORPUSCULAR HGB CONC 33.8 g/dL (31-35); MEAN CORPUSCULAR VOLUME 105.8 fL (81-99); MONOCYTES # (AUTO) 0.6 (0.2-0.8); MONOCYTES % 6.4 % (4.4-11.3); NEUTROPHILS # (AUTO) 7.4 (2.1-6.9); NEUTROPHILS % 76.9 % (38.7-80.0); PLATELET COUNT 309 x10e3/uL (140-360); RED CELL DISTRIBUTION WIDTH 14.5 % (11.7-14.4)
[2020-04-19 06:12] LABS: ANION GAP 15.8 mmol/L (8-16); BLOOD UREA NITROGEN 20 mg/dL (7-26); BUN/CREATININE RATIO 18 (6-25); CALCIUM 9.9 mg/dL (8.4-10.2); CARBON DIOXIDE 22 mmol/L (22-29); CHLORIDE 104 mmol/L (98-107); CREATININE, SERUM 1.09 mg/dL (0.72-1.25); EST GLOMERULAR FILTRATION RATE > 60 ML/MIN (60-); GLUCOSE 122 mg/dL (74-118); POTASSIUM 4.8 mmol/L (3.5-5.1); SODIUM 137 mmol/L (136-145)
[2020-04-19 07:50] VITALS: BP 137/86
--- NOTE | 2020-04-19 09:00 | NUR ---
Patient right arm dressing change, wound cleaned with NS padded dry and applied antibiotic ointment patient refused Allevyn dressing.
[2020-04-19] MEDS: BACITRACIN ZINC 15 GM OINT TOP SCH (09:36)
[2020-04-19] MEDS: FOLIC ACID 1 MG TAB PO SCH (09:36)
[2020-04-19] MEDS: LISINOPRIL 10 MG TAB PO SCH (09:37)
--- NOTE | 2020-04-19 12:44 | NUR ---
Nutrition Screen Note RD Recommendation for Physician: Cardiac diet Plan of Care: RD following monitoring for tolerance and adequacy Nutrition reason for involvement: LOS Primary Diagnose(s): Cellulitis of right arm PMH: HTN Ht:70 in Wt:205 lbs BMI:29.4 kg/m2 IBW: [address] Assessment: Pt with concerns of not having a phone in room. BILLET HEATER stated that she will bring the pt a phone. Pt states that no one has obtained his menu preferences. Pt is eating well. Pt denies any difficulty chewing or swallowing nor has nausea, vomiting, or diarrhea. Pt denies any significant weight changes. No known food allergies. Current Diet: Cardiac diet Malnutrition Evaluation (04/19/2020) The patient does not meet criteria for a specified degree of malnutrition at this time. Will re-evaluate at follow-up as appropriate. Diet Education Needs Assessment: Diet education not indicated at this time. Diet tolerance: Pt is tolerating diet Nutrition Care Level: tabitha Box RD, LD, [facility]
--- NOTE | 2020-04-19 13:45 | Progress Note ---
DATE: SUBJECTIVE: Mr. Amador is doing well. There are no new complaints. His cultures showing gram-negative rods. Cellulitis of the arm, but overall he is feeling better. He wants to go home. The patient is currently on meropenem. His arm is better. PHYSICAL EXAMINATION: GENERAL: He is currently alert and oriented. Does not seem to be in acute distress. VITAL SIGNS: Stable, currently afebrile. HEENT: He is not icteric. NECK: Supple. CHEST: Clear. HEART: S1 and S2. ABDOMEN: Soft. Bowel sounds present. EXTREMITIES: No edema. SKIN: No rash. The arm less erythematous, less edematous. IMPRESSION: Sepsis on admission, cellulitis of the arm, gram-negative. After the patient has been on the floor, continue with meropenem. We will continue with steroids. We will follow. MD REE Gutierrez/MACY /[id number]
[2020-04-19 14:35] VITALS: BP 137/84
[2020-04-19 17:20] VITALS: BP 142/89
[2020-04-19 21:09] VITALS: BP 137/75
[2020-04-20 01:57] VITALS: BP 149/90
[2020-04-20] MEDS: MEROPENEM 1GM 100 ML IV SCH ×2 (04:02→12:37)
[2020-04-20] MEDS: METHYLPREDNISOLONE 4 MG TAB PO SCH ×3 (05:15→12:37)
[2020-04-20 06:44] VITALS: BP 136/91
--- NOTE | 2020-04-20 07:05 | NUR ---
report given to day nurse.
[2020-04-20 08:15] VITALS: BP 143/76
[2020-04-20 09:00] VITALS: BP 143/76
[2020-04-20] MEDS ORDERED: METHOTREXATE SOD 2.5 MG TAB PO SCH ×2 (09:00)
[2020-04-20] MEDS: FOLIC ACID 1 MG TAB PO SCH (09:42)
[2020-04-20] MEDS: LISINOPRIL 10 MG TAB PO SCH (09:42)
[2020-04-20] MEDS: BACITRACIN ZINC 15 GM OINT TOP SCH (09:47)
--- NOTE | 2020-04-20 13:55 | NUR ---
unable to take vital signs patient in a hurry to leave because his ride was about to arrive to front of hospital.
--- NOTE | 2020-04-20 14:00 | NUR ---
Patient discharged home verbalized understanding of discharge instructions.
== END 2020-04-20 13:58 | disposition home or self-care (01) | DRG 872 ==
LOC: ER 16:01 → ERHOLD 16:53 → MED/SURG2 18:15
DX: A41.50 Gram-negative sepsis, unspecified (principal); L03.90 Cellulitis, unspecified; E87.1 Hypo-osmolality and hyponatremia; D64.9 Anemia, unspecified; I12.9 Hypertensive chronic kidney disease with stage 1 through stage 4 chronic kidney disease, or unspecified chronic kidney disease; N18.3 Chronic kidney disease, stage 3 (moderate); D63.8 Anemia in other chronic diseases classified elsewhere; W19.XXXS Unspecified fall, sequela; Z11.59 Encounter for screening for other viral diseases
CPT/HCPCS: 36415; 80048; 80053; 80202; 83605; 85025; 87040; 87071; 87186; 87205; 99284; J0692; J1580; J2270; J2405; J2543; J7030; J7509; J8610; U0002

== ENCOUNTER → 2020-05-28 | Outpatient (CLI) | payer MEDICARE, BC ==
[~2020-05-28] MED LIST changes: +MEDROL4 MG PO
--- NOTE | 2020-05-28 12:38 | Diagnostic Imaging Report ---
TECHNIQUE: Magnetic resonance imaging of the RIGHT HIP was performed WITHOUT injected contrast. Magnetic resonance imaging of the LEFT HIP was performed WITHOUT injected contrast. HISTORY: Bilateral hip pain COMPARISON: Scoliosis radiographs 06/08/2019, lumbar spine MRI 05/09/2019 FINDINGS: Status post partially visualized lumbar spine posterior decompression and fusion with bilateral iliac screws traversing the sacroiliac joints. No fractures or acute osseous abnormalities. No infiltrative bone marrow replacing signal abnormalities. Right hip: No joint malalignment or dislocation. Small right hip joint effusion. Cartilage thinning along the inferior medial aspect of the femoral head and acetabulum. Additional cartilage fraying along the superior aspect of the acetabulum. No focal cartilage defect. Degenerative tearing and fraying along the anterior superior labrum. Left hip: No joint malalignment or dislocation. Joint fluid within the left hip is within physiologic limits. Cartilage thinning along the inferior medial aspect of the femoral head and acetabulum. Additional cartilage fraying along the superior aspect of the acetabulum. No focal cartilage defect. Degenerative tearing and fraying along the anterior superior labrum. Muscle and tendons: Visualized musculature of the bilateral hips is normal and signal and volume. Mild tendinosis of the bilateral, left greater than right, gluteus minimus tendons which remain intact. Mild tendinosis of the left hamstring tendon origin. Remaining visualized tendons of the bilateral hips are intact and unremarkable. Soft tissues: No focal soft tissue abnormalities. No fluid within the bilateral greater trochanteric or iliopsoas bursas. Visualized portions of the bowel, prostate, seminal vesicles, and urinary bladder are grossly unremarkable given exam limitations. IMPRESSION: 1. Mild degenerative changes of the bilateral hips with cartilage thinning and tearing/fraying along the bilateral anterosuperior labrums. Associated small right hip joint effusion. 2. Mild tendinosis of the left greater than right gluteus minimus tendons. Additional mild tendinosis of the left hamstring tendon origin. Signed by: Dr. Zeke Mosley M.D. on 05/28/2020 12:34 PM
== END ==
LOC: MRI 10:19
DX: M25.552 Pain in left hip (principal); M25.551 Pain in right hip

== ENCOUNTER → 2020-08-08 | Outpatient (CLI) | payer MEDICARE, BC ==
[~2020-08-08] MED LIST changes: +ATORVASTATIN CA20 MG PO; -KRILL OIL 1,001 EACH; +KRILL OIL 1,001 EACH PO; +METHYLPREDNISOLO4 M1 PO; -MULTI-DAY VITA1 EACH; +MULTI-DAY VITA1 EACH PO; -VITAMIN C1000 M1; +VITAMIN C1000 M1 PO
--- NOTE | 2020-08-08 16:14 | Diagnostic Imaging Report ---
TECHNIQUE: Magnetic resonance imaging of the RIGHT ANKLE was performed WITHOUT injected contrast. COMPARISON: None available. HISTORY: Right ankle pain, Rupture Achilles tendon FINDINGS: LIGAMENTS: Medial Complex: Intact Lateral Complex: Intact, including the tibiofibular ligaments. TENDONS: Medial: Intact Lateral: Intact Anterior: Intact Achilles: Thickening and high-grade partial tear of the Achilles tendon at the calcaneal insertion. No retraction of tendon fibers. Mild reactive edema in the adjacent fat pad. Mild thickening of the plantar fascia with associated plantar calcaneal enthesophyte and adjacent muscular edema, suggestive of plantar fasciitis. BONES: No focal or infiltrative bone marrow replacing abnormality. No acute fracture or osteonecrosis. JOINTS: Cartilage: No focal defect is identified involving the tibiotalar joint. Mild degenerative changes of the midfoot joints, most notably at the talonavicular joint. Other: Small amount of fluid within the talonavicular joint. SOFT TISSUES: Soft tissue signal replaces fat in the sinus tarsi. Tarsal tunnel is unremarkable. Mild diffuse subcutaneous edema. IMPRESSION: 1. High-grade partial tear of the Achilles tendon at the calcaneal insertion. 2. Mild thickening of the plantar fascia with associated plantar calcaneal enthesophyte and adjacent edema, suggestive of plantar fasciitis. 3. Soft tissue signal replaces fat in the sinus tarsi, may represent reactive changes versus sinus tarsi syndrome in appropriate clinical setting. 4. Mild degenerative changes of the midfoot joints. Signed by: Dr. Zeke Mosley M.D. on 08/08/2020 4:10 PM
== END ==
LOC: MRI 13:27
PROVIDERS: ATTEND Podiatrist Foot & Ankle Surgery
DX: S86.011A Strain of right Achilles tendon, initial encounter (principal); M67.01 Short Achilles tendon (acquired), right ankle

== ENCOUNTER → 2020-08-14 | Outpatient (CLI) | payer MEDICARE, BC | LOC: US 12:41 | DX: N23 Unspecified renal colic (principal); N28.1 Cyst of kidney, acquired | CPT/HCPCS: 76770 ==

== ENCOUNTER → 2020-08-22 | Day surgery (SDC) | payer MEDICARE, BC ==
[2020-08-19 09:13] LABS: BASOPHILS # (AUTO) 0.1 (0.0-0.1); BASOPHILS % 0.4 % (0.0-1.0); HEMATOCRIT 38.9 % (38.2-49.6); HEMOGLOBIN 12.9 g/dL (14.0-18.0); LYMPHOCYTES # (AUTO) 1.7 (1.0-3.2); MEAN CORPUSCULAR HEMOGLOBIN 35.1 pg (28-32); MEAN CORPUSCULAR HGB CONC 33.2 g/dL (31-35); MONOCYTES # (AUTO) 1.7 (0.2-0.8); MONOCYTES % 7.9 % (4.4-11.3); NEUTROPHILS # (AUTO) 16.9 (2.1-6.9); NEUTROPHILS % 79.4 % (38.7-80.0); PLATELET COUNT 393 x10e3/uL (140-360); RED BLOOD COUNT 3.67 x10e6/uL (4.3-5.7); RED CELL DISTRIBUTION WIDTH 15.4 % (11.7-14.4)
[~2020-08-22] MED LIST changes: +BUPIVACAINE HCL 0.5% INJ 30 ML VIAL INJ ONE; +CEFAZOLIN SOD 1 GM/NS 50ML 50 ML IV ONE; +DEXAMETHASONE SOD PHOS INJ 4 MG/ML VIAL ONE; +EYE LUBRICANT OPTH OINT 3.5GM TUBE OP ONE; +FENTANYL CITRATE/PF 100MCG/2 ML INJ ONE; +GLYCOPYRROLATE INJ 0.2 MG/ML VIAL ONE; +HYDROCODONE/APAP 10MG-325MG TAB ONE; +LIDOCAINE HCL 2% LOCAL INJ 5 ML SDV VIAL INJ ONE; +MIDAZOLAM HCL 2 MG/2 ML VIAL ONE; +MORPHINE SULFATE 2 MG/ML SYR 1ML ONE; +NEOSTIGMINE 1 MG/ML 10ML VIAL ONE; +ONDANSETRON HCL INJ 2MG/ML 2ML 2 MG/ML VIAL ONE; +PROPOFOL IV EMULSION 10 MG/ML 20 ML VIAL ONE; +ROCURONIUM BROMIDE 10 MG/ML 5ML VIAL IV ONE; +SEVOFLURANE INHAL SOLN 250 ML PEN BTL ONE
[2020-08-22 09:30] VITALS: BP 138/81
== END | disposition home or self-care (01) ==
LOC: OR 05:17
PROVIDERS: ATTEND Podiatrist Foot & Ankle Surgery
DX: M77.31 Calcaneal spur, right foot (principal); M77.51 Other enthesopathy of right foot and ankle; M21.6X1 Other acquired deformities of right foot; M67.01 Short Achilles tendon (acquired), right ankle; I10 Essential (primary) hypertension; M54.9 Dorsalgia, unspecified; F17.290 Nicotine dependence, other tobacco product, uncomplicated; Z01.812 Encounter for preprocedural laboratory examination; Z20.828 Contact with and (suspected) exposure to other viral communicable diseases
CPT/HCPCS: 27687; 28119; 36415; 85025; C1713; J0690; J1100; J2001; J2250; J2270; J2405; J2704; J2710; J3010; U0002

== ENCOUNTER → 2020-10-16 | Day surgery (SDC) | payer MEDICARE, BC ==
[2020-10-13 08:32] LABS: BASOPHILS # (AUTO) 0.1 (0.0-0.1); BASOPHILS % 0.6 % (0.0-1.0); EOSINOPHILS # (AUTO) 0.1 (0.0-0.4); EOSINOPHILS % 0.6 % (0.0-6.0); HEMATOCRIT 38.9 % (38.2-49.6); HEMOGLOBIN 12.3 g/dL (14.0-18.0); LYMPHOCYTES # (AUTO) 2.4 (1.0-3.2); LYMPHOCYTES % 17.1 % (18.0-39.1); MEAN CORPUSCULAR HEMOGLOBIN 33.2 pg (28-32); MEAN CORPUSCULAR HGB CONC 31.6 g/dL (31-35); MEAN CORPUSCULAR VOLUME 104.9 fL (81-99); MONOCYTES # (AUTO) 1.3 (0.2-0.8); MONOCYTES % 9.6 % (4.4-11.3); NEUTROPHILS # (AUTO) 9.3 (2.1-6.9); NEUTROPHILS % 66.5 % (38.7-80.0); PLATELET COUNT 420 x10e3/uL (140-360); RED BLOOD COUNT 3.71 x10e6/uL (4.3-5.7); RED CELL DISTRIBUTION WIDTH 16.2 % (11.7-14.4)
[~2020-10-16] MED LIST changes: -BUPIVACAINE HCL 0.5% INJ 30 ML VIAL INJ ONE; -CEFAZOLIN SOD 1 GM/NS 50ML 50 ML IV ONE; -DEXAMETHASONE SOD PHOS INJ 4 MG/ML VIAL ONE; -EYE LUBRICANT OPTH OINT 3.5GM TUBE OP ONE; -GLYCOPYRROLATE INJ 0.2 MG/ML VIAL ONE; -HYDROCODONE/APAP 10MG-325MG TAB ONE; +IOPAMIDOL 200 MG/ML 20 ML VIAL IT ONE; +LIDOCAINE HCL 1% 30ML-PF VIAL ONE; -MORPHINE SULFATE 2 MG/ML SYR 1ML ONE; -NEOSTIGMINE 1 MG/ML 10ML VIAL ONE; -ONDANSETRON HCL INJ 2MG/ML 2ML 2 MG/ML VIAL ONE; -ROCURONIUM BROMIDE 10 MG/ML 5ML VIAL IV ONE; -SEVOFLURANE INHAL SOLN 250 ML PEN BTL ONE; +TRIAMCINOLONE ACET 40 MG/ML VIAL ONE
[2020-10-16 07:15] VITALS: BP 134/80
== END | disposition home or self-care (01) ==
LOC: OR 05:18
PROVIDERS: ATTEND Physical Medicine & Rehabilitation Pain Medicine
DX: M46.1 Sacroiliitis, not elsewhere classified (principal); M47.896 Other spondylosis, lumbar region; M19.90 Unspecified osteoarthritis, unspecified site; I10 Essential (primary) hypertension; E78.5 Hyperlipidemia, unspecified; F17.290 Nicotine dependence, other tobacco product, uncomplicated; Z01.812 Encounter for preprocedural laboratory examination; Z20.822 Contact with and (suspected) exposure to COVID-19; Z98.1 Arthrodesis status; Z96.659 Presence of unspecified artificial knee joint
CPT/HCPCS: 36415; 85025; G0260; J2001 ×2; J2250; J2704; J3010; J3301; Q9967; U0002; 76000

== ENCOUNTER → 2020-11-13 | Day surgery (SDC) | payer MEDICARE, BC ==
[2020-11-11 09:06] LABS: BASOPHILS # (AUTO) 0.1 (0.0-0.1); BASOPHILS % 0.9 % (0.0-1.0); EOSINOPHILS # (AUTO) 0.1 (0.0-0.4); EOSINOPHILS % 0.3 % (0.0-6.0); HEMATOCRIT 38.5 % (38.2-49.6); HEMOGLOBIN 12.6 g/dL (14.0-18.0); LYMPHOCYTES % 12.4 % (18.0-39.1); MEAN CORPUSCULAR HEMOGLOBIN 34.5 pg (28-32); MEAN CORPUSCULAR HGB CONC 32.7 g/dL (31-35); MEAN CORPUSCULAR VOLUME 105.5 fL (81-99); MONOCYTES # (AUTO) 1.4 (0.2-0.8); NEUTROPHILS # (AUTO) 11.6 (2.1-6.9); NEUTROPHILS % 73.8 % (38.7-80.0); PLATELET COUNT 340 x10e3/uL (140-360); RED BLOOD COUNT 3.65 x10e6/uL (4.3-5.7); RED CELL DISTRIBUTION WIDTH 16.4 % (11.7-14.4)
[~2020-11-13] MED LIST changes: -FENTANYL CITRATE/PF 100MCG/2 ML INJ ONE; +FOLIC ACID PO; +MAGNESIUM PO; +MEGA MEN PO; -MIDAZOLAM HCL 2 MG/2 ML VIAL ONE; +SUPER B COMPLE1 EACH PO; +VITAMIN D3 PO; +ZINC PO; +[UNRECOGNIZED DRUG - OTHER] PO
[2020-11-13 07:00] VITALS: BP 128/88
== END | disposition home or self-care (01) ==
LOC: OR 05:16
PROVIDERS: ATTEND Physical Medicine & Rehabilitation Pain Medicine
DX: M19.011 Primary osteoarthritis, right shoulder (principal); M75.01 Adhesive capsulitis of right shoulder; M75.51 Bursitis of right shoulder; M46.1 Sacroiliitis, not elsewhere classified; Z98.1 Arthrodesis status; M47.896 Other spondylosis, lumbar region; I10 Essential (primary) hypertension; F17.200 Nicotine dependence, unspecified, uncomplicated; Z01.810 Encounter for preprocedural cardiovascular examination; Z01.812 Encounter for preprocedural laboratory examination; Z20.822 Contact with and (suspected) exposure to COVID-19
CPT/HCPCS: 20605; 20610; 36415; 77002; 85025; 93005; J2001 ×2; J2704; J3301; Q9967; U0002; 76000

== ENCOUNTER → 2021-03-19 | Day surgery (SDC) | payer MEDICARE, BC ==
[2021-03-16 10:08] LABS: BASOPHILS # (AUTO) 0.1 (0.0-0.1); BASOPHILS % 0.4 % (0.0-1.0); EOSINOPHILS # (AUTO) 0.1 (0.0-0.4); EOSINOPHILS % 0.4 % (0.0-6.0); HEMATOCRIT 41.1 % (38.2-49.6); HEMOGLOBIN 13.1 g/dL (14.0-18.0); LYMPHOCYTES # (AUTO) 1.9 (1.0-3.2); LYMPHOCYTES % 12.8 % (18.0-39.1); MEAN CORPUSCULAR HEMOGLOBIN 34.5 pg (28-32); MEAN CORPUSCULAR HGB CONC 31.9 g/dL (31-35); MEAN CORPUSCULAR VOLUME 108.2 fL (81-99); MONOCYTES # (AUTO) 1.4 (0.2-0.8); MONOCYTES % 9.1 % (4.4-11.3); NEUTROPHILS # (AUTO) 10.7 (2.1-6.9); NEUTROPHILS % 71.6 % (38.7-80.0); PLATELET COUNT 371 x10e3/uL (140-360); RED CELL DISTRIBUTION WIDTH 15.5 % (11.7-14.4)
[2021-03-16 12:25] LABS: BAND NEUTROPHILS % (MANUAL) 1 %; LYMPHOCYTES % (MANUAL) 12 % (19-48); MONOCYTES % (MANUAL) 9 % (3.4-9.0); MYELOCYTES % (MANUAL) 3 % (0-0); NEUTROPHILS % (MANUAL) 75 % (40-74); PLATELET ESTIMATE SLIGHTLY INCREASED; PLATELET MORPHOLOGY COMMENT NORMAL; RBC MORPHOLOGY COMMENT NORMAL
[~2021-03-19] MED LIST changes: +DEXAMETHASONE SOD PHOS 10 MG/1 ML VIAL ONE; +FENTANYL CITRATE/PF 100MCG/2 ML INJ ONE; -LIDOCAINE HCL 2% LOCAL INJ 5 ML SDV VIAL INJ ONE; +MIDAZOLAM HCL 2 MG/2 ML VIAL ONE; +POVIDONE IODINE 0.05% 0.05 % ML PO ONE; -TRIAMCINOLONE ACET 40 MG/ML VIAL ONE; +[UNRECOGNIZED DRUG - OTHER] PO
[2021-03-19 07:15] VITALS: BP 125/81
== END | disposition home or self-care (01) ==
LOC: OR 05:15
PROVIDERS: ATTEND Physical Medicine & Rehabilitation Pain Medicine
DX: M51.26 Other intervertebral disc displacement, lumbar region (principal); Z98.1 Arthrodesis status; Z96.653 Presence of artificial knee joint, bilateral; M54.12 Radiculopathy, cervical region; M25.511 Pain in right shoulder; M46.1 Sacroiliitis, not elsewhere classified; M47.896 Other spondylosis, lumbar region; M06.9 Rheumatoid arthritis, unspecified; I10 Essential (primary) hypertension; E78.5 Hyperlipidemia, unspecified; Z72.0 Tobacco use; Z01.810 Encounter for preprocedural cardiovascular examination; Z01.812 Encounter for preprocedural laboratory examination
CPT/HCPCS: 36415; 64483; 77003; 85025; 93005; J1100; J2001; J2250; J2704; J3010; Q9967

== ENCOUNTER → 2021-05-15 | Outpatient (CLI) | payer MEDICARE, BC ==
[~2021-05-15] MED LIST changes: -DEXAMETHASONE SOD PHOS 10 MG/1 ML VIAL ONE; -FENTANYL CITRATE/PF 100MCG/2 ML INJ ONE; -IOPAMIDOL 200 MG/ML 20 ML VIAL IT ONE; +IOPAMIDOL 370 MG/ML 200 ML INFUS..BTL INJ ONE; -LIDOCAINE HCL 1% 30ML-PF VIAL ONE; -MIDAZOLAM HCL 2 MG/2 ML VIAL ONE; -POVIDONE IODINE 0.05% 0.05 % ML PO ONE; -PROPOFOL IV EMULSION 10 MG/ML 20 ML VIAL ONE; +SODIUM CHLORIDE 0.9% 50ML 50 ML ONE
== END ==
LOC: RAD 11:39
DX: I73.9 Peripheral vascular disease, unspecified (principal); G45.9 Transient cerebral ischemic attack, unspecified; I10 Essential (primary) hypertension; M06.9 Rheumatoid arthritis, unspecified; F48.8 Other specified nonpsychotic mental disorders
CPT/HCPCS: 70498; 93306; Q9967

== ENCOUNTER → 2021-05-27 | Outpatient (CLI) | payer MEDICARE, BC ==
[~2021-05-27] MED LIST changes: -IOPAMIDOL 370 MG/ML 200 ML INFUS..BTL INJ ONE; -SODIUM CHLORIDE 0.9% 50ML 50 ML ONE
== END ==
LOC: SLEEP 19:47
DX: G47.33 Obstructive sleep apnea (adult) (pediatric) (principal); Z20.822 Contact with and (suspected) exposure to COVID-19
CPT/HCPCS: 95811; U0002

== ENCOUNTER → 2022-02-05 | Day surgery (SDC) | payer MEDICARE, BC ==
[2022-02-02 10:57] LABS: BASOPHILS # (AUTO) 0.1 (0.0-0.1); BASOPHILS % 0.5 % (0.0-1.0); EOSINOPHILS % 0.1 % (0.0-6.0); HEMOGLOBIN 12.3 g/dL (14.0-18.0); LYMPHOCYTES % 6.7 % (18.0-39.1); MEAN CORPUSCULAR HGB CONC 31.5 g/dL (31-35); MEAN CORPUSCULAR VOLUME 111.1 fL (81-99); MONOCYTES % 6.9 % (4.4-11.3); NEUTROPHILS # (AUTO) 11.6 (2.1-6.9); NEUTROPHILS % 79.6 % (38.7-80.0); PLATELET COUNT 358 x10e3/uL (140-360); RED BLOOD COUNT 3.51 x10e6/uL (4.3-5.7); RED CELL DISTRIBUTION WIDTH 15.1 % (11.7-14.4)
[2022-02-02 11:49] LABS: PLATELET ESTIMATE ADEQUATE; PLATELET MORPHOLOGY COMMENT NORMAL; RBC MORPHOLOGY COMMENT ABNORMAL
[~2022-02-05] MED LIST changes: +ACETAMINOPHEN 1000 MG/100 ML 100 ML IV ONE; +EPHEDRINE SULFATE INJ 50 MG/ML VIAL ONE; +FENTANYL CITRATE/PF 100MCG/2 ML INJ ONE; +FLOMAX0.4 MG PO; +HYOSCYAMINE SULFATE 0.5 MG/ML INJ ONE; +KETOROLAC TROMETHAMINE 30 MG/ML VIAL ONE; +LIDOCAINE HCL 2% LOCAL INJ 5 ML SDV VIAL INJ ONE; +MIDAZOLAM HCL 2 MG/2 ML VIAL ONE; +PHENYLEPHRINE HCL 1% 10 MG/ML VIAL ONE; +PROPOFOL IV EMULSION 10 MG/ML 20 ML VIAL ONE; +VICODIN HP 10-1 EAC1 PO
[2022-02-05 12:23] VITALS: BP 119/75
== END | disposition home or self-care (01) ==
LOC: OR 07:32
PROVIDERS: ATTEND Internal Medicine Gastroenterology
DX: Z09 Encounter for follow-up examination after completed treatment for conditions other than malignant neoplasm (principal); D12.2 Benign neoplasm of ascending colon; D12.3 Benign neoplasm of transverse colon; D12.4 Benign neoplasm of descending colon; D12.5 Benign neoplasm of sigmoid colon; K57.30 Diverticulosis of large intestine without perforation or abscess without bleeding; K64.8 Other hemorrhoids; Z71.3 Dietary counseling and surveillance; I10 Essential (primary) hypertension; E78.00 Pure hypercholesterolemia, unspecified; M19.90 Unspecified osteoarthritis, unspecified site; Z01.810 Encounter for preprocedural cardiovascular examination; Z01.812 Encounter for preprocedural laboratory examination; Z20.822 Contact with and (suspected) exposure to COVID-19; Z79.899 Other long term (current) drug therapy; Z68.30 Body mass index [BMI] 30.0-30.9, adult; Z86.19 Personal history of other infectious and parasitic diseases; Z87.891 Personal history of nicotine dependence
CPT/HCPCS: 36415; 45380; 45385; 74018; 85025; 88305; 93005; J0131; J1980; J2001; J2250; J2370; J2704; J3010; U0002; 45378; J1885

== ENCOUNTER → 2022-03-02 | Outpatient (CLI) | payer MEDICARE, BC ==
[~2022-03-02] MED LIST changes: -ACETAMINOPHEN 1000 MG/100 ML 100 ML IV ONE; -EPHEDRINE SULFATE INJ 50 MG/ML VIAL ONE; -FENTANYL CITRATE/PF 100MCG/2 ML INJ ONE; -HYOSCYAMINE SULFATE 0.5 MG/ML INJ ONE; -KETOROLAC TROMETHAMINE 30 MG/ML VIAL ONE; -LIDOCAINE HCL 2% LOCAL INJ 5 ML SDV VIAL INJ ONE; -MIDAZOLAM HCL 2 MG/2 ML VIAL ONE; -PHENYLEPHRINE HCL 1% 10 MG/ML VIAL ONE; -PROPOFOL IV EMULSION 10 MG/ML 20 ML VIAL ONE
== END ==
LOC: US 10:05
PROVIDERS: ATTEND Internal Medicine Nephrology
DX: N18.31 Chronic kidney disease, stage 3a (principal)
CPT/HCPCS: 76770; 76857

== ENCOUNTER → 2022-03-29 | Outpatient (CLI) | payer MEDICARE, BC ==
[~2022-03-29] MED LIST changes: +IOPAMIDOL 300 MG/ML 15ML VIAL IT ONE; +IOPAMIDOL 300MG/ML 100 ML INFUS..BTL IV ONE; +LIDOCAINE HCL 1% LOCAL INJ 20 ML VIAL ONE
[2022-03-29 09:01] LABS: CREATININE, SERUM 1.88 mg/dL (0.72-1.25)
[2022-03-29 09:08] LABS: INR 0.78; PROTHROMBIN TIME 11.6 seconds (11.9-14.5)
== END ==
LOC: DX 07:57
PROVIDERS: ATTEND Physical Medicine & Rehabilitation Pain Medicine
DX: M54.16 Radiculopathy, lumbar region (principal)
CPT/HCPCS: 36415; 62304; 72132; 82565; 84520; 85014; 85049; 85610; 85730; J2001; Q9967

== ENCOUNTER → 2022-08-09 | Outpatient (CLI) | payer MEDICARE, BC ==
[~2022-08-09] MED LIST changes: -IOPAMIDOL 300 MG/ML 15ML VIAL IT ONE; -IOPAMIDOL 300MG/ML 100 ML INFUS..BTL IV ONE; -LIDOCAINE HCL 1% LOCAL INJ 20 ML VIAL ONE
== END ==
LOC: CT 11:38
PROVIDERS: ATTEND Physical Medicine & Rehabilitation Pain Medicine
DX: M25.552 Pain in left hip (principal); M54.18 Radiculopathy, sacral and sacrococcygeal region
CPT/HCPCS: 72192

== ENCOUNTER 2023-06-21 12:20 | Inpatient (IN) | payer MEDICARE, BC ==
[~2023-06-21] VITALS: Ht 177.8 cm; Wt 93.4 kg
[~2023-06-21 12:20] MED LIST changes: +CEPHALEXIN500 MG PO; +DOXYCYCLINE HY100 MG PO
[2023-06-21] MEDS ORDERED: SODIUM CHLORIDE 0.9% 1000ML 2,330 ML IV SCH (12:45)
[2023-06-21] MEDS ORDERED: PIPERACILLIN/TAZOBACTAM 4.5 GM in SODIUM CHLORIDE 0.9% 100 ML IV ONE (12:45)
[2023-06-21 13:11] LABS: BASOPHILS % 0.2 % (0.0-1.0); EOSINOPHILS % 0.2 % (0.0-6.0); HEMATOCRIT 37.1 % (38.2-49.6); HEMOGLOBIN 12.5 g/dL (14.0-18.0); LYMPHOCYTES # (AUTO) 2.3 (1.0-3.2); LYMPHOCYTES % 11.5 % (18.0-39.1); MEAN CORPUSCULAR HEMOGLOBIN 35.3 pg (28-32); MEAN CORPUSCULAR HGB CONC 33.7 g/dL (31-35); MEAN CORPUSCULAR VOLUME 104.8 fL (81-99); MONOCYTES # (AUTO) 1.2 (0.2-0.8); MONOCYTES % 5.9 % (4.4-11.3); NEUTROPHILS # (AUTO) 14.1 (2.1-6.9); PLATELET COUNT 327 x10e3/uL (140-360); RED BLOOD COUNT 3.54 x10e6/uL (4.3-5.7); RED CELL DISTRIBUTION WIDTH 15.6 % (11.7-14.4)
[2023-06-21 13:20] LABS: INR 0.87; PROTHROMBIN TIME 12.3 seconds (11.9-14.5)
[2023-06-21 13:21] LABS: PARTIAL THROMBOPLASTIN TIME 21.8 seconds (23.8-35.5)
[2023-06-21 13:30] LABS: ALBUMIN 2.9 g/dL (3.5-5.0); ALBUMIN/GLOBULIN RATIO 0.8 (0.8-2.0); ANION GAP 16.2 mmol/L (8-16); CALCIUM 9.7 mg/dL (8.4-10.2); CREATININE, SERUM 2.02 mg/dL (0.72-1.25); MAGNESIUM 1.8 MG/DL (1.3-2.1); POTASSIUM 4.2 mmol/L (3.5-5.1)
[2023-06-21] MEDS ORDERED: Vancomycin IV 1 GM in SODIUM CHLORIDE 0.9% 250ML 250 ML IV ONE (13:45)
[2023-06-21 15:37] LABS: LYMPHOCYTES % (MANUAL) 13 % (19-48); MONOCYTES % (MANUAL) 8 % (3.4-9.0); NEUTROPHILS % (MANUAL) 76 % (40-74)
[2023-06-21 15:39] LABS: PLATELET ESTIMATE ADEQUATE; PLATELET MORPHOLOGY COMMENT NORMAL; RBC MORPHOLOGY COMMENT NORMAL; SPHEROCYTES MODERATE
[2023-06-21 16:01] LABS: CLARITY,URINE CLEAR (CLEAR); COLOR,URINE YELLOW (YELLOW)
[2023-06-21 16:02] LABS: KETONES,URINE NEGATIVE (NEGATIVE); LEUKOCYTE ESTERASE ,URINE NEGATIVE (NEGATIVE); NITRITE,URINE NEGATIVE (NEGATIVE); PROTEIN,URINE DIPSTICK 2+ (NEGATIVE); URINE UROBILINOGEN 0.2 mg/dL (0.2 - 1)
[2023-06-21 16:08] LABS: BACTERIA,URINE RARE /HPF; RBC,URINE 0-5 /HPF (0-5); WBC,URINE (MAN) 0-5 /HPF (0-5)
[2023-06-21 16:23] VITALS: PULSE 80; RESP 18; O2SAT 97
[2023-06-21 17:00] VITALS: BP 142/73; PULSE 109; RESP 20; TEMP 98.1; O2SAT 100
[2023-06-21] MEDS ORDERED: RENADYL PO (18:28)
[2023-06-21] MEDS ORDERED: RENA-VITE RX T1 EACH PO (18:28)
[2023-06-21] MEDS ORDERED: HYDROCODON-ACE1 EAC9 PO (18:28)
[2023-06-21] MEDS ORDERED: TESTOSTERONE PO (18:28)
[2023-06-21 19:00] VITALS: PULSE 87; RESP 18; O2SAT 96
[2023-06-21 20:45] VITALS: BP 125/87; PULSE 91; RESP 19; TEMP 98.5; O2SAT 99
[2023-06-21] MEDS ORDERED: METHYLPREDNISOLONE 4 MG TAB PO SCH (21:00)
[2023-06-21] MEDS: TAMSULOSIN HCL 0.4 MG CAP PO SCH (21:32)
[2023-06-21] MEDS: LISINOPRIL 10 MG TAB PO SCH (21:32)
[2023-06-21 23:59] VITALS: BP 125/87; PULSE 91; RESP 19; TEMP 98.5; O2SAT 99
[2023-06-22] VITALS (7 sets, daily range): BP systolic 120–136; BP diastolic 75–90; PULSE 74–87; RESP 16–19; TEMP 97.9–98.4; O2SAT 95–99
[2023-06-22 06:20] LABS: BASOPHILS % 0.1 % (0.0-1.0); EOSINOPHILS % 0.1 % (0.0-6.0); HEMATOCRIT 34.4 % (38.2-49.6); HEMOGLOBIN 11.6 g/dL (14.0-18.0); LYMPHOCYTES # (AUTO) 1.6 (1.0-3.2); LYMPHOCYTES % 9.2 % (18.0-39.1); MEAN CORPUSCULAR HEMOGLOBIN 35.7 pg (28-32); MEAN CORPUSCULAR HGB CONC 33.7 g/dL (31-35); MEAN CORPUSCULAR VOLUME 105.8 fL (81-99); MONOCYTES # (AUTO) 0.9 (0.2-0.8); MONOCYTES % 4.9 % (4.4-11.3); NEUTROPHILS # (AUTO) 12.9 (2.1-6.9); NEUTROPHILS % 74.2 % (38.7-80.0); PLATELET COUNT 344 x10e3/uL (140-360); RED BLOOD COUNT 3.25 x10e6/uL (4.3-5.7); RED CELL DISTRIBUTION WIDTH 15.9 % (11.7-14.4); WHITE BLOOD COUNT 17.37 x10e3/uL (4.8-10.8)
[2023-06-22 06:39] LABS: ANION GAP 13.1 mmol/L (8-16); CALCIUM 9.2 mg/dL (8.4-10.2); CREATININE, SERUM 1.78 mg/dL (0.72-1.25); POTASSIUM 5.1 mmol/L (3.5-5.1)
[2023-06-22] MEDS ORDERED: CHOLECALCIFEROL PO SCH (09:00)
[2023-06-22] MEDS: [UNRECOGNIZED DRUG - OTHER] PO SCH (09:00)
[2023-06-22] MEDS: DOCUSATE SODIUM 100 MG CAP PO SCH (09:43)
[2023-06-22] MEDS: SENNOSIDES 8.6 MG TAB PO SCH (09:43)
[2023-06-22] MEDS: FOLIC ACID/CYANOCOB/PYRIDOXINE TAB PO SCH (09:44)
[2023-06-22] MEDS: ATORVASTATIN 20 MG TAB PO SCH (09:44)
[2023-06-22] MEDS: LISINOPRIL 10 MG TAB PO SCH ×2 (09:44→20:54)
[2023-06-22] MEDS: TESTOSTERONE PO SCH (09:45)
[2023-06-22 10:31] LABS: LYMPHOCYTES % (MANUAL) 10 % (19-48); MONOCYTES % (MANUAL) 4 % (3.4-9.0); MYELOCYTES % (MANUAL) 8 % (0-0); NEUTROPHILS % (MANUAL) 77 % (40-74); PLATELET ESTIMATE ADEQUATE; PLATELET MORPHOLOGY COMMENT NORMAL; RBC MORPHOLOGY COMMENT NORMAL
[2023-06-22] MEDS: Vancomycin IV 500 MG in SODIUM CHLORIDE 0.9% 100 ML IV SCH ×2 (10:34→22:36)
[2023-06-22] MEDS: CHOLECALCIFEROL 1,000 UNIT TAB PO SCH (12:00)
[2023-06-22] MEDS: HEPARIN SOD (PORCINE) 5,000 UNIT/ML VIAL SC SCH ×2 (15:20→22:36)
[2023-06-22] MEDS: TAMSULOSIN HCL 0.4 MG CAP PO SCH (20:53)
[2023-06-22] MEDS: HYDROCODONE/APAP 10MG-325MG TAB PO PRN (20:54)
[2023-06-23] VITALS (7 sets, daily range): BP systolic 120–138; BP diastolic 75–79; PULSE 84–99; RESP 16–20; TEMP 98.1–98.8; O2SAT 94–98
[2023-06-23] MEDS: HEPARIN SOD (PORCINE) 5,000 UNIT/ML VIAL SC SCH ×3 (06:12→22:05)
[2023-06-23 06:28] LABS: BASOPHILS # (AUTO) 0.1 (0.0-0.1); BASOPHILS % 0.4 % (0.0-1.0); EOSINOPHILS # (AUTO) 0.1 (0.0-0.4); EOSINOPHILS % 0.4 % (0.0-6.0); HEMATOCRIT 32.5 % (38.2-49.6); LYMPHOCYTES # (AUTO) 2.1 (1.0-3.2); LYMPHOCYTES % 15.1 % (18.0-39.1); MEAN CORPUSCULAR HEMOGLOBIN 35.5 pg (28-32); MEAN CORPUSCULAR HGB CONC 33.8 g/dL (31-35); MEAN CORPUSCULAR VOLUME 104.8 fL (81-99); MONOCYTES % 7.1 % (4.4-11.3); NEUTROPHILS # (AUTO) 8.5 (2.1-6.9); NEUTROPHILS % 60.7 % (38.7-80.0); PLATELET COUNT 328 x10e3/uL (140-360); RED CELL DISTRIBUTION WIDTH 15.9 % (11.7-14.4); WHITE BLOOD COUNT 14.07 x10e3/uL (4.8-10.8)
[2023-06-23 06:55] LABS: ALBUMIN 2.5 g/dL (3.5-5.0); ALBUMIN/GLOBULIN RATIO 0.7 (0.8-2.0); ANION GAP 13.1 mmol/L (8-16); CALCIUM 8.9 mg/dL (8.4-10.2); CREATININE, SERUM 1.74 mg/dL (0.72-1.25); MAGNESIUM 1.6 MG/DL (1.3-2.1); POTASSIUM 4.1 mmol/L (3.5-5.1)
[2023-06-23] MEDS ORDERED: ONDANSETRON HCL INJ 2MG/ML 2ML 2 MG/ML VIAL IV PRN (07:45)
[2023-06-23] MEDS: TESTOSTERONE PO SCH (08:55)
[2023-06-23] MEDS: [UNRECOGNIZED DRUG - OTHER] PO SCH (08:55)
[2023-06-23] MEDS: FOLIC ACID/CYANOCOB/PYRIDOXINE TAB PO SCH (08:55)
[2023-06-23] MEDS: DOCUSATE SODIUM 100 MG CAP PO SCH (08:55)
[2023-06-23] MEDS: CHOLECALCIFEROL 1,000 UNIT TAB PO SCH (08:56)
[2023-06-23] MEDS: LISINOPRIL 10 MG TAB PO SCH ×2 (08:56→21:59)
[2023-06-23] MEDS: ATORVASTATIN 20 MG TAB PO SCH (08:56)
[2023-06-23] MEDS: SENNOSIDES 8.6 MG TAB PO SCH (08:57)
[2023-06-23 09:14] LABS: EOSINOPHILS % (MANUAL) 1 % (0-7); LYMPHOCYTES % (MANUAL) 12 % (19-48); MONOCYTES % (MANUAL) 7 % (3.4-9.0); MYELOCYTES % (MANUAL) 11 % (0-0); NEUTROPHILS % (MANUAL) 62 % (40-74); PLATELET ESTIMATE ADEQUATE; PROMYELOCYTES % (MANUAL) 1 % (0-0)
[2023-06-23 09:15] LABS: PLATELET MORPHOLOGY COMMENT NORMAL; RBC MORPHOLOGY COMMENT NORMAL
[2023-06-23] MEDS ORDERED: MUPIROCIN 2% OINT 22 GM TUBE ONE (09:23)
[2023-06-23] MEDS: Vancomycin IV 500 MG in SODIUM CHLORIDE 0.9% 100 ML IV SCH (09:54)
[2023-06-23] MEDS: HYDROCODONE/APAP 10MG-325MG TAB PO PRN ×2 (17:37→23:44)
[2023-06-23] MEDS: TAMSULOSIN HCL 0.4 MG CAP PO SCH (21:59)
[2023-06-23] MEDS ORDERED: IOPAMIDOL 370 MG/ML 100 ML INFUS..BTL INJ ONE (22:16)
[2023-06-24] VITALS (7 sets, daily range): BP systolic 99–130; BP diastolic 59–74; PULSE 90–108; RESP 18–22; TEMP 98.3–100.2; O2SAT 94–97
[2023-06-24 05:52] LABS: BASOPHILS # (AUTO) 0.1 (0.0-0.1); BASOPHILS % 0.5 % (0.0-1.0); EOSINOPHILS # (AUTO) 0.1 (0.0-0.4); EOSINOPHILS % 0.7 % (0.0-6.0); HEMATOCRIT 31.9 % (38.2-49.6); HEMOGLOBIN 10.8 g/dL (14.0-18.0); LYMPHOCYTES # (AUTO) 1.5 (1.0-3.2); LYMPHOCYTES % 12.3 % (18.0-39.1); MEAN CORPUSCULAR HEMOGLOBIN 35.8 pg (28-32); MEAN CORPUSCULAR HGB CONC 33.9 g/dL (31-35); MEAN CORPUSCULAR VOLUME 105.6 fL (81-99); MONOCYTES % 8.4 % (4.4-11.3); NEUTROPHILS # (AUTO) 7.3 (2.1-6.9); NEUTROPHILS % 59.2 % (38.7-80.0); PLATELET COUNT 311 x10e3/uL (140-360); RED BLOOD COUNT 3.02 x10e6/uL (4.3-5.7); RED CELL DISTRIBUTION WIDTH 15.6 % (11.7-14.4); WHITE BLOOD COUNT 12.24 x10e3/uL (4.8-10.8)
[2023-06-24] MEDS: HEPARIN SOD (PORCINE) 5,000 UNIT/ML VIAL SC SCH ×3 (05:58→21:49)
[2023-06-24 06:33] LABS: ANION GAP 15.2 mmol/L (8-16); CREATININE, SERUM 1.84 mg/dL (0.72-1.25); MAGNESIUM 1.5 MG/DL (1.3-2.1); POTASSIUM 4.2 mmol/L (3.5-5.1)
[2023-06-24 07:20] LABS: FERRITIN 409.76 ng/mL (21.81-274.66)
[2023-06-24] MEDS: TESTOSTERONE PO SCH (09:00)
[2023-06-24] MEDS: [UNRECOGNIZED DRUG - OTHER] PO SCH (09:00)
[2023-06-24] MEDS: SENNOSIDES 8.6 MG TAB PO SCH (09:16)
[2023-06-24] MEDS: DOCUSATE SODIUM 100 MG CAP PO SCH (09:17)
[2023-06-24] MEDS: ATORVASTATIN 20 MG TAB PO SCH (09:17)
[2023-06-24] MEDS: CHOLECALCIFEROL 1,000 UNIT TAB PO SCH (09:17)
[2023-06-24] MEDS: FOLIC ACID/CYANOCOB/PYRIDOXINE TAB PO SCH (09:17)
[2023-06-24] MEDS: LISINOPRIL 10 MG TAB PO SCH ×2 (09:18→21:55)
[2023-06-24] MEDS: HYDROCODONE/APAP 10MG-325MG TAB PO PRN ×2 (10:12→19:53)
[2023-06-24] MEDS ORDERED: ACETAMIN/BUTALBITAL/CAFFEINE TAB PO PRN (10:15)
[2023-06-24] MEDS ORDERED: ONDANSETRON HCL 4 MG ORAL DISINTEGRATING TAB PO PRN (13:00)
[2023-06-24 13:58] LABS: EOSINOPHILS % (MANUAL) 2 % (0-7); LYMPHOCYTES % (MANUAL) 15 % (19-48); MONOCYTES % (MANUAL) 7 % (3.4-9.0); MYELOCYTES % (MANUAL) 2 % (0-0); NEUTROPHILS % (MANUAL) 72 % (40-74); PLATELET ESTIMATE ADEQUATE; PLATELET MORPHOLOGY COMMENT NORMAL
[2023-06-24] MEDS: CEFEPIME 2 GM in SODIUM CHLORIDE 0.9% 100 ML IV SCH (14:22)
[2023-06-24] MEDS: TAMSULOSIN HCL 0.4 MG CAP PO SCH (21:51)
[2023-06-25] VITALS (8 sets, daily range): BP systolic 103–133; BP diastolic 54–78; PULSE 93–103; RESP 17–24; TEMP 97.4–99.3; O2SAT 96–98
[2023-06-25] MEDS: HEPARIN SOD (PORCINE) 5,000 UNIT/ML VIAL SC SCH ×3 (05:41→21:01)
[2023-06-25 06:04] LABS: BASOPHILS % 0.2 % (0.0-1.0); EOSINOPHILS # (AUTO) 0.1 (0.0-0.4); EOSINOPHILS % 0.5 % (0.0-6.0); LYMPHOCYTES # (AUTO) 1.5 (1.0-3.2); LYMPHOCYTES % 11.1 % (18.0-39.1); MEAN CORPUSCULAR HEMOGLOBIN 35.1 pg (28-32); MEAN CORPUSCULAR HGB CONC 33.3 g/dL (31-35); MEAN CORPUSCULAR VOLUME 105.4 fL (81-99); MONOCYTES # (AUTO) 1.1 (0.2-0.8); MONOCYTES % 8.4 % (4.4-11.3); NEUTROPHILS # (AUTO) 8.3 (2.1-6.9); NEUTROPHILS % 63.1 % (38.7-80.0); PLATELET COUNT 302 x10e3/uL (140-360); RED BLOOD COUNT 3.13 x10e6/uL (4.3-5.7); RED CELL DISTRIBUTION WIDTH 15.6 % (11.7-14.4); WHITE BLOOD COUNT 13.15 x10e3/uL (4.8-10.8)
[2023-06-25 06:05] LABS: ANION GAP 17.4 mmol/L (8-16); CALCIUM 9.3 mg/dL (8.4-10.2); CREATININE, SERUM 1.72 mg/dL (0.72-1.25); MAGNESIUM 1.6 MG/DL (1.3-2.1); POTASSIUM 4.4 mmol/L (3.5-5.1)
[2023-06-25 08:01] LABS: BAND NEUTROPHILS % (MANUAL) 3 %; LYMPHOCYTES % (MANUAL) 15 % (19-48); METAMYELOCYTES % (MANUAL) 10 % (0-0); MONOCYTES % (MANUAL) 12 % (3.4-9.0); MYELOCYTES % (MANUAL) 5 % (0-0); NEUTROPHILS % (MANUAL) 52 % (40-74); PLATELET ESTIMATE ADEQUATE; PLATELET MORPHOLOGY COMMENT NORMAL; PROMYELOCYTES % (MANUAL) 2 % (0-0); RBC MORPHOLOGY COMMENT NORMAL
[2023-06-25] MEDS: LISINOPRIL 10 MG TAB PO SCH ×2 (08:35→20:56)
[2023-06-25] MEDS: DOCUSATE SODIUM 100 MG CAP PO SCH (08:35)
[2023-06-25] MEDS: SENNOSIDES 8.6 MG TAB PO SCH (08:35)
[2023-06-25] MEDS: ATORVASTATIN 20 MG TAB PO SCH (08:35)
[2023-06-25] MEDS: FOLIC ACID/CYANOCOB/PYRIDOXINE TAB PO SCH (08:35)
[2023-06-25] MEDS: CHOLECALCIFEROL 1,000 UNIT TAB PO SCH (08:36)
[2023-06-25] MEDS: TESTOSTERONE PO SCH (08:36)
[2023-06-25] MEDS: [UNRECOGNIZED DRUG - OTHER] PO SCH (08:36)
[2023-06-25] MEDS ORDERED: MEROPENEM 1 GM in SODIUM CHLORIDE 0.9% 100 ML IV SCH (09:45)
[2023-06-25] MEDS: HYDROCODONE/APAP 10MG-325MG TAB PO PRN ×2 (13:15→20:55)
[2023-06-25] MEDS: CEFEPIME 2 GM in SODIUM CHLORIDE 0.9% 100 ML IV SCH (15:00)
[2023-06-25] MEDS: TAMSULOSIN HCL 0.4 MG CAP PO SCH (20:55)
[2023-06-26] VITALS (7 sets, daily range): BP systolic 96–120; BP diastolic 58–109; PULSE 91–108; RESP 18–20; TEMP 97.9–100.9; O2SAT 93–96
[2023-06-26] MEDS: HYDROCODONE/APAP 10MG-325MG TAB PO PRN (03:28)
[2023-06-26] MEDS: HEPARIN SOD (PORCINE) 5,000 UNIT/ML VIAL SC SCH ×3 (05:58→21:11)
[2023-06-26 06:09] LABS: BASOPHILS # (AUTO) 0.1 (0.0-0.1); BASOPHILS % 0.4 % (0.0-1.0); EOSINOPHILS # (AUTO) 0.1 (0.0-0.4); EOSINOPHILS % 0.5 % (0.0-6.0); HEMATOCRIT 29.5 % (38.2-49.6); HEMOGLOBIN 10.3 g/dL (14.0-18.0); LYMPHOCYTES # (AUTO) 1.5 (1.0-3.2); LYMPHOCYTES % 11.7 % (18.0-39.1); MEAN CORPUSCULAR HEMOGLOBIN 36.5 pg (28-32); MEAN CORPUSCULAR HGB CONC 34.9 g/dL (31-35); MEAN CORPUSCULAR VOLUME 104.6 fL (81-99); MONOCYTES # (AUTO) 1.1 (0.2-0.8); MONOCYTES % 8.7 % (4.4-11.3); NEUTROPHILS # (AUTO) 8.2 (2.1-6.9); NEUTROPHILS % 63.5 % (38.7-80.0); PLATELET COUNT 304 x10e3/uL (140-360); RED BLOOD COUNT 2.82 x10e6/uL (4.3-5.7); RED CELL DISTRIBUTION WIDTH 15.8 % (11.7-14.4); WHITE BLOOD COUNT 12.83 x10e3/uL (4.8-10.8)
[2023-06-26 06:27] LABS: ALBUMIN 2.1 g/dL (3.5-5.0); ALBUMIN/GLOBULIN RATIO 0.6 (0.8-2.0); ANION GAP 13.3 mmol/L (8-16); CALCIUM 9.7 mg/dL (8.4-10.2); CREATININE, SERUM 1.84 mg/dL (0.72-1.25); POTASSIUM 4.3 mmol/L (3.5-5.1)
[2023-06-26] MEDS: SENNOSIDES 8.6 MG TAB PO SCH (08:14)
[2023-06-26] MEDS: CHOLECALCIFEROL 1,000 UNIT TAB PO SCH (08:14)
[2023-06-26] MEDS: DOCUSATE SODIUM 100 MG CAP PO SCH (08:14)
[2023-06-26] MEDS: ATORVASTATIN 20 MG TAB PO SCH (08:14)
[2023-06-26] MEDS: FOLIC ACID/CYANOCOB/PYRIDOXINE TAB PO SCH (08:14)
[2023-06-26] MEDS: TESTOSTERONE PO SCH (08:15)
[2023-06-26] MEDS: [UNRECOGNIZED DRUG - OTHER] PO SCH (08:15)
[2023-06-26] MEDS: LISINOPRIL 10 MG TAB PO SCH (08:15)
[2023-06-26 11:17] LABS: ANISOCYTOSIS SLIGHT; BAND NEUTROPHILS % (MANUAL) 6 %; EOSINOPHILS % (MANUAL) 1 % (0-7); LYMPHOCYTES % (MANUAL) 10 % (19-48); METAMYELOCYTES % (MANUAL) 6 % (0-0); MONOCYTES % (MANUAL) 6 % (3.4-9.0); MYELOCYTES % (MANUAL) 5 % (0-0); NEUTROPHILS % (MANUAL) 64 % (40-74); PLATELET ESTIMATE ADEQUATE; PLATELET MORPHOLOGY COMMENT NORMAL
[2023-06-26] MEDS ORDERED: ACETAMINOPHEN 325 MG TAB PO PRN (12:00)
[2023-06-26] MEDS: SODIUM CHLORIDE 0.9% 1000ML 1,000 ML IV SCH ×2 (12:15→21:00)
[2023-06-26] MEDS: CIPROFLOXACIN 200 MG/D5W 100ML 100 ML IV SCH ×2 (12:17→20:59)
[2023-06-26] MEDS: CEFEPIME 2 GM in SODIUM CHLORIDE 0.9% 100 ML IV SCH (14:13)
[2023-06-26] MEDS: TAMSULOSIN HCL 0.4 MG CAP PO SCH (20:58)
[2023-06-27] VITALS: BP 93/53; PULSE 94; RESP 18; TEMP 98.9; O2SAT 99
[2023-06-27] MEDS: HYDROCODONE/APAP 10MG-325MG TAB PO PRN ×2 (03:24→18:48)
[2023-06-27 04:00] VITALS: BP 99/63; PULSE 93; RESP 18; TEMP 99; O2SAT 94
[2023-06-27] MEDS: SODIUM CHLORIDE 0.9% 1000ML 1,000 ML IV SCH ×2 (05:28→12:00)
[2023-06-27] MEDS: HEPARIN SOD (PORCINE) 5,000 UNIT/ML VIAL SC SCH ×2 (05:35→15:54)
[2023-06-27 06:10] LABS: BASOPHILS # (AUTO) 0.1 (0.0-0.1); BASOPHILS % 0.5 % (0.0-1.0); EOSINOPHILS # (AUTO) 0.1 (0.0-0.4); EOSINOPHILS % 0.9 % (0.0-6.0); HEMATOCRIT 27.6 % (38.2-49.6); HEMOGLOBIN 9.3 g/dL (14.0-18.0); LYMPHOCYTES # (AUTO) 1.4 (1.0-3.2); LYMPHOCYTES % 10.9 % (18.0-39.1); MEAN CORPUSCULAR HGB CONC 33.7 g/dL (31-35); MEAN CORPUSCULAR VOLUME 103.8 fL (81-99); MONOCYTES # (AUTO) 1.4 (0.2-0.8); MONOCYTES % 10.7 % (4.4-11.3); NEUTROPHILS # (AUTO) 8.1 (2.1-6.9); NEUTROPHILS % 62.2 % (38.7-80.0); PLATELET COUNT 320 x10e3/uL (140-360); RED BLOOD COUNT 2.66 x10e6/uL (4.3-5.7); RED CELL DISTRIBUTION WIDTH 15.4 % (11.7-14.4); WHITE BLOOD COUNT 12.94 x10e3/uL (4.8-10.8)
[2023-06-27 06:57] LABS: ALBUMIN 1.9 g/dL (3.5-5.0); ALBUMIN/GLOBULIN RATIO 0.6 (0.8-2.0); ANION GAP 12.3 mmol/L (8-16); CALCIUM 9.4 mg/dL (8.4-10.2); CREATININE, SERUM 2.02 mg/dL (0.72-1.25); POTASSIUM 4.3 mmol/L (3.5-5.1)
[2023-06-27] MEDS: CHOLECALCIFEROL 1,000 UNIT TAB PO SCH (08:38)
[2023-06-27] MEDS: FOLIC ACID/CYANOCOB/PYRIDOXINE TAB PO SCH (08:38)
[2023-06-27] MEDS: DOCUSATE SODIUM 100 MG CAP PO SCH (08:38)
[2023-06-27] MEDS: ATORVASTATIN 20 MG TAB PO SCH (08:38)
[2023-06-27] MEDS: SENNOSIDES 8.6 MG TAB PO SCH (08:38)
[2023-06-27] MEDS: TESTOSTERONE PO SCH (08:39)
[2023-06-27] MEDS: [UNRECOGNIZED DRUG - OTHER] PO SCH (08:39)
[2023-06-27 08:45] VITALS: BP 108/66; PULSE 86; RESP 19; TEMP 97.7; O2SAT 97
[2023-06-27 09:00] VITALS: BP 108/66; PULSE 86; RESP 19; TEMP 97.7; O2SAT 97
[2023-06-27 09:13] LABS: BAND NEUTROPHILS % (MANUAL) 5 %; EOSINOPHILS % (MANUAL) 1 % (0-7); LYMPHOCYTES % (MANUAL) 10 % (19-48); METAMYELOCYTES % (MANUAL) 3 % (0-0); MONOCYTES % (MANUAL) 6 % (3.4-9.0); MYELOCYTES % (MANUAL) 6 % (0-0); NEUTROPHILS % (MANUAL) 64 % (40-74); PLATELET ESTIMATE ADEQUATE; PLATELET MORPHOLOGY COMMENT NORMAL; RBC MORPHOLOGY COMMENT ABNORMAL
[2023-06-27] MEDS: CIPROFLOXACIN 200 MG/D5W 100ML 100 ML IV SCH (11:13)
[2023-06-27] MEDS: CEFEPIME 2 GM in SODIUM CHLORIDE 0.9% 100 ML IV SCH (15:53)
[2023-06-27 17:15] VITALS: BP 108/64; PULSE 98; RESP 19; TEMP 99; O2SAT 96
[2023-06-27 20:00] VITALS: BP 107/61; PULSE 104; RESP 18; TEMP 99.4; O2SAT 93
[2023-06-27] MEDS ORDERED: CIPROFLOXACIN 250 MG TAB PO SCH (21:00)
== END 2023-06-27 19:58 | DRG 871 ==
LOC: ER 12:30 → ERHOLD 14:26 → MED/SURG2 15:51
PROVIDERS: ADMIT Internal Medicine; ATTEND Internal Medicine
DX: A41.89 Other specified sepsis (principal); E43 Unspecified severe protein-calorie malnutrition; L03.115 Cellulitis of right lower limb; D84.9 Immunodeficiency, unspecified; E87.21 Acute metabolic acidosis; R65.20 Severe sepsis without septic shock; S81.801A Unspecified open wound, right lower leg, initial encounter; I12.9 Hypertensive chronic kidney disease with stage 1 through stage 4 chronic kidney disease, or unspecified chronic kidney disease; N18.32 Chronic kidney disease, stage 3b; D63.1 Anemia in chronic kidney disease; W26.8XXA Contact with other sharp object(s), not elsewhere classified, initial encounter; W22.8XXA Striking against or struck by other objects, initial encounter; G89.29 Other chronic pain; M54.50 Low back pain, unspecified; R73.03 Prediabetes; R53.81 Other malaise; M06.9 Rheumatoid arthritis, unspecified; F41.9 Anxiety disorder, unspecified; K43.9 Ventral hernia without obstruction or gangrene; K57.90 Diverticulosis of intestine, part unspecified, without perforation or abscess without bleeding; E78.2 Mixed hyperlipidemia; N28.9 Disorder of kidney and ureter, unspecified; F43.21 Adjustment disorder with depressed mood; N40.0 Benign prostatic hyperplasia without lower urinary tract symptoms; Z96.651 Presence of right artificial knee joint; Z98.1 Arthrodesis status; Z79.890 Hormone replacement therapy; Z79.631 Long term (current) use of antimetabolite agent; Z79.899 Other long term (current) drug therapy; Z20.822 Contact with and (suspected) exposure to COVID-19; Z68.29 Body mass index [BMI] 29.0-29.9, adult
CPT/HCPCS: 36415; 70450; 71046; 74176; 80048; 80053; 80202; 81001; 82550; 82607; 82728; 83540; 83605; 83735; 84466; 84484; 85025; 85610; 85730; 87040; 87071; 87086; 87186; 87205; 93005; 93925; 93971; 94799; 99252; 99284; J0692; J1644; J2185; J2405; J2543; J3370; J7030; J7050; J7509; Q0162; Q9967; U0002